=== PATIENT | male | born 1960 | race Two or more races ===

== ENCOUNTER 2018-06-02 18:31 | Inpatient (IN) | payer OTHER ==
[~2018-06-02] VITALS: Ht 162.6 cm; Wt 53.2 kg
[2018-06-02] MEDS ORDERED: Sodium Chloride 500ML 500 ML IV ONE (18:45)
[2018-06-02] MEDS ORDERED: MELATONIN3 MG ORAL (18:49)
[2018-06-02] MEDS ORDERED: LISINOPRIL5 MG ORAL (18:49)
[2018-06-02] MEDS ORDERED: NEXIUM20 MG ORAL (18:49)
[2018-06-02] MEDS ORDERED: ASCORBIC ACID500 MG ORAL (18:49)
[2018-06-02] MEDS ORDERED: ACETAMINOPHEN325 M1 ORAL (18:49)
[2018-06-02] MEDS ORDERED: DULCOLAX10 MG RC (18:49)
[2018-06-02] MEDS ORDERED: COLACE100 MG ORAL (18:49)
[2018-06-02] MEDS ORDERED: ATORVASTATIN CA20 MG ORAL (18:49)
[2018-06-02] MEDS ORDERED: AMLODIPINE BESY10 MG ORAL (18:49)
[2018-06-02] MEDS ORDERED: VITAMIN D400 INTLU ORAL (18:49)
[2018-06-02] MEDS ORDERED: MULTIVITAMINS1 EAC2 ORAL (18:49)
[2018-06-02] MEDS ORDERED: PRO-STAT LIQUID30 ML ORAL (18:49)
[2018-06-02 19:12] LABS: BASOPHILS % (AUTO) 0.4 % (0.0-2.0); HEMATOCRIT 31.1 % (42.0-52.0); HEMOGLOBIN 10.2 G/DL (14.2-18.0); LYMPHOCYTES % (AUTO) 15.1 % (20.0-45.0); MEAN CORPUSCULAR VOLUME 87 FL (80-99); MONOCYTES % (AUTO) 5.5 % (1.0-10.0); PLATELET COUNT 380 K/UL (150-450); RED BLOOD COUNT 3.59 M/UL (4.70-6.10); RED CELL DISTRIBUTION WIDTH 15.3 % (11.6-14.8); WHITE BLOOD COUNT 16.7 K/UL (4.8-10.8)
[2018-06-02 19:19] VITALS: BP 101/64
[2018-06-02 19:20] LABS: ANION GAP 11 mmol/L (5-15); BLOOD UREA NITROGEN 19 mg/dL (7-18); CALCIUM 9.3 MG/DL (8.5-10.1); CARBON DIOXIDE 25 MMOL/L (21-32); CHLORIDE 103 MMOL/L (98-107); CREATININE 0.8 MG/DL (0.55-1.30); POTASSIUM 4.2 MMOL/L (3.5-5.1); SODIUM 139 MMOL/L (136-145)
[2018-06-02 19:33] LABS: ALANINE AMINOTRANSFERASE 27 U/L (12-78); ALBUMIN 3.1 G/DL (3.4-5.0); ALBUMIN/GLOBULIN RATIO 0.6 (1.0-2.7); ALKALINE PHOSPHATASE 105 U/L (46-116); ASPARTATE AMINO TRANSFERASE 16 U/L (15-37); BILIRUBIN,TOTAL 0.3 MG/DL (0.2-1.0); CKMB 1.5 NG/ML (0.0-3.6); CREATINE KINASE 94 U/L (26-308)
--- NOTE | 2018-06-02 19:34 | Emergency Room Report ---
History of Present Illness General Chief Complaint: General Complaint Source: Patient, EMS Present Illness HPI Patient presents for evaluation of feeding tube placement Patient himself reports that he has no pain Denies any vomiting Patient has been having decreased oral intake The notes on the nursing facility indicate transfer to Hospital for feeding tube placement I am attempting to obtain further input regarding the need for feeding tube Patient has a tracheostomy in place with previous respiratory failure It is unclear regarding any esophageal mobility or other obstructive pathology Allergies: Coded Allergies: No Known Allergies (Unverified , 06/02/18) Patient History Past Medical History: see triage record Pertinent Family History: none Reviewed Nursing Documentation: PMH: Agreed; PSxH: Agreed Nursing Documentation-PMH Past Medical History: No History, Except For Hx Hypertension: Yes Hx COPD: Yes Review of Systems All Other Systems: negative except mentioned in HPI Physical Exam Vital Signs Date Time Temp Pulse Resp B/P (MAP) Pulse Ox O2 Delivery O2 Flow Rate FiO2 06/02/18 18:36 98.1 89 19 130/72 99 Mechanical Ventilator 06/02/18 18:43 40 Sp02 EP Interpretation: reviewed, normal General Appearance: well appearing, no apparent distress Head: normocephalic, atraumatic Eyes: bilateral eye PERRL, bilateral eye EOMI ENT: hearing grossly normal, normal pharynx, TMs + canals normal, uvula midline , other - Tracheostomy in place Neck: full range of motion, supple, no meningismus, no bony tend Respiratory: lungs clear, normal breath sounds, no rhonchi, no respiratory distress, no retraction, no accessory muscle use Cardiovascular #1: normal peripheral pulses, regular rate, rhythm, no edema, no gallop, no JVD, no murmur Gastrointestinal: normal bowel sounds, non tender, soft, no mass, no organomegaly, non-distended, no guarding, no hernia, no pulsatile mass, no rebound Genitourinary: no CVA tenderness Musculoskeletal: other - Chronically debilitated, moves both upper extremities equally Neurologic: oriented x3, responsive Psychiatric: mood/affect normal Skin: normal color, no rash, warm/dry, palpation normal Lymphatic: normal inspection, no adenopathy Medical Decision Making Diagnostic Impression: Primary Impression: Leukocytosis Qualified Codes: D72.829 - Elevated white blood cell count, unspecified Additional Impression: Dehydration ER Course Patient is a fairly complex patient with multiple differential to consideration including but not limited to cardiac cardiopulmonary and vascular emergencies Patient's blood work reveals elevated white blood cell count Patient requiring IV hydration No obvious source is seen at this time Patient had blood cultures obtained and antibiotics provided requiring further inpatient care Labs Test 06/02/18 19:00 06/02/18 19:54 06/02/18 22:13 06/03/18 03:10 White Blood Count 16.7 K/UL (4.8-10.8) 12.4 K/UL (4.8-10.8) Red Blood Count 3.59 M/UL (4.70-6.10) 3.15 M/UL (4.70-6.10) Hemoglobin 10.2 G/DL (14.2-18.0) 9.0 G/DL (14.2-18.0) Hematocrit 31.1 % (42.0-52.0) 26.9 % (42.0-52.0) Mean Corpuscular Volume 87 FL (80-99) 85 FL (80-99) Mean Corpuscular Hemoglobin 28.4 PG (27.0-31.0) 28.6 PG (27.0-31.0) Mean Corpuscular Hemoglobin Concent 32.7 G/DL (32.0-36.0) 33.4 G/DL (32.0-36.0) Red Cell Distribution Width 15.3 % (11.6-14.8) 14.9 % (11.6-14.8) Platelet Count 380 K/UL (150-450) 299 K/UL (150-450) Mean Platelet Volume 7.8 FL (6.5-10.1) 8.1 FL (6.5-10.1) Neutrophils (%) (Auto) 78.0 % (45.0-75.0) 72.8 % (45.0-75.0) Lymphocytes (%) (Auto) 15.1 % (20.0-45.0) 18.9 % (20.0-45.0) Monocytes (%) (Auto) 5.5 % (1.0-10.0) 6.5 % (1.0-10.0) Eosinophils (%) (Auto) 1.0 % (0.0-3.0) 1.3 % (0.0-3.0) Basophils (%) (Auto) 0.4 % (0.0-2.0) 0.5 % (0.0-2.0) Prothrombin Time 10.6 SEC (9.30-11.50) Prothromb Time International Ratio 1.0 (0.9-1.1) Activated Partial Thromboplast Time 29 SEC (23-33) Sodium Level 139 MMOL/L (136-145) 137 MMOL/L (136-145) Potassium Level 4.2 MMOL/L (3.5-5.1) 3.5 MMOL/L (3.5-5.1) Chloride Level 103 MMOL/L (98-107) 104 MMOL/L (98-107) Carbon Dioxide Level 25 MMOL/L (21-32) 23 MMOL/L (21-32) Anion Gap 11 mmol/L (5-15) 10 mmol/L (5-15) Blood Urea Nitrogen 19 mg/dL (7-18) 15 mg/dL (7-18) Creatinine 0.8 MG/DL (0.55-1.30) 0.6 MG/DL (0.55-1.30) Estimat Glomerular Filtration Rate > 60 mL/min (>60) > 60 mL/min (>60) Glucose Level 113 MG/DL (74-106) 84 MG/DL (74-106) Calcium Level 9.3 MG/DL (8.5-10.1) 8.8 MG/DL (8.5-10.1) Total Bilirubin 0.3 MG/DL (0.2-1.0) 0.6 MG/DL (0.2-1.0) Aspartate Amino Transf (AST/SGOT) 16 U/L (15-37) 14 U/L (15-37) Alanine Aminotransferase (ALT/SGPT) 27 U/L (12-78) 20 U/L (12-78) Alkaline Phosphatase 105 U/L (46-116) 86 U/L (46-116) Total Creatine Kinase 94 U/L (26-308) Creatine Kinase MB 1.5 NG/ML (0.0-3.6) Creatine Kinase MB Relative Index 1.5 Troponin I 0.000 ng/mL (0.000-0.056) Total Protein 7.9 G/DL (6.4-8.2) 7.3 G/DL (6.4-8.2) Albumin 3.1 G/DL (3.4-5.0) 2.6 G/DL (3.4-5.0) Globulin 4.8 g/dL 4.7 g/dL Albumin/Globulin Ratio 0.6 (1.0-2.7) 0.6 (1.0-2.7) Urine Color Pale yellow Urine Appearance Clear Urine pH 5 (4.5-8.0) Urine Specific [place] 1.020 (1.005-1.035) Urine Protein Negative (NEGATIVE) Urine Glucose (UA) Negative (NEGATIVE) Urine Ketones Negative (NEGATIVE) Urine Blood Negative (NEGATIVE) Urine Nitrite Negative (NEGATIVE) Urine Bilirubin Negative (NEGATIVE) Urine Urobilinogen Normal MG/DL (0.0-1.0) Urine Leukocyte Esterase 1+ (NEGATIVE) Urine RBC 0-2 /HPF (0 - 0) Urine WBC 0-2 /HPF (0 - 0) Urine Squamous Epithelial Cells None /LPF (NONE/OCC) Urine Bacteria Few /HPF (NONE) Arterial Blood pH 7.474 (7.350-7.450) Arterial Blood Partial Pressure CO2 33.3 mmHg (35.0-45.0) Arterial Blood Partial Pressure O2 133.9 mmHg (75.0-100.0) Arterial Blood HCO3 23.9 mmol/L (22.0-26.0) Arterial Blood Oxygen Saturation 98.3 % (95-100) Arterial Blood Base Excess 0.6 (-2-2) Edgar Test Positive EKG Diagnostic Results Rate: normal Rhythm: NSR ST Segments: no acute changes Rhythm Strip Diag. Results EP Interpretation: yes Rate: 80 Rhythm: NSR, no PVC's, no ectopy Chest X-Ray Diagnostic Results Chest X-Ray Diagnostic Results : Chest X-Ray Ordered: Yes # of Views/Limited/Complete: 1 View Indication: Chest Pain EP Interpretation: Yes Interpretation: no consolidation, no pneumothorax, other - Left lower lobe Atelectasis Impression: Other - left lower lobeatelectasis Electronically Signed by: Vinny Olivas DO Last Vital Signs Date Time Temp Pulse Resp B/P (MAP) Pulse Ox O2 Delivery O2 Flow Rate FiO2 06/02/18 19:19 98.1 72 16 101/64 99 Room Air 40 Status: improved Disposition: ADMITTED INPATIENT Condition: Serious Referrals: ROBERTO CARLOS BOATENG (PCP) Vinny Olivas DO Jun 02, 2018 19:34
[2018-06-02 20:04] LABS: APPEARANCE,URINE CLEAR; BILIRUBIN, URINE NEGATIVE (NEGATIVE); COLOR,URINE PALE YELLOW; GLUCOSE, URINE (UA) NEGATIVE (NEGATIVE); KETONES,URINE NEGATIVE (NEGATIVE); LEUKOCYTE ESTERASE ,URINE 1+ (NEGATIVE); NITRITE,URINE NEGATIVE (NEGATIVE); PH,URINE 5 (4.5-8.0); PROTEIN,URINE NEGATIVE (NEGATIVE); UROBILINOGEN,URINE NORMAL MG/DL (0.0-1.0)
[2018-06-02] MEDS ORDERED: HEPARIN SO5000 UNIT2 SUBQ (20:17)
[2018-06-02] MEDS ORDERED: MULTIVITAMINS1 EAC8 ORAL (20:38)
[2018-06-02] MEDS ORDERED: LANSOPRAZOLE30 MG ORAL (20:38)
[2018-06-02] MEDS ORDERED: RILUZOLE50 M1 ORAL (20:38)
[2018-06-02] MEDS ORDERED: CRANBERRY425 MG PO (20:50)
[2018-06-02] MEDS ORDERED: IBUPROFEN600 MG ORAL (20:50)
[2018-06-02] MEDS ORDERED: HIBICLENS118 ML PO (20:50)
[2018-06-02 21:20] VITALS: BP 141/90
[2018-06-02] MEDS: D5NS 1,000 ML IV SCH (22:00)
[2018-06-03] VITALS: BP 110/75
[2018-06-03 05:14] LABS: BASOPHILS % (AUTO) 0.5 % (0.0-2.0); EOSINOPHILS % (AUTO) 1.3 % (0.0-3.0); HEMATOCRIT 26.9 % (42.0-52.0); LYMPHOCYTES % (AUTO) 18.9 % (20.0-45.0); MEAN CORPUSCULAR VOLUME 85 FL (80-99); MONOCYTES % (AUTO) 6.5 % (1.0-10.0); NEUTROPHILS % (AUTO) 72.8 % (45.0-75.0); PLATELET COUNT 299 K/UL (150-450); RED BLOOD COUNT 3.15 M/UL (4.70-6.10); RED CELL DISTRIBUTION WIDTH 14.9 % (11.6-14.8); WHITE BLOOD COUNT 12.4 K/UL (4.8-10.8)
[2018-06-03 05:44] LABS: ALANINE AMINOTRANSFERASE 20 U/L (12-78); ALBUMIN 2.6 G/DL (3.4-5.0); ALBUMIN/GLOBULIN RATIO 0.6 (1.0-2.7); ALKALINE PHOSPHATASE 86 U/L (46-116); ANION GAP 10 mmol/L (5-15); ASPARTATE AMINO TRANSFERASE 14 U/L (15-37); BILIRUBIN,TOTAL 0.6 MG/DL (0.2-1.0); BLOOD UREA NITROGEN 15 mg/dL (7-18); CALCIUM 8.8 MG/DL (8.5-10.1); CARBON DIOXIDE 23 MMOL/L (21-32); CHLORIDE 104 MMOL/L (98-107); CREATININE 0.6 MG/DL (0.55-1.30); POTASSIUM 3.5 MMOL/L (3.5-5.1); SODIUM 137 MMOL/L (136-145)
[2018-06-03 08:00] VITALS: BP 101/68
--- NOTE | 2018-06-03 08:16 | Consultation ---
Consult Note Assessment/Plan DICT # [id number] Parveen Blanco MD Jun 03, 2018 08:16
[2018-06-03] MEDS: Lisinopril 10mg tab ORAL SCH (08:22)
[2018-06-03] MEDS: Multivitamin w/Minerals tab ORAL SCH (08:44)
[2018-06-03] MEDS: D5NS 1,000 ML IV SCH ×2 (08:44→17:20)
[2018-06-03] MEDS: Vitamin D 1000 IU Tab ORAL SCH (08:45)
[2018-06-03] MEDS: Docusate 100mg cap ORAL SCH ×2 (08:46→17:20)
[2018-06-03] MEDS: Heparin 5000 units/ml inj SUBQ SCH ×2 (08:46→20:13)
--- NOTE | 2018-06-03 08:51 | History and Physical ---
History of Present Illness General Date patient seen: Jun 03, 2018 Time patient seen: 08:42 Reason for Hospitalization: weight loss Present Illness HPI 58 yo male with h/o htn and h/o trach s/p resp failure at [facility] presents due to concerns for malnutrition. Patient currently resides at [facility]. I have discussed the case with his son as it was difficult to understand patient as he has trach and attached to vent. Patient currently is being evaluated by neurologist and there is concerned for motor neuron disease such as ALS. Patient was recommended to get PEG placement due to unintentional weight loss and poor PO intake. Patient currently denies any complaints besides weight loss, denies any cp or abd pain/diarrhea/constipation. Unclear regarding any esophageal mobility or other obstructive pathology, CT abd/pelvis pending per pulm, Dr. Blanco planned for PEG GI dr. Lainez consulted ID Dr. De La Cruz consulted Code status: FULL CODE social hx reviewed, past smoker, does not drink alcohol or do drugs past fam hx reviewed, denies knowing of any sig past fam hx Allergies: Coded Allergies: No Known Allergies (Unverified , 06/02/18) Medication History Scheduled Amino Acids/Protein Hydrolys (Pro-Stat Liquid), 30 ML ORAL TWICE A DAY, ( Reported) Amlodipine Besylate* (Amlodipine Besylate*), 10 MG ORAL DAILY, (Reported) Ascorbic Acid* (Ascorbic Acid*), 500 MG ORAL DAILY, (Reported) Atorvastatin Calcium* (Atorvastatin Calcium*), 10 MG ORAL BEDTIME, (Reported) Chlorhexidine Gluconate* (Hibiclens*), 15 ML PO BID, (Reported) Cranberry Extract (Cranberry), 425 MG PO DAILY, (Reported) Docusate Sodium* (Colace*), 100 MG ORAL BID, (Reported) Lansoprazole* (Lansoprazole*), 30 MG ORAL BID, (Reported) Lisinopril (Lisinopril*), 10 MG ORAL DAILY, (Reported) Melatonin (Melatonin), 3 MG ORAL BEDTIME, (Reported) Multivitamin With Minerals (Multivitamins With Minerals*), 1 TAB ORAL DAILY, ( Reported) Riluzole* (Riluzole*), 50 MG ORAL EVERY 12 HOURS, (Reported) Vitamin D (Vitamin D3), 5,000 UNITS ORAL DAILY, (Reported) Scheduled PRN Acetaminophen* (Acetaminophen 325MG Tablet*), 650 MG ORAL Q4H PRN for For Pain, (Reported) Bisacodyl (Dulcolax), 10 MG RC for Constipation, (Reported) Ibuprofen* (Motrin*), 600 MG ORAL Q8H PRN for For Pain, (Reported) Discontinued Medications Esomeprazole Magnesium (Nexium), 20 MG ORAL DAILY, (Reported) Discontinued Reason: Prescription changed Heparin Sod (Porcine) (Heparin Sodium*), 5,000 UNITS SUBQ EVERY 12 HOURS, ( Reported) Discontinued Reason: Pt stopped taking med Multivitamins* (Multivitamins*), 1 TAB ORAL DAILY, (Reported) Discontinued Reason: Prescription changed Patient History History Provided By: Family Member, Medical Record Healthcare decision maker : Randa Robles Resuscitation status Full Code Advanced Directive on File Yes Review of Systems ROS Narrative 14 point ros reviewed and negative except per above HPI Physical Exam General Appearance: WD/WN, no apparent distress, alert Lines, tubes and drains: peripheral HEENT: normocephalic, atraumatic Neck: non-tender, normal alignment, supple, normal inspection, trach Cardiovascular/Chest: normal peripheral pulses, normal rate, regular rhythm Abdomen: normal bowel sounds, non tender, soft, no organomegaly, no mass Extremities: normal range of motion, non-tender, normal inspection, no calf tenderness Skin Exam: normal pigmentation, warm/dry Neurologic: lay brother II-XII grossly normal, alert, oriented x 3, responsive, normal mood/affect Last 24 Hour Vital Signs Date Time Temp Pulse Resp B/P (MAP) Pulse Ox O2 Delivery O2 Flow Rate FiO2 06/03/18 08:22 101/68 06/03/18 08:22 59 101/68 06/03/18 08:00 97.6 59 19 101/68 (79) 100 06/03/18 08:00 40 06/03/18 07:30 58 16 40 06/03/18 04:49 54 16 40 06/03/18 04:00 40 06/03/18 04:00 75 06/03/18 04:00 Mechanical Ventilator 06/03/18 02:51 55 16 40 06/03/18 00:44 100 16 40 06/03/18 00:00 98.8 73 16 110/75 (87) 100 06/03/18 00:00 67 06/03/18 00:00 Mechanical Ventilator 06/03/18 00:00 40 06/02/18 23:06 104 24 40 06/02/18 21:50 Mechanical Ventilator 06/02/18 21:35 98.5 72 17 97/68 100 Room Air 06/02/18 21:31 83 18 40 06/02/18 21:20 40 06/02/18 21:20 98.4 97 22 141/90 (107) 99 06/02/18 21:20 73 06/02/18 19:30 40 06/02/18 19:19 98.1 72 16 101/64 99 Room Air 40 06/02/18 19:19 79 16 Mechanical Ventilator 40 06/02/18 18:47 79 16 Mechanical Ventilator 40 06/02/18 18:43 79 16 40 06/02/18 18:36 98.1 89 19 130/72 99 Mechanical Ventilator Intake and Output 06/02/18 06/03/18 19:00 07:00 Intake Total 0 ml Output Total 500 ml Balance -500 ml Intake Oral 0 ml Output Urine Total 500 ml # Voids 1 Laboratory Tests Test 06/02/18 19:00 06/02/18 19:54 06/02/18 22:13 06/03/18 03:10 White Blood Count 16.7 K/UL (4.8-10.8) H 12.4 K/UL (4.8-10.8) H Red Blood Count 3.59 M/UL (4.70-6.10) L 3.15 M/UL (4.70-6.10) L Hemoglobin 10.2 G/DL (14.2-18.0) L 9.0 G/DL (14.2-18.0) L Hematocrit 31.1 % (42.0-52.0) L 26.9 % (42.0-52.0) L Mean Corpuscular Volume 87 FL (80-99) 85 FL (80-99) Mean Corpuscular Hemoglobin 28.4 PG (27.0-31.0) 28.6 PG (27.0-31.0) Mean Corpuscular Hemoglobin Concent 32.7 G/DL (32.0-36.0) 33.4 G/DL (32.0-36.0) Red Cell Distribution Width 15.3 % (11.6-14.8) H 14.9 % (11.6-14.8) H Platelet Count 380 K/UL (150-450) 299 K/UL (150-450) Mean Platelet Volume 7.8 FL (6.5-10.1) 8.1 FL (6.5-10.1) Neutrophils (%) (Auto) 78.0 % (45.0-75.0) H 72.8 % (45.0-75.0) Lymphocytes (%) (Auto) 15.1 % (20.0-45.0) L 18.9 % (20.0-45.0) L Monocytes (%) (Auto) 5.5 % (1.0-10.0) 6.5 % (1.0-10.0) Eosinophils (%) (Auto) 1.0 % (0.0-3.0) 1.3 % (0.0-3.0) Basophils (%) (Auto) 0.4 % (0.0-2.0) 0.5 % (0.0-2.0) Prothrombin Time 10.6 SEC (9.30-11.50) Prothromb Time International Ratio 1.0 (0.9-1.1) Activated Partial Thromboplast Time 29 SEC (23-33) Sodium Level 139 MMOL/L (136-145) 137 MMOL/L (136-145) Potassium Level 4.2 MMOL/L (3.5-5.1) 3.5 MMOL/L (3.5-5.1) Chloride Level 103 MMOL/L (98-107) 104 MMOL/L (98-107) Carbon Dioxide Level 25 MMOL/L (21-32) 23 MMOL/L (21-32) Anion Gap 11 mmol/L (5-15) 10 mmol/L (5-15) Blood Urea Nitrogen 19 mg/dL (7-18) H 15 mg/dL (7-18) Creatinine 0.8 MG/DL (0.55-1.30) 0.6 MG/DL (0.55-1.30) Estimat Glomerular Filtration Rate > 60 mL/min (>60) > 60 mL/min (>60) Glucose Level 113 MG/DL (74-106) H 84 MG/DL (74-106) Calcium Level 9.3 MG/DL (8.5-10.1) 8.8 MG/DL (8.5-10.1) Total Bilirubin 0.3 MG/DL (0.2-1.0) 0.6 MG/DL (0.2-1.0) Aspartate Amino Transf (AST/SGOT) 16 U/L (15-37) 14 U/L (15-37) L Alanine Aminotransferase (ALT/SGPT) 27 U/L (12-78) 20 U/L (12-78) Alkaline Phosphatase 105 U/L (46-116) 86 U/L (46-116) Total Creatine Kinase 94 U/L (26-308) Creatine Kinase MB 1.5 NG/ML (0.0-3.6) Creatine Kinase MB Relative Index 1.5 Troponin I 0.000 ng/mL (0.000-0.056) Total Protein 7.9 G/DL (6.4-8.2) 7.3 G/DL (6.4-8.2) Albumin 3.1 G/DL (3.4-5.0) L 2.6 G/DL (3.4-5.0) L Globulin 4.8 g/dL 4.7 g/dL Albumin/Globulin Ratio 0.6 (1.0-2.7) L 0.6 (1.0-2.7) L Urine Color Pale yellow Urine Appearance Clear Urine pH 5 (4.5-8.0) Urine Specific [place] 1.020 (1.005-1.035) Urine Protein Negative (NEGATIVE) Urine Glucose (UA) Negative (NEGATIVE) Urine Ketones Negative (NEGATIVE) Urine Blood Negative (NEGATIVE) Urine Nitrite Negative (NEGATIVE) Urine Bilirubin Negative (NEGATIVE) Urine Urobilinogen Normal MG/DL (0.0-1.0) Urine Leukocyte Esterase 1+ (NEGATIVE) H Urine RBC 0-2 /HPF (0 - 0) H Urine WBC 0-2 /HPF (0 - 0) Urine Squamous Epithelial Cells None /LPF (NONE/OCC) Urine Bacteria Few /HPF (NONE) Arterial Blood pH 7.474 (7.350-7.450) Arterial Blood Partial Pressure CO2 33.3 mmHg (35.0-45.0) L Arterial Blood Partial Pressure O2 133.9 mmHg (75.0-100.0) H Arterial Blood HCO3 23.9 mmol/L (22.0-26.0) Arterial Blood Oxygen Saturation 98.3 % (95-100) Arterial Blood Base Excess 0.6 (-2-2) Edgar Test Positive Height (Feet): 5 Height (Inches): 4.00 Weight (Pounds): 112 Medications Current Medications Medications (Trade) Dose Ordered Sig/Irma Route PRN Reason Start Time Stop Time Status Last Admin Dose Admin Acetaminophen (Tylenol) 650 mg Q4H PRN ORAL For Pain 06/02/18 22:00 07/02/18 21:59 Albuterol/ Ipratropium (Albuterol/ Ipratropium) 3 ml Q4H PRN HHN Shortness of Breath 06/03/18 08:15 06/08/18 08:14 Amlodipine Besylate (Norvasc) 10 mg DAILY ORAL 06/03/18 09:00 07/03/18 08:59 Atorvastatin Calcium (Lipitor) 10 mg BEDTIME ORAL 06/02/18 22:30 07/02/18 22:29 06/02/18 22:35 Bisacodyl (Dulcolax) 10 mg DAILYPRN PRN RECTAL Constipation 06/03/18 06:41 07/03/18 06:40 Dextrose/Sodium Chloride 1,000 ml @ 100 mls/hr Q10H IV 06/02/18 22:00 07/02/18 21:59 06/02/18 22:00 Docusate Sodium (Colace) 100 mg BID ORAL 06/03/18 09:00 07/03/18 08:59 Heparin Sodium (Porcine) (Heparin 5000 units/ml) 5,000 units EVERY 12 HOURS SUBQ 06/03/18 09:00 07/03/18 08:59 Lansoprazole (Prevacid) 30 mg BID ORAL 06/03/18 09:00 07/03/18 08:59 Lisinopril (Zestril) 10 mg DAILY ORAL 06/03/18 09:00 07/03/18 08:59 Multivitamins Therapeutic (Therapeutic Multivitamin) 1 ea DAILY ORAL 06/03/18 09:00 07/03/18 08:59 Vitamin D (Vitamin D) 2,000 intlu DAILY ORAL 06/03/18 09:00 07/03/18 08:59 Assessment/Plan Problem List: (1) Protein calorie malnutrition ICD Codes: E46 - Unspecified protein-calorie malnutrition SNOMED: 402376479 (2) Status post tracheostomy ICD Codes: Z93.0 - Tracheostomy status SNOMED: 80176810, 142253207 (3) Motor neuron disease, unspecified ICD Codes: G12.20 - Motor neuron disease, unspecified SNOMED: 92550951 (4) Leukocytosis ICD Codes: D72.829 - Elevated white blood cell count, unspecified SNOMED: 210634291, 450867721 Qualifiers: Qualified Codes: D72.829 - Elevated white blood cell count, unspecified (5) Essential hypertension ICD Codes: I10 - Essential (primary) hypertension SNOMED: 90787826 Status: stable Assessment/Plan WBC 16 on admit, unsure of cause, cxr pending, ct abd pelvis pending, aspiration ? levofloxacin started, ID consulted poor PO intake, Patient has a tracheostomy in place with previous respiratory failure, unclear regarding any esophageal mobility or other obstructive pathology, GI consulted, plan for PEG placement follows with neurology outpatient, complete possible ALS workup outpt patient trached, connected to vent, pulm consulted, appreciate recs pending ct abd/pelv w/wo con [employer] operations specialist consult resume htn meds DVT Prophylaxis: SCD, HSQ Code Status: Full Hospital Classification Declaration: Based on this initial evaluation, and depending on the patient's clinical course, I anticipate that this patient will require hospitalization for [] days for [] and close respiratory/hemodynamic monitoring. Disposition: Once the patient is stable to leave the hospital, I anticipate the patient will likely be discharged to the following environment: home I spent 71 minutes on this patient's case, and 40 minutes were dedicated to counseling and/or care coordination. Discussed with patient/family, nursing staff, SW/CM, and consultants regarding clinical status, treatment course, and disposition planning. Time of note may not reflect time of encounter. ---- Date of Discussion: 06/03/18 A [id number] discussion with the patient's son regarding the patient's advanced care planning took place during this hospitalization on the above date. The discussion included the explanation and discussion of advance directives and associated forms/documents, as well as the patient's current code status. We also discussed at length the patient's medical conditions (both acute and chronic), general prognosis, treatment options, and goals of care. The following summarizes the discussion: Advance Care Planning/Goals of Care: - polst completed - Continue current evaluation and management of any acute and chronic medical issues - Will continue to support the patient/family - Will continue to discuss both short- and long-term goals of care DPOA-HC/Surrogate Decision Maker: Randa yanez Code Status: Full Code AD Forms/Documents Completed: completed A total of 31 minutes was spent on this discussion, including counseling, answering questions, and completing, if any, pertinent advanced care planning forms/documents. Beth Aburto MD Jun 03, 2018 08:51
[2018-06-03] MEDS: Albuterol/Ipratropium 3ml neb HHN PRN ×2 (10:40→18:41)
--- NOTE | 2018-06-03 11:17 | GI Initial Consult Note ---
History of Present Illness General Date patient seen: Jun 03, 2018 Time patient seen: 11:52 Reason for Hospitalization: General Complaint Referring physician: GUS CURRY Reason for Consultation: PEG evaluation Present Illness HPI Patient presents for evaluation of feeding tube placement Patient himself reports that he has no pain Denies any vomiting Patient has been having decreased oral intake The notes on the nursing facility indicate transfer to Hospital for feeding tube placement I am attempting to obtain further input regarding the need for feeding tube Patient has a tracheostomy in place with previous respiratory failure It is unclear regarding any esophageal mobility or other obstructive pathology GI consulted for possible PEG placement. Patient was seen, awake alert and oriented x4 noted with a tracheostomy. No apparent distress. According to report the patient was on a regular diet at the correction. The patient was able to express he has a decrease in appetite. Swallow evaluation is pending at this time. Unknown history of endoscopic or colonoscopy at this time. Labs reviewed; normocytic anemia, normalizing leukocytosis and hypoalbuminemia. Home Meds Reported Medications Ibuprofen* (MOTRIN*) 600 Mg Tablet, 600 MG ORAL Q8H PRN for For Pain, #30 TAB 0 Refills 06/02/18 Cranberry Extract (CRANBERRY) 425 Mg Capsule, 425 MG PO DAILY, CAP 06/02/18 Chlorhexidine Gluconate* (HIBICLENS*) 118 Ml Liquid, 15 ML PO BID, ML 06/02/18 Riluzole* (RILUZOLE*) 50 Mg Tablet, 50 MG ORAL EVERY 12 HOURS, TAB 06/02/18 Lansoprazole* (LANSOPRAZOLE*) 30 Mg Capsule.dr, 30 MG ORAL BID, CAP 06/02/18 Multivitamin With Minerals (MULTIVITAMINS WITH MINERALS*) 1 Each Tablet, 1 TAB ORAL DAILY, TAB 06/02/18 Amino Acids/Protein Hydrolys (PRO-STAT LIQUID) 30 Ml Liquid.pkt, 30 ML ORAL TWICE A DAY, ML 06/02/18 Acetaminophen* (ACETAMINOPHEN 325MG TABLET*) 325 Mg Tablet, 650 MG ORAL Q4H PRN for For Pain, TAB 06/02/18 Vitamin D (Vitamin D3) 400 Unit Tablet, 5000 UNITS ORAL DAILY, TAB 06/02/18 Ascorbic Acid* (ASCORBIC ACID*) 500 Mg Tablet, 500 MG ORAL DAILY, TAB 06/02/18 Melatonin (MELATONIN) 3 Mg Tablet, 3 MG ORAL BEDTIME, TAB 06/02/18 Lisinopril (LISINOPRIL*) 5 Mg Tablet, 10 MG ORAL DAILY, TAB 06/02/18 Bisacodyl (DULCOLAX) 10 Mg Supp.rect, 10 MG RC PRN for Constipation, SUPP 06/02/18 Docusate Sodium* (COLACE*) 100 Mg Capsule, 100 MG ORAL BID, CAP 06/02/18 Atorvastatin Calcium* (ATORVASTATIN CALCIUM*) 20 Mg Tablet, 10 MG ORAL BEDTIME, TAB 06/02/18 Amlodipine Besylate* (AMLODIPINE BESYLATE*) 10 Mg Tablet, 10 MG ORAL DAILY, TAB 06/02/18 Discontinued Reported Medications Heparin Sod (Porcine) (HEPARIN SODIUM*) 5 000/1 Ml Vial, 5000 UNITS SUBQ EVERY 12 HOURS, VIAL 06/02/18 Esomeprazole Magnesium (NEXIUM) 20 Mg Capsule.dr, 20 MG ORAL DAILY, CAP 06/02/18 Multivitamins* (MULTIVITAMINS*) 1 Each Tablet, 1 TAB ORAL DAILY, TAB 0 Refills 06/02/18 Med list reviewed/reconciled: Yes Allergies: Coded Allergies: No Known Allergies (Unverified , 06/02/18) Patient History Limited by: medical condition History Provided By: Patient, Medical Record PMH Narrative Past Medical History: see triage record Pertinent Family History: none Reviewed Nursing Documentation: PMH: Agreed; PSxH: Agreed Nursing Documentation-PMH Past Medical History: No History, Except For Hx Hypertension: Yes Hx COPD: Yes Past Surgical History: other - Tracheostomy Social History: Denies: smoking, alcohol use, drug use, other Review of Systems All Other Systems: negative except mentioned in HPI Physical Exam Vital Signs Date Time Temp Pulse Resp B/P (MAP) Pulse Ox O2 Delivery O2 Flow Rate FiO2 06/02/18 18:36 98.1 89 19 130/72 99 Mechanical Ventilator 06/02/18 18:43 40 06/03/18 10:38 15.0 Sp02 EP Interpretation: reviewed, normal Labs Laboratory Tests Test 06/02/18 19:00 06/02/18 19:54 06/02/18 22:13 06/03/18 03:10 White Blood Count 16.7 K/UL (4.8-10.8) H 12.4 K/UL (4.8-10.8) H Red Blood Count 3.59 M/UL (4.70-6.10) L 3.15 M/UL (4.70-6.10) L Hemoglobin 10.2 G/DL (14.2-18.0) L 9.0 G/DL (14.2-18.0) L Hematocrit 31.1 % (42.0-52.0) L 26.9 % (42.0-52.0) L Mean Corpuscular Volume 87 FL (80-99) 85 FL (80-99) Mean Corpuscular Hemoglobin 28.4 PG (27.0-31.0) 28.6 PG (27.0-31.0) Mean Corpuscular Hemoglobin Concent 32.7 G/DL (32.0-36.0) 33.4 G/DL (32.0-36.0) Red Cell Distribution Width 15.3 % (11.6-14.8) H 14.9 % (11.6-14.8) H Platelet Count 380 K/UL (150-450) 299 K/UL (150-450) Mean Platelet Volume 7.8 FL (6.5-10.1) 8.1 FL (6.5-10.1) Neutrophils (%) (Auto) 78.0 % (45.0-75.0) H 72.8 % (45.0-75.0) Lymphocytes (%) (Auto) 15.1 % (20.0-45.0) L 18.9 % (20.0-45.0) L Monocytes (%) (Auto) 5.5 % (1.0-10.0) 6.5 % (1.0-10.0) Eosinophils (%) (Auto) 1.0 % (0.0-3.0) 1.3 % (0.0-3.0) Basophils (%) (Auto) 0.4 % (0.0-2.0) 0.5 % (0.0-2.0) Prothrombin Time 10.6 SEC (9.30-11.50) Prothromb Time International Ratio 1.0 (0.9-1.1) Activated Partial Thromboplast Time 29 SEC (23-33) Sodium Level 139 MMOL/L (136-145) 137 MMOL/L (136-145) Potassium Level 4.2 MMOL/L (3.5-5.1) 3.5 MMOL/L (3.5-5.1) Chloride Level 103 MMOL/L (98-107) 104 MMOL/L (98-107) Carbon Dioxide Level 25 MMOL/L (21-32) 23 MMOL/L (21-32) Anion Gap 11 mmol/L (5-15) 10 mmol/L (5-15) Blood Urea Nitrogen 19 mg/dL (7-18) H 15 mg/dL (7-18) Creatinine 0.8 MG/DL (0.55-1.30) 0.6 MG/DL (0.55-1.30) Estimat Glomerular Filtration Rate > 60 mL/min (>60) > 60 mL/min (>60) Glucose Level 113 MG/DL (74-106) H 84 MG/DL (74-106) Calcium Level 9.3 MG/DL (8.5-10.1) 8.8 MG/DL (8.5-10.1) Total Bilirubin 0.3 MG/DL (0.2-1.0) 0.6 MG/DL (0.2-1.0) Aspartate Amino Transf (AST/SGOT) 16 U/L (15-37) 14 U/L (15-37) L Alanine Aminotransferase (ALT/SGPT) 27 U/L (12-78) 20 U/L (12-78) Alkaline Phosphatase 105 U/L (46-116) 86 U/L (46-116) Total Creatine Kinase 94 U/L (26-308) Creatine Kinase MB 1.5 NG/ML (0.0-3.6) Creatine Kinase MB Relative Index 1.5 Troponin I 0.000 ng/mL (0.000-0.056) Total Protein 7.9 G/DL (6.4-8.2) 7.3 G/DL (6.4-8.2) Albumin 3.1 G/DL (3.4-5.0) L 2.6 G/DL (3.4-5.0) L Globulin 4.8 g/dL 4.7 g/dL Albumin/Globulin Ratio 0.6 (1.0-2.7) L 0.6 (1.0-2.7) L Urine Color Pale yellow Urine Appearance Clear Urine pH 5 (4.5-8.0) Urine Specific [place] 1.020 (1.005-1.035) Urine Protein Negative (NEGATIVE) Urine Glucose (UA) Negative (NEGATIVE) Urine Ketones Negative (NEGATIVE) Urine Blood Negative (NEGATIVE) Urine Nitrite Negative (NEGATIVE) Urine Bilirubin Negative (NEGATIVE) Urine Urobilinogen Normal MG/DL (0.0-1.0) Urine Leukocyte Esterase 1+ (NEGATIVE) H Urine RBC 0-2 /HPF (0 - 0) H Urine WBC 0-2 /HPF (0 - 0) Urine Squamous Epithelial Cells None /LPF (NONE/OCC) Urine Bacteria Few /HPF (NONE) Arterial Blood pH 7.474 (7.350-7.450) Arterial Blood Partial Pressure CO2 33.3 mmHg (35.0-45.0) L Arterial Blood Partial Pressure O2 133.9 mmHg (75.0-100.0) H Arterial Blood HCO3 23.9 mmol/L (22.0-26.0) Arterial Blood Oxygen Saturation 98.3 % (95-100) Arterial Blood Base Excess 0.6 (-2-2) Edgar Test Positive General Appearance: well appearing, no apparent distress, alert Head: normocephalic EENT: PERRL/EOMI, normal ENT inspection Neck: supple Respiratory: normal breath sounds, no respiratory distress, other - Tracheostomy present Cardiovascular: normal rate Gastrointestinal: normal inspection, non tender, soft, normal bowel sounds, non -distended Rectal: deferred Genitourinary: deferred Musculoskeletal: normal inspection, back normal Neurologic: normal inspection, alert, oriented x3, responsive Psychiatric: normal inspection, judgement/insight normal, memory normal Skin: normal inspection, normal color, no rash, warm/dry, palpation normal, well hydrated Lymphatic: normal inspection, no adenopathy Current Medications Current Medications Medications (Trade) Dose Ordered Sig/Irma Route PRN Reason Start Time Stop Time Status Last Admin Dose Admin Acetaminophen (Tylenol) 650 mg Q4H PRN ORAL For Pain 06/02/18 22:00 07/02/18 21:59 Albuterol/ Ipratropium (Albuterol/ Ipratropium) 3 ml Q4H PRN HHN Shortness of Breath 06/03/18 08:15 06/08/18 08:14 06/03/18 10:40 Amlodipine Besylate (Norvasc) 10 mg DAILY ORAL 06/03/18 09:00 07/03/18 08:59 Atorvastatin Calcium (Lipitor) 10 mg BEDTIME ORAL 06/02/18 22:30 07/02/18 22:29 06/02/18 22:35 Bisacodyl (Dulcolax) 10 mg DAILYPRN PRN RECTAL Constipation 06/03/18 06:41 07/03/18 06:40 Dextrose/Sodium Chloride 1,000 ml @ 100 mls/hr Q10H IV 06/02/18 22:00 07/02/18 21:59 06/03/18 08:44 Docusate Sodium (Colace) 100 mg BID ORAL 06/03/18 09:00 07/03/18 08:59 06/03/18 08:46 Heparin Sodium (Porcine) (Heparin 5000 units/ml) 5,000 units EVERY 12 HOURS SUBQ 06/03/18 09:00 07/03/18 08:59 06/03/18 08:46 Lansoprazole (Prevacid) 30 mg BID ORAL 06/03/18 09:00 07/03/18 08:59 06/03/18 09:39 Levofloxacin 150 ml @ 100 mls/hr Q24H IVPB 06/03/18 21:00 06/10/18 20:59 Lisinopril (Zestril) 10 mg DAILY ORAL 06/03/18 09:00 07/03/18 08:59 Multivitamins Therapeutic (Therapeutic Multivitamin) 1 ea DAILY ORAL 06/03/18 09:00 07/03/18 08:59 06/03/18 08:44 Vitamin D (Vitamin D) 2,000 intlu DAILY ORAL 06/03/18 09:00 07/03/18 08:59 06/03/18 08:45 GI: Plan Problems: (1) Encounter for PEG (percutaneous endoscopic gastrostomy) (2) Anemia (3) Dehydration (4) Protein calorie malnutrition (5) Nutrition impaired due to imbalance of nutrients Plan Normocytic anemia Swallow evaluation pending, possible video swallow study to rule out any esophageal dysmotility Per report the patient has been regular diet in the correction He reports poor appetite Follow-up speech therapist recommendations We will consider PEG basement pending workup Will add Marinol if patient passes swallow evaluation and add calorie count for 48 hours to see if nutritional needs are met anemia work up OB stool r/o GI bleed monitor H&H, prn transfusions bowel regime ppi fu labs Discussed with Dr. Lainez. Thank you for this patient referral, we will follow. The patient was seen and examined at bedside and all new and available data was reviewed in the patients chart. I agree with the above findings, impression and plan. (Patient seen earlier today. Signature stamp does not reflect patient encounter time.). - MD Damaris MijaresTucson Medical CenterKwesi CARPENTER INSPECTOR Jun 03, 2018 11:17
--- NOTE | 2018-06-03 11:32 | Diagnostic Imaging Report ---
Indication: Chest pain Technique: XRAY Chest 1v Comparison: None Findings: Heart size within normal limits. Mediastinal contours are sharp. A tracheostomy tube is noted in place. There is patchy opacity at the left base and a small left pleural effusion. No pneumothorax. No acute osseous abnormality Impression: * Tracheostomy tube in place. * Left basilar opacities and blunting left costophrenic sulcus which may be related to atelectasis and chronic pleural thickening. The possibility of a pneumonia and a small pleural effusion not excludable. Correlate clinically.
[2018-06-03 11:46] VITALS: BP 102/61
--- NOTE | 2018-06-03 15:15 | Consultation ---
DATE OF CONSULTATION: 06/03/2018 PULMONARY CONSULTATION CONSULTING PHYSICIAN: Parveen Blanco M.D. REFERRING PHYSICIAN: Jaja Ariza M.D. REASON FOR CONSULTATION: Tracheostomy-dependent respiratory failure. HISTORY OF PRESENT ILLNESS: The patient is a very unfortunate 58-year-old male with a history of ALS, who is a resident of a subacute facility, transferred to [facility] for G-tube placement. The patient has been diagnosed with motor neuron disease approximately 3 years ago, which has been rather progressive. He has been ventilator dependent. He denies any antecedent significant medical history other than hypertension, remote history of alcohol abuse and smoking in the past. He states that he is ventilator dependent [id number]. He is bedbound, but has been eating until recently and has been having progressive difficulty and dysphagia. He has never been seen by an [facility] specialist. PAST MEDICAL HISTORY: 1. Motor neuron disease, presumably ALS. 2. Hypertension. PAST SURGICAL HISTORY: Tracheostomy. ALLERGIES: No known drug allergies. MEDICATIONS: Prior to admission medications reviewed. Current medications reviewed. SOCIAL HISTORY: He is . No longer working. Now resides at a facility. Former smoker and history of alcohol abuse in the past. He is from [place] originally. FAMILY HISTORY: Noncontributory. REVIEW OF SYSTEMS: Negative other than history of present illness. PHYSICAL EXAMINATION: VITAL SIGNS: Temperature 98.8, pulse 67, blood pressure 110/75, respiratory rate 16, and saturating 100% on 40% FiO2 on the ventilator. GENERAL: He is a well-developed, well-nourished male, in no acute distress. Awake, alert, and oriented x3. HEENT: Normocephalic and atraumatic. Oropharynx is clear with moist mucous membranes. NECK: Supple without lymphadenopathy. Tracheostomy is in place, clean, dry, and intact. CHEST: Clear. HEART: Regular rate and rhythm. ABDOMEN: Soft, nontender, and nontender. EXTREMITIES: No cyanosis, clubbing or edema. ANCILLARY DATA: White count on admission 16.7, now 12.4, hemoglobin 10.2 on admission now 9, platelet count 380 on admission, now 299. ABG 7.47/33/133/23/98. INR 1. Sodium 137, potassium 3.5, chloride 104, bicarbonate 23, BUN 15, creatinine 0.6, and glucose 84. Calcium 8.8. Total bilirubin 0.6, AST 14, ALT 20, alkaline phosphatase 86, CK-MB 1.5. Troponin negative. Total protein 7.3, albumin 2.6, globulin 4.7. Urinalysis, 1+ leukocyte esterase, 0 to 2 red, 0 to 2 white, few bacteria. Chest x-ray not loaded on yet, but per report normal. ASSESSMENT: The patient is a 58-year-old male with a history of upper motor neuron disease, presumably ALS, with progressive respiratory failure, now admitted for elective percutaneous endoscopic gastrostomy tube placement. The patient has leukocytosis, but no other signs of infectious process and his leukocytosis has improved overnight. He is in no apparent distress. PROBLEM LIST: 1. Ventilator-dependent respiratory failure. 2. Tracheostomy status. 3. Motor neuron disease, presumably ALS. 4. Hypertension. 5. Leukocytosis. 6. Anemia. 7. Bedbound. 8. Facility resident. TREATMENT PLAN: 1. Continue ventilatory support, settings reviewed and adjusted. 2. Titrate down FiO2 to keep saturations greater than 90%, continue PEEP of 5. 3. As needed bronchodilators. 4. Monitor volumes and renal function, may continue maintenance IV fluids. 5. Monitor for signs of infectious process, observe off antibiotics. 6. Infectious Diseases evaluation pending. 7. GI evaluation for G-tube placement. 8. DVT prophylaxis, heparin subcutaneous. 9. Neuro evaluation. 10. Consider evaluation at an ALS Center. Dr. Ariza, thank you for allowing me to assist in the care of your patient. If I may be of any assistance in the future, please do not hesitate to ask patient. Parveen Blanco M.D. DR: Efraín JOB#: [id number] CC:
--- NOTE | 2018-06-03 15:19 | Diagnostic Imaging Report ---
Indication: Failure to thrive, possible infection Technique: CT of the chest, abdomen and pelvis utilizing automated exposure control with intravenous contrast. Venous scanning performed. Axial, sagittal and coronal reformats presented. CT dose: Total DLP 1084.73 mGycm; CTDI vol 11.9,9.75 mGy Comparison: None Findings: CT chest: There is complete collapse of the left lower lobe. Some chest/debris is noted within the left lower lobe bronchus. Pneumonia or mass in the atelectatic lung not excludable. There are patchy opacities in the posterior aspect of the left upper lobe and posterior right lower lobe. There is also some tree-in-bud opacities in the periphery of the left upper lobe which are likely infectious or inflammatory in etiology. There is no pleural effusion or pneumothorax. There is mild biapical pleural scarring. Tracheostomy tube is noted. Heart size within normal limits. No pericardial effusion. Some small mediastinal lymph nodes are noted, likely reactive in etiology. Imaged portions of the thyroid unremarkable. Thoracic aorta is normal in caliber. There is conventional branching anatomy of the aortic arch. Imaged portions of the bilateral vertebral, common carotid and subclavian arteries unremarkable. Main pulmonary artery normal in caliber. No saddle pulmonary embolism. Exam not protocoled for evaluation of smaller pulmonary arteries. There are degenerative changes of the thoracic spine without acute osseous abnormality. CT abdomen/pelvis: Liver normal in size. Hepatic contour is smooth. A subcentimeter low-attenuation lesion is noted in the hepatic dome which is too small to fully characterize but may represent a cyst or biliary hamartoma. Portal veins appear patent. There are calcified gallstones layering dependently in the gallbladder. No CT evidence to suggest acute cholecystitis. Spleen, adrenal glands and pancreas are unremarkable. There are simple appearing cysts in the mid and lower pole of the right kidney. Otherwise kidneys enhance symmetrically. No perinephric stranding. No urinary tract stone or hydronephrosis. There is bladder wall thickening. Prostate appears mildly enlarged and heterogeneous. There is no free intraperitoneal air or fluid. There is no evidence of bowel obstruction. There is slight elevation of the left hemidiaphragm. The transverse colon courses anterior to the distal stomach. There is overall moderate colonic stool burden with mild stool and gaseous distention of the rectum. No definite presacral stranding. Appendix not definitively identified however there are no focal inflammatory changes in the right lower quadrant suggest acute appendicitis. No extraluminal extravasation of ingested oral contrast. No appreciable focal bowel wall thickening. Abdominal aorta is normal in caliber with scattered atherosclerotic calcifications. No conglomerate or pathologically enlarged lymphadenopathy identified. There are degenerative changes of the spine. No acute osseous abnormality identified. IMPRESSION: CT CHEST: * Tracheostomy tube in place. * Complete atelectasis of the left lower lobe with some mucous/debris in the left lower lobe bronchus. Consider bronchoscopy as clinically indicated. Mass or pneumonia in the collapsed lung not excludable. * Patchy and somewhat nodular airspace opacities in the posterior left upper lobe and posterior right lower lobe as well as some tree-in-bud opacities in the periphery of the left upper lobe likely infectious or inflammatory in etiology. Follow-up after appropriate treatment recommended to ensure resolution. CT ABDOMEN/PELVIS: * Cholelithiasis. No CT evidence to suggest acute cholecystitis. * Bladder wall thickening. Correlation with urinalysis recommended to exclude cystitis. * Enlarged and heterogeneous prostate. * Moderate colonic stool burden raising question for constipation. Additional findings as above. The CT scanner at [facility] is accredited by the [employer] and the scans are performed using protocols designed to limit radiation exposure to as low as reasonably achievable to attain images of sufficient resolution adequate for diagnostic evaluation.
[2018-06-03 15:44] VITALS: BP 116/62
[2018-06-03] MEDS ORDERED: D5NS 1000ml IV ONE (16:11)
--- NOTE | 2018-06-03 17:12 | Diagnostic Imaging Report ---
APPROVED REPORT CPT Code: 67870 Present Symptoms Shortness of breath BILATERAL: Imaging reveals a patent deep venous system bilaterally. There is no evidence of thrombus within the femoral, popliteal or tibial segments. The greater saphenous veins are also within normal limits. Doppler indicates normal spontaneous flow within these segments.
--- NOTE | 2018-06-03 18:08 | Infectious Diseases Prog Note ---
Assessment/Plan Assessment/Plan Full consult dictated: A) 1) pna, ? aspiration pna/HCAP, possible sepsis, leukocytosis 2) ALS 3) trach and vent 4) pmh noted 5) allergies - nkda P) 1) zosyn and vancomycin, azithromycin 2) check respiratory culture, serology, labs and chest x-ray 3) thank you Subjective Allergies: Coded Allergies: No Known Allergies (Unverified , 06/02/18) Objective Vital Signs Last 24 Hour Vital Signs Date Time Temp Pulse Resp B/P (MAP) Pulse Ox O2 Delivery O2 Flow Rate FiO2 06/03/18 16:30 61 16 40 06/03/18 16:00 55 06/03/18 16:00 Mechanical Ventilator 06/03/18 16:00 40 06/03/18 15:44 98.6 62 16 116/62 (80) 100 06/03/18 14:50 63 16 40 06/03/18 12:30 68 16 40 06/03/18 12:00 40 06/03/18 12:00 72 06/03/18 12:00 Mechanical Ventilator 06/03/18 11:46 98.0 80 16 102/61 (75) 100 06/03/18 10:48 65 16 100 Mechanical Ventilator 15.0 40 06/03/18 10:38 68 16 99 Mechanical Ventilator 15.0 40 06/03/18 10:38 40 06/03/18 10:35 71 16 40 06/03/18 08:30 62 16 40 06/03/18 08:22 101/68 06/03/18 08:22 59 101/68 06/03/18 08:00 97.6 59 19 101/68 (79) 100 06/03/18 08:00 40 06/03/18 08:00 57 06/03/18 08:00 Mechanical Ventilator 06/03/18 07:30 58 16 40 06/03/18 04:49 54 16 40 06/03/18 04:00 40 06/03/18 04:00 75 06/03/18 04:00 Mechanical Ventilator 06/03/18 02:51 55 16 40 06/03/18 00:44 100 16 40 06/03/18 00:00 98.8 73 16 110/75 (87) 100 06/03/18 00:00 67 06/03/18 00:00 Mechanical Ventilator 06/03/18 00:00 40 12/26/18 23:06 104 24 40 06/02/18 21:50 Mechanical Ventilator 06/02/18 21:35 98.5 72 17 97/68 100 Room Air 06/02/18 21:31 83 18 40 06/02/18 21:20 40 06/02/18 21:20 98.4 97 22 141/90 (107) 99 06/02/18 21:20 73 06/02/18 19:30 40 06/02/18 19:19 98.1 72 16 101/64 99 Room Air 40 06/02/18 19:19 79 16 Mechanical Ventilator 40 06/02/18 18:47 79 16 Mechanical Ventilator 40 06/02/18 18:43 79 16 40 06/02/18 18:36 98.1 89 19 130/72 99 Mechanical Ventilator Height (Feet): 5 Height (Inches): 4.00 Weight (Pounds): 112 Laboratory Tests Test 06/02/18 19:00 06/02/18 19:54 06/02/18 22:13 06/03/18 03:10 White Blood Count 16.7 K/UL (4.8-10.8) H 12.4 K/UL (4.8-10.8) H Red Blood Count 3.59 M/UL (4.70-6.10) L 3.15 M/UL (4.70-6.10) L Hemoglobin 10.2 G/DL (14.2-18.0) L 9.0 G/DL (14.2-18.0) L Hematocrit 31.1 % (42.0-52.0) L 26.9 % (42.0-52.0) L Mean Corpuscular Volume 87 FL (80-99) 85 FL (80-99) Mean Corpuscular Hemoglobin 28.4 PG (27.0-31.0) 28.6 PG (27.0-31.0) Mean Corpuscular Hemoglobin Concent 32.7 G/DL (32.0-36.0) 33.4 G/DL (32.0-36.0) Red Cell Distribution Width 15.3 % (11.6-14.8) H 14.9 % (11.6-14.8) H Platelet Count 380 K/UL (150-450) 299 K/UL (150-450) Mean Platelet Volume 7.8 FL (6.5-10.1) 8.1 FL (6.5-10.1) Neutrophils (%) (Auto) 78.0 % (45.0-75.0) H 72.8 % (45.0-75.0) Lymphocytes (%) (Auto) 15.1 % (20.0-45.0) L 18.9 % (20.0-45.0) L Monocytes (%) (Auto) 5.5 % (1.0-10.0) 6.5 % (1.0-10.0) Eosinophils (%) (Auto) 1.0 % (0.0-3.0) 1.3 % (0.0-3.0) Basophils (%) (Auto) 0.4 % (0.0-2.0) 0.5 % (0.0-2.0) Prothrombin Time 10.6 SEC (9.30-11.50) Prothromb Time International Ratio 1.0 (0.9-1.1) Activated Partial Thromboplast Time 29 SEC (23-33) Sodium Level 139 MMOL/L (136-145) 137 MMOL/L (136-145) Potassium Level 4.2 MMOL/L (3.5-5.1) 3.5 MMOL/L (3.5-5.1) Chloride Level 103 MMOL/L (98-107) 104 MMOL/L (98-107) Carbon Dioxide Level 25 MMOL/L (21-32) 23 MMOL/L (21-32) Anion Gap 11 mmol/L (5-15) 10 mmol/L (5-15) Blood Urea Nitrogen 19 mg/dL (7-18) H 15 mg/dL (7-18) Creatinine 0.8 MG/DL (0.55-1.30) 0.6 MG/DL (0.55-1.30) Estimat Glomerular Filtration Rate > 60 mL/min (>60) > 60 mL/min (>60) Glucose Level 113 MG/DL (74-106) H 84 MG/DL (74-106) Calcium Level 9.3 MG/DL (8.5-10.1) 8.8 MG/DL (8.5-10.1) Total Bilirubin 0.3 MG/DL (0.2-1.0) 0.6 MG/DL (0.2-1.0) Aspartate Amino Transf (AST/SGOT) 16 U/L (15-37) 14 U/L (15-37) L Alanine Aminotransferase (ALT/SGPT) 27 U/L (12-78) 20 U/L (12-78) Alkaline Phosphatase 105 U/L (46-116) 86 U/L (46-116) Total Creatine Kinase 94 U/L (26-308) Creatine Kinase MB 1.5 NG/ML (0.0-3.6) Creatine Kinase MB Relative Index 1.5 Troponin I 0.000 ng/mL (0.000-0.056) Total Protein 7.9 G/DL (6.4-8.2) 7.3 G/DL (6.4-8.2) Albumin 3.1 G/DL (3.4-5.0) L 2.6 G/DL (3.4-5.0) L Globulin 4.8 g/dL 4.7 g/dL Albumin/Globulin Ratio 0.6 (1.0-2.7) L 0.6 (1.0-2.7) L Urine Color Pale yellow Urine Appearance Clear Urine pH 5 (4.5-8.0) Urine Specific [place] 1.020 (1.005-1.035) Urine Protein Negative (NEGATIVE) Urine Glucose (UA) Negative (NEGATIVE) Urine Ketones Negative (NEGATIVE) Urine Blood Negative (NEGATIVE) Urine Nitrite Negative (NEGATIVE) Urine Bilirubin Negative (NEGATIVE) Urine Urobilinogen Normal MG/DL (0.0-1.0) Urine Leukocyte Esterase 1+ (NEGATIVE) H Urine RBC 0-2 /HPF (0 - 0) H Urine WBC 0-2 /HPF (0 - 0) Urine Squamous Epithelial Cells None /LPF (NONE/OCC) Urine Bacteria Few /HPF (NONE) Arterial Blood pH 7.474 (7.350-7.450) Arterial Blood Partial Pressure CO2 33.3 mmHg (35.0-45.0) L Arterial Blood Partial Pressure O2 133.9 mmHg (75.0-100.0) H Arterial Blood HCO3 23.9 mmol/L (22.0-26.0) Arterial Blood Oxygen Saturation 98.3 % (95-100) Arterial Blood Base Excess 0.6 (-2-2) Edgar Test Positive Current Medications Medications (Trade) Dose Ordered Sig/Irma Route PRN Reason Start Time Stop Time Status Last Admin Dose Admin Acetaminophen (Tylenol) 650 mg Q4H PRN ORAL For Pain 06/02/18 22:00 07/02/18 21:59 Albuterol/ Ipratropium (Albuterol/ Ipratropium) 3 ml Q4H PRN HHN Shortness of Breath 06/03/18 08:15 06/08/18 08:14 06/03/18 10:40 Amlodipine Besylate (Norvasc) 10 mg DAILY ORAL 06/03/18 09:00 07/03/18 08:59 Atorvastatin Calcium (Lipitor) 10 mg BEDTIME ORAL 06/02/18 22:30 07/02/18 22:29 06/02/18 22:35 Bisacodyl (Dulcolax) 10 mg DAILYPRN PRN RECTAL Constipation 06/03/18 06:41 07/03/18 06:40 Dextrose/Sodium Chloride 1,000 ml @ 100 mls/hr Q10H IV 06/02/18 22:00 07/02/18 21:59 06/03/18 17:20 Docusate Sodium (Colace) 100 mg BID ORAL 06/03/18 09:00 07/03/18 08:59 06/03/18 17:20 Heparin Sodium (Porcine) (Heparin 5000 units/ml) 5,000 units EVERY 12 HOURS SUBQ 06/03/18 09:00 07/03/18 08:59 06/03/18 08:46 Lansoprazole (Prevacid) 30 mg BID ORAL 06/03/18 09:00 07/03/18 08:59 06/03/18 17:20 Levofloxacin 150 ml @ 100 mls/hr Q24H IVPB 06/03/18 21:00 06/10/18 20:59 Lisinopril (Zestril) 10 mg DAILY ORAL 06/03/18 09:00 07/03/18 08:59 Multivitamins Therapeutic (Therapeutic Multivitamin) 1 ea DAILY ORAL 06/03/18 09:00 07/03/18 08:59 06/03/18 08:44 Patient Own Medication (Patient's Own Med) 1 ea Q12HR ORAL 06/03/18 21:00 07/03/18 20:59 Vitamin D (Vitamin D) 2,000 intlu DAILY ORAL 06/03/18 09:00 07/03/18 08:59 06/03/18 08:45 Pratik Bowens MD Jun 03, 2018 18:08
[2018-06-03] MEDS ORDERED: Azithromycin 250mg tab ORAL SCH (18:30)
[2018-06-03] MEDS ORDERED: Morphine Sulfate 4mg/ml Inj (IV/IM USE ONLY) IVP SCH (19:30)
[2018-06-03 20:00] VITALS: BP 100/64
[2018-06-03] MEDS: Vancomycin 750mg/NS 250ml IVPB SCH (20:12)
--- NOTE | 2018-06-03 20:21 | Consultation ---
Consult Note Consult Note NEUROLOGY CONSULTATION: Full note dictated #[id number] 58 y/o, RH, HM who has a PH of HTN. He used to drink in large quantities in the past too. Then ~4 years ago he developed a left foot drop. Over time he has developed weakness in all 4 extremities, left > right and LEs> UEs. Over time he has also had severe wasting of all extremities. He has had muscle twitching in all his extremities - it was much more earlier but has decreased recently. A few months ago he developed respiratory failure and had to have a tracheostomy. Recently he has had problems with getting enough oral nutrition and plans are to place a PEG. He has been evaluated at [facility] with EMGs/NCSs, MRIs and has been told he has ALS. ON EXAM: MS Normal Speech: Can mouth words well. Language: Normal. CN: Tongue fasciculations. Motor: Tone normal except for decreased in L>R ankle. Mass Generalized wasting LE>UE G 5/5 in BUE except for G 4/5 in FEs In LE: Right Left IP 4+/5 4-/5 Quads 5-/5 4+/5 Hams 4+/5 4-/5 Ankle DF 3/5 0/5 Ankle PF 4/5 2/5 TF 4/5 2/5 TE 3/5 0/5 DTRs 2++ except for 0 at ankles. Plantars Right extensor/left mute. IMPRESSION: Progressive degenerative neurological disease characterized by muscle weakness, muscle wasting, muscle fasciculations, and respiratory muscle failure. Hx and exam C/W ALS. REC: As patient wants to maintain his present quality of life as long as he can - agree with PEG and Rilutek. Consider edaravone therapy in near future. Richard Alcantara M.D., M.S.P.H. Richard Alcantara MD Jun 03, 2018 20:21
--- NOTE | 2018-06-03 21:30 | Consultation ---
DATE OF CONSULTATION: 06/03/2018 INFECTIOUS DISEASES CONSULTATION ATTENDING PHYSICIAN: Jaja Ariza M.D. REFERRING PHYSICIAN: Beth Aburto M.D. and Parveen Blanco M.D. REASON FOR CONSULTATION: Leukocytosis, possible pneumonia, and sepsis. CHIEF COMPLAINT: The patient's chief complaint coming to the hospital is dehydration and PEG replacement. HISTORY OF PRESENT ILLNESS: This is a very pleasant 58-year-old male, who has history of I believe ALS, who was in his trach-vent. The patient needed G-tube placement. He was diagnosed with motor neuron disease, I believe, which is ALS that is progressive for three years per the records. Again, he is vent dependent and requires PEG tube. The patient was noted to have dehydration and elevated white count. There was concern that the patient could be septic. He does have SIRS criteria and has had elevated heart rate as high as 104. No fevers. Workup including CT scan imaging showed possible pneumonia, report was noted. Infectious Disease consultation was requested for antibiotic management. The patient is at high risk for aspiration and also healthcare-acquired pneumonia. He is in the subacute. The patient was placed on vancomycin, Zosyn, and also azithromycin to cover the possibility of community-acquired pneumonia, which is less likely. Cultures have been ordered and serology has been ordered. UA was benign. REVIEW OF SYSTEMS: CONSTITUTIONAL: The patient is alert and responsive, but he has weakness. HEAD AND NECK: He has trach and vent GASTROINTESTINAL: No nausea, vomiting, or diarrhea. GENITOURINARY: No Ramon. PULMONARY: On trach and vent. SKIN: No rash or itching. EXTREMITIES: No extremity pain. NEUROLOGIC: No seizures. Denies fatigue or weakness. No fevers. PAST MEDICAL HISTORY: The patient's past medical history include the following. The patient has had trach, vent, dysphagia, in need of G-tube, history of motor neuron disease, presumptive ALS, history of hypertension, history of what looks like underweight possible malnutrition, again hypertension. Possible hyperlipidemia, but I am not sure of this. MEDICATIONS: Upon reviewing the MAR, he was on Levaquin. I am switching azithromycin to vancomycin and Zosyn. He is on Norvasc and amlodipine. He is on Colace, Prevacid, Zestril, multivitamins, vitamin D, heparin, albuterol, bisacodyl, atorvastatin, and acetaminophen. Outside medications noted and reconciliated. ALLERGIES: No known drug allergies. SOCIAL HISTORY: Negative for smoking, alcohol, or drug abuse. FAMILY HISTORY: Noncontributory. PHYSICAL EXAMINATION: VITAL SIGNS: Temperature is 98.6 degrees, pulse rate 55, now it is 61, respiratory rate 16, blood pressure 116/62, FiO2 40%, pulse oximeter 100%, saturation 100%. Pulse rate was as high as 104. GENERAL: Alert and responsive, seems to be oriented. HEAD AND NECK: Trach intact as I mentioned. Normocephalic. HEART: Regular. No gallop or murmur. ABDOMEN: Soft. Positive bowel sounds. Nontender. LUNGS: Bilateral rhonchi and rales. SKIN: No rash. MUSCULOSKELETAL: No effusion. Legs are without cellulitis. PERIPHERAL VASCULAR: No cyanosis or gangrene. GENITOURINARY: No Ramon. LINE SITES: Without phlebitis. NEUROLOGIC: Intact, fairly diffuse weakness, but alert and oriented. LABORATORY AND DIAGNOSTIC DATA: Creatinine 0.6. White count 12.4, hemoglobin 9.0, white count on admission 16.7, now white count is 12.4, hemoglobin 9.0, and creatinine 0.6. LFTs noted. UA had 0 to 2 white blood cells. Blood cultures are pending. I have ordered sputum culture. Chest x-ray showed left basilar opacity, could be atelectasis. Report was noted. CT scan of the chest, abdomen, and pelvis showed the following, which showed complete atelectasis in the left lower lobe with mucus debris in the left lower lobe bronchus. It also showed patchy and somewhat nodular airspace opacities in the left upper lobe and right lower lobe suggestive of infectious or inflammatory etiology. ASSESSMENT AND PLAN: 1. The patient has what looks like possible pneumonia on CT scan. The patient is at high risk for aspiration and healthcare-acquired pneumonia, less likely community-acquired pneumonia, but I believe it is the possibility such as Legionella mycoplasma. However, most likely the pathogen will be gram negatives and possible methicillin-resistant Staphylococcus aureus. CT scan was consistent with infectious and inflammatory changes. Continue vancomycin, Zosyn, and azithromycin. Check sputum culture and Legionella mycoplasma. Check followup labs and chest x-ray. Pulmonary following on the case. The patient also has what looks like atelectasis on chest x-ray and CT. The other possibility is he could be septic with systemic inflammatory response syndrome criteria most likely etiology is pneumonia. Monitor leukocytosis and labs. 2. The patient has trach vent respiratory failure. 3. Dysphagia, possible malnutrition, needed gastrostomy tube. 4. The patient has history of amyotrophic lateral sclerosis. 5. Possible hyperlipidemia. 6. Discussed with Neurology. Neurology will follow. 7. Hypertension. Treatment per primary team. 8. Anemia. 9. Weakness secondary to presumptive amyotrophic lateral sclerosis. 10. No history of diabetes or hypertension. 11. No known allergies. 12. Social history negative. 13. Family history noncontributory. 14. MAR was noted. 15. Case discussed with RN. 16. Continue treatment per primary consultants. 17. Case discussed with the patient and the patient's family. Pratik Bowens M.D. DR: Rossy JOB#: [id number] CC: CORIN
[2018-06-04] VITALS: BP 91/55
--- NOTE | 2018-06-04 00:30 | Consultation ---
DATE OF CONSULTATION: 06/03/2018 NEUROLOGY CONSULTATION CONSULTING PHYSICIAN: Richard Alcantara M.D. REQUESTING PHYSICIANS: Parveen Blanco M.D. and Beth Aburto M.D. HISTORY: Mr. Joseph Robles is a 58-year-old, right-handed, gentleman, who has a prior history of hypertension. He also used to drink large quantities of alcohol in the past, but stopped drinking quite a few years ago. Then approximately four years ago, he developed a left foot drop. Over time, he has developed weakness in all four extremities involving the left side more than the right and the lower extremities more than the upper extremities. Over the years, he has also developed severe wasting of all his muscles. He used to have a lot of muscle twitching in all his extremities in the past, however recently these twitches have decreased. He developed respiratory failure a few months ago and since then, he has been ventilator dependent and has had to have a tracheostomy placed. Recently, he has also had some problems with getting enough oral nutrition and plans are to place a percutaneous gastrostomy. He has been evaluated by the neurologist at [facility] with EMGs, nerve conduction studies, and MRI scans and has been told that he has amyotrophic lateral sclerosis. This consultation was requested to re-evaluate the patient from a neurological point of view. PAST MEDICAL HISTORY: Significant for hypertension and amyotrophic lateral sclerosis that started ~4 years ago. FAMILY HISTORY: There is no family history of neurological illnesses. PERSONAL HISTORY: Home: He used to stay at home with his family, but since he has had his tracheostomy placed, he lives in a custodial. 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 He is now disabled. Habits: He used to smoke in the past, but stopped smoking quite a few years ago. He used to drink alcohol in large quantities in the past, but stopped drinking quite a few years ago. There is no history of any illicit drug use. MEDICATIONS: Present medications include Zithromax, Zosyn, Rilutek, vancomycin, morphine p.r.n., amlodipine, Colace, Prevacid, Zestril, multivitamins, vitamin D, heparin for DVT prophylaxis, DuoNeb inhaler, atorvastatin, and Tylenol. PHYSICAL EXAMINATION: GENERAL: He is a well-developed, but lean and wasting gentleman, lying in bed, in no acute distress, connected to a ventilator through a tracheostomy. VITAL SIGNS: Pulse 68/minute, blood pressure 116/62 mmHg, respirations 16/minute, temperature 98.6 degrees Fahrenheit. HEAD: Normocephalic and atraumatic. NECK: No neck rigidity was observed. He did have a tracheostomy in place. EENT: Benign. NEUROLOGICAL EXAMINATION: MENTAL STATUS EXAMINATION: He was awake and alert. He was oriented to person, place, and time. He was able to recall 3/3 words immediately after 1 minute and after 3 minutes on the second trial. He was able to remember presidents, Trump through Jose senior with hints. His mathematical skills were good. His visuospatial function was preserved. SPEECH: He was able to mouth words well. LANGUAGE: He was able to comprehend, repeat, and express himself well. CRANIAL NERVE EXAMINATION: II: The visual maldonado were intact on confrontation testing. III, IV & : The external ocular movements were full and the pupils 3 mm in diameter, equal, round, regular, and reactive to light. V: He had normal facial sensations and the temporales, masseters, and pterygoids function normally. VII: He had normal facial expressions and no facial asymmetry. VIII: He was able to hear well bilaterally and had no nystagmus. IX: The palate moved symmetrically on phonation. X: His gag reflex was present. XI: The sternocleidomastoids and trapezii functioned normally. XII: The tongue was in the midline without any atrophy, but it did reveal fasciculations. MOTOR SYSTEM: The tone was normal in all four extremities except for decreased tone in the ankles more so on the left than on the right. Examination of muscle mass revealed severe generalized muscle wasting involving the distal muscles more than the proximal muscles and the lower extremities more than the upper extremities. He had G 5/5 power in both upper extremities except for G 4/5 power in the finger extensors. In the lower extremities, he had in the iliopsoas G 4+/5 on the right, G 4-/5 on the left. In the quadriceps, he had G 5-/5 on the right and G 4+/5 on the left. In the hamstrings, he had G 4+/5 on the right and G 4-/5 on the left. In the ankle dorsiflexors and toe extensors, he had G 3/5 on the right and G 0/5 on the left. In the ankle plantar flexors and toe flexors, he had G 4/5 on the right and G 2/5 on the left. SENSORY EXAMINATION: He had intact sensations to pinprick, light touch, and graphesthesia. COORDINATION: He performed well on [id number] testing. He was unable to perform [id number] testing. REFLEXES: 2++ and bilaterally symmetrical at the biceps, triceps, brachioradialis, and knees, 0 at both ankles. The plantar response was extensor on the right and mute on the left. STANCE & GAIT: Could not be tested. DIAGNOSTIC IMPRESSION: 1. Mr. Joseph Robles is a 58-year-old, right-handed, gentleman, who does have a prior history of hypertension and dyslipidemia, who approximately 4 years ago started to have weakness that started in his left foot with a left foot drop. Over the years, he has had increasing weakness in his lower extremities more than the upper extremities and on the left side more than the right associated with muscle wasting, muscle fasciculations, and then respiratory muscle failure as a result of which he has needed a tracheostomy. He has been worked up for the problem in the past and was found to have amyotrophic lateral sclerosis, for which he is on Rilutek. 2. On neurological examination at this time, he does demonstrate tongue fasciculations, decreased tone in the ankles more so on the left than the right, generalized muscle wasting involving the lower extremities more than the upper extremities, a quadriparesis involving the lower extremities more than the upper extremities, and the left side more than the right in the lower extremities, brisk deep tendon reflexes with loss of ankle jerks, an extensor plantar response on the right with a mute plantar response on the left, and frequent fasciculations in all four extremities. 3. The patient's history and neurological examination are in fact consistent with amyotrophic lateral sclerosis. RECOMMENDATIONS: 1. As the patient would like to maintain his present quality of life as long as he can, I do agree that a gastrostomy would be useful in maintaining enough nutrition. 2. Rilutek should be continued. 3. In the near future, edaravone therapy should be considered. 4. The patient's family was told to try and retrieve his nerve conduction study, electromyography, and MRI scan reports so that I can review them. Thank you for entrusting me with the care of Mr. Robles. I shall follow him with you. Richard Alcantara M.D., M.S.P.H. DR: Joshua JOB#: [id number]
[2018-06-04 04:00] VITALS: BP 99/54
[2018-06-04] MEDS: D5NS 1,000 ML IV SCH ×3 (04:00→23:06)
[2018-06-04 05:20] LABS: BASOPHILS % (AUTO) 0.6 % (0.0-2.0); EOSINOPHILS % (AUTO) 2.1 % (0.0-3.0); HEMATOCRIT 24.7 % (42.0-52.0); HEMOGLOBIN 8.1 G/DL (14.2-18.0); LYMPHOCYTES % (AUTO) 27.5 % (20.0-45.0); MEAN CORPUSCULAR VOLUME 86 FL (80-99); NEUTROPHILS % (AUTO) 61.9 % (45.0-75.0); PLATELET COUNT 240 K/UL (150-450); RED BLOOD COUNT 2.87 M/UL (4.70-6.10); RED CELL DISTRIBUTION WIDTH 14.9 % (11.6-14.8); WHITE BLOOD COUNT 8.3 K/UL (4.8-10.8)
[2018-06-04 05:23] LABS: INR 1.1 (0.9-1.1)
[2018-06-04 05:59] LABS: ALANINE AMINOTRANSFERASE 17 U/L (12-78); ALBUMIN 2.5 G/DL (3.4-5.0); ALBUMIN/GLOBULIN RATIO 0.6 (1.0-2.7); ALKALINE PHOSPHATASE 69 U/L (46-116); ANION GAP 10 mmol/L (5-15); ASPARTATE AMINO TRANSFERASE 14 U/L (15-37); BILIRUBIN,TOTAL 0.7 MG/DL (0.2-1.0); BLOOD UREA NITROGEN 7 mg/dL (7-18); CALCIUM 8.9 MG/DL (8.5-10.1); CARBON DIOXIDE 22 MMOL/L (21-32); CHLORIDE 107 MMOL/L (98-107); CREATININE 0.6 MG/DL (0.55-1.30); FERRITIN 232 NG/ML (8-388); POTASSIUM 3.1 MMOL/L (3.5-5.1); SODIUM 139 MMOL/L (136-145)
[2018-06-04 06:05] LABS: % IRON SATURATION 13 % (15-50); IRON 29 ug/dL (50-175); TOTAL IRON BINDING CAPACITY 225 ug/dL (250-450)
[2018-06-04 08:00] VITALS: BP 133/78
[2018-06-04] MEDS: Vancomycin 750mg/NS 250ml IVPB SCH ×2 (08:07→20:27)
--- NOTE | 2018-06-04 08:36 | General Progress Note ---
Assessment/Plan Problem List: (1) Protein calorie malnutrition ICD Codes: E46 - Unspecified protein-calorie malnutrition SNOMED: 924380635 (2) Status post tracheostomy ICD Codes: Z93.0 - Tracheostomy status SNOMED: 30839557, 868380492 (3) Motor neuron disease, unspecified ICD Codes: G12.20 - Motor neuron disease, unspecified SNOMED: 59097409 (4) Leukocytosis ICD Codes: D72.829 - Elevated white blood cell count, unspecified SNOMED: 395389879, 944742391 Qualifiers: Qualified Codes: D72.829 - Elevated white blood cell count, unspecified (5) Essential hypertension ICD Codes: I10 - Essential (primary) hypertension SNOMED: 00295282 (6) HCAP (healthcare-associated pneumonia) ICD Codes: J18.9 - Pneumonia, unspecified organism SNOMED: 116364053 Status: stable Assessment/Plan WBC 16 on admit, on broad spectrum abx, concerns for HCAP, appreciate ID recs poor PO intake, keep NPO per ST eval, Patient has a tracheostomy in place with previous respiratory failure, unclear regarding any esophageal mobility or other obstructive pathology, GI consulted, planned for possible PEG placement follows with neurology outpatient, complete possible ALS workup outpt patient trached, connected to vent, pulm consulted, appreciate recs resume htn meds DVT Prophylaxis: SCD, HSQ Code Status: Full Hospital Classification Declaration: Based on this initial evaluation, and depending on the patient's clinical course, I anticipate that this patient will require hospitalization for 2-3 days for malnutrition, trached/needs peg eval and close respiratory/hemodynamic monitoring. Disposition: Once the patient is stable to leave the hospital, I anticipate the patient will likely be discharged to the following environment: home I spent 71 minutes on this patient's case, and 40 minutes were dedicated to counseling and/or care coordination. Discussed with patient/family, nursing staff, BINTA/MARIANNA, and consultants regarding clinical status, treatment course, and disposition planning. Time of note may not reflect time of encounter. ---- Date of Discussion: 06/03/18 A [id number] discussion with the patient's son regarding the patient's advanced care planning took place during this hospitalization on the above date. The discussion included the explanation and discussion of advance directives and associated forms/documents, as well as the patient's current code status. We also discussed at length the patient's medical conditions (both acute and chronic), general prognosis, treatment options, and goals of care. The following summarizes the discussion: Advance Care Planning/Goals of Care: - polst completed - Continue current evaluation and management of any acute and chronic medical issues - Will continue to support the patient/family - Will continue to discuss both short- and long-term goals of care DPOA-HC/Surrogate Decision Maker: , Randa Robles Code Status: Full Code AD Forms/Documents Completed: completed A total of 31 minutes was spent on this discussion, including counseling, answering questions, and completing, if any, pertinent advanced care planning forms/documents. Subjective Date patient seen: Jun 04, 2018 Time patient seen: 08:31 Allergies: Coded Allergies: No Known Allergies (Unverified , 06/02/18) Subjective f/u malnutrition, Objective Last 24 Hour Vital Signs Date Time Temp Pulse Resp B/P (MAP) Pulse Ox O2 Delivery O2 Flow Rate FiO2 06/04/18 06:48 53 16 40 06/04/18 05:05 58 16 40 06/04/18 04:00 52 06/04/18 04:00 40 06/04/18 04:00 98.9 48 16 99/54 (69) 100 06/04/18 04:00 Mechanical Ventilator 06/04/18 03:15 61 16 40 06/04/18 01:15 59 16 40 06/04/18 01:00 61 06/04/18 00:00 63 06/04/18 00:00 Mechanical Ventilator 06/04/18 00:00 98.4 59 16 91/55 (67) 100 06/04/18 00:00 40 06/03/18 22:54 67 16 40 06/03/18 21:16 61 16 40 06/03/18 20:00 Mechanical Ventilator 06/03/18 20:00 63 06/03/18 20:00 99.0 63 16 100/64 (76) 100 06/03/18 20:00 40 06/03/18 18:51 40 06/03/18 18:51 68 16 100 Mechanical Ventilator 15.0 40 06/03/18 18:41 66 16 100 Mechanical Ventilator 40 06/03/18 18:39 66 16 40 06/03/18 16:30 61 16 40 06/03/18 16:00 55 06/03/18 16:00 Mechanical Ventilator 06/03/18 16:00 40 06/03/18 15:44 98.6 62 16 116/62 (80) 100 06/03/18 14:50 63 16 40 06/03/18 12:30 68 16 40 06/03/18 12:00 40 06/03/18 12:00 72 06/03/18 12:00 Mechanical Ventilator 06/03/18 11:46 98.0 80 16 102/61 (75) 100 06/03/18 10:48 65 16 100 Mechanical Ventilator 15.0 40 06/03/18 10:38 68 16 99 Mechanical Ventilator 15.0 40 06/03/18 10:38 40 06/03/18 10:35 71 16 40 Intake and Output 06/03/18 06/04/18 19:00 07:00 Intake Total 1000 ml 1350 ml Output Total 1010 ml 1200 ml Balance -10 ml 150 ml IV Total 1000 ml 1350 ml Output Urine Total 1010 ml 1200 ml # Voids 3 Laboratory Tests 06/04/18 03:00: White Blood Count 8.3, Red Blood Count 2.87L, Hemoglobin 8.1L, Hematocrit 24.7L , Mean Corpuscular Volume 86, Mean Corpuscular Hemoglobin 28.3, Mean Corpuscular Hemoglobin Concent 32.8, Red Cell Distribution Width 14.9H, Platelet Count 240, Mean Platelet Volume 7.6, Neutrophils (%) (Auto) 61.9, Lymphocytes (%) (Auto) 27.5, Monocytes (%) (Auto) 8.0, Eosinophils (%) (Auto) 2.1, Basophils (%) (Auto) 0.6, Reticulocyte Count [Pending], Prothrombin Time 11.4, Prothromb Time International Ratio 1.1, Activated Partial Thromboplast Time 33, Sodium Level 139, Potassium Level 3.1L, Chloride Level 107, Carbon Dioxide Level 22, Anion Gap 10, Blood Urea Nitrogen 7, Creatinine 0.6, Estimat Glomerular Filtration Rate > 60, Glucose Level 89, Calcium Level 8.9, Magnesium Level 1.6L, Iron Level 29L, Total Iron Binding Capacity 225L, Percent Iron Saturation 13L, Unsaturated Iron Binding 196, Ferritin 232, Total Bilirubin 0.7 , Aspartate Amino Transf (AST/SGOT) 14L, Alanine Aminotransferase (ALT/SGPT) 17 , Alkaline Phosphatase 69, Total Protein 6.5, Albumin 2.5L, Globulin 4.0, Albumin/Globulin Ratio 0.6L, Carcinoembryonic Antigen [Pending], Vitamin B12 Level 962, Folate 25.4, Thyroid Stimulating Hormone (TSH) 3.075, Free Thyroxine 0.95 06/04/18 04:00: Stool Occult Blood [Pending], Urine Legionella Antigen [Pending] Height (Feet): 5 Height (Inches): 4.00 Weight (Pounds): 112 Objective General Appearance: WD/WN, no apparent distress, alert Lines, tubes and drains: peripheral HEENT: normocephalic, atraumatic Neck: non-tender, normal alignment, supple, normal inspection, trach Cardiovascular/Chest: normal peripheral pulses, normal rate, regular rhythm Abdomen: normal bowel sounds, non tender, soft, no organomegaly, no mass Extremities: normal range of motion, non-tender, normal inspection, no calf tenderness Skin Exam: normal pigmentation, warm/dry 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
[2018-06-04] MEDS: Vitamin D 1000 IU Tab ORAL SCH (08:50)
[2018-06-04] MEDS: Azithromycin 250mg tab ORAL SCH (08:50)
[2018-06-04] MEDS: Multivitamin w/Minerals tab ORAL SCH (08:50)
[2018-06-04] MEDS: Docusate 100mg cap ORAL SCH ×2 (08:51→17:31)
[2018-06-04] MEDS: Lisinopril 10mg tab ORAL SCH (08:51)
[2018-06-04] MEDS: Heparin 5000 units/ml inj SUBQ SCH ×2 (08:53→20:34)
--- NOTE | 2018-06-04 09:28 | Pre-Procedure Note/Attestation ---
Pre-Procedure Note/Attestation Complete Prior to Procedure Planned Procedure: not applicable Procedure Narrative: esophagogastroduodenoscopy peg Indications for Procedure Pre-Operative Diagnosis: dysphagia Attestation I attest that I discussed the nature of the procedure; its benefits; risks and complications; and alternatives (and the risks and benefits of such alternatives ), prior to the procedure, with the patient (or the patient's legal sales and merchandising representative). I attest that, if there was a reasonable possibility of needing a blood transfusion, the patient (or the patient's legal sales and merchandising representative) was given the [facility] standardized written summary, pursuant to the Angel Talia Blood Safety Act ([place] Health and Safety Code # 1645, as amended). I attest that I re-evaluated the patient just prior to the surgery and that there has been no change in the patient's H&P, except as documented below: Vaibhav Lainez MD Jun 04, 2018 09:28
[2018-06-04] MEDS ORDERED: Lidocaine 1% MPF 10mg/ml 5ml ONE (10:00)
[2018-06-04] MEDS ORDERED: Propofol 200mg/20ml IV ONE (10:00)
--- NOTE | 2018-06-04 10:17 | Endoscopy Procedure Note ---
Endoscopy Procedure Note General Indication for Procedure: dysphagia Procedures Performed: EGD, PEG Operative Findings/Diagnosis: gastroitis Specimen: none Pt Tolerated Procedure Well: Yes Anesthesia Anesthesiologist: dunia Anesthesia: MAC Inserted Devices Implant(s) used?: No GI Core Measures 50 yrs or older w/o bx or poly: Not Applicable 10yrs. F/U not recommended: Not Applicable Vaibhav Lainez MD Jun 04, 2018 10:17
--- NOTE | 2018-06-04 10:18 | Anethesia Preoperative Eval ---
Anesthesia Pre-op PMH/ROS General Date of Evaluation: Jun 04, 2018 Time of Evaluation: 09:51 Anesthesiologist: dunia ASA Score: ASA 4 Mallampati Score Class I : Soft palate, uvula, fauces, pillars visible Class II: Soft palate, uvula, fauces visible Class III: Soft palate, base of uvula visible Class IV: Only hard plate visible Mallampati Classification: Class II Surgeon: rose Diagnosis: dysphagia Surgical Procedure: egd/peg Anesthesia History: none Social History: smoking - nonsmoker Family History: no anesthesia problems Allergies: Coded Allergies: No Known Allergies (Unverified , 06/02/18) Medications: see eMAR Patient NPO?: Yes Past Medical History Cardiovascular: Reports: HTN, other - cardiomegaly, hypercholesterolemia, Pulmonary: Reports: COPD, other - respiratory failure, tracheostomy, ventilator dependent, pneumonia Gastrointestinal/Genitourinary: Reports: GERD, ESRD - on dialysis Neurologic/Psychiatric: Reports: other - motor neuron disease, dorsalgia, Anesthesia Pre-op Phys. Exam Physician Exam Last Vital Signs Date Time Temp Pulse Resp B/P (MAP) Pulse Ox O2 Delivery O2 Flow Rate FiO2 06/04/18 09:20 100 18 40 06/04/18 08:51 133/78 06/04/18 08:00 98.1 100 06/04/18 04:00 Mechanical Ventilator 06/03/18 18:51 15.0 Constitutional: NAD Neurologic: other - motor neuron disease Cardiovascular: RRR Respiratory: other - tracheostomy, on ventilator Gastrointestinal: S/NT/ND Airway Exam Mallampati Score: Class II MO: limited Neck: tracheostomy TMD: 2fb ROM: limited Anesthesia Pre-op A/P Labs Hematology Test 06/04/18 03:00 White Blood Count 8.3 K/UL (4.8-10.8) Red Blood Count 2.87 M/UL (4.70-6.10) L Hemoglobin 8.1 G/DL (14.2-18.0) L Hematocrit 24.7 % (42.0-52.0) L Mean Corpuscular Volume 86 FL (80-99) Mean Corpuscular Hemoglobin 28.3 PG (27.0-31.0) Mean Corpuscular Hemoglobin Concent 32.8 G/DL (32.0-36.0) Red Cell Distribution Width 14.9 % (11.6-14.8) H Platelet Count 240 K/UL (150-450) Mean Platelet Volume 7.6 FL (6.5-10.1) Neutrophils (%) (Auto) 61.9 % (45.0-75.0) Lymphocytes (%) (Auto) 27.5 % (20.0-45.0) Monocytes (%) (Auto) 8.0 % (1.0-10.0) Eosinophils (%) (Auto) 2.1 % (0.0-3.0) Basophils (%) (Auto) 0.6 % (0.0-2.0) Reticulocyte Count Pending Coagulation Test 06/04/18 03:00 Prothrombin Time 11.4 SEC (9.30-11.50) Prothromb Time International Ratio 1.1 (0.9-1.1) Activated Partial Thromboplast Time 33 SEC (23-33) Chemistry Test 06/04/18 03:00 Sodium Level 139 MMOL/L (136-145) Potassium Level 3.1 MMOL/L (3.5-5.1) L Chloride Level 107 MMOL/L (98-107) Carbon Dioxide Level 22 MMOL/L (21-32) Anion Gap 10 mmol/L (5-15) Blood Urea Nitrogen 7 mg/dL (7-18) Creatinine 0.6 MG/DL (0.55-1.30) Estimat Glomerular Filtration Rate > 60 mL/min (>60) Glucose Level 89 MG/DL (74-106) Calcium Level 8.9 MG/DL (8.5-10.1) Magnesium Level 1.6 MG/DL (1.8-2.4) L Iron Level 29 ug/dL (50-175) L Total Iron Binding Capacity 225 ug/dL (250-450) L Percent Iron Saturation 13 % (15-50) L Unsaturated Iron Binding 196 ug/dL (112-346) Ferritin 232 NG/ML (8-388) Total Bilirubin 0.7 MG/DL (0.2-1.0) Aspartate Amino Transf (AST/SGOT) 14 U/L (15-37) L Alanine Aminotransferase (ALT/SGPT) 17 U/L (12-78) Alkaline Phosphatase 69 U/L (46-116) Total Protein 6.5 G/DL (6.4-8.2) Albumin 2.5 G/DL (3.4-5.0) L Globulin 4.0 g/dL Albumin/Globulin Ratio 0.6 (1.0-2.7) L Carcinoembryonic Antigen Pending Vitamin B12 Level 962 PG/ML (193-986) Folate 25.4 NG/ML (8.6-58.9) Thyroid Stimulating Hormone (TSH) 3.075 uiU/mL (0.358-3.740) Free Thyroxine 0.95 NG/DL (0.76-1.46) Risk Assessment & Plan Assessment: asa4 Plan: mac Status Change Before Surgery: No Pre-Antibiotics Drug: Litzy Agustin MD Jun 04, 2018 10:18
[2018-06-04] MEDS ORDERED: Atropine Inj 1mg/10ml Syr IV PRN (10:30)
[2018-06-04] MEDS ORDERED: fentaNYL 100 mcg/2 mL IV PRN (10:30)
[2018-06-04] MEDS ORDERED: Midazolam 2mg/2ml Inj IVP PRN (10:30)
[2018-06-04] MEDS ORDERED: DiphenhydrAMINE 50mg/ml Inj IVP PRN (10:30)
--- NOTE | 2018-06-04 11:24 | Immediate Post-Op Evaluation ---
Immediate Post-Op Evalulation Immediate Post-Op Evalulation Procedure: egd/peg Date of Evaluation: Jun 04, 2018 Time of Evaluation: 10:34 IV Fluids: 50ml 0.9ns Blood Products: none Estimated Blood Loss: negligible Blood Pressure Systolic: 100 Blood Pressure Diastolic: 68 Pulse Rate: 66 Respiratory Rate: 16 O2 Sat by Pulse Oximetry: 100 Temperature (Fahrenheit): 98.1 Pain Score (1-10): 0 Nausea: No Vomiting: No Complications none Patient Status: awake, reacts, patent, ventilated Hydration Status: adequate Drug: Litzy Agustin MD Jun 04, 2018 11:24
--- NOTE | 2018-06-04 11:26 | 48 Hour Post Anesthesia Eval ---
Post Anesthesia Evaluation Procedure: egd/peg Date of Evaluation: Jun 04, 2018 Time of Evaluation: 10:36 Blood Pressure Systolic: 110 0: 70 Pulse Rate: 67 Respiratory Rate: 18 Temperature (Fahrenheit): 98.1 O2 Sat by Pulse Oximetry: 100 Airway: patent Nausea: No Vomiting: No Hydration Status: adequate Cardiopulmonary Status: stable Mental Status/LOC: patient returned to baseline Post-Anesthesia Complications: none Follow-up care needed: N/A Litzy Mike MD Jun 04, 2018 11:26
[2018-06-04 12:00] VITALS: BP 112/56
[2018-06-04] MEDS: Morphine Sulfate 4mg/ml Inj (IV/IM USE ONLY) IVP PRN ×2 (12:08→17:32)
--- NOTE | 2018-06-04 15:00 | Procedure Note ---
DATE OF PROCEDURE: 06/04/2018 SURGEON: Vaibhav Lainez M.D. PROCEDURE: Upper endoscopy with PEG placement. ANESTHESIA: Per Dr. Taylor. INSTRUMENT: Olympus adult flexible upper endoscope. INDICATION: Dysphagia. REASON FOR PROCEDURE: The procedure, risks, benefits, and possible consequences, including hemorrhage, aspiration, perforation and infection, and alternative treatments, were explained to the patient/legal guardian by Dr. Vaibhav Lainez and the patient/legal guardian understood and accepted these risks. PROCEDURE IN DETAIL: After informed consent was obtained and the patient was adequately sedated, Olympus upper endoscope was advanced from mouth into the second portion of the duodenum and retroflexion was performed in the stomach. The patient had gastritis otherwise normal upper endoscopic examination. Under endoscopic guidance under sterile condition, a 20-Swedish pull type of G-tube was successfully placed in epigastric area. The distance from the tip of the tube to skin was 2.5 cm in size. The patient tolerated the procedure very well without any complication. SUMMARY OF FINDINGS: Status post successful PEG placement. RECOMMENDATIONS: 1. Abdominal binder. 2. Elevate the head of the bed at all times. 3. G-tube flush. 4. G-tube care. 5. Start tube feeding later today. 6. The patient is currently on antibiotics, we will continue. Vaibhav Lainez M.D. DR: DUSTY JOB#: [id number] CC:
--- NOTE | 2018-06-04 15:34 | Neurology Progress Note ---
Interim History Interim History Interim History Mr. Robles feels about the same as yesterday. He had his PEG placed this morning. He is still uncomfortable from it. He denies any new neurologic symptoms. The weakness is about the same. The sensations are still normal. Review of Systems Neuro Review of Systems Benign. Objective Physical Exam Last Vital Signs Date Time Temp Pulse Resp B/P (MAP) Pulse Ox O2 Delivery O2 Flow Rate FiO2 06/04/18 14:50 83 16 40 06/04/18 12:00 Mechanical Ventilator 06/04/18 12:00 98.4 112/56 (74) 97 06/03/18 18:51 15.0 Laboratory Tests Test 06/04/18 03:00 06/04/18 04:00 White Blood Count 8.3 K/UL (4.8-10.8) Red Blood Count 2.87 M/UL (4.70-6.10) L Hemoglobin 8.1 G/DL (14.2-18.0) L Hematocrit 24.7 % (42.0-52.0) L Mean Corpuscular Volume 86 FL (80-99) Mean Corpuscular Hemoglobin 28.3 PG (27.0-31.0) Mean Corpuscular Hemoglobin Concent 32.8 G/DL (32.0-36.0) Red Cell Distribution Width 14.9 % (11.6-14.8) H Platelet Count 240 K/UL (150-450) Mean Platelet Volume 7.6 FL (6.5-10.1) Neutrophils (%) (Auto) 61.9 % (45.0-75.0) Lymphocytes (%) (Auto) 27.5 % (20.0-45.0) Monocytes (%) (Auto) 8.0 % (1.0-10.0) Eosinophils (%) (Auto) 2.1 % (0.0-3.0) Basophils (%) (Auto) 0.6 % (0.0-2.0) Reticulocyte Count 0.3 % (0.0-2.0) Prothrombin Time 11.4 SEC (9.30-11.50) Prothromb Time International Ratio 1.1 (0.9-1.1) Activated Partial Thromboplast Time 33 SEC (23-33) Sodium Level 139 MMOL/L (136-145) Potassium Level 3.1 MMOL/L (3.5-5.1) L Chloride Level 107 MMOL/L (98-107) Carbon Dioxide Level 22 MMOL/L (21-32) Anion Gap 10 mmol/L (5-15) Blood Urea Nitrogen 7 mg/dL (7-18) Creatinine 0.6 MG/DL (0.55-1.30) Estimat Glomerular Filtration Rate > 60 mL/min (>60) Glucose Level 89 MG/DL (74-106) Calcium Level 8.9 MG/DL (8.5-10.1) Magnesium Level 1.6 MG/DL (1.8-2.4) L Iron Level 29 ug/dL (50-175) L Total Iron Binding Capacity 225 ug/dL (250-450) L Percent Iron Saturation 13 % (15-50) L Unsaturated Iron Binding 196 ug/dL (112-346) Ferritin 232 NG/ML (8-388) Total Bilirubin 0.7 MG/DL (0.2-1.0) Aspartate Amino Transf (AST/SGOT) 14 U/L (15-37) L Alanine Aminotransferase (ALT/SGPT) 17 U/L (12-78) Alkaline Phosphatase 69 U/L (46-116) Total Protein 6.5 G/DL (6.4-8.2) Albumin 2.5 G/DL (3.4-5.0) L Globulin 4.0 g/dL Albumin/Globulin Ratio 0.6 (1.0-2.7) L Carcinoembryonic Antigen Pending Vitamin B12 Level 962 PG/ML (193-986) Folate 25.4 NG/ML (8.6-58.9) Thyroid Stimulating Hormone (TSH) 3.075 uiU/mL (0.358-3.740) Free Thyroxine 0.95 NG/DL (0.76-1.46) Stool Occult Blood Pending Urine Legionella Antigen Pending Neurologic Exam Objective PHYSICAL EXAMINATION: GENERAL: He is a well-developed, but lean and wasting gentleman, lying in bed, in no acute distress, connected to a ventilator through a tracheostomy. HEAD: Normocephalic and atraumatic. NECK: No neck rigidity was observed. He did have a tracheostomy in place. EENT: Benign. NEUROLOGICAL EXAMINATION: MENTAL STATUS EXAMINATION: He was awake and alert. He was oriented to person, place, and time. He was able to recall 3/3 words immediately after 1 minute and after 3 minutes on the second trial. He was able to remember presidents, Trump through Jose senior with hints. His mathematical skills were good. His visuospatial function was preserved. SPEECH: He was able to mouth words well. LANGUAGE: He was able to comprehend, repeat, and express himself well. CRANIAL NERVE EXAMINATION: II: The visual maldonado were intact on confrontation testing. III, IV & : The external ocular movements were full and the pupils 3 mm in diameter, equal, round, regular, and reactive to light. V: He had normal facial sensations and the temporales, masseters, and pterygoids function normally. VII: He had normal facial expressions and no facial asymmetry. VIII: He was able to hear well bilaterally and had no nystagmus. IX: The palate moved symmetrically on phonation. X: His gag reflex was present. XI: The sternocleidomastoids and trapezii functioned normally. XII: The tongue was in the midline without any atrophy, but it did reveal fasciculations. MOTOR SYSTEM: The tone was normal in all four extremities except for decreased tone in the ankles more so on the left than on the right. Examination of muscle mass revealed severe generalized muscle wasting involving the distal muscles more than the proximal muscles and the lower extremities more than the upper extremities. He had G 5/5 power in both upper extremities except for G 4/5 power in the finger extensors. In the lower extremities, he had in the iliopsoas G 4+/5 on the right, G 4-/5 on the left. In the quadriceps, he had G 5-/5 on the right and G 4+/5 on the left. In the hamstrings, he had G 4+/5 on the right and G 4-/5 on the left. In the ankle dorsiflexors and toe extensors, he had G 3/5 on the right and G 0/ 5 on the left. In the ankle plantar flexors and toe flexors, he had G 4/5 on the right and G 1/ 5 on the left. SENSORY EXAMINATION: He had intact sensations to pinprick, light touch, and graphesthesia. COORDINATION: He performed well on [id number] testing. He was unable to perform [id number] testing. REFLEXES: 2++ and bilaterally symmetrical at the biceps, triceps, brachioradialis, and knees, 0 at both ankles. The plantar response was extensor on the right and mute on the left. STANCE & GAIT: Could not be tested. Impression/Recommendations Diagnostic Impression 1. Mr. Joseph Robles is a 58-year-old, right-handed, gentleman, who does have a prior history of hypertension and dyslipidemia, who approximately 4 years ago started to have weakness that started in his left foot with a left foot drop. Over the years, he has had increasing weakness in his lower extremities more than the upper extremities and on the left side more than the right associated with muscle wasting, muscle fasciculations, and then respiratory muscle failure as a result of which he has needed a tracheostomy. He has been worked up for the problem in the past and was found to have amyotrophic lateral sclerosis, for which he is on Rilutek. 2. He feels about the same as yesterday. He had his PEG placed this morning. He is still uncomfortable from it. He denies any new neurologic symptoms. The weakness is about the same. The sensations are still normal. 3. On neurological examination at this time, he does demonstrate tongue fasciculations, decreased tone in the ankles more so on the left than the right , generalized muscle wasting involving the lower extremities more than the upper extremities, a quadriparesis involving the lower extremities more than the upper extremities, and the left side more than the right in the lower extremities, brisk deep tendon reflexes with loss of ankle jerks, an extensor plantar response on the right with a mute plantar response on the left, and frequent fasciculations in all four extremities. 4. The patient's history and neurological examination are in fact consistent with amyotrophic lateral sclerosis. 5. He had his gastrostomy placed today. Recommendations 1. Rilutek should be continued. 2. In the near future, edaravone therapy should be considered. 3. The patient's family was told to try and retrieve his nerve conduction study , electromyography, and MRI scan reports so that I can review them. Richard Alcantara M.D., Richard Green MD Jun 04, 2018 15:34
[2018-06-04 16:00] VITALS: BP 103/63
--- NOTE | 2018-06-04 16:16 | Pulmonology Progress Note ---
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, unspecified (13) Encounter for PEG (percutaneous endoscopic gastrostomy) (14) Nutrition impaired due to imbalance of nutrients (15) HCAP (healthcare-associated pneumonia) Assessment/Plan Optimize pulmonary hygiene/mobilize as tolerated Continue ventilatory support/settings reviewed Titrate down FiO2 to keep SaO2 > 90% RTC and PRN HHN's + MUCOMYST HHN TID PRN suctioning Abx (Vanco, Zosyn, Azithro) per ID, F/U Cx's TF's started Monitor volumes F/U neuro recs, continue Rilutek FC, discuss GOC Subjective Allergies: Coded Allergies: No Known Allergies (Unverified , 06/02/18) Subjective S/P PEG, TF's started Awake, comfortable on vent No sig secretions, no F/C CT chest with LLL atx and posterior WALDO and RLL opacities, some T-i-B Objective Last 24 Hour Vital Signs Date Time Temp Pulse Resp B/P (MAP) Pulse Ox O2 Delivery O2 Flow Rate FiO2 06/04/18 14:50 83 16 40 06/04/18 13:05 93 17 40 06/04/18 12:03 66 06/04/18 12:00 Mechanical Ventilator 06/04/18 12:00 40 06/04/18 12:00 98.4 71 16 112/56 (74) 97 06/04/18 11:26 67 18 100 06/04/18 11:24 66 16 100 06/04/18 10:45 67 16 40 06/04/18 09:20 100 18 40 06/04/18 08:51 133/78 06/04/18 08:51 64 133/78 06/04/18 08:00 98.1 64 16 133/78 (96) 100 06/04/18 08:00 63 06/04/18 08:00 40 06/04/18 08:00 Mechanical Ventilator 06/04/18 06:48 53 16 40 06/04/18 05:05 58 16 40 06/04/18 04:00 52 06/04/18 04:00 40 06/04/18 04:00 98.9 48 16 99/54 (69) 100 06/04/18 04:00 Mechanical Ventilator 06/04/18 03:15 61 16 40 06/04/18 01:15 59 16 40 06/04/18 01:00 61 06/04/18 00:00 63 06/04/18 00:00 Mechanical Ventilator 06/04/18 00:00 98.4 59 16 91/55 (67) 100 06/04/18 00:00 40 06/03/18 22:54 67 16 40 06/03/18 21:16 61 16 40 06/03/18 20:00 Mechanical Ventilator 06/03/18 20:00 63 06/03/18 20:00 99.0 63 16 100/64 (76) 100 06/03/18 20:00 40 06/03/18 18:51 40 06/03/18 18:51 68 16 100 Mechanical Ventilator 15.0 40 06/03/18 18:41 66 16 100 Mechanical Ventilator 40 06/03/18 18:39 66 16 40 06/03/18 16:30 61 16 40 Intake and Output 06/03/18 06/04/18 19:00 07:00 Intake Total 1000 ml 1350 ml Output Total 1010 ml 1200 ml Balance -10 ml 150 ml IV Total 1000 ml 1350 ml Output Urine Total 1010 ml 1200 ml # Voids 3 General Appearance: no acute distress HEENT: normocephalic, atraumatic, mucous membranes moist, status post trach Respiratory/Chest: lungs clear, normal breath sounds, no respiratory distress Cardiovascular: normal peripheral pulses, normal rate, regular rhythm Abdomen: normal bowel sounds, soft, non tender, no organomegaly, non distended , no mass, other - GT Extremities: no cyanosis, no clubbing, no edema Microbiology Date/Time Source Procedure Growth Status 06/02/18 21:15 Blood Blood Culture - Preliminary NO GROWTH AFTER 24 HOURS Resulted 06/02/18 21:02 Blood Blood Culture - Preliminary NO GROWTH AFTER 24 HOURS Resulted 06/03/18 18:00 Sputum Gram Stain - Final Resulted 06/03/18 18:00 Sputum Sputum Culture - Preliminary Resulted 12/26/18 21:10 Rectum VRE Culture Pending Resulted 06/02/18 21:10 Rectum - Preliminary Resulted Laboratory Tests 06/04/18 03:00: White Blood Count 8.3, Red Blood Count 2.87L, Hemoglobin 8.1L, Hematocrit 24.7L , Mean Corpuscular Volume 86, Mean Corpuscular Hemoglobin 28.3, Mean Corpuscular Hemoglobin Concent 32.8, Red Cell Distribution Width 14.9H, Platelet Count 240, Mean Platelet Volume 7.6, Neutrophils (%) (Auto) 61.9, Lymphocytes (%) (Auto) 27.5, Monocytes (%) (Auto) 8.0, Eosinophils (%) (Auto) 2.1, Basophils (%) (Auto) 0.6, Reticulocyte Count 0.3, Prothrombin Time 11.4, Prothromb Time International Ratio 1.1, Activated Partial Thromboplast Time 33, Sodium Level 139, Potassium Level 3.1L, Chloride Level 107, Carbon Dioxide Level 22, Anion Gap 10, Blood Urea Nitrogen 7, Creatinine 0.6, Estimat Glomerular Filtration Rate > 60, Glucose Level 89, Calcium Level 8.9, Magnesium Level 1.6L, Iron Level 29L, Total Iron Binding Capacity 225L, Percent Iron Saturation 13L, Unsaturated Iron Binding 196, Ferritin 232, Total Bilirubin 0.7 , Aspartate Amino Transf (AST/SGOT) 14L, Alanine Aminotransferase (ALT/SGPT) 17 , Alkaline Phosphatase 69, Total Protein 6.5, Albumin 2.5L, Globulin 4.0, Albumin/Globulin Ratio 0.6L, Carcinoembryonic Antigen [Pending], Vitamin B12 Level 962, Folate 25.4, Thyroid Stimulating Hormone (TSH) 3.075, Free Thyroxine 0.95 06/04/18 04:00: Stool Occult Blood [Pending], Urine Legionella Antigen [Pending] Current Medications Medications (Trade) Dose Ordered Sig/Irma Route PRN Reason Start Time Stop Time Status Last Admin Dose Admin Acetaminophen (Tylenol) 650 mg Q4H PRN ORAL For Pain 06/02/18 22:00 07/02/18 21:59 06/04/18 11:35 Al Hydroxide/Mg Hydroxide (Mylanta) 15 ml Q1H PRN ORAL gi upset 06/04/18 10:30 06/04/18 19:00 Albuterol/ Ipratropium (Albuterol/ Ipratropium) 3 ml Q4H PRN HHN Shortness of Breath 06/03/18 08:15 06/08/18 08:14 06/03/18 18:41 Amlodipine Besylate (Norvasc) 10 mg DAILY ORAL 06/03/18 09:00 07/03/18 08:59 06/04/18 08:51 Atorvastatin Calcium (Lipitor) 10 mg BEDTIME ORAL 06/02/18 22:30 07/02/18 22:29 06/03/18 20:12 Atropine Sulfate (Atropine) 0.5 mg Q5M PRN IV bpm less than 45 06/04/18 10:30 06/04/18 19:00 Azithromycin (Zithromax) 250 mg DAILY ORAL 06/04/18 09:00 06/11/18 08:59 06/04/18 08:50 Bisacodyl (Dulcolax) 10 mg DAILYPRN PRN RECTAL Constipation 06/03/18 06:41 07/03/18 06:40 Dextrose/Sodium Chloride 1,000 ml @ 100 mls/hr Q10H IV 06/02/18 22:00 07/02/18 21:59 06/04/18 14:29 Diphenhydramine HCl (Benadryl) 25 mg Q15M PRN IVP Itching 06/04/18 10:30 06/04/18 19:00 Docusate Sodium (Colace) 100 mg BID ORAL 06/03/18 09:00 07/03/18 08:59 06/04/18 08:51 Fentanyl Citrate (Sublimaze 100 mcg/2 mL) 25 mcg Q10M PRN IV Moderate Pain (Pain Scale 4-6) 06/04/18 10:30 06/04/18 19:00 Heparin Sodium (Porcine) (Heparin 5000 units/ml) 5,000 units EVERY 12 HOURS SUBQ 06/03/18 09:00 07/03/18 08:59 06/04/18 08:53 Hydralazine HCl (Apresoline) 5 mg Q30M PRN IV SBP>160 OR___/DBP>90 OR___ 06/04/18 10:30 06/04/18 19:00 Lansoprazole (Prevacid) 30 mg BID ORAL 06/03/18 09:00 07/03/18 08:59 06/04/18 08:50 Lisinopril (Zestril) 10 mg DAILY ORAL 06/03/18 09:00 07/03/18 08:59 06/04/18 08:51 Magnesium Sulfate 100 ml @ 100 mls/hr Q1H IVPB 06/04/18 17:00 06/04/18 20:59 Midazolam HCl (Versed 2mg/2ml vial) 1 mg Q15M PRN IVP For Anxiety 06/04/18 10:30 06/04/18 19:00 Morphine Sulfate (Morphine Sulfate) 2 mg Q4H PRN IVP For Pain 06/04/18 12:00 06/11/18 11:59 06/04/18 12:08 Multivitamins Therapeutic (Therapeutic Multivitamin) 1 ea DAILY ORAL 06/03/18 09:00 07/03/18 08:59 06/04/18 08:50 Ondansetron HCl (Zofran) 4 mg Q1H PRN IVP Nausea & Vomiting 06/04/18 10:30 06/04/18 19:00 Patient Own Medication (Patient's Own Med) 1 ea Q12HR ORAL 06/03/18 21:00 07/03/18 20:59 06/04/18 08:52 Piperacillin Sod/ Tazobactam Sod 3.375 gm/Dextrose 100 ml @ 25 mls/hr EVERY 8 HOURS IVPB 06/03/18 22:00 06/08/18 21:59 06/04/18 14:29 Vancomycin HCl (Vanco rx to dose) 1 ea DAILY PRN MISC Per rx protocol 06/03/18 18:00 07/03/18 17:59 Vancomycin/Sodium Chloride 250 ml @ 166.667 mls/hr Q12H IVPB 06/03/18 20:00 06/08/18 19:59 06/04/18 08:07 Vitamin D (Vitamin D) 2,000 intlu DAILY ORAL 06/03/18 09:00 07/03/18 08:59 06/04/18 08:50 Parveen Blanco MD Jun 04, 2018 16:16
[2018-06-04 20:00] VITALS: BP 90/60
[2018-06-04] MEDS: Albuterol/Ipratropium 3ml neb HHN PRN (20:15)
[2018-06-05] VITALS: BP 106/46
[2018-06-05] MEDS: Vancomycin 750mg/NS 250ml IVPB SCH ×3 (03:47→20:14)
[2018-06-05 04:00] VITALS: BP 104/47
[2018-06-05 05:08] LABS: BASOPHILS % (AUTO) 0.2 % (0.0-2.0); EOSINOPHILS % (AUTO) 1.1 % (0.0-3.0); HEMATOCRIT 23.7 % (42.0-52.0); LYMPHOCYTES % (AUTO) 15.9 % (20.0-45.0); MEAN CORPUSCULAR VOLUME 85 FL (80-99); MONOCYTES % (AUTO) 3.3 % (1.0-10.0); NEUTROPHILS % (AUTO) 79.5 % (45.0-75.0); PLATELET COUNT 243 K/UL (150-450); RED BLOOD COUNT 2.79 M/UL (4.70-6.10); RED CELL DISTRIBUTION WIDTH 14.7 % (11.6-14.8); WHITE BLOOD COUNT 12.5 K/UL (4.8-10.8)
[2018-06-05 05:29] LABS: ALANINE AMINOTRANSFERASE 18 U/L (12-78); ALBUMIN 2.3 G/DL (3.4-5.0); ALBUMIN/GLOBULIN RATIO 0.6 (1.0-2.7); ALKALINE PHOSPHATASE 65 U/L (46-116); ANION GAP 7 mmol/L (5-15); ASPARTATE AMINO TRANSFERASE 10 U/L (15-37); BILIRUBIN,TOTAL 0.6 MG/DL (0.2-1.0); BLOOD UREA NITROGEN 8 mg/dL (7-18); CALCIUM 8.2 MG/DL (8.5-10.1); CARBON DIOXIDE 24 MMOL/L (21-32); CHLORIDE 105 MMOL/L (98-107); CREATININE 0.7 MG/DL (0.55-1.30); POTASSIUM 3.6 MMOL/L (3.5-5.1); SODIUM 136 MMOL/L (136-145)
[2018-06-05] MEDS: Albuterol/Ipratropium 3ml neb HHN PRN ×3 (06:49→19:43)
--- NOTE | 2018-06-05 07:07 | Cardiology Report ---
APPROVED REPORT EXAM: Two-dimensional and M-mode echocardiogram with Doppler and color Doppler. INDICATION Congestive Heart Failure M-Mode DIMENSIONS IVSd0.9 (0.7-1.1cm)Left Atrium (MM)2.1 (1.6-4.0cm) LVDd5.9 (3.5-5.6cm)Aortic Root3.5 (2.0-3.7cm) PWd1.1 (0.7-1.1cm)Aortic Cusp Exc.1.6 (1.5-2.0cm) IVSs1.6 cm LVDs3.5 (2.5-4.0cm) PWs1.3 cm Normal left ventricular chamber size, systolic function and wall motion Left ventricular ejection fraction estimated to be 55-60%. Mild left ventricular hypertrophy by 2-D. Anterior Echo-free space, may be due to pericardial fat or effusion. All other cardiac chamber sizes are within normal limits. Mild focal aortic valve sclerosis with adequate cusp excursion. Mildly thickened mitral valve leaflets with normal excursion. Mild mitral annulus and aortic root calcification. Pulmonic valve not well visualized. Normal tricuspid valve structure. IVC at normal size with physiologic collapse. A color flow and spectral Doppler study was performed and revealed: No aortic inssufiency . Trace mitral regurgitation. Normal left ventricular diastolic function . Trace tricuspid regurgitation. Tricuspid systolic velocities suggests peak right ventricular systolic pressure of 23 mmHg.
[2018-06-05 08:00] VITALS: BP 109/70
[2018-06-05] MEDS: Azithromycin 250mg tab ORAL SCH (08:44)
[2018-06-05] MEDS: Docusate 100mg cap ORAL SCH ×2 (08:45→18:06)
[2018-06-05] MEDS: Vitamin D 1000 IU Tab ORAL SCH (08:45)
[2018-06-05] MEDS: Multivitamin w/Minerals tab ORAL SCH (08:46)
[2018-06-05] MEDS: Heparin 5000 units/ml inj SUBQ SCH ×2 (08:48→20:16)
[2018-06-05] MEDS: Lisinopril 10mg tab ORAL SCH (09:00)
--- NOTE | 2018-06-05 09:20 | Diagnostic Imaging Report ---
EXAM: XR Chest, 1 View CLINICAL HISTORY: INFECT TECHNIQUE: Frontal view of the chest. COMPARISON: No relevant prior studies available. FINDINGS: Lungs: Bibasilar infiltrates, left greater than right. Pleural space: Unremarkable. No pneumothorax. Heart: Unremarkable. No cardiomegaly. Mediastinum: Unremarkable. Bones/joints: No acute fracture. Tubes, lines and devices: Tracheostomy. IMPRESSION: Bibasilar infiltrates, left greater than right.
[2018-06-05] MEDS ORDERED: Tubing IV Secondary IV ONE ×2 (10:05→17:33)
[2018-06-05] MEDS ORDERED: NS 275ml ONE ×2 (10:05→17:33)
[2018-06-05] MEDS ORDERED: Sterile Water Irrig 1000ml IRRIG ONE (10:05)
[2018-06-05] MEDS ORDERED: D5NS 1000ml IV ONE ×2 (10:05→17:33)
[2018-06-05] MEDS: D5NS 1,000 ML IV SCH ×2 (10:26→20:20)
[2018-06-05 12:00] VITALS: BP 104/67
--- NOTE | 2018-06-05 13:09 | Neurology Progress Note ---
Interim History Interim History Interim History Mr. Robles feels well. The PEG is comfortable. He denies any new neurologic symptoms. The weakness is about the same. The sensations are still normal. He has not been able to get me any of his records yet. Review of Systems Neuro Review of Systems Benign. Objective Physical Exam Last Vital Signs Date Time Temp Pulse Resp B/P (MAP) Pulse Ox O2 Delivery O2 Flow Rate FiO2 06/05/18 12:00 40 06/05/18 12:00 97.9 65 16 104/67 (79) 100 06/05/18 12:00 Mechanical Ventilator 06/03/18 18:51 15.0 Laboratory Tests Test 06/04/18 19:00 06/05/18 03:45 06/05/18 05:39 06/05/18 09:15 Vancomycin Level Trough 9.6 ug/mL (5.0-12.0) White Blood Count 12.5 K/UL (4.8-10.8) #H Red Blood Count 2.79 M/UL (4.70-6.10) L Hemoglobin 8.0 G/DL (14.2-18.0) L Hematocrit 23.7 % (42.0-52.0) L Mean Corpuscular Volume 85 FL (80-99) Mean Corpuscular Hemoglobin 28.7 PG (27.0-31.0) Mean Corpuscular Hemoglobin Concent 33.8 G/DL (32.0-36.0) Red Cell Distribution Width 14.7 % (11.6-14.8) Platelet Count 243 K/UL (150-450) Mean Platelet Volume 7.9 FL (6.5-10.1) Neutrophils (%) (Auto) 79.5 % (45.0-75.0) H Lymphocytes (%) (Auto) 15.9 % (20.0-45.0) L Monocytes (%) (Auto) 3.3 % (1.0-10.0) Eosinophils (%) (Auto) 1.1 % (0.0-3.0) Basophils (%) (Auto) 0.2 % (0.0-2.0) Sodium Level 136 MMOL/L (136-145) Potassium Level 3.6 MMOL/L (3.5-5.1) Chloride Level 105 MMOL/L (98-107) Carbon Dioxide Level 24 MMOL/L (21-32) Anion Gap 7 mmol/L (5-15) Blood Urea Nitrogen 8 mg/dL (7-18) Creatinine 0.7 MG/DL (0.55-1.30) Estimat Glomerular Filtration Rate > 60 mL/min (>60) Glucose Level 95 MG/DL (74-106) Calcium Level 8.2 MG/DL (8.5-10.1) L Total Bilirubin 0.6 MG/DL (0.2-1.0) Aspartate Amino Transf (AST/SGOT) 10 U/L (15-37) L Alanine Aminotransferase (ALT/SGPT) 18 U/L (12-78) Alkaline Phosphatase 65 U/L (46-116) Total Protein 6.1 G/DL (6.4-8.2) L Albumin 2.3 G/DL (3.4-5.0) L Globulin 3.8 g/dL Albumin/Globulin Ratio 0.6 (1.0-2.7) L Magnesium Level 2.3 MG/DL (1.8-2.4) Stool Occult Blood Negative (NEGATIVE) Neurologic Exam Objective PHYSICAL EXAMINATION: GENERAL: He is a well-developed, but lean and wasting gentleman, lying in bed, in no acute distress, connected to a ventilator through a tracheostomy. HEAD: Normocephalic and atraumatic. NECK: No neck rigidity was observed. He did have a tracheostomy in place. EENT: Benign. NEUROLOGICAL EXAMINATION: MENTAL STATUS EXAMINATION: He was awake and alert. He was oriented to person, place, and time. He was able to recall 3/3 words immediately after 1 minute and after 3 minutes. He was able to remember presidents, Trump through Jose senior with hints. His mathematical skills were good. His visuospatial function was preserved. SPEECH: He was able to mouth words well. LANGUAGE: He was able to comprehend, repeat, and express himself well. CRANIAL NERVE EXAMINATION: II: The visual maldonado were intact on confrontation testing. III, IV & : The external ocular movements were full and the pupils 3 mm in diameter, equal, round, regular, and reactive to light. V: He had normal facial sensations and the temporales, masseters, and pterygoids function normally. VII: He had normal facial expressions and no facial asymmetry. VIII: He was able to hear well bilaterally and had no nystagmus. IX: The palate moved symmetrically on phonation. X: His gag reflex was present. XI: The sternocleidomastoids and trapezii functioned normally. XII: The tongue was in the midline without any atrophy, but it did reveal fasciculations. MOTOR SYSTEM: The tone was normal in all four extremities except for decreased tone in the ankles more so on the left than on the right. Examination of muscle mass revealed severe generalized muscle wasting involving the distal muscles more than the proximal muscles and the lower extremities more than the upper extremities. He had G 5/5 power in both upper extremities except for G 4/5 power in the finger extensors. In the lower extremities, he had in the iliopsoas G 4+/5 on the right, G 4-/5 on the left. In the quadriceps, he had G 5-/5 on the right and G 4+/5 on the left. In the hamstrings, he had G 4+/5 on the right and G 4-/5 on the left. In the ankle dorsiflexors and toe extensors, he had G 3/5 on the right and G 0/ 5 on the left. In the ankle plantar flexors and toe flexors, he had G 4/5 on the right and G 1/ 5 on the left. SENSORY EXAMINATION: He had intact sensations to pinprick, light touch, and graphesthesia. COORDINATION: He performed well on [id number] testing. He was unable to perform [id number] testing. REFLEXES: 2++ and bilaterally symmetrical at the biceps, triceps, brachioradialis, and knees, 0 at both ankles. The plantar response was extensor on the right and mute on the left. STANCE & GAIT: Could not be tested. Impression/Recommendations Diagnostic Impression 1. Mr. Joseph Robles is a 58-year-old, right-handed, gentleman, who does have a prior history of hypertension and dyslipidemia, who approximately 4 years ago started to have weakness that started in his left foot with a left foot drop. Over the years, he has had increasing weakness in his lower extremities more than the upper extremities and on the left side more than the right associated with muscle wasting, muscle fasciculations, and then respiratory muscle failure as a result of which he has needed a tracheostomy. He has been worked up for the problem in the past and was found to have amyotrophic lateral sclerosis, for which he is on Rilutek. 2. He feels well. The PEG is comfortable. He denies any new neurologic symptoms. The weakness is about the same. The sensations are still normal. He has not been able to get me any of his records yet. 3. On neurological examination at this time, he does demonstrate tongue fasciculations, decreased tone in the ankles more so on the left than the right , generalized muscle wasting involving the lower extremities more than the upper extremities, a quadriparesis involving the lower extremities more than the upper extremities, and the left side more than the right in the lower extremities, brisk deep tendon reflexes with loss of ankle jerks, an extensor plantar response on the right with a mute plantar response on the left, and frequent fasciculations in all four extremities. 4. The patient's history and neurological examination are in fact consistent with amyotrophic lateral sclerosis. 5. His gastrostomy is functioning well. Recommendations 1. Rilutek should be continued. 2. In the near future, edaravone therapy should be considered. 3. The patient's family was told to try and retrieve his nerve conduction study , electromyography, and MRI scan reports so that I can review them. Richard Alcantara M.D., M.S.P.H. Richard Alcantara MD Jun 05, 2018 13:09
[2018-06-05 16:00] VITALS: BP 90/55
--- NOTE | 2018-06-05 16:24 | General Progress Note ---
Assessment/Plan Assessment/Plan Assessment - s/p PEG for dysphagia - ALS - Resp failure - Anemia Recommendations - continue TF - GT site care - vent - follow labs Subjective Allergies: Coded Allergies: No Known Allergies (Unverified , 06/02/18) Subjective Above noted d/w RT tolerating TF mild GT site pain Objective Last 24 Hour Vital Signs Date Time Temp Pulse Resp B/P (MAP) Pulse Ox O2 Delivery O2 Flow Rate FiO2 06/05/18 15:14 62 16 40 06/05/18 13:45 61 16 100 Mechanical Ventilator 40 06/05/18 13:40 58 16 100 Mechanical Ventilator 40 06/05/18 13:28 59 16 40 06/05/18 12:00 40 06/05/18 12:00 97.9 65 16 104/67 (79) 100 06/05/18 12:00 Mechanical Ventilator 06/05/18 12:00 60 06/05/18 10:32 64 16 40 06/05/18 09:25 89 16 40 06/05/18 09:00 109/70 06/05/18 09:00 89 109/70 06/05/18 08:00 98.2 84 16 109/70 (83) 100 06/05/18 08:00 40 06/05/18 08:00 Mechanical Ventilator 06/05/18 08:00 77 06/05/18 06:50 68 16 100 Mechanical Ventilator 40 06/05/18 06:46 74 16 40 06/05/18 06:42 66 16 100 Mechanical Ventilator 40 06/05/18 05:10 67 16 40 06/05/18 04:00 40 06/05/18 04:00 68 06/05/18 04:00 98.6 70 16 104/47 (66) 98 06/05/18 04:00 Mechanical Ventilator 06/05/18 02:48 73 16 40 06/05/18 01:31 70 16 40 06/05/18 00:00 40 06/05/18 00:00 Mechanical Ventilator 06/05/18 00:00 98.6 73 16 106/46 (66) 100 06/05/18 00:00 85 06/04/18 23:13 72 16 40 06/04/18 20:40 69 16 40 06/04/18 20:20 76 16 100 Mechanical Ventilator 40 06/04/18 20:09 68 16 99 Mechanical Ventilator 40 06/04/18 20:00 40 06/04/18 20:00 67 06/04/18 20:00 98.1 60 16 90/60 (70) 100 06/04/18 20:00 Mechanical Ventilator 06/04/18 19:30 67 16 40 06/04/18 17:00 85 16 40 Intake and Output 06/04/18 06/05/18 19:00 07:00 Intake Total 1564.570 ml 1787.083 ml Output Total 1650 ml Balance -85.430 ml 1787.083 ml Free Water 200 ml 130 ml IV Total 1164.570 ml 1077.083 ml Tube Feeding 200 ml 580 ml Output Urine Total 1650 ml # Voids 4 Laboratory Tests 06/04/18 19:00: Vancomycin Level Trough 9.6 06/05/18 03:45: White Blood Count 12.5#H, Red Blood Count 2.79L, Hemoglobin 8.0L, Hematocrit 23.7L, Mean Corpuscular Volume 85, Mean Corpuscular Hemoglobin 28.7, Mean Corpuscular Hemoglobin Concent 33.8, Red Cell Distribution Width 14.7, Platelet Count 243, Mean Platelet Volume 7.9, Neutrophils (%) (Auto) 79.5H, Lymphocytes ( %) (Auto) 15.9L, Monocytes (%) (Auto) 3.3, Eosinophils (%) (Auto) 1.1, Basophils (%) (Auto) 0.2, Sodium Level 136, Potassium Level 3.6, Chloride Level 105, Carbon Dioxide Level 24, Anion Gap 7, Blood Urea Nitrogen 8, Creatinine 0.7 , Estimat Glomerular Filtration Rate > 60, Glucose Level 95, Calcium Level 8.2L , Total Bilirubin 0.6, Aspartate Amino Transf (AST/SGOT) 10L, Alanine Aminotransferase (ALT/SGPT) 18, Alkaline Phosphatase 65, Total Protein 6.1L, Albumin 2.3L, Globulin 3.8, Albumin/Globulin Ratio 0.6L 06/05/18 05:39: Magnesium Level 2.3 06/05/18 09:15: Stool Occult Blood Negative Height (Feet): 5 Height (Inches): 4.00 Weight (Pounds): 112 Objective Thin WM NCAT (+) trach Coarse BS RR soft ND (+) GT no edema Corrie Trotter MD Jun 05, 2018 16:24
--- NOTE | 2018-06-05 17:20 | General Progress Note ---
Assessment/Plan Assessment/Plan (1) Protein calorie malnutrition s/p G-tube placement continue tube feeds (2) Status post tracheostomy, chronic respiratory failure continue cent management per Pulmonology continue frequent suctioning (3) Motor neuron disease, ALS Continue supportive care Neurology following (4) Sepsis, suspected aspiration pneumonia versus HCAP continue vancomycin and Zosyn ID following Subjective Date patient seen: Jun 05, 2018 Time patient seen: 17:50 ROS Limited/Unobtainable: Yes Constitutional: Denies: fever HEENT: Denies: eye pain, blurred vision Cardiovascular: Denies: chest pain Respiratory: Reports: cough, shortness of breath Genitourinary: Denies: burning Allergies: Coded Allergies: No Known Allergies (Unverified , 06/02/18) Subjective Medicine followup for severe protein calorie malnutrition, suspected aspiration pneumonia, sepsis. He feels ok today. Still with increased sputum and cough. Objective Last 24 Hour Vital Signs Date Time Temp Pulse Resp B/P (MAP) Pulse Ox O2 Delivery O2 Flow Rate FiO2 06/05/18 16:00 97.9 63 16 90/55 (67) 100 06/05/18 16:00 70 06/05/18 16:00 40 06/05/18 16:00 Mechanical Ventilator 06/05/18 15:14 62 16 40 06/05/18 13:45 61 16 100 Mechanical Ventilator 40 06/05/18 13:40 58 16 100 Mechanical Ventilator 40 06/05/18 13:28 59 16 40 06/05/18 12:00 40 06/05/18 12:00 97.9 65 16 104/67 (79) 100 06/05/18 12:00 Mechanical Ventilator 06/05/18 12:00 60 06/05/18 10:32 64 16 40 06/05/18 09:25 89 16 40 06/05/18 09:00 109/70 06/05/18 09:00 89 109/70 06/05/18 08:00 98.2 84 16 109/70 (83) 100 06/05/18 08:00 40 06/05/18 08:00 Mechanical Ventilator 06/05/18 08:00 77 06/05/18 06:50 68 16 100 Mechanical Ventilator 40 06/05/18 06:46 74 16 40 06/05/18 06:42 66 16 100 Mechanical Ventilator 40 06/05/18 05:10 67 16 40 06/05/18 04:00 40 06/05/18 04:00 68 06/05/18 04:00 98.6 70 16 104/47 (66) 98 06/05/18 04:00 Mechanical Ventilator 06/05/18 02:48 73 16 40 06/05/18 01:31 70 16 40 06/05/18 00:00 40 06/05/18 00:00 Mechanical Ventilator 06/05/18 00:00 98.6 73 16 106/46 (66) 100 06/05/18 00:00 85 06/04/18 23:13 72 16 40 06/04/18 20:40 69 16 40 06/04/18 20:20 76 16 100 Mechanical Ventilator 40 06/04/18 20:09 68 16 99 Mechanical Ventilator 40 06/04/18 20:00 40 06/04/18 20:00 67 06/04/18 20:00 98.1 60 16 90/60 (70) 100 06/04/18 20:00 Mechanical Ventilator 06/04/18 19:30 67 16 40 Intake and Output 06/04/18 06/05/18 19:00 07:00 Intake Total 1564.570 ml 1787.083 ml Output Total 1650 ml Balance -85.430 ml 1787.083 ml Free Water 200 ml 130 ml IV Total 1164.570 ml 1077.083 ml Tube Feeding 200 ml 580 ml Output Urine Total 1650 ml # Voids 4 Laboratory Tests 06/04/18 19:00: Vancomycin Level Trough 9.6 06/05/18 03:45: White Blood Count 12.5#H, Red Blood Count 2.79L, Hemoglobin 8.0L, Hematocrit 23.7L, Mean Corpuscular Volume 85, Mean Corpuscular Hemoglobin 28.7, Mean Corpuscular Hemoglobin Concent 33.8, Red Cell Distribution Width 14.7, Platelet Count 243, Mean Platelet Volume 7.9, Neutrophils (%) (Auto) 79.5H, Lymphocytes ( %) (Auto) 15.9L, Monocytes (%) (Auto) 3.3, Eosinophils (%) (Auto) 1.1, Basophils (%) (Auto) 0.2, Sodium Level 136, Potassium Level 3.6, Chloride Level 105, Carbon Dioxide Level 24, Anion Gap 7, Blood Urea Nitrogen 8, Creatinine 0.7 , Estimat Glomerular Filtration Rate > 60, Glucose Level 95, Calcium Level 8.2L , Total Bilirubin 0.6, Aspartate Amino Transf (AST/SGOT) 10L, Alanine Aminotransferase (ALT/SGPT) 18, Alkaline Phosphatase 65, Total Protein 6.1L, Albumin 2.3L, Globulin 3.8, Albumin/Globulin Ratio 0.6L 06/05/18 05:39: Magnesium Level 2.3 06/05/18 09:15: Stool Occult Blood Negative Height (Feet): 5 Height (Inches): 4.00 Weight (Pounds): 112 General Appearance: no apparent distress, alert Neck: non-tender, normal alignment Cardiovascular: normal peripheral pulses, normal rate, regular rhythm Respiratory/Chest: chest wall non-tender, no respiratory distress, other - Left sided rales Abdomen: non tender, soft Neurologic: alert, oriented x 3 Pedro Bolton MD Jun 05, 2018 17:20
--- NOTE | 2018-06-05 18:26 | Infectious Diseases Prog Note ---
Assessment/Plan Assessment/Plan ASSESSMENT AND PLAN: 1. Gram neg pna, sepsis, leukocytosis, ALS, trach, vent, g-tube - vancomycin, azithromycin, zosyn - f/u on sputum culture, labs, chest x-ray and serology - continue per pulmonary medicine 2. The patient has trach vent respiratory failure. 3. Dysphagia, possible malnutrition, needed gastrostomy tube. 4. The patient has history of amyotrophic lateral sclerosis. 5. Possible hyperlipidemia. 6. Discussed with Neurology. Neurology will follow. 7. Hypertension. Treatment per primary team. 8. Anemia. 9. Weakness secondary to presumptive amyotrophic lateral sclerosis. 10. No history of diabetes or hypertension. 11. No known allergies. 12. Social history negative. 13. Family history noncontributory. 14. MAR was noted. 15. Case discussed with RN. 16. Continue treatment per primary consultants. 17. Case discussed with the patient and the patient's family. 18. vre colonization and isolation Subjective Constitutional: Reports: fatigue, other - trach and vent, nad ; Denies: fever HEENT: Reports: congestion Respiratory: Reports: shortness of breath Cardiovascular: Denies: chest pain Gastrointestinal/Abdominal: Denies: nausea, vomiting, diarrhea Genitourinary: Reports: other - no loera ; Denies: dysuria, hematuria Neurologic: Denies: headache Psychiatric: Denies: depression Skin: Denies: rash Hematologic: Denies: bleeding Musculoskeletal: Denies: pain Allergies: Coded Allergies: No Known Allergies (Unverified , 06/02/18) Objective Vital Signs Last 24 Hour Vital Signs Date Time Temp Pulse Resp B/P (MAP) Pulse Ox O2 Delivery O2 Flow Rate FiO2 06/05/18 17:17 95 21 40 06/05/18 16:00 97.9 63 16 90/55 (67) 100 06/05/18 16:00 70 06/05/18 16:00 40 06/05/18 16:00 Mechanical Ventilator 06/05/18 15:14 62 16 40 06/05/18 13:45 61 16 100 Mechanical Ventilator 40 06/05/18 13:40 58 16 100 Mechanical Ventilator 40 06/05/18 13:28 59 16 40 06/05/18 12:00 40 06/05/18 12:00 97.9 65 16 104/67 (79) 100 06/05/18 12:00 Mechanical Ventilator 06/05/18 12:00 60 06/05/18 10:32 64 16 40 06/05/18 09:25 89 16 40 06/05/18 09:00 109/70 06/05/18 09:00 89 109/70 06/05/18 08:00 98.2 84 16 109/70 (83) 100 06/05/18 08:00 40 06/05/18 08:00 Mechanical Ventilator 06/05/18 08:00 77 06/05/18 06:50 68 16 100 Mechanical Ventilator 40 06/05/18 06:46 74 16 40 06/05/18 06:42 66 16 100 Mechanical Ventilator 40 06/05/18 05:10 67 16 40 06/05/18 04:00 40 06/05/18 04:00 68 06/05/18 04:00 98.6 70 16 104/47 (66) 98 06/05/18 04:00 Mechanical Ventilator 06/05/18 02:48 73 16 40 06/05/18 01:31 70 16 40 06/05/18 00:00 40 06/05/18 00:00 Mechanical Ventilator 06/05/18 00:00 98.6 73 16 106/46 (66) 100 06/05/18 00:00 85 06/04/18 23:13 72 16 40 06/04/18 20:40 69 16 40 06/04/18 20:20 76 16 100 Mechanical Ventilator 40 06/04/18 20:09 68 16 99 Mechanical Ventilator 40 06/04/18 20:00 40 06/04/18 20:00 67 06/04/18 20:00 98.1 60 16 90/60 (70) 100 06/04/18 20:00 Mechanical Ventilator 06/04/18 19:30 67 16 40 Height (Feet): 5 Height (Inches): 4.00 Weight (Pounds): 112 General Appearance: no acute distress, other - nad on trach and vent HEENT: normocephalic, atraumatic, anicteric, mucous membranes moist, EOMI, no JVD, status post trach Respiratory/Chest: crackles/rales, rhonchi - bilaterally Cardiovascular: normal rate, regular rhythm, no gallop/murmur, no JVD Abdomen: normal bowel sounds, soft, non tender, no organomegaly, non distended Genitourinary: other - no loera, no cva pain Extremities: no cyanosis Skin: no rash 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 * Complete atelectasis of the left lower lobe with some mucous/debris in the left lower lobe bronchus. Consider bronchoscopy as clinically indicated. Mass or pneumonia in the collapsed lung not excludable. * Patchy and somewhat nodular airspace opacities in the posterior left upper lobe and posterior right lower lobe as well as some tree-in-bud opacities in the periphery of the left upper lobe likely infectious or inflammatory in etiology. Follow-up after appropriate treatment recommended to ensure resolution. CT ABDOMEN/PELVIS: * Cholelithiasis. No CT evidence to suggest acute cholecystitis. * Bladder wall thickening. Correlation with urinalysis recommended to exclude cystitis. * Enlarged and heterogeneous prostate. * Moderate colonic stool burden raising question for constipation. Chest x-ray - 06/05/18: FINDINGS: Lungs: Bibasilar infiltrates, left greater than right. Pleural space: Unremarkable. No pneumothorax. Heart: Unremarkable. No cardiomegaly. Mediastinum: Unremarkable. Bones/joints: No acute fracture. Tubes, lines and devices: Tracheostomy. IMPRESSION: Bibasilar infiltrates, left greater than right. Microbiology Date/Time Source Procedure Growth Status 06/02/18 21:15 Blood Blood Culture - Preliminary NO GROWTH AFTER 48 HOURS Resulted 06/02/18 21:02 Blood Blood Culture - Preliminary NO GROWTH AFTER 48 HOURS Resulted 06/03/18 18:00 Sputum Gram Stain - Final Resulted 06/03/18 18:00 Sputum Culture - Preliminary Gram Negative Bacillus 1 Usual Respiratory Radha Resulted 06/02/18 21:10 Nasal Nares MRSA Culture - Final NO METHICILLIN RESISTANT STAPH AUREUS... Complete 06/02/18 21:10 Rectum VRE Culture - Final Enterococcus Faecalis - Vre Complete 06/02/18 21:10 Rectum - Final NO CARBAPENEM-RESISTANT ENTEROBACTERI... Complete Laboratory Tests Test 06/04/18 19:00 06/05/18 03:45 06/05/18 05:39 06/05/18 09:15 Vancomycin Level Trough 9.6 ug/mL (5.0-12.0) White Blood Count 12.5 K/UL (4.8-10.8) #H Red Blood Count 2.79 M/UL (4.70-6.10) L Hemoglobin 8.0 G/DL (14.2-18.0) L Hematocrit 23.7 % (42.0-52.0) L Mean Corpuscular Volume 85 FL (80-99) Mean Corpuscular Hemoglobin 28.7 PG (27.0-31.0) Mean Corpuscular Hemoglobin Concent 33.8 G/DL (32.0-36.0) Red Cell Distribution Width 14.7 % (11.6-14.8) Platelet Count 243 K/UL (150-450) Mean Platelet Volume 7.9 FL (6.5-10.1) Neutrophils (%) (Auto) 79.5 % (45.0-75.0) H Lymphocytes (%) (Auto) 15.9 % (20.0-45.0) L Monocytes (%) (Auto) 3.3 % (1.0-10.0) Eosinophils (%) (Auto) 1.1 % (0.0-3.0) Basophils (%) (Auto) 0.2 % (0.0-2.0) Sodium Level 136 MMOL/L (136-145) Potassium Level 3.6 MMOL/L (3.5-5.1) Chloride Level 105 MMOL/L (98-107) Carbon Dioxide Level 24 MMOL/L (21-32) Anion Gap 7 mmol/L (5-15) Blood Urea Nitrogen 8 mg/dL (7-18) Creatinine 0.7 MG/DL (0.55-1.30) Estimat Glomerular Filtration Rate > 60 mL/min (>60) Glucose Level 95 MG/DL (74-106) Calcium Level 8.2 MG/DL (8.5-10.1) L Total Bilirubin 0.6 MG/DL (0.2-1.0) Aspartate Amino Transf (AST/SGOT) 10 U/L (15-37) L Alanine Aminotransferase (ALT/SGPT) 18 U/L (12-78) Alkaline Phosphatase 65 U/L (46-116) Total Protein 6.1 G/DL (6.4-8.2) L Albumin 2.3 G/DL (3.4-5.0) L Globulin 3.8 g/dL Albumin/Globulin Ratio 0.6 (1.0-2.7) L Magnesium Level 2.3 MG/DL (1.8-2.4) Stool Occult Blood Negative (NEGATIVE) Current Medications Medications (Trade) Dose Ordered Sig/Irma Route PRN Reason Start Time Stop Time Status Last Admin Dose Admin Acetaminophen (Tylenol) 650 mg Q4H PRN ORAL For Pain 06/02/18 22:00 07/02/18 21:59 06/05/18 08:45 Acetylcysteine (Mucomyst) 100 mg TIDRT HHN 06/04/18 19:00 07/04/18 18:59 06/05/18 13:45 Albuterol/ Ipratropium (Albuterol/ Ipratropium) 3 ml Q4H PRN HHN Shortness of Breath 06/03/18 08:15 06/08/18 08:14 06/05/18 13:45 Amlodipine Besylate (Norvasc) 10 mg DAILY ORAL 06/03/18 09:00 07/03/18 08:59 06/04/18 08:51 Atorvastatin Calcium (Lipitor) 10 mg BEDTIME ORAL 06/02/18 22:30 07/02/18 22:29 06/04/18 20:27 Azithromycin (Zithromax) 250 mg DAILY ORAL 06/04/18 09:00 06/11/18 08:59 06/05/18 08:44 Bisacodyl (Dulcolax) 10 mg DAILYPRN PRN RECTAL Constipation 06/03/18 06:41 07/03/18 06:40 Dextrose/Sodium Chloride 1,000 ml @ 100 mls/hr Q10H IV 06/02/18 22:00 07/02/18 21:59 06/05/18 10:26 Docusate Sodium (Colace) 100 mg BID ORAL 06/03/18 09:00 07/03/18 08:59 06/05/18 18:06 Heparin Sodium (Porcine) (Heparin 5000 units/ml) 5,000 units EVERY 12 HOURS SUBQ 06/03/18 09:00 07/03/18 08:59 06/05/18 08:48 Lansoprazole (Prevacid) 30 mg BID ORAL 06/03/18 09:00 07/03/18 08:59 06/05/18 18:06 Lisinopril (Zestril) 10 mg DAILY ORAL 06/03/18 09:00 07/03/18 08:59 06/04/18 08:51 Morphine Sulfate (Morphine Sulfate) 2 mg Q4H PRN IVP For Pain 06/04/18 12:00 06/11/18 11:59 06/04/18 17:32 Multivitamins Therapeutic (Therapeutic Multivitamin) 1 ea DAILY ORAL 06/03/18 09:00 07/03/18 08:59 06/05/18 08:46 Patient Own Medication (Patient's Own Med) 1 ea Q12HR ORAL 06/03/18 21:00 07/03/18 20:59 06/05/18 09:28 Piperacillin Sod/ Tazobactam Sod 3.375 gm/Dextrose 100 ml @ 25 mls/hr EVERY 8 HOURS IVPB 06/03/18 22:00 06/08/18 21:59 06/05/18 13:21 Vancomycin HCl (Vanco rx to dose) 1 ea DAILY PRN MISC Per rx protocol 06/03/18 18:00 07/03/18 17:59 Vancomycin/Sodium Chloride 250 ml @ 166.667 mls/hr Q8H IVPB 06/04/18 20:00 06/09/18 19:59 06/05/18 11:35 Vitamin D (Vitamin D) 2,000 intlu DAILY ORAL 06/03/18 09:00 07/03/18 08:59 06/05/18 08:45 Pratik Bowens MD Jun 05, 2018 18:25
[2018-06-05 20:00] VITALS: BP 116/74
--- NOTE | 2018-06-05 20:00 | Pulmonology Progress Note ---
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, unspecified (13) Encounter for PEG (percutaneous endoscopic gastrostomy) (14) Nutrition impaired due to imbalance of nutrients (15) HCAP (healthcare-associated pneumonia) Assessment/Plan Optimize pulmonary hygiene/mobilize as tolerated Continue ventilatory support/settings reviewed Titrate down FiO2 to keep SaO2 > 90% RTC and PRN HHN's + MUCOMYST HHN TID PRN suctioning Abx (Vanco, Zosyn, Azithro) per ID, F/U Cx's TF's Monitor volumes F/U neuro recs, continue [place] FC, discuss GOC trach thursday Subjective ROS Limited/Unobtainable: No Constitutional: Reports: no symptoms HEENT: Repors: no symptoms Respiratory: Reports: sputum Cardiovascular: Reports: no symptoms Gastrointestinal/Abdominal: Reports: no symptoms Allergies: Coded Allergies: No Known Allergies (Unverified , 06/02/18) Subjective no events noted no cp nv or bleeding not getting oob trach .cdi some secretions noted tolerating TF awake and alert weakness of LE noted, functioning UE Objective Last 24 Hour Vital Signs Date Time Temp Pulse Resp B/P (MAP) Pulse Ox O2 Delivery O2 Flow Rate FiO2 06/05/18 19:46 60 16 100 Mechanical Ventilator 40 06/05/18 19:40 62 16 99 Mechanical Ventilator 40 06/05/18 19:30 62 16 40 06/05/18 17:17 95 21 40 06/05/18 16:00 97.9 63 16 90/55 (67) 100 06/05/18 16:00 70 06/05/18 16:00 40 06/05/18 16:00 Mechanical Ventilator 06/05/18 15:14 62 16 40 06/05/18 13:45 61 16 100 Mechanical Ventilator 40 06/05/18 13:40 58 16 100 Mechanical Ventilator 40 06/05/18 13:28 59 16 40 06/05/18 12:00 40 06/05/18 12:00 97.9 65 16 104/67 (79) 100 12/29/18 12:00 Mechanical Ventilator 06/05/18 12:00 60 06/05/18 10:32 64 16 40 06/05/18 09:25 89 16 40 06/05/18 09:00 109/70 06/05/18 09:00 89 109/70 06/05/18 08:00 98.2 84 16 109/70 (83) 100 06/05/18 08:00 40 06/05/18 08:00 Mechanical Ventilator 06/05/18 08:00 77 06/05/18 06:50 68 16 100 Mechanical Ventilator 40 06/05/18 06:46 74 16 40 06/05/18 06:42 66 16 100 Mechanical Ventilator 40 06/05/18 05:10 67 16 40 06/05/18 04:00 40 06/05/18 04:00 68 06/05/18 04:00 98.6 70 16 104/47 (66) 98 06/05/18 04:00 Mechanical Ventilator 06/05/18 02:48 73 16 40 06/05/18 01:31 70 16 40 06/05/18 00:00 40 06/05/18 00:00 Mechanical Ventilator 06/05/18 00:00 98.6 73 16 106/46 (66) 100 06/05/18 00:00 85 06/04/18 23:13 72 16 40 06/04/18 20:40 69 16 40 06/04/18 20:20 76 16 100 Mechanical Ventilator 40 06/04/18 20:09 68 16 99 Mechanical Ventilator 40 Intake and Output 06/04/18 06/05/18 19:00 07:00 Intake Total 1564.570 ml 1787.083 ml Output Total 1650 ml Balance -85.430 ml 1787.083 ml Free Water 200 ml 130 ml IV Total 1164.570 ml 1077.083 ml Tube Feeding 200 ml 580 ml Output Urine Total 1650 ml # Voids 4 General Appearance: cachetic HEENT: atraumatic, anicteric Respiratory/Chest: lungs clear Cardiovascular: normal rate, regular rhythm Abdomen: soft, non tender, non distended 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 Complete 06/02/18 21:10 Rectum VRE Culture - Final Enterococcus Faecalis - Vre Complete 06/02/18 21:10 Rectum - Final NO CARBAPENEM-RESISTANT ENTEROBACTERI... Complete Laboratory Tests 06/05/18 03:45: White Blood Count 12.5#H, Red Blood Count 2.79L, Hemoglobin 8.0L, Hematocrit 23.7L, Mean Corpuscular Volume 85, Mean Corpuscular Hemoglobin 28.7, Mean Corpuscular Hemoglobin Concent 33.8, Red Cell Distribution Width 14.7, Platelet Count 243, Mean Platelet Volume 7.9, Neutrophils (%) (Auto) 79.5H, Lymphocytes ( %) (Auto) 15.9L, Monocytes (%) (Auto) 3.3, Eosinophils (%) (Auto) 1.1, Basophils (%) (Auto) 0.2, Sodium Level 136, Potassium Level 3.6, Chloride Level 105, Carbon Dioxide Level 24, Anion Gap 7, Blood Urea Nitrogen 8, Creatinine 0.7 , Estimat Glomerular Filtration Rate > 60, Glucose Level 95, Calcium Level 8.2L , Total Bilirubin 0.6, Aspartate Amino Transf (AST/SGOT) 10L, Alanine Aminotransferase (ALT/SGPT) 18, Alkaline Phosphatase 65, Total Protein 6.1L, Albumin 2.3L, Globulin 3.8, Albumin/Globulin Ratio 0.6L 06/05/18 05:39: Magnesium Level 2.3 06/05/18 09:15: Stool Occult Blood Negative 06/05/18 18:45: Vancomycin Level Trough 15.5H Current Medications Medications (Trade) Dose Ordered Sig/Irma Route PRN Reason Start Time Stop Time Status Last Admin Dose Admin Acetaminophen (Tylenol) 650 mg Q4H PRN ORAL For Pain 06/02/18 22:00 07/02/18 21:59 06/05/18 08:45 Acetylcysteine (Mucomyst) 100 mg TIDRT HHN 06/04/18 19:00 07/04/18 18:59 06/05/18 19:43 Albuterol/ Ipratropium (Albuterol/ Ipratropium) 3 ml Q4H PRN HHN Shortness of Breath 06/03/18 08:15 06/08/18 08:14 06/05/18 19:43 Amlodipine Besylate (Norvasc) 10 mg DAILY ORAL 06/03/18 09:00 07/03/18 08:59 06/04/18 08:51 Atorvastatin Calcium (Lipitor) 10 mg BEDTIME ORAL 06/02/18 22:30 07/02/18 22:29 06/04/18 20:27 Azithromycin (Zithromax) 250 mg DAILY ORAL 06/04/18 09:00 06/11/18 08:59 06/05/18 08:44 Bisacodyl (Dulcolax) 10 mg DAILYPRN PRN RECTAL Constipation 06/03/18 06:41 07/03/18 06:40 Dextrose/Sodium Chloride 1,000 ml @ 100 mls/hr Q10H IV 06/02/18 22:00 07/02/18 21:59 06/05/18 10:26 Docusate Sodium (Colace) 100 mg BID ORAL 06/03/18 09:00 07/03/18 08:59 06/05/18 18:06 Heparin Sodium (Porcine) (Heparin 5000 units/ml) 5,000 units EVERY 12 HOURS SUBQ 06/03/18 09:00 07/03/18 08:59 06/05/18 08:48 Lansoprazole (Prevacid) 30 mg BID ORAL 06/03/18 09:00 07/03/18 08:59 06/05/18 18:06 Lisinopril (Zestril) 10 mg DAILY ORAL 06/03/18 09:00 07/03/18 08:59 06/04/18 08:51 Morphine Sulfate (Morphine Sulfate) 2 mg Q4H PRN IVP For Pain 06/04/18 12:00 06/11/18 11:59 06/04/18 17:32 Multivitamins Therapeutic (Therapeutic Multivitamin) 1 ea DAILY ORAL 06/03/18 09:00 07/03/18 08:59 06/05/18 08:46 Patient Own Medication (Patient's Own Med) 1 ea Q12HR ORAL 06/03/18 21:00 07/03/18 20:59 06/05/18 09:28 Piperacillin Sod/ Tazobactam Sod 3.375 gm/Dextrose 100 ml @ 25 mls/hr EVERY 8 HOURS IVPB 06/03/18 22:00 06/08/18 21:59 06/05/18 13:21 Vancomycin HCl (Vanco rx to dose) 1 ea DAILY PRN MISC Per rx protocol 06/03/18 18:00 07/03/18 17:59 Vancomycin/Sodium Chloride 250 ml @ 166.667 mls/hr Q8H IVPB 06/04/18 20:00 06/09/18 19:59 06/05/18 11:35 Vitamin D (Vitamin D) 2,000 intlu DAILY ORAL 06/03/18 09:00 07/03/18 08:59 06/05/18 08:45 Deena Oro DO Jun 05, 2018 20:00
[2018-06-06] VITALS: BP 106/70
[2018-06-06] MEDS: Vancomycin 750mg/NS 250ml IVPB SCH ×2 (03:10→13:09)
[2018-06-06 04:00] VITALS: BP 105/65
[2018-06-06] MEDS: D5NS 1,000 ML IV SCH ×2 (05:38→16:10)
[2018-06-06 06:00] LABS: HEMATOCRIT 22.2 % (42.0-52.0); HEMOGLOBIN 7.2 G/DL (14.2-18.0); MEAN CORPUSCULAR VOLUME 86 FL (80-99); PLATELET COUNT 220 K/UL (150-450); RED BLOOD COUNT 2.58 M/UL (4.70-6.10); RED CELL DISTRIBUTION WIDTH 14.7 % (11.6-14.8); WHITE BLOOD COUNT 8.3 K/UL (4.8-10.8)
[2018-06-06] MEDS: Albuterol/Ipratropium 3ml neb HHN PRN ×3 (06:59→18:57)
[2018-06-06 07:04] LABS: ANION GAP 9 mmol/L (5-15); BLOOD UREA NITROGEN 7 mg/dL (7-18); CARBON DIOXIDE 22 MMOL/L (21-32); CHLORIDE 106 MMOL/L (98-107); CREATININE 0.7 MG/DL (0.55-1.30); POTASSIUM 3.1 MMOL/L (3.5-5.1); SODIUM 137 MMOL/L (136-145)
[2018-06-06] MEDS: Lisinopril 10mg tab ORAL SCH (09:00)
[2018-06-06] MEDS: Docusate 100mg cap ORAL SCH ×2 (09:28→17:27)
[2018-06-06] MEDS: Azithromycin 250mg tab ORAL SCH (09:28)
[2018-06-06] MEDS: Vitamin D 1000 IU Tab ORAL SCH (09:28)
[2018-06-06] MEDS: Multivitamin w/Minerals tab ORAL SCH (09:28)
[2018-06-06] MEDS: Heparin 5000 units/ml inj SUBQ SCH ×2 (09:51→20:12)
[2018-06-06 11:29] VITALS: BP 107/65
--- NOTE | 2018-06-06 12:23 | General Progress Note ---
Assessment/Plan Assessment/Plan (1) Protein calorie malnutrition s/p G-tube placement continue tube feeds (2) Status post tracheostomy, chronic respiratory failure continue cent management per Pulmonology continue frequent suctioning (3) Motor neuron disease, ALS Continue supportive care Neurology following (4) Sepsis, suspected aspiration pneumonia versus HCAP continue vancomycin and Zosyn ID following (5)Hypokalemia replace and check BMP in AM (6)Acute on chronic anemia No evidence of bleeding Repeat CBC in AM Transfuse PRBC if Hb < 7 Subjective Date patient seen: Jun 06, 2018 Time patient seen: 09:45 ROS Limited/Unobtainable: No Constitutional: Denies: chills, fever Cardiovascular: Denies: chest pain Respiratory: Reports: cough Gastrointestinal/Abdominal: Denies: abdomen distended, abdominal pain Neurologic/Psychiatric: Denies: anxiety Allergies: Coded Allergies: No Known Allergies (Unverified , 06/02/18) Subjective Medicine followup for severe protein calorie malnutrition, suspected aspiration pneumonia, sepsis. No new complaints. Noted to be more anemic and hypokalemic today. Objective Last 24 Hour Vital Signs Date Time Temp Pulse Resp B/P (MAP) Pulse Ox O2 Delivery O2 Flow Rate FiO2 06/06/18 11:29 98.5 73 16 107/65 (79) 100 06/06/18 09:10 80 16 40 06/06/18 09:00 105/65 06/06/18 09:00 80 105/65 06/06/18 08:00 40 06/06/18 08:00 Mechanical Ventilator 06/06/18 07:10 81 16 100 Mechanical Ventilator 40 06/06/18 07:00 89 16 100 Mechanical Ventilator 40 06/06/18 06:57 88 16 40 06/06/18 04:40 62 16 40 06/06/18 04:00 98.2 65 16 105/65 (78) 100 06/06/18 04:00 Mechanical Ventilator 06/06/18 04:00 40 06/06/18 04:00 62 06/06/18 03:30 68 16 40 06/06/18 01:26 70 16 40 06/06/18 00:00 98.9 73 18 106/70 (82) 99 06/06/18 00:00 40 06/06/18 00:00 Mechanical Ventilator 06/06/18 00:00 68 06/05/18 23:13 71 16 40 06/05/18 21:30 60 16 40 06/05/18 20:00 98.9 70 18 116/74 (88) 100 06/05/18 20:00 60 06/05/18 20:00 Mechanical Ventilator 06/05/18 20:00 40 06/05/18 19:46 60 16 100 Mechanical Ventilator 40 06/05/18 19:40 62 16 99 Mechanical Ventilator 40 06/05/18 19:30 62 16 40 06/05/18 17:17 95 21 40 06/05/18 16:00 97.9 63 16 90/55 (67) 100 06/05/18 16:00 70 06/05/18 16:00 40 06/05/18 16:00 Mechanical Ventilator 06/05/18 15:14 62 16 40 06/05/18 13:45 61 16 100 Mechanical Ventilator 40 06/05/18 13:40 58 16 100 Mechanical Ventilator 40 06/05/18 13:28 59 16 40 Intake and Output 06/05/18 06/06/18 19:00 07:00 Intake Total 1732.910 ml 2106.946 ml Output Total 1000 ml Balance 732.910 ml 2106.946 ml Free Water 130 ml 200 ml IV Total 822.910 ml 1306.946 ml Tube Feeding 720 ml 600 ml Other 60 ml Output Urine Total 1000 ml # Voids 8 # Bowel Movements 5 4 Laboratory Tests 06/05/18 18:45: Vancomycin Level Trough 15.5H 06/06/18 03:05: White Blood Count 8.3, Red Blood Count 2.58L, Hemoglobin 7.2L, Hematocrit 22.2L , Mean Corpuscular Volume 86, Mean Corpuscular Hemoglobin 27.9, Mean Corpuscular Hemoglobin Concent 32.4, Red Cell Distribution Width 14.7, Platelet Count 220, Mean Platelet Volume 8.2, Neutrophils (%) (Auto) , Lymphocytes (%) ( Auto) , Monocytes (%) (Auto) , Eosinophils (%) (Auto) , Basophils (%) (Auto) , Differential Total Cells Counted 100, Neutrophils % (Manual) 78H, Lymphocytes % (Manual) 12L, Monocytes % (Manual) 10, Eosinophils % (Manual) 0, Basophils % ( Manual) 0, Band Neutrophils 0, Platelet Estimate Adequate, Platelet Morphology Normal, Hypochromasia 1+, Anisocytosis 1+, Sodium Level 137, Potassium Level 3.1L, Chloride Level 106, Carbon Dioxide Level 22, Anion Gap 9, Blood Urea Nitrogen 7, Creatinine 0.7, Estimat Glomerular Filtration Rate > 60, Glucose Level 284#H, Calcium Level 8.0L Height (Feet): 5 Height (Inches): 4.00 Weight (Pounds): 112 General Appearance: no apparent distress, alert Neck: normal alignment, supple Cardiovascular: normal peripheral pulses, normal rate Respiratory/Chest: chest wall non-tender, normal breath sounds Abdomen: normal bowel sounds, non tender, soft Neurologic: no motor/sensory deficits, alert Pedro Bolton MD Jun 06, 2018 12:23
--- NOTE | 2018-06-06 13:25 | Neurology Progress Note ---
Interim History Interim History Interim History Mr. Robles feels well. The PEG is comfortable and functioning well. He denies any new neurologic symptoms. The weakness is about the same. The sensations are still normal. He has not been able to get me any of his records yet. Review of Systems Neuro Review of Systems Benign. Objective Physical Exam Last Vital Signs Date Time Temp Pulse Resp B/P (MAP) Pulse Ox O2 Delivery O2 Flow Rate FiO2 06/06/18 13:05 65 16 100 Mechanical Ventilator 40 06/06/18 11:29 98.5 107/65 (79) 06/03/18 18:51 15.0 Laboratory Tests Test 06/05/18 18:45 06/06/18 03:05 Vancomycin Level Trough 15.5 ug/mL (5.0-12.0) H White Blood Count 8.3 K/UL (4.8-10.8) Red Blood Count 2.58 M/UL (4.70-6.10) L Hemoglobin 7.2 G/DL (14.2-18.0) L Hematocrit 22.2 % (42.0-52.0) L Mean Corpuscular Volume 86 FL (80-99) Mean Corpuscular Hemoglobin 27.9 PG (27.0-31.0) Mean Corpuscular Hemoglobin Concent 32.4 G/DL (32.0-36.0) Red Cell Distribution Width 14.7 % (11.6-14.8) Platelet Count 220 K/UL (150-450) Mean Platelet Volume 8.2 FL (6.5-10.1) Neutrophils (%) (Auto) % (45.0-75.0) Lymphocytes (%) (Auto) % (20.0-45.0) Monocytes (%) (Auto) % (1.0-10.0) Eosinophils (%) (Auto) % (0.0-3.0) Basophils (%) (Auto) % (0.0-2.0) Differential Total Cells Counted 100 Neutrophils % (Manual) 78 % (45-75) H Lymphocytes % (Manual) 12 % (20-45) L Monocytes % (Manual) 10 % (1-10) Eosinophils % (Manual) 0 % (0-3) Basophils % (Manual) 0 % (0-2) Band Neutrophils 0 % (0-8) Platelet Estimate Adequate Platelet Morphology Normal Hypochromasia 1+ Anisocytosis 1+ Sodium Level 137 MMOL/L (136-145) Potassium Level 3.1 MMOL/L (3.5-5.1) L Chloride Level 106 MMOL/L (98-107) Carbon Dioxide Level 22 MMOL/L (21-32) Anion Gap 9 mmol/L (5-15) Blood Urea Nitrogen 7 mg/dL (7-18) Creatinine 0.7 MG/DL (0.55-1.30) Estimat Glomerular Filtration Rate > 60 mL/min (>60) Glucose Level 284 MG/DL (74-106) #H Calcium Level 8.0 MG/DL (8.5-10.1) L Neurologic Exam Objective PHYSICAL EXAMINATION: GENERAL: He is a well-developed, but lean and wasting gentleman, lying in bed, in no acute distress, connected to a ventilator through a tracheostomy. HEAD: Normocephalic and atraumatic. NECK: No neck rigidity was observed. He did have a tracheostomy in place. EENT: Benign. NEUROLOGICAL EXAMINATION: MENTAL STATUS EXAMINATION: He was awake and alert. He was oriented to person, place, and time. He was able to recall 3/3 words immediately after 1 minute and after 3 minutes. He was able to remember presidents, Trump through Jose senior with hints. His mathematical skills were good. His visuospatial function was preserved. SPEECH: He was able to mouth words well. LANGUAGE: He was able to comprehend, repeat, and express himself well. CRANIAL NERVE EXAMINATION: II: The visual maldonado were intact on confrontation testing. III, IV & : The external ocular movements were full and the pupils 3 mm in diameter, equal, round, regular, and reactive to light. V: He had normal facial sensations and the temporales, masseters, and pterygoids function normally. VII: He had normal facial expressions and no facial asymmetry. VIII: He was able to hear well bilaterally and had no nystagmus. IX: The palate moved symmetrically on phonation. X: His gag reflex was present. XI: The sternocleidomastoids and trapezii functioned normally. XII: The tongue was in the midline without any atrophy, but it did reveal fasciculations. MOTOR SYSTEM: The tone was normal in all four extremities except for decreased tone in the ankles more so on the left than on the right. Examination of muscle mass revealed severe generalized muscle wasting involving the distal muscles more than the proximal muscles and the lower extremities more than the upper extremities. He had G 5/5 power in both upper extremities except for G 4/5 power in the finger extensors. In the lower extremities, he had in the iliopsoas G 4+/5 on the right, G 4-/5 on the left. In the quadriceps, he had G 5-/5 on the right and G 4+/5 on the left. In the hamstrings, he had G 4+/5 on the right and G 4-/5 on the left. In the ankle dorsiflexors and toe extensors, he had G 3/5 on the right and G 0/ 5 on the left. In the ankle plantar flexors and toe flexors, he had G 4/5 on the right and G 1/ 5 on the left. SENSORY EXAMINATION: He had intact sensations to pinprick, light touch, and graphesthesia. COORDINATION: He performed well on [id number] testing. He was unable to perform [id number] testing. REFLEXES: 2++ and bilaterally symmetrical at the biceps, triceps, brachioradialis, and knees, 0 at both ankles. The plantar response was extensor on the right and mute on the left. STANCE & GAIT: Could not be tested. Impression/Recommendations Diagnostic Impression 1. Mr. Joseph Robles is a 58-year-old, right-handed, gentleman, who does have a prior history of hypertension and dyslipidemia, who approximately 4 years ago started to have weakness that started in his left foot with a left foot drop. Over the years, he has had increasing weakness in his lower extremities more than the upper extremities and on the left side more than the right associated with muscle wasting, muscle fasciculations, and then respiratory muscle failure as a result of which he has needed a tracheostomy. He has been worked up for the problem in the past and was found to have amyotrophic lateral sclerosis, for which he is on Rilutek. 2. He feels well. The PEG is comfortable and functioning well. He denies any new neurologic symptoms. The weakness is about the same. The sensations are still normal. He has not been able to get me any of his records yet. 3. On neurological examination at this time, he does demonstrate tongue fasciculations, decreased tone in the ankles more so on the left than the right , generalized muscle wasting involving the lower extremities more than the upper extremities, a quadriparesis involving the lower extremities more than the upper extremities, and the left side more than the right in the lower extremities, brisk deep tendon reflexes with loss of ankle jerks, an extensor plantar response on the right with a mute plantar response on the left, and frequent fasciculations in all four extremities. 4. The patient's history and neurological examination are in fact consistent with amyotrophic lateral sclerosis. 5. His gastrostomy is functioning well. Recommendations 1. Rilutek should be continued. 2. In the near future, edaravone therapy should be considered. 3. The patient's family was told to try and retrieve his nerve conduction study , electromyography, and MRI scan reports so that I can review them. Richard Alcantara M.D., M.S.P.H. Richard Alcantara MD Jun 06, 2018 13:25
[2018-06-06] MEDS: Meropenem 1gm/NS 110ml IVPB SCH ×4 (14:14→21:51)
[2018-06-06 16:00] VITALS: BP 118/85
[2018-06-06] MEDS ORDERED: D5NS 1000ml IV ONE (16:14)
[2018-06-06] MEDS ORDERED: Tubing IV Secondary IV ONE (16:14)
[2018-06-06] MEDS ORDERED: NS 275ml ONE (16:14)
--- NOTE | 2018-06-06 18:13 | General Progress Note ---
Assessment/Plan Assessment/Plan Assessment - s/p PEG for dysphagia - ALS - Resp failure - Anemia Recommendations - continue TF - GT site care - vent - follow labs - may need RBC transfusion Subjective Allergies: Coded Allergies: No Known Allergies (Unverified , 06/02/18) Subjective Above noted d/w RT tolerating TF Objective Last 24 Hour Vital Signs Date Time Temp Pulse Resp B/P (MAP) Pulse Ox O2 Delivery O2 Flow Rate FiO2 06/06/18 16:43 63 16 40 06/06/18 16:00 99.3 73 22 118/85 (96) 99 06/06/18 16:00 Mechanical Ventilator 06/06/18 16:00 40 06/06/18 15:34 82 06/06/18 14:55 72 16 40 06/06/18 13:15 78 16 100 Mechanical Ventilator 40 06/06/18 13:05 65 16 100 Mechanical Ventilator 40 06/06/18 13:03 63 16 40 06/06/18 12:00 40 06/06/18 12:00 Mechanical Ventilator 06/06/18 11:58 63 06/06/18 11:29 98.5 73 16 107/65 (79) 100 06/06/18 11:20 75 16 40 06/06/18 09:10 80 16 40 06/06/18 09:00 105/65 06/06/18 09:00 80 105/65 06/06/18 08:00 40 06/06/18 08:00 Mechanical Ventilator 06/06/18 07:42 60 06/06/18 07:10 81 16 100 Mechanical Ventilator 40 06/06/18 07:00 89 16 100 Mechanical Ventilator 40 06/06/18 06:57 88 16 40 06/06/18 04:40 62 16 40 06/06/18 04:00 98.2 65 16 105/65 (78) 100 06/06/18 04:00 Mechanical Ventilator 06/06/18 04:00 40 06/06/18 04:00 62 06/06/18 03:30 68 16 40 06/06/18 01:26 70 16 40 06/06/18 00:00 98.9 73 18 106/70 (82) 99 06/06/18 00:00 40 06/06/18 00:00 Mechanical Ventilator 06/06/18 00:00 68 06/05/18 23:13 71 16 40 06/05/18 21:30 60 16 40 06/05/18 20:00 98.9 70 18 116/74 (88) 100 06/05/18 20:00 60 06/05/18 20:00 Mechanical Ventilator 06/05/18 20:00 40 06/05/18 19:46 60 16 100 Mechanical Ventilator 40 06/05/18 19:40 62 16 99 Mechanical Ventilator 40 06/05/18 19:30 62 16 40 Intake and Output 06/05/18 06/06/18 19:00 07:00 Intake Total 1732.910 ml 2166.946 ml Output Total 1000 ml Balance 732.910 ml 2166.946 ml Free Water 130 ml 200 ml IV Total 822.910 ml 1306.946 ml Tube Feeding 720 ml 660 ml Other 60 ml Output Urine Total 1000 ml # Voids 8 # Bowel Movements 5 4 Laboratory Tests 06/05/18 18:45: Vancomycin Level Trough 15.5H 06/06/18 03:05: White Blood Count 8.3, Red Blood Count 2.58L, Hemoglobin 7.2L, Hematocrit 22.2L , Mean Corpuscular Volume 86, Mean Corpuscular Hemoglobin 27.9, Mean Corpuscular Hemoglobin Concent 32.4, Red Cell Distribution Width 14.7, Platelet Count 220, Mean Platelet Volume 8.2, Neutrophils (%) (Auto) , Lymphocytes (%) ( Auto) , Monocytes (%) (Auto) , Eosinophils (%) (Auto) , Basophils (%) (Auto) , Differential Total Cells Counted 100, Neutrophils % (Manual) 78H, Lymphocytes % (Manual) 12L, Monocytes % (Manual) 10, Eosinophils % (Manual) 0, Basophils % ( Manual) 0, Band Neutrophils 0, Platelet Estimate Adequate, Platelet Morphology Normal, Hypochromasia 1+, Anisocytosis 1+, Sodium Level 137, Potassium Level 3.1L, Chloride Level 106, Carbon Dioxide Level 22, Anion Gap 9, Blood Urea Nitrogen 7, Creatinine 0.7, Estimat Glomerular Filtration Rate > 60, Glucose Level 284#H, Calcium Level 8.0L Height (Feet): 5 Height (Inches): 4.00 Weight (Pounds): 112 Objective Thin WM NCAT (+) trach Coarse BS RR soft ND (+) GT no edema Corrie Trotter MD Jun 06, 2018 18:13
[2018-06-06 20:00] VITALS: BP 110/76
--- NOTE | 2018-06-06 20:27 | Pulmonology Progress Note ---
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, unspecified (13) Encounter for PEG (percutaneous endoscopic gastrostomy) (14) Nutrition impaired due to imbalance of nutrients (15) HCAP (healthcare-associated pneumonia) Assessment/Plan Optimize pulmonary hygiene/mobilize as tolerated Continue ventilatory support/settings reviewed Titrate down FiO2 to keep SaO2 > 90% RTC and PRN HHN's + MUCOMYST HHN TID PRN suctioning Abx (Vanco, Zosyn, Azithro) per ID, F/U Cx's TF's Monitor volumes PRBC if less than 7 F/U neuro recs, continue Rilutek FC, discuss GOC Subjective Constitutional: Reports: no symptoms Respiratory: Reports: sputum Cardiovascular: Reports: no symptoms Gastrointestinal/Abdominal: Reports: no symptoms Genitourinary: Reports: no symptoms Neurologic: Reports: no symptoms Allergies: Coded Allergies: No Known Allergies (Unverified , 06/02/18) Subjective no events noted no cp nv or bleeding not getting oob trach .cdi some secretions noted tolerating TF awake and alert weakness of LE noted, functioning UE Objective Last 24 Hour Vital Signs Date Time Temp Pulse Resp B/P (MAP) Pulse Ox O2 Delivery O2 Flow Rate FiO2 06/06/18 19:08 68 16 100 Mechanical Ventilator 40 06/06/18 19:00 Mechanical Ventilator 06/06/18 18:58 63 16 100 Mechanical Ventilator 40 06/06/18 18:55 67 16 40 06/06/18 16:43 63 16 40 06/06/18 16:00 99.3 73 22 118/85 (96) 99 06/06/18 16:00 Mechanical Ventilator 06/06/18 16:00 40 06/06/18 15:34 82 06/06/18 14:55 72 16 40 06/06/18 13:15 78 16 100 Mechanical Ventilator 40 06/06/18 13:05 65 16 100 Mechanical Ventilator 40 06/06/18 13:03 63 16 40 06/06/18 12:00 40 06/06/18 12:00 Mechanical Ventilator 06/06/18 11:58 63 06/06/18 11:29 98.5 73 16 107/65 (79) 100 06/06/18 11:20 75 16 40 06/06/18 09:10 80 16 40 06/06/18 09:00 105/65 06/06/18 09:00 80 105/65 06/06/18 08:00 40 06/06/18 08:00 Mechanical Ventilator 06/06/18 07:42 60 06/06/18 07:10 81 16 100 Mechanical Ventilator 40 06/06/18 07:00 89 16 100 Mechanical Ventilator 40 06/06/18 06:57 88 16 40 06/06/18 04:40 62 16 40 06/06/18 04:00 98.2 65 16 105/65 (78) 100 06/06/18 04:00 Mechanical Ventilator 06/06/18 04:00 40 06/06/18 04:00 62 06/06/18 03:30 68 16 40 06/06/18 01:26 70 16 40 06/06/18 00:00 98.9 73 18 106/70 (82) 99 06/06/18 00:00 40 06/06/18 00:00 Mechanical Ventilator 06/06/18 00:00 68 06/05/18 23:13 71 16 40 06/05/18 21:30 60 16 40 Intake and Output 06/05/18 06/06/18 19:00 07:00 Intake Total 1732.910 ml 2266.946 ml Output Total 1000 ml Balance 732.910 ml 2266.946 ml Free Water 130 ml 200 ml IV Total 822.910 ml 1406.946 ml Tube Feeding 720 ml 660 ml Other 60 ml Output Urine Total 1000 ml # Voids 8 # Bowel Movements 5 4 General Appearance: cachetic HEENT: atraumatic, anicteric, other - trach Respiratory/Chest: rhonchi Cardiovascular: normal rate, regular rhythm Abdomen: soft, non tender, no organomegaly Neurologic/Psychiatric: alert, oriented x 3, responsive Laboratory Tests 06/06/18 03:05: White Blood Count 8.3, Red Blood Count 2.58L, Hemoglobin 7.2L, Hematocrit 22.2L , Mean Corpuscular Volume 86, Mean Corpuscular Hemoglobin 27.9, Mean Corpuscular Hemoglobin Concent 32.4, Red Cell Distribution Width 14.7, Platelet Count 220, Mean Platelet Volume 8.2, Neutrophils (%) (Auto) , Lymphocytes (%) ( Auto) , Monocytes (%) (Auto) , Eosinophils (%) (Auto) , Basophils (%) (Auto) , Differential Total Cells Counted 100, Neutrophils % (Manual) 78H, Lymphocytes % (Manual) 12L, Monocytes % (Manual) 10, Eosinophils % (Manual) 0, Basophils % ( Manual) 0, Band Neutrophils 0, Platelet Estimate Adequate, Platelet Morphology Normal, Hypochromasia 1+, Anisocytosis 1+, Sodium Level 137, Potassium Level 3.1L, Chloride Level 106, Carbon Dioxide Level 22, Anion Gap 9, Blood Urea Nitrogen 7, Creatinine 0.7, Estimat Glomerular Filtration Rate > 60, Glucose Level 284#H, Calcium Level 8.0L Current Medications Medications (Trade) Dose Ordered Sig/Irma Route PRN Reason Start Time Stop Time Status Last Admin Dose Admin Acetaminophen (Tylenol) 650 mg Q4H PRN ORAL For Pain 06/02/18 22:00 07/02/18 21:59 06/05/18 08:45 Acetylcysteine (Mucomyst) 100 mg TIDRT HHN 06/04/18 19:00 07/04/18 18:59 06/06/18 18:58 Albuterol/ Ipratropium (Albuterol/ Ipratropium) 3 ml Q4H PRN HHN Shortness of Breath 06/03/18 08:15 06/08/18 08:14 06/06/18 18:57 Amlodipine Besylate (Norvasc) 10 mg DAILY ORAL 06/03/18 09:00 07/03/18 08:59 06/04/18 08:51 Atorvastatin Calcium (Lipitor) 10 mg BEDTIME ORAL 06/02/18 22:30 07/02/18 22:29 06/06/18 20:11 Bisacodyl (Dulcolax) 10 mg DAILYPRN PRN RECTAL Constipation 06/03/18 06:41 07/03/18 06:40 Dextrose/Sodium Chloride 1,000 ml @ 100 mls/hr Q10H IV 06/02/18 22:00 07/02/18 21:59 06/06/18 16:10 Docusate Sodium (Colace) 100 mg BID ORAL 06/03/18 09:00 07/03/18 08:59 06/06/18 17:27 Heparin Sodium (Porcine) (Heparin 5000 units/ml) 5,000 units EVERY 12 HOURS SUBQ 06/03/18 09:00 07/03/18 08:59 06/06/18 20:12 Lansoprazole (Prevacid) 30 mg BID ORAL 06/03/18 09:00 07/03/18 08:59 06/06/18 17:27 Lisinopril (Zestril) 10 mg DAILY ORAL 06/03/18 09:00 07/03/18 08:59 06/04/18 08:51 Meropenem 1 gm/ Sodium Chloride 110 ml @ 220 mls/hr Q8HR IVPB 06/06/18 14:00 06/11/18 13:59 06/06/18 14:14 Morphine Sulfate (Morphine Sulfate) 2 mg Q4H PRN IVP For Pain 06/04/18 12:00 06/11/18 11:59 06/04/18 17:32 Multivitamins Therapeutic (Therapeutic Multivitamin) 1 ea DAILY ORAL 06/03/18 09:00 07/03/18 08:59 06/06/18 09:28 Patient Own Medication (Patient's Own Med) 1 ea Q12HR ORAL 06/03/18 21:00 07/03/18 20:59 06/06/18 20:10 Vitamin D (Vitamin D) 2,000 intlu DAILY ORAL 06/03/18 09:00 07/03/18 08:59 06/06/18 09:28 Deena Oro DO Jun 06, 2018 20:27
[2018-06-07] VITALS: BP 115/65
[2018-06-07] MEDS: D5NS 1,000 ML IV SCH ×3 (02:14→23:01)
[2018-06-07] MEDS: Albuterol/Ipratropium 3ml neb HHN PRN ×4 (02:53→19:01)
[2018-06-07 04:00] VITALS: BP 112/72
[2018-06-07 04:45] LABS: HEMATOCRIT 23.1 % (42.0-52.0); HEMOGLOBIN 7.7 G/DL (14.2-18.0); MEAN CORPUSCULAR VOLUME 85 FL (80-99); PLATELET COUNT 218 K/UL (150-450); RED BLOOD COUNT 2.72 M/UL (4.70-6.10); RED CELL DISTRIBUTION WIDTH 14.8 % (11.6-14.8); WHITE BLOOD COUNT 8.5 K/UL (4.8-10.8)
[2018-06-07 05:25] LABS: ANION GAP 10 mmol/L (5-15); BLOOD UREA NITROGEN 4 mg/dL (7-18); CALCIUM 8.8 MG/DL (8.5-10.1); CARBON DIOXIDE 23 MMOL/L (21-32); CHLORIDE 107 MMOL/L (98-107); CREATININE 0.5 MG/DL (0.55-1.30); POTASSIUM 3.4 MMOL/L (3.5-5.1); SODIUM 140 MMOL/L (136-145)
[2018-06-07] MEDS: Meropenem 1gm/NS 110ml IVPB SCH ×6 (05:45→21:46)
--- NOTE | 2018-06-07 07:45 | General Progress Note ---
Assessment/Plan Problem List: (1) Protein calorie malnutrition ICD Codes: E46 - Unspecified protein-calorie malnutrition SNOMED: 863493422 (2) Status post tracheostomy ICD Codes: Z93.0 - Tracheostomy status SNOMED: 34282539, 919877786 (3) Motor neuron disease, unspecified ICD Codes: G12.20 - Motor neuron disease, unspecified SNOMED: 16145891 (4) Leukocytosis ICD Codes: D72.829 - Elevated white blood cell count, unspecified SNOMED: 172742130, 581080747 Qualifiers: Qualified Codes: D72.829 - Elevated white blood cell count, unspecified (5) Essential hypertension ICD Codes: I10 - Essential (primary) hypertension SNOMED: 05402719 (6) HCAP (healthcare-associated pneumonia) ICD Codes: J18.9 - Pneumonia, unspecified organism SNOMED: 580167121 Status: stable Assessment/Plan (1) Protein calorie malnutrition s/p G-tube placement continue tube feeds (2) Status post tracheostomy, chronic respiratory failure continue cent management per Pulmonology continue frequent suctioning (3) Motor neuron disease, ALS Continue supportive care Neurology following (4) Sepsis, suspected aspiration pneumonia versus HCAP continue vancomycin and Zosyn ID following (5)Hypokalemia K3.4, mild improvement from yesterday replace K, cont to monitoring closely, mg also low (6)Hypomagnesemia Mg 1.6 replenish now and recheck replace and check BMP in AM (6)Acute on chronic anemia No evidence of bleeding Repeat CBC in AM Transfuse PRBC if Hb < 7 (7)resp failure, acute on chronic vent trached worsened by asp pna appreciate pulm recs DVT Prophylaxis: SCD, HSQ Code Status: Full Hospital Classification Declaration: Based on this initial evaluation, and depending on the patient's clinical course, I anticipate that this patient will require hospitalization for 2-3 days for malnutrition, trached/needs peg eval and close respiratory/hemodynamic monitoring. Disposition: Once the patient is stable to leave the hospital, I anticipate the patient will likely be discharged to the following environment: home I spent 65 minutes on this patient's case, and 40 minutes were dedicated to counseling and/or care coordination. Discussed with patient/family, nursing staff, SW/CM, and consultants regarding clinical status, treatment course, and disposition planning. Time of note may not reflect time of encounter. ---- Date of Discussion: 06/03/18 A [id number]-qozr discussion with the patient's son regarding the patient's advanced care planning took place during this hospitalization on the above date. The discussion included the explanation and discussion of advance directives and associated forms/documents, as well as the patient's current code status. We also discussed at length the patient's medical conditions (both acute and chronic), general prognosis, treatment options, and goals of care. The following summarizes the discussion: Advance Care Planning/Goals of Care: - polst completed - Continue current evaluation and management of any acute and chronic medical issues - Will continue to support the patient/family - Will continue to discuss both short- and long-term goals of care DPOA-HC/Surrogate Decision Maker: , Randa Robles Code Status: Full Code AD Forms/Documents Completed: completed A total of 31 minutes was spent on this discussion, including counseling, answering questions, and completing, if any, pertinent advanced care planning forms/documents. Subjective Date patient seen: Jun 07, 2018 Time patient seen: 07:41 Allergies: Coded Allergies: No Known Allergies (Unverified , 06/02/18) Subjective f/u malnutrition, sepsis, resp failure, trach on vent, peg stable doing well denies any complaints no acute events overnight sepsis seems to be improving planned to discuss with pulm if / when safe to dc ROS: 14 point ROS reviewed and negative except per the above subjective Objective Last 24 Hour Vital Signs Date Time Temp Pulse Resp B/P (MAP) Pulse Ox O2 Delivery O2 Flow Rate FiO2 06/07/18 07:08 62 16 100 Mechanical Ventilator 40 06/07/18 06:53 62 16 40 06/07/18 06:52 62 16 100 Mechanical Ventilator 40 06/07/18 04:37 66 16 40 06/07/18 04:00 97.2 68 16 112/72 (85) 100 06/07/18 04:00 40 06/07/18 04:00 Mechanical Ventilator 06/07/18 04:00 60 06/07/18 03:05 65 16 100 Mechanical Ventilator 15.0 40 06/07/18 02:55 40 06/07/18 02:55 62 17 99 Mechanical Ventilator 40 06/07/18 02:51 66 17 40 06/07/18 00:53 67 16 40 06/07/18 00:00 40 06/07/18 00:00 Mechanical Ventilator 06/07/18 00:00 98.2 75 18 115/65 (82) 100 06/07/18 00:00 63 06/06/18 23:32 70 16 40 06/06/18 21:44 65 16 40 06/06/18 20:00 98.6 75 20 110/76 (87) 99 06/06/18 20:00 62 06/06/18 20:00 40 06/06/18 19:08 68 16 100 Mechanical Ventilator 40 06/06/18 19:00 Mechanical Ventilator 06/06/18 18:58 63 16 100 Mechanical Ventilator 40 06/06/18 18:55 67 16 40 06/06/18 16:43 63 16 40 06/06/18 16:00 99.3 73 22 118/85 (96) 99 06/06/18 16:00 Mechanical Ventilator 06/06/18 16:00 40 06/06/18 15:34 82 06/06/18 14:55 72 16 40 06/06/18 13:15 78 16 100 Mechanical Ventilator 40 06/06/18 13:05 65 16 100 Mechanical Ventilator 40 06/06/18 13:03 63 16 40 06/06/18 12:00 40 06/06/18 12:00 Mechanical Ventilator 06/06/18 11:58 63 06/06/18 11:29 98.5 73 16 107/65 (79) 100 06/06/18 11:20 75 16 40 06/06/18 09:10 80 16 40 06/06/18 09:00 105/65 06/06/18 09:00 80 105/65 06/06/18 08:00 40 06/06/18 08:00 Mechanical Ventilator 06/06/18 07:42 60 Intake and Output 06/06/18 06/07/18 18:59 06:59 Intake Total 2053.33 ml 800 ml Output Total 2800 ml Balance 2053.33 ml -2000 ml Free Water 200 ml 300 ml IV Total 1293.33 ml 100 ml Tube Feeding 560 ml 400 ml Output Urine Total 2800 ml # Voids 8 # Bowel Movements 2 4 Laboratory Tests 06/07/18 03:20: White Blood Count 8.5, Red Blood Count 2.72L, Hemoglobin 7.7L, Hematocrit 23.1L , Mean Corpuscular Volume 85, Mean Corpuscular Hemoglobin 28.2, Mean Corpuscular Hemoglobin Concent 33.2, Red Cell Distribution Width 14.8, Platelet Count 218, Mean Platelet Volume 8.0, Neutrophils (%) (Auto) , Lymphocytes (%) ( Auto) , Monocytes (%) (Auto) , Eosinophils (%) (Auto) , Basophils (%) (Auto) , Sodium Level 140, Potassium Level 3.4L, Chloride Level 107, Carbon Dioxide Level 23, Anion Gap 10, Blood Urea Nitrogen 4L, Creatinine 0.5L, Estimat Glomerular Filtration Rate > 60, Glucose Level 118#H, Calcium Level 8.8, Magnesium Level 1.6L Height (Feet): 5 Height (Inches): 4.00 Weight (Pounds): 112 Objective General Appearance: WD/WN, no apparent distress, alert Lines, tubes and drains: peripheral HEENT: normocephalic, atraumatic Neck: non-tender, normal alignment, supple, normal inspection, trach Cardiovascular/Chest: normal peripheral pulses, normal rate, regular rhythm Abdomen: normal bowel sounds, non tender, soft, no organomegaly, no mass, PEG in place, clean site Extremities: normal range of motion, non-tender, normal inspection, no calf tenderness Skin Exam: normal pigmentation, warm/dry Neurologic: cook candy II-XII grossly normal, alert, oriented x 3, responsive, normal mood/affect Beth Aburto MD Jun 07, 2018 07:45
[2018-06-07 08:00] VITALS: BP 103/55
[2018-06-07] MEDS: Lisinopril 10mg tab ORAL SCH (08:45)
[2018-06-07] MEDS: Multivitamin w/Minerals tab ORAL SCH (08:45)
[2018-06-07] MEDS: Docusate 100mg cap ORAL SCH ×2 (08:45→18:45)
[2018-06-07] MEDS: Vitamin D 1000 IU Tab ORAL SCH (08:45)
[2018-06-07] MEDS: Heparin 5000 units/ml inj SUBQ SCH ×2 (08:47→21:00)
--- NOTE | 2018-06-07 09:15 | Diagnostic Imaging Report ---
Indication: Cough Technique: One view of the chest Comparison: 06/05/2018 Findings: There is a left-sided pleural effusion. There is again demonstrated right perihilar infiltrate. Normal heart size. Findings are unchanged Impression: Unchanged, over one day, findings as above.
--- NOTE | 2018-06-07 11:20 | Pulmonology Progress Note ---
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, unspecified (13) Encounter for PEG (percutaneous endoscopic gastrostomy) (14) Nutrition impaired due to imbalance of nutrients (15) HCAP (healthcare-associated pneumonia) Assessment/Plan Optimize pulmonary hygiene/mobilize as tolerated Continue ventilatory support/settings reviewed Titrate down FiO2 to keep SaO2 > 90% RTC and PRN HHN's + MUCOMYST HHN TID PRN suctioning Abx (Vanco, Zosyn, Azithro) per ID, F/U Cx's TF's Monitor volumes PRBC if less than 7 F/U neuro recs, continue Rilutek FC, discuss GOC Subjective Constitutional: Reports: no symptoms Respiratory: Reports: sputum Cardiovascular: Reports: no symptoms Gastrointestinal/Abdominal: Reports: no symptoms Genitourinary: Reports: no symptoms Neurologic: Reports: no symptoms Allergies: Coded Allergies: No Known Allergies (Unverified , 06/02/18) Subjective no events noted no cp nv or bleeding not getting oob trach .cdi some secretions noted tolerating TF awake and alert weakness of LE noted, functioning UE Objective Vital Signs Noted General Appearance: cachetic HEENT: atraumatic, anicteric, other - trach Respiratory/Chest: rhonchi Cardiovascular: normal rate, regular rhythm Abdomen: soft, non tender, no organomegaly Neurologic/Psychiatric: alert, oriented x 3, responsive Laboratory Tests 06/06/18 03:05: White Blood Count 8.3, Red Blood Count 2.58L, Hemoglobin 7.2L, Hematocrit 22.2L , Mean Corpuscular Volume 86, Mean Corpuscular Hemoglobin 27.9, Mean Corpuscular Hemoglobin Concent 32.4, Red Cell Distribution Width 14.7, Platelet Count 220, Mean Platelet Volume 8.2, Neutrophils (%) (Auto) , Lymphocytes (%) ( Auto) , Monocytes (%) (Auto) , Eosinophils (%) (Auto) , Basophils (%) (Auto) , Differential Total Cells Counted 100, Neutrophils % (Manual) 78H, Lymphocytes % (Manual) 12L, Monocytes % (Manual) 10, Eosinophils % (Manual) 0, Basophils % ( Manual) 0, Band Neutrophils 0, Platelet Estimate Adequate, Platelet Morphology Normal, Hypochromasia 1+, Anisocytosis 1+, Sodium Level 137, Potassium Level 3.1L, Chloride Level 106, Carbon Dioxide Level 22, Anion Gap 9, Blood Urea Nitrogen 7, Creatinine 0.7, Estimat Glomerular Filtration Rate > 60, Glucose Level 284#H, Calcium Level 8.0L Current Medications Medications (Trade) Dose Ordered Sig/Irma Route PRN Reason Start Time Stop Time Status Last Admin Dose Admin Acetaminophen (Tylenol) 650 mg Q4H PRN ORAL For Pain 06/02/18 22:00 07/02/18 21:59 06/05/18 08:45 Acetylcysteine (Mucomyst) 100 mg TIDRT HHN 06/04/18 19:00 07/04/18 18:59 06/06/18 18:58 Albuterol/ Ipratropium (Albuterol/ Ipratropium) 3 ml Q4H PRN HHN Shortness of Breath 06/03/18 08:15 06/08/18 08:14 06/06/18 18:57 Amlodipine Besylate (Norvasc) 10 mg DAILY ORAL 06/03/18 09:00 07/03/18 08:59 06/04/18 08:51 Atorvastatin Calcium (Lipitor) 10 mg BEDTIME ORAL 06/02/18 22:30 07/02/18 22:29 06/06/18 20:11 Bisacodyl (Dulcolax) 10 mg DAILYPRN PRN RECTAL Constipation 06/03/18 06:41 07/03/18 06:40 Dextrose/Sodium Chloride 1,000 ml @ 100 mls/hr Q10H IV 06/02/18 22:00 07/02/18 21:59 06/06/18 16:10 Docusate Sodium (Colace) 100 mg BID ORAL 06/03/18 09:00 07/03/18 08:59 06/06/18 17:27 Heparin Sodium (Porcine) (Heparin 5000 units/ml) 5,000 units EVERY 12 HOURS SUBQ 06/03/18 09:00 07/03/18 08:59 06/06/18 20:12 Lansoprazole (Prevacid) 30 mg BID ORAL 06/03/18 09:00 07/03/18 08:59 06/06/18 17:27 Lisinopril (Zestril) 10 mg DAILY ORAL 06/03/18 09:00 07/03/18 08:59 06/04/18 08:51 Meropenem 1 gm/ Sodium Chloride 110 ml @ 220 mls/hr Q8HR IVPB 06/06/18 14:00 06/11/18 13:59 06/06/18 14:14 Morphine Sulfate (Morphine Sulfate) 2 mg Q4H PRN IVP For Pain 06/04/18 12:00 06/11/18 11:59 06/04/18 17:32 Multivitamins Therapeutic (Therapeutic Multivitamin) 1 ea DAILY ORAL 06/03/18 09:00 07/03/18 08:59 06/06/18 09:28 Patient Own Medication (Patient's Own Med) 1 ea Q12HR ORAL 06/03/18 21:00 07/03/18 20:59 06/06/18 20:10 Vitamin D (Vitamin D) 2,000 intlu DAILY ORAL 06/03/18 09:00 07/03/18 08:59 06/06/18 09:28 Subjective ROS Limited/Unobtainable: No Allergies: Coded Allergies: No Known Allergies (Unverified , 06/02/18) Objective Last 24 Hour Vital Signs Date Time Temp Pulse Resp B/P (MAP) Pulse Ox O2 Delivery O2 Flow Rate FiO2 06/07/18 10:50 78 16 40 06/07/18 09:15 72 16 40 06/07/18 08:47 78 103/55 06/07/18 08:45 103/55 06/07/18 08:00 98.4 78 20 103/55 (71) 99 06/07/18 07:08 62 16 100 Mechanical Ventilator 40 06/07/18 06:53 62 16 40 06/07/18 06:52 62 16 100 Mechanical Ventilator 40 06/07/18 04:37 66 16 40 06/07/18 04:00 97.2 68 16 112/72 (85) 100 06/07/18 04:00 40 06/07/18 04:00 Mechanical Ventilator 06/07/18 04:00 60 06/07/18 03:05 65 16 100 Mechanical Ventilator 15.0 40 06/07/18 02:55 40 06/07/18 02:55 62 17 99 Mechanical Ventilator 40 06/07/18 02:51 66 17 40 06/07/18 00:53 67 16 40 06/07/18 00:00 40 06/07/18 00:00 Mechanical Ventilator 06/07/18 00:00 98.2 75 18 115/65 (82) 100 06/07/18 00:00 63 06/06/18 23:32 70 16 40 06/06/18 21:44 65 16 40 06/06/18 20:00 98.6 75 20 110/76 (87) 99 06/06/18 20:00 62 06/06/18 20:00 40 06/06/18 19:08 68 16 100 Mechanical Ventilator 40 06/06/18 19:00 Mechanical Ventilator 06/06/18 18:58 63 16 100 Mechanical Ventilator 40 06/06/18 18:55 67 16 40 06/06/18 16:43 63 16 40 06/06/18 16:00 99.3 73 22 118/85 (96) 99 06/06/18 16:00 Mechanical Ventilator 06/06/18 16:00 40 06/06/18 15:34 82 06/06/18 14:55 72 16 40 06/06/18 13:15 78 16 100 Mechanical Ventilator 40 06/06/18 13:05 65 16 100 Mechanical Ventilator 40 06/06/18 13:03 63 16 40 06/06/18 12:00 40 06/06/18 12:00 Mechanical Ventilator 06/06/18 11:58 63 06/06/18 11:29 98.5 73 16 107/65 (79) 100 06/06/18 11:20 75 16 40 Intake and Output 06/06/18 06/07/18 18:59 06:59 Intake Total 2053.33 ml 800 ml Output Total 2800 ml Balance 2053.33 ml -2000 ml Free Water 200 ml 300 ml IV Total 1293.33 ml 100 ml Tube Feeding 560 ml 400 ml Output Urine Total 2800 ml # Voids 8 # Bowel Movements 2 4 Laboratory Tests 06/07/18 03:20: White Blood Count 8.5, Red Blood Count 2.72L, Hemoglobin 7.7L, Hematocrit 23.1L , Mean Corpuscular Volume 85, Mean Corpuscular Hemoglobin 28.2, Mean Corpuscular Hemoglobin Concent 33.2, Red Cell Distribution Width 14.8, Platelet Count 218, Mean Platelet Volume 8.0, Neutrophils (%) (Auto) , Lymphocytes (%) ( Auto) , Monocytes (%) (Auto) , Eosinophils (%) (Auto) , Basophils (%) (Auto) , Sodium Level 140, Potassium Level 3.4L, Chloride Level 107, Carbon Dioxide Level 23, Anion Gap 10, Blood Urea Nitrogen 4L, Creatinine 0.5L, Estimat Glomerular Filtration Rate > 60, Glucose Level 118#H, Calcium Level 8.8, Magnesium Level 1.6L Current Medications Medications (Trade) Dose Ordered Sig/Irma Route PRN Reason Start Time Stop Time Status Last Admin Dose Admin Acetaminophen (Tylenol) 650 mg Q4H PRN ORAL For Pain 06/02/18 22:00 07/02/18 21:59 06/05/18 08:45 Acetylcysteine (Mucomyst) 100 mg TIDRT HHN 06/04/18 19:00 07/04/18 18:59 06/07/18 06:51 Albuterol/ Ipratropium (Albuterol/ Ipratropium) 3 ml Q4H PRN HHN Shortness of Breath 06/03/18 08:15 06/08/18 08:14 06/07/18 06:52 Amlodipine Besylate (Norvasc) 10 mg DAILY ORAL 06/03/18 09:00 07/03/18 08:59 06/04/18 08:51 Atorvastatin Calcium (Lipitor) 10 mg BEDTIME ORAL 06/02/18 22:30 07/02/18 22:29 06/06/18 20:11 Bisacodyl (Dulcolax) 10 mg DAILYPRN PRN RECTAL Constipation 06/03/18 06:41 07/03/18 06:40 Dextrose/Sodium Chloride 1,000 ml @ 100 mls/hr Q10H IV 06/02/18 22:00 07/02/18 21:59 06/07/18 02:14 Docusate Sodium (Colace) 100 mg BID ORAL 06/03/18 09:00 07/03/18 08:59 06/07/18 08:45 Heparin Sodium (Porcine) (Heparin 5000 units/ml) 5,000 units EVERY 12 HOURS SUBQ 06/03/18 09:00 07/03/18 08:59 06/07/18 08:47 Lansoprazole (Prevacid) 30 mg BID ORAL 06/03/18 09:00 07/03/18 08:59 06/07/18 08:45 Lisinopril (Zestril) 10 mg DAILY ORAL 06/03/18 09:00 07/03/18 08:59 06/04/18 08:51 Magnesium Sulfate 100 ml @ 100 mls/hr Q1H IVPB 06/07/18 08:00 06/07/18 11:59 06/07/18 11:04 Meropenem 1 gm/ Sodium Chloride 110 ml @ 220 mls/hr Q8HR IVPB 06/06/18 14:00 06/11/18 13:59 06/07/18 05:45 Morphine Sulfate (Morphine Sulfate) 2 mg Q4H PRN IVP For Pain 06/04/18 12:00 06/11/18 11:59 06/04/18 17:32 Multivitamins Therapeutic (Therapeutic Multivitamin) 1 ea DAILY ORAL 06/03/18 09:00 07/03/18 08:59 06/07/18 08:45 Patient Own Medication (Patient's Own Med) 1 ea Q12HR ORAL 06/03/18 21:00 07/03/18 20:59 06/07/18 09:03 Vitamin D (Vitamin D) 2,000 intlu DAILY ORAL 06/03/18 09:00 07/03/18 08:59 06/07/18 08:45 Chaim Das MD Jun 07, 2018 11:20
[2018-06-07 12:00] VITALS: BP 112/67
[2018-06-07 16:00] VITALS: BP 118/78
[2018-06-07] MEDS: Morphine Sulfate 4mg/ml Inj (IV/IM USE ONLY) IVP PRN (16:33)
--- NOTE | 2018-06-07 16:41 | Neurology Progress Note ---
Interim History Interim History Interim History Mr. Robles feels well. He has mild pain at the PEG site today. The PEG is functioning well. He denies any new neurologic symptoms. The weakness is about the same. The sensations are still normal. He has not been able to get me any of his records yet. Review of Systems Neuro Review of Systems Benign. Objective Physical Exam Last Vital Signs Date Time Temp Pulse Resp B/P (MAP) Pulse Ox O2 Delivery O2 Flow Rate FiO2 06/07/18 14:57 69 16 40 06/07/18 13:00 100 Mechanical Ventilator 06/07/18 12:00 98.7 112/67 (82) 06/07/18 03:05 15.0 Laboratory Tests Test 06/07/18 03:20 White Blood Count 8.5 K/UL (4.8-10.8) Red Blood Count 2.72 M/UL (4.70-6.10) L Hemoglobin 7.7 G/DL (14.2-18.0) L Hematocrit 23.1 % (42.0-52.0) L Mean Corpuscular Volume 85 FL (80-99) Mean Corpuscular Hemoglobin 28.2 PG (27.0-31.0) Mean Corpuscular Hemoglobin Concent 33.2 G/DL (32.0-36.0) Red Cell Distribution Width 14.8 % (11.6-14.8) Platelet Count 218 K/UL (150-450) Mean Platelet Volume 8.0 FL (6.5-10.1) Neutrophils (%) (Auto) % (45.0-75.0) Lymphocytes (%) (Auto) % (20.0-45.0) Monocytes (%) (Auto) % (1.0-10.0) Eosinophils (%) (Auto) % (0.0-3.0) Basophils (%) (Auto) % (0.0-2.0) Sodium Level 140 MMOL/L (136-145) Potassium Level 3.4 MMOL/L (3.5-5.1) L Chloride Level 107 MMOL/L (98-107) Carbon Dioxide Level 23 MMOL/L (21-32) Anion Gap 10 mmol/L (5-15) Blood Urea Nitrogen 4 mg/dL (7-18) L Creatinine 0.5 MG/DL (0.55-1.30) L Estimat Glomerular Filtration Rate > 60 mL/min (>60) Glucose Level 118 MG/DL (74-106) #H Calcium Level 8.8 MG/DL (8.5-10.1) Magnesium Level 1.6 MG/DL (1.8-2.4) L Neurologic Exam Objective PHYSICAL EXAMINATION: GENERAL: He is a well-developed, but lean and wasting gentleman, lying in bed, in no acute distress, connected to a ventilator through a tracheostomy. HEAD: Normocephalic and atraumatic. NECK: No neck rigidity was observed. He did have a tracheostomy in place. EENT: Benign. NEUROLOGICAL EXAMINATION: MENTAL STATUS EXAMINATION: He was awake and alert. He was oriented to person, place, and time. He was able to recall 3/3 words immediately after 1 minute and after 3 minutes. He was able to remember presidents, Trump through Jose senior with hints. His mathematical skills were good. His visuospatial function was preserved. SPEECH: He was able to mouth words well. LANGUAGE: He was able to comprehend, repeat, and express himself well. CRANIAL NERVE EXAMINATION: II: The visual maldonaod were intact on confrontation testing. III, IV & : The external ocular movements were full and the pupils 3 mm in diameter, equal, round, regular, and reactive to light. V: He had normal facial sensations and the temporales, masseters, and pterygoids function normally. VII: He had normal facial expressions and no facial asymmetry. VIII: He was able to hear well bilaterally and had no nystagmus. IX: The palate moved symmetrically on phonation. X: His gag reflex was present. XI: The sternocleidomastoids and trapezii functioned normally. XII: The tongue was in the midline without any atrophy, but it did reveal fasciculations. MOTOR SYSTEM: The tone was normal in all four extremities except for decreased tone in the ankles more so on the left than on the right. Examination of muscle mass revealed severe generalized muscle wasting involving the distal muscles more than the proximal muscles and the lower extremities more than the upper extremities. He had G 5/5 power in both upper extremities except for G 4/5 power in the finger extensors. In the lower extremities, he had in the iliopsoas G 4+/5 on the right, G 4-/5 on the left. In the quadriceps, he had G 5-/5 on the right and G 4+/5 on the left. In the hamstrings, he had G 4+/5 on the right and G 4-/5 on the left. In the ankle dorsiflexors and toe extensors, he had G 3/5 on the right and G 0/ 5 on the left. In the ankle plantar flexors and toe flexors, he had G 4/5 on the right and G 1/ 5 on the left. SENSORY EXAMINATION: He had intact sensations to pinprick, light touch, and graphesthesia. COORDINATION: He performed well on [id number] testing. He was unable to perform [id number] testing. REFLEXES: 2++ and bilaterally symmetrical at the biceps, triceps, brachioradialis, and knees, 0 at both ankles. The plantar response was extensor on the right and mute on the left. STANCE & GAIT: Could not be tested. Impression/Recommendations Diagnostic Impression 1. Mr. Joseph Robles is a 58-year-old, right-handed, gentleman, who does have a prior history of hypertension and dyslipidemia, who approximately 4 years ago started to have weakness that started in his left foot with a left foot drop. Over the years, he has had increasing weakness in his lower extremities more than the upper extremities and on the left side more than the right associated with muscle wasting, muscle fasciculations, and then respiratory muscle failure as a result of which he has needed a tracheostomy. He has been worked up for the problem in the past and was found to have amyotrophic lateral sclerosis, for which he is on Rilutek. 2. He feels well. He has mild pain at the PEG site today. The PEG is functioning well. He denies any new neurologic symptoms. The weakness is about the same. The sensations are still normal. He has not been able to get me any of his records yet. 3. On neurological examination at this time, he does demonstrate tongue fasciculations, decreased tone in the ankles more so on the left than the right , generalized muscle wasting involving the lower extremities more than the upper extremities, a quadriparesis involving the lower extremities more than the upper extremities, and the left side more than the right in the lower extremities, brisk deep tendon reflexes with loss of ankle jerks, an extensor plantar response on the right with a mute plantar response on the left, and frequent fasciculations in all four extremities. 4. The patient's history and neurological examination are in fact consistent with amyotrophic lateral sclerosis. 5. His gastrostomy is functioning well. Recommendations 1. Rilutek should be continued. 2. In the near future, edaravone therapy should be considered. 3. The patient's family was told to try and retrieve his nerve conduction study , electromyography, and MRI scan reports so that I can review them. Richard Alcantara M.D., M.S.P.H. Richard Alcantara MD Jun 07, 2018 16:41
--- NOTE | 2018-06-07 18:14 | Infectious Diseases Prog Note ---
Assessment/Plan Assessment/Plan ASSESSMENT AND PLAN: 1. acinetobacter pna, sepsis, leukocytosis, ALS, trach, vent, g-tube - antibiotics changed to meropenem - day # 2/10 - monitor labs and chest x-ray - continue per pulmonary medicine - sepsis and leukocytosis better 2. The patient has trach/vent and respiratory failure. 3. Dysphagia, possible malnutrition, needed gastrostomy tube. 4. The patient has history of amyotrophic lateral sclerosis. 5. Possible hyperlipidemia. 6. Discussed with Neurology. Neurology will follow. 7. Hypertension. Treatment per primary team. 8. Anemia. 9. Weakness secondary to presumptive amyotrophic lateral sclerosis. 10. No history of diabetes or hypertension. 11. No known allergies. 12. Social history negative. 13. Family history noncontributory. 14. MAR was noted. 15. Case discussed with RN. 16. Continue treatment per primary consultants. 17. Case discussed with the patient and the patient's family. 18. vre colonization and isolation Subjective Constitutional: Reports: fatigue, other - trach and vent, alert, nad on vent ; Denies: fever HEENT: Reports: congestion Respiratory: Reports: shortness of breath Cardiovascular: Denies: chest pain Gastrointestinal/Abdominal: Denies: nausea, vomiting, diarrhea Genitourinary: Reports: other - no loera, no cva pain Neurologic: Reports: weakness, other - alert, o x 3 Psychiatric: Denies: depression Skin: Denies: rash Hematologic: Denies: bleeding Musculoskeletal: Denies: pain Allergies: Coded Allergies: No Known Allergies (Unverified , 06/02/18) Objective Vital Signs Last 24 Hour Vital Signs Date Time Temp Pulse Resp B/P (MAP) Pulse Ox O2 Delivery O2 Flow Rate FiO2 06/07/18 17:20 76 16 40 06/07/18 16:00 40 06/07/18 16:00 Mechanical Ventilator 06/07/18 16:00 71 06/07/18 16:00 97.5 82 21 118/78 (91) 99 06/07/18 14:57 69 16 40 06/07/18 13:00 64 16 100 Mechanical Ventilator 40 06/07/18 12:47 67 16 100 Mechanical Ventilator 40 06/07/18 12:45 63 16 40 06/07/18 12:00 98.7 65 20 112/67 (82) 99 12/31/18 12:00 40 06/07/18 12:00 71 06/07/18 12:00 Mechanical Ventilator 06/07/18 10:50 78 16 40 06/07/18 09:15 72 16 40 06/07/18 08:47 78 103/55 06/07/18 08:45 103/55 06/07/18 08:00 Mechanical Ventilator 06/07/18 08:00 63 06/07/18 08:00 98.4 78 20 103/55 (71) 99 06/07/18 08:00 40 06/07/18 07:08 62 16 100 Mechanical Ventilator 40 06/07/18 06:53 62 16 40 06/07/18 06:52 62 16 100 Mechanical Ventilator 40 06/07/18 04:37 66 16 40 06/07/18 04:00 97.2 68 16 112/72 (85) 100 06/07/18 04:00 40 06/07/18 04:00 Mechanical Ventilator 06/07/18 04:00 60 06/07/18 03:05 65 16 100 Mechanical Ventilator 15.0 40 06/07/18 02:55 40 06/07/18 02:55 62 17 99 Mechanical Ventilator 40 06/07/18 02:51 66 17 40 06/07/18 00:53 67 16 40 06/07/18 00:00 40 06/07/18 00:00 Mechanical Ventilator 06/07/18 00:00 98.2 75 18 115/65 (82) 100 06/07/18 00:00 63 06/06/18 23:32 70 16 40 06/06/18 21:44 65 16 40 06/06/18 20:00 98.6 75 20 110/76 (87) 99 06/06/18 20:00 62 06/06/18 20:00 40 06/06/18 19:08 68 16 100 Mechanical Ventilator 40 06/06/18 19:00 Mechanical Ventilator 06/06/18 18:58 63 16 100 Mechanical Ventilator 40 06/06/18 18:55 67 16 40 Height (Feet): 5 Height (Inches): 4.00 Weight (Pounds): 112 General Appearance: no acute distress HEENT: normocephalic, atraumatic, anicteric, mucous membranes moist, EOMI, no JVD, status post trach Respiratory/Chest: crackles/rales, rhonchi - bilaterally Cardiovascular: normal rate, regular rhythm, no gallop/murmur, no JVD Abdomen: normal bowel sounds, soft, non tender, no organomegaly, non distended Genitourinary: other - no loera Extremities: no cyanosis Skin: no rash 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 * Complete atelectasis of the left lower lobe with some mucous/debris in the left lower lobe bronchus. Consider bronchoscopy as clinically indicated. Mass or pneumonia in the collapsed lung not excludable. * Patchy and somewhat nodular airspace opacities in the posterior left upper lobe and posterior right lower lobe as well as some tree-in-bud opacities in the periphery of the left upper lobe likely infectious or inflammatory in etiology. Follow-up after appropriate treatment recommended to ensure resolution. CT ABDOMEN/PELVIS: * Cholelithiasis. No CT evidence to suggest acute cholecystitis. * Bladder wall thickening. Correlation with urinalysis recommended to exclude cystitis. * Enlarged and heterogeneous prostate. * Moderate colonic stool burden raising question for constipation. Chest x-ray - 06/05/18: FINDINGS: Lungs: Bibasilar infiltrates, left greater than right. Pleural space: Unremarkable. No pneumothorax. Heart: Unremarkable. No cardiomegaly. Mediastinum: Unremarkable. Bones/joints: No acute fracture. Tubes, lines and devices: Tracheostomy. IMPRESSION: Bibasilar infiltrates, left greater than right. Microbiology Date/Time Source Procedure Growth Status 06/02/18 21:15 Blood Blood Culture - Preliminary NO GROWTH AFTER 4 DAYS Resulted 06/03/18 18:00 Sputum Gram Stain - Final Complete 06/03/18 18:00 Sputum Culture - Final Acinetobacter Baumannii Complx Usual Respiratory Radha Complete 06/02/18 21:10 Rectum VRE Culture - Final Enterococcus Faecalis - Vre Complete 06/02/18 21:10 Rectum - Final NO CARBAPENEM-RESISTANT ENTEROBACTERI... Complete Laboratory Tests Test 06/07/18 03:20 White Blood Count 8.5 K/UL (4.8-10.8) Red Blood Count 2.72 M/UL (4.70-6.10) L Hemoglobin 7.7 G/DL (14.2-18.0) L Hematocrit 23.1 % (42.0-52.0) L Mean Corpuscular Volume 85 FL (80-99) Mean Corpuscular Hemoglobin 28.2 PG (27.0-31.0) Mean Corpuscular Hemoglobin Concent 33.2 G/DL (32.0-36.0) Red Cell Distribution Width 14.8 % (11.6-14.8) Platelet Count 218 K/UL (150-450) Mean Platelet Volume 8.0 FL (6.5-10.1) Neutrophils (%) (Auto) % (45.0-75.0) Lymphocytes (%) (Auto) % (20.0-45.0) Monocytes (%) (Auto) % (1.0-10.0) Eosinophils (%) (Auto) % (0.0-3.0) Basophils (%) (Auto) % (0.0-2.0) Sodium Level 140 MMOL/L (136-145) Potassium Level 3.4 MMOL/L (3.5-5.1) L Chloride Level 107 MMOL/L (98-107) Carbon Dioxide Level 23 MMOL/L (21-32) Anion Gap 10 mmol/L (5-15) Blood Urea Nitrogen 4 mg/dL (7-18) L Creatinine 0.5 MG/DL (0.55-1.30) L Estimat Glomerular Filtration Rate > 60 mL/min (>60) Glucose Level 118 MG/DL (74-106) #H Calcium Level 8.8 MG/DL (8.5-10.1) Magnesium Level 1.6 MG/DL (1.8-2.4) L Current Medications Medications (Trade) Dose Ordered Sig/Irma Route PRN Reason Start Time Stop Time Status Last Admin Dose Admin Acetaminophen (Tylenol) 650 mg Q4H PRN ORAL For Pain 06/02/18 22:00 07/02/18 21:59 06/05/18 08:45 Acetylcysteine (Mucomyst) 100 mg TIDRT HHN 06/04/18 19:00 07/04/18 18:59 06/07/18 12:47 Albuterol/ Ipratropium (Albuterol/ Ipratropium) 3 ml Q4H PRN HHN Shortness of Breath 06/03/18 08:15 06/08/18 08:14 06/07/18 12:46 Amlodipine Besylate (Norvasc) 10 mg DAILY ORAL 06/03/18 09:00 07/03/18 08:59 06/04/18 08:51 Atorvastatin Calcium (Lipitor) 10 mg BEDTIME ORAL 06/02/18 22:30 07/02/18 22:29 06/06/18 20:11 Bisacodyl (Dulcolax) 10 mg DAILYPRN PRN RECTAL Constipation 06/03/18 06:41 07/03/18 06:40 Dextrose/Sodium Chloride 1,000 ml @ 100 mls/hr Q10H IV 06/02/18 22:00 07/02/18 21:59 06/07/18 13:08 Docusate Sodium (Colace) 100 mg BID ORAL 06/03/18 09:00 07/03/18 08:59 06/07/18 08:45 Heparin Sodium (Porcine) (Heparin 5000 units/ml) 5,000 units EVERY 12 HOURS SUBQ 06/03/18 09:00 07/03/18 08:59 06/07/18 08:47 Lansoprazole (Prevacid) 30 mg BID ORAL 06/03/18 09:00 07/03/18 08:59 06/07/18 08:45 Lisinopril (Zestril) 10 mg DAILY ORAL 06/03/18 09:00 07/03/18 08:59 06/04/18 08:51 Meropenem 1 gm/ Sodium Chloride 110 ml @ 220 mls/hr Q8HR IVPB 06/06/18 14:00 06/11/18 13:59 06/07/18 14:51 Morphine Sulfate (Morphine Sulfate) 2 mg Q4H PRN IVP For Pain 06/04/18 12:00 06/11/18 11:59 06/07/18 16:33 Multivitamins Therapeutic (Therapeutic Multivitamin) 1 ea DAILY ORAL 06/03/18 09:00 07/03/18 08:59 06/07/18 08:45 Patient Own Medication (Patient's Own Med) 1 ea Q12HR ORAL 06/03/18 21:00 07/03/18 20:59 06/07/18 09:03 Vitamin D (Vitamin D) 2,000 intlu DAILY ORAL 06/03/18 09:00 07/03/18 08:59 06/07/18 08:45 Pratik Bowens MD Jun 07, 2018 18:14
--- NOTE | 2018-06-07 19:03 | General Progress Note ---
Assessment/Plan Assessment/Plan Assessment - s/p PEG for dysphagia - ALS - Resp failure - Anemia Recommendations - continue TF - GT site care - vent - follow labs - may need RBC transfusion Subjective Allergies: Coded Allergies: No Known Allergies (Unverified , 06/02/18) Subjective Above noted d/w RT tolerating TF Objective Last 24 Hour Vital Signs Date Time Temp Pulse Resp B/P (MAP) Pulse Ox O2 Delivery O2 Flow Rate FiO2 06/07/18 19:02 77 16 40 06/07/18 19:02 74 16 99 Mechanical Ventilator 40 06/07/18 17:20 76 16 40 06/07/18 16:00 40 06/07/18 16:00 Mechanical Ventilator 06/07/18 16:00 71 06/07/18 16:00 97.5 82 21 118/78 (91) 99 06/07/18 14:57 69 16 40 06/07/18 13:00 64 16 100 Mechanical Ventilator 40 06/07/18 12:47 67 16 100 Mechanical Ventilator 40 06/07/18 12:45 63 16 40 06/07/18 12:00 98.7 65 20 112/67 (82) 99 06/07/18 12:00 40 06/07/18 12:00 71 06/07/18 12:00 Mechanical Ventilator 06/07/18 10:50 78 16 40 06/07/18 09:15 72 16 40 06/07/18 08:47 78 103/55 06/07/18 08:45 103/55 06/07/18 08:00 Mechanical Ventilator 06/07/18 08:00 63 06/07/18 08:00 98.4 78 20 103/55 (71) 99 06/07/18 08:00 40 06/07/18 07:08 62 16 100 Mechanical Ventilator 40 06/07/18 06:53 62 16 40 06/07/18 06:52 62 16 100 Mechanical Ventilator 40 06/07/18 04:37 66 16 40 06/07/18 04:00 97.2 68 16 112/72 (85) 100 06/07/18 04:00 40 06/07/18 04:00 Mechanical Ventilator 06/07/18 04:00 60 06/07/18 03:05 65 16 100 Mechanical Ventilator 15.0 40 06/07/18 02:55 40 06/07/18 02:55 62 17 99 Mechanical Ventilator 40 06/07/18 02:51 66 17 40 06/07/18 00:53 67 16 40 06/07/18 00:00 40 06/07/18 00:00 Mechanical Ventilator 06/07/18 00:00 98.2 75 18 115/65 (82) 100 06/07/18 00:00 63 06/06/18 23:32 70 16 40 06/06/18 21:44 65 16 40 06/06/18 20:00 98.6 75 20 110/76 (87) 99 06/06/18 20:00 62 06/06/18 20:00 40 06/06/18 19:08 68 16 100 Mechanical Ventilator 40 Intake and Output 06/06/18 06/07/18 19:00 07:00 Intake Total 2013.33 ml 680 ml Output Total 1400 ml 1400 ml Balance 613.33 ml -720 ml Free Water 200 ml 300 ml IV Total 1293.33 ml Tube Feeding 520 ml 380 ml Output Urine Total 1400 ml 1400 ml # Voids 8 # Bowel Movements 6 Laboratory Tests 06/07/18 03:20: White Blood Count 8.5, Red Blood Count 2.72L, Hemoglobin 7.7L, Hematocrit 23.1L , Mean Corpuscular Volume 85, Mean Corpuscular Hemoglobin 28.2, Mean Corpuscular Hemoglobin Concent 33.2, Red Cell Distribution Width 14.8, Platelet Count 218, Mean Platelet Volume 8.0, Neutrophils (%) (Auto) , Lymphocytes (%) ( Auto) , Monocytes (%) (Auto) , Eosinophils (%) (Auto) , Basophils (%) (Auto) , Sodium Level 140, Potassium Level 3.4L, Chloride Level 107, Carbon Dioxide Level 23, Anion Gap 10, Blood Urea Nitrogen 4L, Creatinine 0.5L, Estimat Glomerular Filtration Rate > 60, Glucose Level 118#H, Calcium Level 8.8, Magnesium Level 1.6L Height (Feet): 5 Height (Inches): 4.00 Weight (Pounds): 112 Objective Thin WM NCAT (+) trach Coarse BS RR soft ND (+) GT no edema Corrie Trotter MD Jun 07, 2018 19:03
[2018-06-07 20:00] VITALS: BP 114/63
[2018-06-07] MEDS: Acetaminophen 650mg/20.3ml GT PRN (21:20)
[2018-06-07 22:34] LABS: APPEARANCE,URINE CLEAR; BILIRUBIN, URINE NEGATIVE (NEGATIVE); COLOR,URINE PALE YELLOW; GLUCOSE, URINE (UA) NEGATIVE (NEGATIVE); KETONES,URINE NEGATIVE (NEGATIVE); LEUKOCYTE ESTERASE ,URINE NEGATIVE (NEGATIVE); NITRITE,URINE NEGATIVE (NEGATIVE); PH,URINE 7 (4.5-8.0); PROTEIN,URINE NEGATIVE (NEGATIVE); UROBILINOGEN,URINE NORMAL MG/DL (0.0-1.0)
[2018-06-07] MEDS: Vancomycin 750mg/NS 250ml IVPB SCH (22:49)
[2018-06-08] VITALS: BP 100/55
[2018-06-08 04:00] VITALS: BP 124/82
[2018-06-08 05:46] LABS: BASOPHILS % (AUTO) 0.9 % (0.0-2.0); EOSINOPHILS % (AUTO) 1.6 % (0.0-3.0); HEMATOCRIT 27.2 % (42.0-52.0); HEMOGLOBIN 8.9 G/DL (14.2-18.0); LYMPHOCYTES % (AUTO) 16.4 % (20.0-45.0); MEAN CORPUSCULAR VOLUME 87 FL (80-99); MONOCYTES % (AUTO) 4.7 % (1.0-10.0); NEUTROPHILS % (AUTO) 76.5 % (45.0-75.0); PLATELET COUNT 257 K/UL (150-450); RED BLOOD COUNT 3.13 M/UL (4.70-6.10); WHITE BLOOD COUNT 6.1 K/UL (4.8-10.8)
[2018-06-08 05:56] LABS: ANION GAP 11 mmol/L (5-15); BLOOD UREA NITROGEN 7 mg/dL (7-18); CALCIUM 8.7 MG/DL (8.5-10.1); CARBON DIOXIDE 23 MMOL/L (21-32); CHLORIDE 104 MMOL/L (98-107); CREATININE 0.6 MG/DL (0.55-1.30); POTASSIUM 4.7 MMOL/L (3.5-5.1); SODIUM 138 MMOL/L (136-145)
[2018-06-08] MEDS: Meropenem 1gm/NS 110ml IVPB SCH ×6 (05:56→21:30)
[2018-06-08] MEDS: Vancomycin 750mg/NS 250ml IVPB SCH ×2 (06:29→14:36)
--- NOTE | 2018-06-08 06:58 | General Progress Note ---
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.20 - Motor neuron disease, unspecified SNOMED: 18855101 (4) Leukocytosis ICD Codes: D72.829 - Elevated white blood cell count, unspecified SNOMED: 224094451, 581856878 Qualifiers: Qualified Codes: D72.829 - Elevated white blood cell count, unspecified (5) Essential hypertension ICD Codes: I10 - Essential (primary) hypertension SNOMED: 97776723 (6) HCAP (healthcare-associated pneumonia) ICD Codes: J18.9 - Pneumonia, unspecified organism SNOMED: 146841193 Status: stable Assessment/Plan (1) Protein calorie malnutrition s/p G-tube placement continue tube feeds (2) Status post tracheostomy, chronic respiratory failure continue vent management per Pulmonology, wean vent as tolerated and plan transfer to snf continue frequent suctioning (3) Motor neuron disease, ALS Continue supportive care Neurology following (4) Sepsis, suspected aspiration pneumonia versus HCAP improving cont wean vent as tolerated per pulm continue vancomycin and Zosyn ID following (5)Hypokalemia improved replace K, cont to monitoring closely, mg also low (6)Hypomagnesemia improved replenish now and recheck replace and check BMP in AM (6)Acute on chronic anemia No evidence of bleeding Repeat CBC in AM Transfuse PRBC if Hb < 7 (7)resp failure, acute on chronic vent trached worsened by asp pna appreciate pulm recs DVT Prophylaxis: SCD, HSQ Code Status: Full Hospital Classification Declaration: Based on this initial evaluation, and depending on the patient's clinical course, I anticipate that this patient will require hospitalization for 2-3 days for malnutrition, trached/needs peg eval and close respiratory/hemodynamic monitoring. Disposition: Once the patient is stable to leave the hospital, I anticipate the patient will likely be discharged to the following environment: home I spent 60 minutes on this patient's case, and 40 minutes were dedicated to counseling and/or care coordination. Discussed with patient/family, nursing staff, BINTA/MARIANNA, and consultants regarding clinical status, treatment course, and disposition planning. Time of note may not reflect time of encounter. ---- Date of Discussion: 06/03/18 A [id number] discussion with the patient's son regarding the patient's advanced care planning took place during this hospitalization on the above date. The discussion included the explanation and discussion of advance directives and associated forms/documents, as well as the patient's current code status. We also discussed at length the patient's medical conditions (both acute and chronic), general prognosis, treatment options, and goals of care. The following summarizes the discussion: Advance Care Planning/Goals of Care: - polst completed - Continue current evaluation and management of any acute and chronic medical issues - Will continue to support the patient/family - Will continue to discuss both short- and long-term goals of care DPOA-HC/Surrogate Decision Maker: , Randa Robles Code Status: Full Code AD Forms/Documents Completed: completed A total of 31 minutes was spent on this discussion, including counseling, answering questions, and completing, if any, pertinent advanced care planning forms/documents. Subjective Date patient seen: Jun 08, 2018 Time patient seen: 06:56 Allergies: Coded Allergies: No Known Allergies (Unverified , 06/02/18) Subjective f/u malnutrition, sepsis, resp failure, trach on vent, peg stable doing well denies any complaints no acute events overnight sepsis seems to be improving planned to discuss with pulm if / when safe to dc cont wean vent per pulm for transfer back to snf ROS: 14 point ROS reviewed and negative except per the above subjective Objective Last 24 Hour Vital Signs Date Time Temp Pulse Resp B/P (MAP) Pulse Ox O2 Delivery O2 Flow Rate FiO2 06/08/18 05:16 75 16 40 06/08/18 04:00 98.9 80 21 124/82 (96) 100 06/08/18 04:00 78 06/08/18 04:00 40 06/08/18 04:00 Mechanical Ventilator 06/08/18 03:23 71 16 40 06/08/18 01:00 74 17 40 06/08/18 00:00 40 06/08/18 00:00 98.2 74 21 100/55 (70) 100 06/08/18 00:00 70 06/08/18 00:00 Mechanical Ventilator 06/07/18 23:14 75 16 40 06/07/18 21:50 98.9 06/07/18 21:30 76 16 40 06/07/18 20:00 Mechanical Ventilator 06/07/18 20:00 40 06/07/18 20:00 81 06/07/18 20:00 101.4 91 21 114/63 (80) 100 06/07/18 19:25 79 16 100 Mechanical Ventilator 40 06/07/18 19:25 79 16 Mechanical Ventilator 40 06/07/18 19:02 77 16 40 06/07/18 19:02 74 16 99 Mechanical Ventilator 40 06/07/18 17:20 76 16 40 06/07/18 16:00 40 06/07/18 16:00 Mechanical Ventilator 06/07/18 16:00 71 06/07/18 16:00 97.5 82 21 118/78 (91) 99 06/07/18 14:57 69 16 40 06/07/18 13:00 64 16 100 Mechanical Ventilator 40 06/07/18 12:47 67 16 100 Mechanical Ventilator 40 06/07/18 12:45 63 16 40 06/07/18 12:00 98.7 65 20 112/67 (82) 99 06/07/18 12:00 40 06/07/18 12:00 71 06/07/18 12:00 Mechanical Ventilator 06/07/18 10:50 78 16 40 06/07/18 09:15 72 16 40 06/07/18 08:47 78 103/55 06/07/18 08:45 103/55 06/07/18 08:00 Mechanical Ventilator 06/07/18 08:00 63 06/07/18 08:00 98.4 78 20 103/55 (71) 99 06/07/18 08:00 40 06/07/18 07:08 62 16 100 Mechanical Ventilator 40 Intake and Output 06/07/18 06/08/18 19:00 07:00 Intake Total 960 ml 2290.000 ml Output Total 2900 ml 1450 ml Balance -1940 ml 840.000 ml Free Water 200 ml IV Total 100 ml 1570.000 ml Tube Feeding 660 ml 720 ml Output Urine Total 2900 ml 1450 ml Laboratory Tests 06/07/18 22:18: Urine Color Pale yellow, Urine Appearance Clear, Urine pH 7, Urine Specific [place] 1.010, Urine Protein Negative, Urine Glucose (UA) Negative, Urine Ketones Negative, Urine Blood Negative, Urine Nitrite Negative, Urine Bilirubin Negative, Urine Urobilinogen Normal, Urine Leukocyte Esterase Negative, Urine RBC 0, Urine WBC 0, Urine Squamous Epithelial Cells None, Urine Bacteria Few 06/08/18 03:16: White Blood Count 6.1, Red Blood Count 3.13L, Hemoglobin 8.9L, Hematocrit 27.2L , Mean Corpuscular Volume 87, Mean Corpuscular Hemoglobin 28.3, Mean Corpuscular Hemoglobin Concent 32.7, Red Cell Distribution Width 15.0H, Platelet Count 257, Mean Platelet Volume 7.6, Neutrophils (%) (Auto) 76.5H, Lymphocytes (%) (Auto) 16.4L, Monocytes (%) (Auto) 4.7, Eosinophils (%) (Auto) 1.6, Basophils (%) (Auto) 0.9, Sodium Level 138, Potassium Level 4.7, Chloride Level 104, Carbon Dioxide Level 23, Anion Gap 11, Blood Urea Nitrogen 7, Creatinine 0.6, Estimat Glomerular Filtration Rate > 60, Glucose Level 97, Calcium Level 8.7, Magnesium Level 2.4 Height (Feet): 5 Height (Inches): 4.00 Weight (Pounds): 112 Objective General Appearance: WD/WN, no apparent distress, alert Lines, tubes and drains: peripheral HEENT: normocephalic, atraumatic Neck: non-tender, normal alignment, supple, normal inspection, trach Cardiovascular/Chest: normal peripheral pulses, normal rate, regular rhythm Abdomen: normal bowel sounds, non tender, soft, no organomegaly, no mass, PEG in place, clean site Extremities: normal range of motion, non-tender, normal inspection, no calf tenderness Skin Exam: normal pigmentation, warm/dry 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
[2018-06-08] MEDS: Albuterol/Ipratropium 3ml neb HHN PRN ×3 (07:18→20:33)
[2018-06-08 08:00] VITALS: BP 114/71
[2018-06-08] MEDS: D5NS 1,000 ML IV SCH ×2 (08:31→17:25)
[2018-06-08] MEDS: Lisinopril 10mg tab ORAL SCH (09:00)
[2018-06-08] MEDS: Multivitamin w/Minerals tab ORAL SCH (09:02)
[2018-06-08] MEDS: Docusate 100mg cap ORAL SCH ×2 (09:02→17:25)
[2018-06-08] MEDS: Vitamin D 1000 IU Tab ORAL SCH (09:02)
[2018-06-08] MEDS: Heparin 5000 units/ml inj SUBQ SCH ×2 (09:03→21:10)
[2018-06-08] MEDS: Acetaminophen 650mg/20.3ml GT PRN ×2 (10:03→17:26)
[2018-06-08] MEDS ORDERED: D5NS 1000ml IV ONE (10:04)
[2018-06-08] MEDS ORDERED: NS 275ml ONE (10:04)
[2018-06-08 12:00] VITALS: BP 95/50
--- NOTE | 2018-06-08 13:23 | Neurology Progress Note ---
Interim History Interim History Interim History Mr. Robles feels well. He feels a little stronger generally. He has no pain at the PEG site. The PEG is functioning well. He denies any new neurologic symptoms. The weakness is about the same. The sensations are still normal. He has not been able to get me any of his records yet. Review of Systems Neuro Review of Systems Benign. Objective Physical Exam Last Vital Signs Date Time Temp Pulse Resp B/P (MAP) Pulse Ox O2 Delivery O2 Flow Rate FiO2 06/08/18 12:00 Mechanical Ventilator 06/08/18 12:00 40 06/08/18 12:00 98.1 64 16 95/50 (65) 99 06/07/18 03:05 15.0 Laboratory Tests Test 06/07/18 22:18 06/08/18 03:16 Urine Color Pale yellow Urine Appearance Clear Urine pH 7 (4.5-8.0) Urine Specific [place] 1.010 (1.005-1.035) Urine Protein Negative (NEGATIVE) Urine Glucose (UA) Negative (NEGATIVE) Urine Ketones Negative (NEGATIVE) Urine Blood Negative (NEGATIVE) Urine Nitrite Negative (NEGATIVE) Urine Bilirubin Negative (NEGATIVE) Urine Urobilinogen Normal MG/DL (0.0-1.0) Urine Leukocyte Esterase Negative (NEGATIVE) Urine RBC 0 /HPF (0 - 0) Urine WBC 0 /HPF (0 - 0) Urine Squamous Epithelial Cells None /LPF (NONE/OCC) Urine Bacteria Few /HPF (NONE) White Blood Count 6.1 K/UL (4.8-10.8) Red Blood Count 3.13 M/UL (4.70-6.10) L Hemoglobin 8.9 G/DL (14.2-18.0) L Hematocrit 27.2 % (42.0-52.0) L Mean Corpuscular Volume 87 FL (80-99) Mean Corpuscular Hemoglobin 28.3 PG (27.0-31.0) Mean Corpuscular Hemoglobin Concent 32.7 G/DL (32.0-36.0) Red Cell Distribution Width 15.0 % (11.6-14.8) H Platelet Count 257 K/UL (150-450) Mean Platelet Volume 7.6 FL (6.5-10.1) Neutrophils (%) (Auto) 76.5 % (45.0-75.0) H Lymphocytes (%) (Auto) 16.4 % (20.0-45.0) L Monocytes (%) (Auto) 4.7 % (1.0-10.0) Eosinophils (%) (Auto) 1.6 % (0.0-3.0) Basophils (%) (Auto) 0.9 % (0.0-2.0) Sodium Level 138 MMOL/L (136-145) Potassium Level 4.7 MMOL/L (3.5-5.1) Chloride Level 104 MMOL/L (98-107) Carbon Dioxide Level 23 MMOL/L (21-32) Anion Gap 11 mmol/L (5-15) Blood Urea Nitrogen 7 mg/dL (7-18) Creatinine 0.6 MG/DL (0.55-1.30) Estimat Glomerular Filtration Rate > 60 mL/min (>60) Glucose Level 97 MG/DL (74-106) Calcium Level 8.7 MG/DL (8.5-10.1) Magnesium Level 2.4 MG/DL (1.8-2.4) Neurologic Exam Objective PHYSICAL EXAMINATION: GENERAL: He is a well-developed, but lean and wasting gentleman, lying in bed, in no acute distress, connected to a ventilator through a tracheostomy. HEAD: Normocephalic and atraumatic. NECK: No neck rigidity was observed. He did have a tracheostomy in place. EENT: Benign. NEUROLOGICAL EXAMINATION: MENTAL STATUS EXAMINATION: He was awake and alert. He was oriented to person, place, and time. He was able to recall 3/3 words immediately after 1 minute and after 3 minutes. He was able to remember presidents, Trump through Jose senior with hints. His mathematical skills were good. His visuospatial function was preserved. SPEECH: He was able to mouth words well. LANGUAGE: He was able to comprehend, repeat, and express himself well. CRANIAL NERVE EXAMINATION: II: The visual maldonado were intact on confrontation testing. III, IV & : The external ocular movements were full and the pupils 3 mm in diameter, equal, round, regular, and reactive to light. V: He had normal facial sensations and the temporales, masseters, and pterygoids function normally. VII: He had normal facial expressions and no facial asymmetry. VIII: He was able to hear well bilaterally and had no nystagmus. IX: The palate moved symmetrically on phonation. X: His gag reflex was present. XI: The sternocleidomastoids and trapezii functioned normally. XII: The tongue was in the midline without any atrophy, but it did reveal fasciculations. MOTOR SYSTEM: The tone was normal in all four extremities except for decreased tone in the ankles more so on the left than on the right. Examination of muscle mass revealed severe generalized muscle wasting involving the distal muscles more than the proximal muscles and the lower extremities more than the upper extremities. He had G 5/5 power in both upper extremities except for G 5-/5 power in the finger extensors. In the lower extremities, he had in the iliopsoas G 4+/5 on the right, G 4-/5 on the left. In the quadriceps, he had G 5-/5 on the right and G 4+/5 on the left. In the hamstrings, he had G 4+/5 on the right and G 4-/5 on the left. In the ankle dorsiflexors and toe extensors, he had G 3/5 on the right and G 0/ 5 on the left. In the ankle plantar flexors and toe flexors, he had G 4/5 on the right and G 1/ 5 on the left. SENSORY EXAMINATION: He had intact sensations to pinprick, light touch, and graphesthesia. COORDINATION: He performed well on [id number] testing. He was unable to perform [id number] testing. REFLEXES: 2++ and bilaterally symmetrical at the biceps, triceps, brachioradialis, and knees, 0 at both ankles. The plantar response was extensor on the right and mute on the left. STANCE & GAIT: Could not be tested. Impression/Recommendations Diagnostic Impression 1. Mr. Joesph Robles is a 58-year-old, right-handed, gentleman, who does have a prior history of hypertension and dyslipidemia, who approximately 4 years ago started to have weakness that started in his left foot with a left foot drop. Over the years, he has had increasing weakness in his lower extremities more than the upper extremities and on the left side more than the right associated with muscle wasting, muscle fasciculations, and then respiratory muscle failure as a result of which he has needed a tracheostomy. He has been worked up for the problem in the past and was found to have amyotrophic lateral sclerosis, for which he is on Rilutek. 2. He feels well. He feels a little stronger generally. He has no pain at the PEG site. The PEG is functioning well. He denies any new neurologic symptoms. The weakness is about the same. The sensations are still normal. He has not been able to get me any of his records yet. 3. On neurological examination at this time, he does demonstrate tongue fasciculations, decreased tone in the ankles more so on the left than the right , generalized muscle wasting involving the lower extremities more than the upper extremities, a quadriparesis involving the lower extremities more than the upper extremities, and the left side more than the right in the lower extremities, brisk deep tendon reflexes with loss of ankle jerks, an extensor plantar response on the right with a mute plantar response on the left, and frequent fasciculations in all four extremities. He however demonstrated increased upper extremity power. 4. The patient's history and neurological examination are in fact consistent with amyotrophic lateral sclerosis. 5. His gastrostomy is functioning well. Recommendations 1. Rilutek should be continued. 2. In the near future, edaravone therapy should be considered. 3. The patient's family was told to try and retrieve his nerve conduction study , electromyography, and MRI scan reports so that I can review them. Richard Alcantara M.D., M.S.P.H. Richard Alcantara MD Jun 08, 2018 13:23
[2018-06-08 16:00] VITALS: BP 127/82
--- NOTE | 2018-06-08 17:17 | Pulmonology Progress Note ---
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, unspecified (13) Encounter for PEG (percutaneous endoscopic gastrostomy) (14) Nutrition impaired due to imbalance of nutrients (15) HCAP (healthcare-associated pneumonia) (16) L pleural effusion Assessment/Plan Optimize pulmonary hygiene/mobilize as tolerated Continue ventilatory support/settings reviewed Titrate down FiO2 to keep SaO2 > 90% RTC and PRN HHN's + MUCOMYST HHN TID PRN suctioning Abx (Vanco, Zosyn, Azithro) per ID, F/U Cx's TF's Monitor volumes PRBC if less than 7 F/U neuro recs, continue [place] FC, discuss GOC Subjective Constitutional: Reports: no symptoms Respiratory: Reports: sputum Cardiovascular: Reports: no symptoms Gastrointestinal/Abdominal: Reports: no symptoms Genitourinary: Reports: no symptoms Neurologic: Reports: no symptoms Allergies: Coded Allergies: No Known Allergies (Unverified , 06/02/18) Subjective no events noted no cp nv or bleeding not getting oob trach .cdi some secretions noted tolerating TF awake and alert weakness of LE noted, functioning UE Objective Vital Signs Noted General Appearance: cachetic HEENT: atraumatic, anicteric, other - trach Respiratory/Chest: rhonchi Cardiovascular: normal rate, regular rhythm Abdomen: soft, non tender, no organomegaly Neurologic/Psychiatric: alert, oriented x 3, responsive Laboratory Tests 06/06/18 03:05: White Blood Count 8.3, Red Blood Count 2.58L, Hemoglobin 7.2L, Hematocrit 22.2L , Mean Corpuscular Volume 86, Mean Corpuscular Hemoglobin 27.9, Mean Corpuscular Hemoglobin Concent 32.4, Red Cell Distribution Width 14.7, Platelet Count 220, Mean Platelet Volume 8.2, Neutrophils (%) (Auto) , Lymphocytes (%) ( Auto) , Monocytes (%) (Auto) , Eosinophils (%) (Auto) , Basophils (%) (Auto) , Differential Total Cells Counted 100, Neutrophils % (Manual) 78H, Lymphocytes % (Manual) 12L, Monocytes % (Manual) 10, Eosinophils % (Manual) 0, Basophils % ( Manual) 0, Band Neutrophils 0, Platelet Estimate Adequate, Platelet Morphology Normal, Hypochromasia 1+, Anisocytosis 1+, Sodium Level 137, Potassium Level 3.1L, Chloride Level 106, Carbon Dioxide Level 22, Anion Gap 9, Blood Urea Nitrogen 7, Creatinine 0.7, Estimat Glomerular Filtration Rate > 60, Glucose Level 284#H, Calcium Level 8.0L Current Medications Medications (Trade) Dose Ordered Sig/Irma Route PRN Reason Start Time Stop Time Status Last Admin Dose Admin Acetaminophen (Tylenol) 650 mg Q4H PRN ORAL For Pain 06/02/18 22:00 07/02/18 21:59 06/05/18 08:45 Acetylcysteine (Mucomyst) 100 mg TIDRT HHN 06/04/18 19:00 07/04/18 18:59 06/06/18 18:58 Albuterol/ Ipratropium (Albuterol/ Ipratropium) 3 ml Q4H PRN HHN Shortness of Breath 06/03/18 08:15 06/08/18 08:14 06/06/18 18:57 Amlodipine Besylate (Norvasc) 10 mg DAILY ORAL 06/03/18 09:00 07/03/18 08:59 06/04/18 08:51 Atorvastatin Calcium (Lipitor) 10 mg BEDTIME ORAL 06/02/18 22:30 07/02/18 22:29 06/06/18 20:11 Bisacodyl (Dulcolax) 10 mg DAILYPRN PRN RECTAL Constipation 06/03/18 06:41 07/03/18 06:40 Dextrose/Sodium Chloride 1,000 ml @ 100 mls/hr Q10H IV 06/02/18 22:00 07/02/18 21:59 06/06/18 16:10 Docusate Sodium (Colace) 100 mg BID ORAL 06/03/18 09:00 07/03/18 08:59 06/06/18 17:27 Heparin Sodium (Porcine) (Heparin 5000 units/ml) 5,000 units EVERY 12 HOURS SUBQ 06/03/18 09:00 1/26/19 08:59 06/06/18 20:12 Lansoprazole (Prevacid) 30 mg BID ORAL 06/03/18 09:00 07/03/18 08:59 06/06/18 17:27 Lisinopril (Zestril) 10 mg DAILY ORAL 06/03/18 09:00 07/03/18 08:59 06/04/18 08:51 Meropenem 1 gm/ Sodium Chloride 110 ml @ 220 mls/hr Q8HR IVPB 06/06/18 14:00 06/11/18 13:59 06/06/18 14:14 Morphine Sulfate (Morphine Sulfate) 2 mg Q4H PRN IVP For Pain 06/04/18 12:00 06/11/18 11:59 06/04/18 17:32 Multivitamins Therapeutic (Therapeutic Multivitamin) 1 ea DAILY ORAL 06/03/18 09:00 07/03/18 08:59 06/06/18 09:28 Patient Own Medication (Patient's Own Med) 1 ea Q12HR ORAL 06/03/18 21:00 07/03/18 20:59 06/06/18 20:10 Vitamin D (Vitamin D) 2,000 intlu DAILY ORAL 06/03/18 09:00 07/03/18 08:59 06/06/18 09:28 Subjective ROS Limited/Unobtainable: No Allergies: Coded Allergies: No Known Allergies (Unverified , 06/02/18) Objective Last 24 Hour Vital Signs Date Time Temp Pulse Resp B/P (MAP) Pulse Ox O2 Delivery O2 Flow Rate FiO2 06/08/18 16:30 82 16 40 06/08/18 16:29 83 16 100 Mechanical Ventilator 15.0 40 06/08/18 16:16 40 06/08/18 16:16 83 16 8 Mechanical Ventilator 40 06/08/18 16:00 40 06/08/18 16:00 98.2 69 16 127/82 (97) 96 06/08/18 16:00 Mechanical Ventilator 06/08/18 15:33 58 06/08/18 15:04 68 16 40 06/08/18 13:00 Mechanical Ventilator 06/08/18 13:00 75 16 40 06/08/18 13:00 Mechanical Ventilator 06/08/18 12:00 Mechanical Ventilator 06/08/18 12:00 40 06/08/18 12:00 98.1 64 16 95/50 (65) 99 06/08/18 11:33 68 06/08/18 11:00 79 16 40 06/08/18 10:33 98.1 06/08/18 09:00 114/71 06/08/18 09:00 74 114/71 06/08/18 08:46 74 16 40 06/08/18 08:07 81 06/08/18 08:00 Mechanical Ventilator 06/08/18 08:00 40 06/08/18 08:00 100.8 84 16 114/71 (85) 97 06/08/18 07:26 75 16 100 Mechanical Ventilator 40 06/08/18 07:19 81 16 100 Mechanical Ventilator 40 06/08/18 07:18 83 16 40 06/08/18 05:16 75 16 40 06/08/18 04:00 98.9 80 21 124/82 (96) 100 06/08/18 04:00 78 06/08/18 04:00 40 06/08/18 04:00 Mechanical Ventilator 06/08/18 03:23 71 16 40 06/08/18 01:00 74 17 40 06/08/18 00:00 40 06/08/18 00:00 98.2 74 21 100/55 (70) 100 06/08/18 00:00 70 06/08/18 00:00 Mechanical Ventilator 06/07/18 23:14 75 16 40 06/07/18 21:30 76 16 40 06/07/18 20:00 Mechanical Ventilator 06/07/18 20:00 40 06/07/18 20:00 81 06/07/18 20:00 101.4 91 21 114/63 (80) 100 06/07/18 19:25 79 16 100 Mechanical Ventilator 40 06/07/18 19:25 79 16 Mechanical Ventilator 40 06/07/18 19:02 77 16 40 06/07/18 19:02 74 16 99 Mechanical Ventilator 40 06/07/18 17:20 76 16 40 Intake and Output 06/07/18 06/08/18 19:00 07:00 Intake Total 960 ml 2450.000 ml Output Total 2900 ml 1450 ml Balance -1940 ml 1000.000 ml Free Water 200 ml IV Total 100 ml 1670.000 ml Tube Feeding 660 ml 780 ml Output Urine Total 2900 ml 1450 ml Microbiology Date/Time Source Procedure Growth Status 06/07/18 21:00 Sputum Induced Gram Stain - Final Resulted 06/07/18 21:00 Sputum Induced Sputum Culture Pending Resulted Laboratory Tests 06/07/18 22:18: Urine Color Pale yellow, Urine Appearance Clear, Urine pH 7, Urine Specific [place] 1.010, Urine Protein Negative, Urine Glucose (UA) Negative, Urine Ketones Negative, Urine Blood Negative, Urine Nitrite Negative, Urine Bilirubin Negative, Urine Urobilinogen Normal, Urine Leukocyte Esterase Negative, Urine RBC 0, Urine WBC 0, Urine Squamous Epithelial Cells None, Urine Bacteria Few 06/08/18 03:16: White Blood Count 6.1, Red Blood Count 3.13L, Hemoglobin 8.9L, Hematocrit 27.2L , Mean Corpuscular Volume 87, Mean Corpuscular Hemoglobin 28.3, Mean Corpuscular Hemoglobin Concent 32.7, Red Cell Distribution Width 15.0H, Platelet Count 257, Mean Platelet Volume 7.6, Neutrophils (%) (Auto) 76.5H, Lymphocytes (%) (Auto) 16.4L, Monocytes (%) (Auto) 4.7, Eosinophils (%) (Auto) 1.6, Basophils (%) (Auto) 0.9, Sodium Level 138, Potassium Level 4.7, Chloride Level 104, Carbon Dioxide Level 23, Anion Gap 11, Blood Urea Nitrogen 7, Creatinine 0.6, Estimat Glomerular Filtration Rate > 60, Glucose Level 97, Calcium Level 8.7, Magnesium Level 2.4 Current Medications Medications (Trade) Dose Ordered Sig/Irma Route PRN Reason Start Time Stop Time Status Last Admin Dose Admin Acetaminophen (Tylenol) 650 mg Q4H PRN GT Mild Pain/Temp > 100.5 06/07/18 21:00 07/07/18 20:59 06/08/18 10:03 Acetylcysteine (Mucomyst) 100 mg TIDRT HHN 06/04/18 19:00 07/04/18 18:59 06/08/18 07:18 Albuterol/ Ipratropium (Albuterol/ Ipratropium) 3 ml Q4H PRN HHN Shortness of Breath 06/08/18 15:06 06/13/18 15:05 06/08/18 16:19 Amlodipine Besylate (Norvasc) 10 mg DAILY ORAL 06/03/18 09:00 07/03/18 08:59 06/04/18 08:51 Atorvastatin Calcium (Lipitor) 10 mg BEDTIME ORAL 06/02/18 22:30 07/02/18 22:29 06/07/18 21:21 Bisacodyl (Dulcolax) 10 mg DAILYPRN PRN RECTAL Constipation 06/03/18 06:41 07/03/18 06:40 Dextrose/Sodium Chloride 1,000 ml @ 100 mls/hr Q10H IV 06/02/18 22:00 07/02/18 21:59 06/08/18 08:31 Docusate Sodium (Colace) 100 mg BID ORAL 06/03/18 09:00 07/03/18 08:59 06/08/18 09:02 Heparin Sodium (Porcine) (Heparin 5000 units/ml) 5,000 units EVERY 12 HOURS SUBQ 06/03/18 09:00 07/03/18 08:59 06/08/18 09:03 Lansoprazole (Prevacid) 30 mg BID ORAL 06/03/18 09:00 07/03/18 08:59 06/08/18 09:02 Lisinopril (Zestril) 10 mg DAILY ORAL 06/03/18 09:00 07/03/18 08:59 06/04/18 08:51 Meropenem 1 gm/ Sodium Chloride 110 ml @ 220 mls/hr Q8HR IVPB 06/06/18 14:00 06/11/18 13:59 06/08/18 13:10 Morphine Sulfate (Morphine Sulfate) 2 mg Q4H PRN IVP For Pain 06/04/18 12:00 06/11/18 11:59 06/07/18 16:33 Multivitamins Therapeutic (Therapeutic Multivitamin) 1 ea DAILY ORAL 06/03/18 09:00 07/03/18 08:59 06/08/18 09:02 Patient Own Medication (Patient's Own Med) 1 ea Q12HR ORAL 06/03/18 21:00 07/03/18 20:59 06/08/18 09:02 Vancomycin HCl (Vanco rx to dose) 1 ea DAILY PRN MISC Per rx protocol 06/07/18 20:45 07/07/18 20:44 Vancomycin/Sodium Chloride 250 ml @ 166.667 mls/hr Q8H IVPB 06/07/18 22:00 06/12/18 21:59 06/08/18 14:36 Vitamin D (Vitamin D) 2,000 intlu DAILY ORAL 06/03/18 09:00 07/03/18 08:59 06/08/18 09:02 Chaim Das MD Jun 08, 2018 17:17
--- NOTE | 2018-06-08 18:49 | General Progress Note ---
Assessment/Plan Assessment/Plan Assessment - s/p PEG for dysphagia - ALS - Resp failure - Anemia Recommendations - continue TF - GT site care - vent - follow labs - PRN RBC transfusion Subjective Allergies: Coded Allergies: No Known Allergies (Unverified , 06/02/18) Subjective Above noted d/w RT tolerating TF Objective Last 24 Hour Vital Signs Date Time Temp Pulse Resp B/P (MAP) Pulse Ox O2 Delivery O2 Flow Rate FiO2 06/08/18 17:56 100.2 06/08/18 16:30 82 16 40 06/08/18 16:29 83 16 100 Mechanical Ventilator 15.0 40 06/08/18 16:16 40 06/08/18 16:16 83 16 8 Mechanical Ventilator 40 06/08/18 16:00 40 06/08/18 16:00 98.2 69 16 127/82 (97) 96 06/08/18 16:00 Mechanical Ventilator 06/08/18 15:33 58 06/08/18 15:04 68 16 40 06/08/18 13:00 Mechanical Ventilator 06/08/18 13:00 75 16 40 06/08/18 13:00 Mechanical Ventilator 06/08/18 12:00 Mechanical Ventilator 06/08/18 12:00 40 06/08/18 12:00 98.1 64 16 95/50 (65) 99 06/08/18 11:33 68 06/08/18 11:00 79 16 40 06/08/18 09:00 114/71 06/08/18 09:00 74 114/71 06/08/18 08:46 74 16 40 06/08/18 08:07 81 06/08/18 08:00 Mechanical Ventilator 06/08/18 08:00 40 06/08/18 08:00 100.8 84 16 114/71 (85) 97 06/08/18 07:26 75 16 100 Mechanical Ventilator 40 06/08/18 07:19 81 16 100 Mechanical Ventilator 40 06/08/18 07:18 83 16 40 06/08/18 05:16 75 16 40 06/08/18 04:00 98.9 80 21 124/82 (96) 100 06/08/18 04:00 78 06/08/18 04:00 40 06/08/18 04:00 Mechanical Ventilator 06/08/18 03:23 71 16 40 06/08/18 01:00 74 17 40 06/08/18 00:00 40 06/08/18 00:00 98.2 74 21 100/55 (70) 100 06/08/18 00:00 70 06/08/18 00:00 Mechanical Ventilator 06/07/18 23:14 75 16 40 06/07/18 21:30 76 16 40 06/07/18 20:00 Mechanical Ventilator 06/07/18 20:00 40 06/07/18 20:00 81 06/07/18 20:00 101.4 91 21 114/63 (80) 100 06/07/18 19:25 79 16 100 Mechanical Ventilator 40 06/07/18 19:25 79 16 Mechanical Ventilator 40 06/07/18 19:02 77 16 40 06/07/18 19:02 74 16 99 Mechanical Ventilator 40 Intake and Output 06/07/18 06/08/18 19:00 07:00 Intake Total 960 ml 2450.000 ml Output Total 2900 ml 1450 ml Balance -1940 ml 1000.000 ml Free Water 200 ml IV Total 100 ml 1670.000 ml Tube Feeding 660 ml 780 ml Output Urine Total 2900 ml 1450 ml Laboratory Tests 06/07/18 22:18: Urine Color Pale yellow, Urine Appearance Clear, Urine pH 7, Urine Specific [place] 1.010, Urine Protein Negative, Urine Glucose (UA) Negative, Urine Ketones Negative, Urine Blood Negative, Urine Nitrite Negative, Urine Bilirubin Negative, Urine Urobilinogen Normal, Urine Leukocyte Esterase Negative, Urine RBC 0, Urine WBC 0, Urine Squamous Epithelial Cells None, Urine Bacteria Few 06/08/18 03:16: White Blood Count 6.1, Red Blood Count 3.13L, Hemoglobin 8.9L, Hematocrit 27.2L , Mean Corpuscular Volume 87, Mean Corpuscular Hemoglobin 28.3, Mean Corpuscular Hemoglobin Concent 32.7, Red Cell Distribution Width 15.0H, Platelet Count 257, Mean Platelet Volume 7.6, Neutrophils (%) (Auto) 76.5H, Lymphocytes (%) (Auto) 16.4L, Monocytes (%) (Auto) 4.7, Eosinophils (%) (Auto) 1.6, Basophils (%) (Auto) 0.9, Sodium Level 138, Potassium Level 4.7, Chloride Level 104, Carbon Dioxide Level 23, Anion Gap 11, Blood Urea Nitrogen 7, Creatinine 0.6, Estimat Glomerular Filtration Rate > 60, Glucose Level 97, Calcium Level 8.7, Magnesium Level 2.4 Height (Feet): 5 Height (Inches): 4.00 Weight (Pounds): 112 Objective Thin WM NCAT (+) trach Coarse BS RR soft ND (+) GT no edema Corrie Trotter MD Jun 08, 2018 18:49
[2018-06-08 20:00] VITALS: BP 105/68
--- NOTE | 2018-06-08 21:26 | Consultation ---
History of Present Illness General Date patient seen: Jun 08, 2018 Chief Complaint: General Complaint Referring physician: GUS CURRY Reason for Consultation: PEG evaluation Present Illness Allergies: Coded Allergies: No Known Allergies (Unverified , 06/02/18) Medication History Scheduled Amino Acids/Protein Hydrolys (Pro-Stat Liquid), 30 ML ORAL TWICE A DAY, ( Reported) Amlodipine Besylate* (Amlodipine Besylate*), 10 MG ORAL DAILY, (Reported) Ascorbic Acid* (Ascorbic Acid*), 500 MG ORAL DAILY, (Reported) Atorvastatin Calcium* (Atorvastatin Calcium*), 10 MG ORAL BEDTIME, (Reported) Chlorhexidine Gluconate* (Hibiclens*), 15 ML PO BID, (Reported) Cranberry Extract (Cranberry), 425 MG PO DAILY, (Reported) Docusate Sodium* (Colace*), 100 MG ORAL BID, (Reported) Lansoprazole* (Lansoprazole*), 30 MG ORAL BID, (Reported) Lisinopril (Lisinopril*), 10 MG ORAL DAILY, (Reported) Melatonin (Melatonin), 3 MG ORAL BEDTIME, (Reported) Multivitamin With Minerals (Multivitamins With Minerals*), 1 TAB ORAL DAILY, ( Reported) Riluzole* (Riluzole*), 50 MG ORAL EVERY 12 HOURS, (Reported) Vitamin D (Vitamin D3), 5,000 UNITS ORAL DAILY, (Reported) Scheduled PRN Acetaminophen* (Acetaminophen 325MG Tablet*), 650 MG ORAL Q4H PRN for For Pain, (Reported) Bisacodyl (Dulcolax), 10 MG RC for Constipation, (Reported) Ibuprofen* (Motrin*), 600 MG ORAL Q8H PRN for For Pain, (Reported) Discontinued Medications Esomeprazole Magnesium (Nexium), 20 MG ORAL DAILY, (Reported) Discontinued Reason: Prescription changed Heparin Sod (Porcine) (Heparin Sodium*), 5,000 UNITS SUBQ EVERY 12 HOURS, ( Reported) Discontinued Reason: Pt stopped taking med Multivitamins* (Multivitamins*), 1 TAB ORAL DAILY, (Reported) Discontinued Reason: Prescription changed Patient History Healthcare decision maker : Randa Robles Resuscitation status Full Code Advanced Directive on File Yes Physical Exam Last 24 Hour Vital Signs Date Time Temp Pulse Resp B/P (MAP) Pulse Ox O2 Delivery O2 Flow Rate FiO2 06/08/18 20:00 74 16 100 Mechanical Ventilator 40 06/08/18 19:50 70 15 100 Mechanical Ventilator 40 06/08/18 19:30 70 15 40 06/08/18 17:56 100.2 06/08/18 16:30 82 16 40 06/08/18 16:29 83 16 100 Mechanical Ventilator 15.0 40 06/08/18 16:16 40 06/08/18 16:16 83 16 8 Mechanical Ventilator 40 06/08/18 16:00 40 06/08/18 16:00 98.2 69 16 127/82 (97) 96 06/08/18 16:00 Mechanical Ventilator 06/08/18 15:33 58 06/08/18 15:04 68 16 40 06/08/18 13:00 Mechanical Ventilator 06/08/18 13:00 75 16 40 06/08/18 13:00 Mechanical Ventilator 06/08/18 12:00 Mechanical Ventilator 06/08/18 12:00 40 06/08/18 12:00 98.1 64 16 95/50 (65) 99 06/08/18 11:33 68 06/08/18 11:00 79 16 40 06/08/18 09:00 114/71 06/08/18 09:00 74 114/71 06/08/18 08:46 74 16 40 06/08/18 08:07 81 06/08/18 08:00 Mechanical Ventilator 06/08/18 08:00 40 06/08/18 08:00 100.8 84 16 114/71 (85) 97 06/08/18 07:26 75 16 100 Mechanical Ventilator 40 06/08/18 07:19 81 16 100 Mechanical Ventilator 40 06/08/18 07:18 83 16 40 06/08/18 05:16 75 16 40 06/08/18 04:00 98.9 80 21 124/82 (96) 100 06/08/18 04:00 78 06/08/18 04:00 40 06/08/18 04:00 Mechanical Ventilator 06/08/18 03:23 71 16 40 06/08/18 01:00 74 17 40 06/08/18 00:00 40 06/08/18 00:00 98.2 74 21 100/55 (70) 100 06/08/18 00:00 70 06/08/18 00:00 Mechanical Ventilator 06/07/18 23:14 75 16 40 06/07/18 21:30 76 16 40 Intake and Output 06/07/18 06/08/18 19:00 07:00 Intake Total 960 ml 2450.000 ml Output Total 2900 ml 1450 ml Balance -1940 ml 1000.000 ml Free Water 200 ml IV Total 100 ml 1670.000 ml Tube Feeding 660 ml 780 ml Output Urine Total 2900 ml 1450 ml Laboratory Tests Test 06/07/18 22:18 06/08/18 03:16 06/08/18 20:40 Urine Color Pale yellow Urine Appearance Clear Urine pH 7 (4.5-8.0) Urine Specific [place] 1.010 (1.005-1.035) Urine Protein Negative (NEGATIVE) Urine Glucose (UA) Negative (NEGATIVE) Urine Ketones Negative (NEGATIVE) Urine Blood Negative (NEGATIVE) Urine Nitrite Negative (NEGATIVE) Urine Bilirubin Negative (NEGATIVE) Urine Urobilinogen Normal MG/DL (0.0-1.0) Urine Leukocyte Esterase Negative (NEGATIVE) Urine RBC 0 /HPF (0 - 0) Urine WBC 0 /HPF (0 - 0) Urine Squamous Epithelial Cells None /LPF (NONE/OCC) Urine Bacteria Few /HPF (NONE) White Blood Count 6.1 K/UL (4.8-10.8) Red Blood Count 3.13 M/UL (4.70-6.10) L Hemoglobin 8.9 G/DL (14.2-18.0) L Hematocrit 27.2 % (42.0-52.0) L Mean Corpuscular Volume 87 FL (80-99) Mean Corpuscular Hemoglobin 28.3 PG (27.0-31.0) Mean Corpuscular Hemoglobin Concent 32.7 G/DL (32.0-36.0) Red Cell Distribution Width 15.0 % (11.6-14.8) H Platelet Count 257 K/UL (150-450) Mean Platelet Volume 7.6 FL (6.5-10.1) Neutrophils (%) (Auto) 76.5 % (45.0-75.0) H Lymphocytes (%) (Auto) 16.4 % (20.0-45.0) L Monocytes (%) (Auto) 4.7 % (1.0-10.0) Eosinophils (%) (Auto) 1.6 % (0.0-3.0) Basophils (%) (Auto) 0.9 % (0.0-2.0) Sodium Level 138 MMOL/L (136-145) Potassium Level 4.7 MMOL/L (3.5-5.1) Chloride Level 104 MMOL/L (98-107) Carbon Dioxide Level 23 MMOL/L (21-32) Anion Gap 11 mmol/L (5-15) Blood Urea Nitrogen 7 mg/dL (7-18) Creatinine 0.6 MG/DL (0.55-1.30) Estimat Glomerular Filtration Rate > 60 mL/min (>60) Glucose Level 97 MG/DL (74-106) Calcium Level 8.7 MG/DL (8.5-10.1) Magnesium Level 2.4 MG/DL (1.8-2.4) Vancomycin Level Trough 13.4 ug/mL (5.0-12.0) H Height (Feet): 5 Height (Inches): 4.00 Weight (Pounds): 112 Medications Current Medications Medications (Trade) Dose Ordered Sig/Irma Route PRN Reason Start Time Stop Time Status Last Admin Dose Admin Acetaminophen (Tylenol) 650 mg Q4H PRN GT Mild Pain/Temp > 100.5 06/07/18 21:00 07/07/18 20:59 06/08/18 17:26 Acetylcysteine (Mucomyst) 100 mg TIDRT HHN 06/04/18 19:00 07/04/18 18:59 06/08/18 20:33 Albuterol/ Ipratropium (Albuterol/ Ipratropium) 3 ml Q4H PRN HHN Shortness of Breath 06/08/18 15:06 06/13/18 15:05 06/08/18 20:33 Amlodipine Besylate (Norvasc) 10 mg DAILY ORAL 06/03/18 09:00 07/03/18 08:59 06/04/18 08:51 Atorvastatin Calcium (Lipitor) 10 mg BEDTIME ORAL 06/02/18 22:30 07/02/18 22:29 06/08/18 21:07 Bisacodyl (Dulcolax) 10 mg DAILYPRN PRN RECTAL Constipation 06/03/18 06:41 07/03/18 06:40 Dextrose/Sodium Chloride 1,000 ml @ 100 mls/hr Q10H IV 06/02/18 22:00 07/02/18 21:59 06/08/18 17:25 Docusate Sodium (Colace) 100 mg BID ORAL 06/03/18 09:00 07/03/18 08:59 06/08/18 17:25 Heparin Sodium (Porcine) (Heparin 5000 units/ml) 5,000 units EVERY 12 HOURS SUBQ 06/03/18 09:00 07/03/18 08:59 06/08/18 21:10 Lansoprazole (Prevacid) 30 mg BID ORAL 06/03/18 09:00 07/03/18 08:59 06/08/18 17:26 Lisinopril (Zestril) 10 mg DAILY ORAL 06/03/18 09:00 07/03/18 08:59 06/04/18 08:51 Meropenem 1 gm/ Sodium Chloride 110 ml @ 220 mls/hr Q8HR IVPB 06/06/18 14:00 06/11/18 13:59 06/08/18 13:10 Morphine Sulfate (Morphine Sulfate) 2 mg Q4H PRN IVP For Pain 06/04/18 12:00 06/11/18 11:59 06/07/18 16:33 Multivitamins Therapeutic (Therapeutic Multivitamin) 1 ea DAILY ORAL 06/03/18 09:00 07/03/18 08:59 06/08/18 09:02 Patient Own Medication (Patient's Own Med) 1 ea Q12HR ORAL 06/03/18 21:00 07/03/18 20:59 06/08/18 21:07 Vancomycin HCl (Vanco rx to dose) 1 ea DAILY PRN MISC Per rx protocol 06/07/18 20:45 07/07/18 20:44 Vancomycin/Sodium Chloride 250 ml @ 166.667 mls/hr Q8H IVPB 06/07/18 22:00 06/12/18 21:59 06/08/18 14:36 Vitamin D (Vitamin D) 2,000 intlu DAILY ORAL 06/03/18 09:00 07/03/18 08:59 06/08/18 09:02 Assessment/Plan Assessment/Plan Hematotology Consultation REQ : Annita DOS: 06/08/18 RFC: Anemia ID [id number] old male present for evaluation of feeding tube placement Has been placed on admission Anemia panel ordered Patient himself reports that he has no pain Denies any vomiting Patient has been having decreased oral intake The notes on the nursing facility indicate transfer to Hospital for feeding tube placement I am attempting to obtain further input regarding the need for feeding tube Patient has a tracheostomy in place with previous respiratory failure It is unclear regarding any esophageal mobility or other obstructive pathology Allergies: No Known Allergies (Unverified , 06/02/18) Past Medical History: see triage record Pertinent Family History: none Reviewed Nursing Documentation: PMH: Agreed; PSxH: Agreed Past Medical History: No History, Except For Hx Hypertension: Yes Hx COPD: Yes ER ROS - General All Other Systems: negative except mentioned in HPI Vital Signs Last 24 Hour Vital Signs Date Time Temp Pulse Resp B/P (MAP) Pulse Ox O2 Delivery O2 Flow Rate FiO2 06/08/18 20:00 74 16 100 Mechanical Ventilator 40 06/08/18 19:50 70 15 100 Mechanical Ventilator 40 06/08/18 19:30 70 15 40 06/08/18 17:56 100.2 06/08/18 16:30 82 16 40 06/08/18 16:29 83 16 100 Mechanical Ventilator 15.0 40 06/08/18 16:16 40 06/08/18 16:16 83 16 8 Mechanical Ventilator 40 06/08/18 16:00 40 06/08/18 16:00 98.2 69 16 127/82 (97) 96 06/08/18 16:00 Mechanical Ventilator 06/08/18 15:33 58 06/08/18 15:04 68 16 40 06/08/18 13:00 Mechanical Ventilator 06/08/18 13:00 75 16 40 06/08/18 13:00 Mechanical Ventilator 06/08/18 12:00 Mechanical Ventilator 06/08/18 12:00 40 06/08/18 12:00 98.1 64 16 95/50 (65) 99 06/08/18 11:33 68 06/08/18 11:00 79 16 40 06/08/18 09:00 114/71 06/08/18 09:00 74 114/71 06/08/18 08:46 74 16 40 06/08/18 08:07 81 06/08/18 08:00 Mechanical Ventilator 06/08/18 08:00 40 06/08/18 08:00 100.8 84 16 114/71 (85) 97 06/08/18 07:26 75 16 100 Mechanical Ventilator 40 06/08/18 07:19 81 16 100 Mechanical Ventilator 40 06/08/18 07:18 83 16 40 06/08/18 05:16 75 16 40 06/08/18 04:00 98.9 80 21 124/82 (96) 100 06/08/18 04:00 78 06/08/18 04:00 40 06/08/18 04:00 Mechanical Ventilator 06/08/18 03:23 71 16 40 06/08/18 01:00 74 17 40 06/08/18 00:00 40 06/08/18 00:00 98.2 74 21 100/55 (70) 100 06/08/18 00:00 70 06/08/18 00:00 Mechanical Ventilator 06/07/18 23:14 75 16 40 06/07/18 21:30 76 16 40 Sp02 EP Interpretation: reviewed, normal General Appearance: well appearing, no apparent distress Head: normocephalic, atraumatic Eyes: bilateral eye PERRL, bilateral eye EOMI ENT: hearing grossly normal, normal pharynx- Tracheostomy in place Neck: full range of motion, supple, no meningismus, no bony tend Respiratory: lungs clear, normal breath sounds Cardiovascular #1: normal peripheral pulses Gastrointestinal: normal bowel sounds Genitourinary: no CVA tenderness Musculoskeletal: other - Chronically debilitated Neurologic: oriented x3, responsive Psychiatric: mood/affect normal Skin: normal color, no rash, warm/dry Lymphatic: normal inspection, no adenopathy Labs Test 06/02/18 19:00 06/02/18 19:54 06/02/18 22:13 06/03/18 03:10 White Blood Count 16.7 K/UL (4.8-10.8) 12.4 K/UL (4.8-10.8) Red Blood Count 3.59 M/UL (4.70-6.10) 3.15 M/UL (4.70-6.10) Hemoglobin 10.2 G/DL (14.2-18.0) 9.0 G/DL (14.2-18.0) Hematocrit 31.1 % (42.0-52.0) 26.9 % (42.0-52.0) Mean Corpuscular Volume 87 FL (80-99) 85 FL (80-99) Mean Corpuscular Hemoglobin 28.4 PG (27.0-31.0) 28.6 PG (27.0-31.0) Mean Corpuscular Hemoglobin Concent 32.7 G/DL (32.0-36.0) 33.4 G/DL (32.0-36.0) Red Cell Distribution Width 15.3 % (11.6-14.8) 14.9 % (11.6-14.8) Platelet Count 380 K/UL (150-450) 299 K/UL (150-450) Mean Platelet Volume 7.8 FL (6.5-10.1) 8.1 FL (6.5-10.1) Neutrophils (%) (Auto) 78.0 % (45.0-75.0) 72.8 % (45.0-75.0) Lymphocytes (%) (Auto) 15.1 % (20.0-45.0) 18.9 % (20.0-45.0) Monocytes (%) (Auto) 5.5 % (1.0-10.0) 6.5 % (1.0-10.0) Eosinophils (%) (Auto) 1.0 % (0.0-3.0) 1.3 % (0.0-3.0) Basophils (%) (Auto) 0.4 % (0.0-2.0) 0.5 % (0.0-2.0) Prothrombin Time 10.6 SEC (9.30-11.50) Prothromb Time International Ratio 1.0 (0.9-1.1) Activated Partial Thromboplast Time 29 SEC (23-33) Sodium Level 139 MMOL/L (136-145) 137 MMOL/L (136-145) Potassium Level 4.2 MMOL/L (3.5-5.1) 3.5 MMOL/L (3.5-5.1) Chloride Level 103 MMOL/L (98-107) 104 MMOL/L (98-107) Carbon Dioxide Level 25 MMOL/L (21-32) 23 MMOL/L (21-32) Anion Gap 11 mmol/L (5-15) 10 mmol/L (5-15) Blood Urea Nitrogen 19 mg/dL (7-18) 15 mg/dL (7-18) Creatinine 0.8 MG/DL (0.55-1.30) 0.6 MG/DL (0.55-1.30) Estimat Glomerular Filtration Rate > 60 mL/min (>60) > 60 mL/min (>60) Glucose Level 113 MG/DL (74-106) 84 MG/DL (74-106) Calcium Level 9.3 MG/DL (8.5-10.1) 8.8 MG/DL (8.5-10.1) Total Bilirubin 0.3 MG/DL (0.2-1.0) 0.6 MG/DL (0.2-1.0) Aspartate Amino Transf (AST/SGOT) 16 U/L (15-37) 14 U/L (15-37) Alanine Aminotransferase (ALT/SGPT) 27 U/L (12-78) 20 U/L (12-78) Alkaline Phosphatase 105 U/L (46-116) 86 U/L (46-116) Total Creatine Kinase 94 U/L (26-308) Creatine Kinase MB 1.5 NG/ML (0.0-3.6) Creatine Kinase MB Relative Index 1.5 Troponin I 0.000 ng/mL (0.000-0.056) Total Protein 7.9 G/DL (6.4-8.2) 7.3 G/DL (6.4-8.2) Albumin 3.1 G/DL (3.4-5.0) 2.6 G/DL (3.4-5.0) Globulin 4.8 g/dL 4.7 g/dL Albumin/Globulin Ratio 0.6 (1.0-2.7) 0.6 (1.0-2.7) Urine Color Pale yellow Urine Appearance Clear Urine pH 5 (4.5-8.0) Urine Specific [place] 1.020 (1.005-1.035) Urine Protein Negative (NEGATIVE) Urine Glucose (UA) Negative (NEGATIVE) Urine Ketones Negative (NEGATIVE) Urine Blood Negative (NEGATIVE) Urine Nitrite Negative (NEGATIVE) Urine Bilirubin Negative (NEGATIVE) Urine Urobilinogen Normal MG/DL (0.0-1.0) Urine Leukocyte Esterase 1+ (NEGATIVE) Urine RBC 0-2 /HPF (0 - 0) Urine WBC 0-2 /HPF (0 - 0) Urine Squamous Epithelial Cells None /LPF (NONE/OCC) Urine Bacteria Few /HPF (NONE) Arterial Blood pH 7.474 (7.350-7.450) Arterial Blood Partial Pressure CO2 33.3 mmHg (35.0-45.0) Arterial Blood Partial Pressure O2 133.9 mmHg (75.0-100.0) Arterial Blood HCO3 23.9 mmol/L (22.0-26.0) Arterial Blood Oxygen Saturation 98.3 % (95-100) Arterial Blood Base Excess 0.6 (-2-2) Edgar Test Positive # Acute on chronic anemia, anemia panel has been reviewed --> No evidence of bleeding --> Repeat CBC in AM --> Transfuse PRBC if Hb < 7 # Protein calorie malnutrition --> s/p G-tube placement --> continue tube feeds # Status post tracheostomy, chronic respiratory failure --> continue vent management per Pulmonology, wean vent as tolerated and plan transfer to snf --> continue frequent suctioning # Motor neuron disease, ALS --> Continue supportive care --> Neurology following # Sepsis, suspected aspiration pneumonia versus HCAP --> improving --> cont wean vent as tolerated per pulm --> continue vancomycin and Zosyn --> ID following # Hypokalemia --> improved # Resp failure, acute on chronic --> vent --> trached Mike Piper MD Jun 08, 2018 21:26
[2018-06-08] MEDS: Vancomycin 1gm/D5W 275ml IVPB SCH ×2 (22:22)
[2018-06-09] VITALS: BP 110/68
[2018-06-09] MEDS: D5NS 1,000 ML IV SCH ×3 (03:53→23:49)
[2018-06-09 04:00] VITALS: BP 103/64
[2018-06-09 04:59] LABS: HEMATOCRIT 23.9 % (42.0-52.0); HEMOGLOBIN 7.9 G/DL (14.2-18.0); MEAN CORPUSCULAR VOLUME 86 FL (80-99); PLATELET COUNT 234 K/UL (150-450); RED BLOOD COUNT 2.79 M/UL (4.70-6.10); RED CELL DISTRIBUTION WIDTH 15.2 % (11.6-14.8); WHITE BLOOD COUNT 3.6 K/UL (4.8-10.8)
[2018-06-09 05:22] LABS: ALANINE AMINOTRANSFERASE 42 U/L (12-78); ALBUMIN 2.2 G/DL (3.4-5.0); ALBUMIN/GLOBULIN RATIO 0.6 (1.0-2.7); ALKALINE PHOSPHATASE 81 U/L (46-116); ANION GAP 8 mmol/L (5-15); ASPARTATE AMINO TRANSFERASE 31 U/L (15-37); BILIRUBIN,TOTAL 0.3 MG/DL (0.2-1.0); BLOOD UREA NITROGEN 5 mg/dL (7-18); CALCIUM 8.4 MG/DL (8.5-10.1); CARBON DIOXIDE 25 MMOL/L (21-32); CHLORIDE 106 MMOL/L (98-107); CREATININE 0.6 MG/DL (0.55-1.30); POTASSIUM 3.9 MMOL/L (3.5-5.1); SODIUM 139 MMOL/L (136-145)
[2018-06-09] MEDS: Meropenem 1gm/NS 110ml IVPB SCH ×4 (05:27→13:20)
[2018-06-09] MEDS: Vancomycin 1gm/D5W 275ml IVPB SCH ×6 (06:14→21:21)
[2018-06-09] MEDS: Albuterol/Ipratropium 3ml neb HHN PRN (07:02)
--- NOTE | 2018-06-09 07:38 | General Progress Note ---
Assessment/Plan Problem List: (1) Protein calorie malnutrition ICD Codes: E46 - Unspecified protein-calorie malnutrition SNOMED: 080653245 (2) Status post tracheostomy ICD Codes: Z93.0 - Tracheostomy status SNOMED: 51778180, 081607106 (3) Motor neuron disease, unspecified ICD Codes: G12.20 - Motor neuron disease, unspecified SNOMED: 70480174 (4) Leukocytosis ICD Codes: D72.829 - Elevated white blood cell count, unspecified SNOMED: 885291315, 952453145 Qualifiers: Qualified Codes: D72.829 - Elevated white blood cell count, unspecified (5) Essential hypertension ICD Codes: I10 - Essential (primary) hypertension SNOMED: 71638491 (6) HCAP (healthcare-associated pneumonia) ICD Codes: J18.9 - Pneumonia, unspecified organism SNOMED: 166203317 Status: stable Assessment/Plan (1) Protein calorie malnutrition s/p G-tube placement continue tube feeds (2) Status post tracheostomy, chronic respiratory failure continue vent management per Pulmonology, wean vent as tolerated and plan transfer to snf continue frequent suctioning (3) Motor neuron disease, ALS Continue supportive care Neurology following (4) Sepsis, suspected aspiration pneumonia versus HCAP improving, fever yesterday, cultures sent per ID recs yesterday cont wean vent as tolerated per pulm continue vancomycin and Zosyn ID following (5)Hypokalemia resolved (6)Hypomagnesemia resolved (6)Acute on chronic anemia No evidence of bleeding Repeat CBC in AM Transfuse PRBC if Hb < 7 (7)resp failure, acute on chronic vent trached worsened by asp pna appreciate pulm recs DVT Prophylaxis: SCD, HSQ Code Status: Full Hospital Classification Declaration: Based on this initial evaluation, and depending on the patient's clinical course, I anticipate that this patient will require hospitalization for 2-3 days for malnutrition, trached/needs peg eval and close respiratory/hemodynamic monitoring. Disposition: Once the patient is stable to leave the hospital, I anticipate the patient will likely be discharged to the following environment: home I spent 55 minutes on this patient's case, and 37 minutes were dedicated to counseling and/or care coordination. Discussed with patient/family, nursing staff, SW/CM, and consultants regarding clinical status, treatment course, and disposition planning. Time of note may not reflect time of encounter. ---- Date of Discussion: 06/03/18 A [id number] discussion with the patient's son regarding the patient's advanced care planning took place during this hospitalization on the above date. The discussion included the explanation and discussion of advance directives and associated forms/documents, as well as the patient's current code status. We also discussed at length the patient's medical conditions (both acute and chronic), general prognosis, treatment options, and goals of care. The following summarizes the discussion: Advance Care Planning/Goals of Care: - polst completed - Continue current evaluation and management of any acute and chronic medical issues - Will continue to support the patient/family - Will continue to discuss both short- and long-term goals of care DPOA-HC/Surrogate Decision Maker: , Randa Robles Code Status: Full Code AD Forms/Documents Completed: completed A total of 31 minutes was spent on this discussion, including counseling, answering questions, and completing, if any, pertinent advanced care planning forms/documents. Subjective Date patient seen: Jun 09, 2018 Time patient seen: 07:35 Allergies: Coded Allergies: No Known Allergies (Unverified , 06/02/18) Subjective f/u malnutrition, sepsis, resp failure, trach on vent, peg stable had fever yesterday, ID aware, cultures sent cont abx pulm attempting to wean vent. concerns for asp pna ROS: 14 point ROS reviewed and negative except per the above subjective Objective Last 24 Hour Vital Signs Date Time Temp Pulse Resp B/P (MAP) Pulse Ox O2 Delivery O2 Flow Rate FiO2 06/09/18 07:02 64 16 100 Mechanical Ventilator 40 06/09/18 06:40 64 16 40 06/09/18 05:26 67 16 40 06/09/18 04:00 Mechanical Ventilator 06/09/18 04:00 40 06/09/18 04:00 63 06/09/18 04:00 98.8 65 16 103/64 (77) 100 06/09/18 03:29 63 15 40 06/09/18 01:05 63 16 40 06/09/18 00:00 Mechanical Ventilator 06/09/18 00:00 98.2 65 16 110/68 (82) 100 06/09/18 00:00 67 06/08/18 23:30 71 16 40 06/08/18 21:30 76 16 40 06/08/18 20:00 68 06/08/18 20:00 Mechanical Ventilator 06/08/18 20:00 40 06/08/18 20:00 98.5 68 16 105/68 (80) 100 06/08/18 20:00 74 16 100 Mechanical Ventilator 40 06/08/18 19:50 70 15 100 Mechanical Ventilator 40 06/08/18 19:30 70 15 40 06/08/18 17:56 100.2 06/08/18 16:30 82 16 40 06/08/18 16:29 83 16 100 Mechanical Ventilator 15.0 40 06/08/18 16:16 40 06/08/18 16:16 83 16 8 Mechanical Ventilator 40 06/08/18 16:00 40 06/08/18 16:00 98.2 69 16 127/82 (97) 96 06/08/18 16:00 Mechanical Ventilator 06/08/18 15:33 58 06/08/18 15:04 68 16 40 06/08/18 13:00 Mechanical Ventilator 06/08/18 13:00 75 16 40 06/08/18 13:00 Mechanical Ventilator 06/08/18 12:00 Mechanical Ventilator 06/08/18 12:00 40 06/08/18 12:00 98.1 64 16 95/50 (65) 99 06/08/18 11:33 68 06/08/18 11:00 79 16 40 06/08/18 09:00 114/71 06/08/18 09:00 74 114/71 06/08/18 08:46 74 16 40 06/08/18 08:07 81 06/08/18 08:00 Mechanical Ventilator 06/08/18 08:00 40 06/08/18 08:00 100.8 84 16 114/71 (85) 97 Intake and Output 06/08/18 06/09/18 19:00 07:00 Intake Total 2753.3268 ml 1965.416 ml Output Total 1200 ml Balance 1553.3268 ml 1965.416 ml Free Water 200 ml 200 ml IV Total 1833.3268 ml 1285.416 ml Tube Feeding 720 ml 480 ml Output Urine Total 1200 ml # Bowel Movements 2 Laboratory Tests 06/08/18 20:40: Vancomycin Level Trough 13.4H 06/09/18 02:45: White Blood Count 3.6L, Red Blood Count 2.79L, Hemoglobin 7.9L, Hematocrit 23.9L , Mean Corpuscular Volume 86, Mean Corpuscular Hemoglobin 28.5, Mean Corpuscular Hemoglobin Concent 33.2, Red Cell Distribution Width 15.2H, Platelet Count 234, Mean Platelet Volume 7.3, Neutrophils (%) (Auto) , Lymphocytes (%) (Auto) , Monocytes (%) (Auto) , Eosinophils (%) (Auto) , Basophils (%) (Auto) , Sodium Level 139, Potassium Level 3.9, Chloride Level 106 , Carbon Dioxide Level 25, Anion Gap 8, Blood Urea Nitrogen 5L, Creatinine 0.6, Estimat Glomerular Filtration Rate > 60, Glucose Level 128H, Calcium Level 8.4L , Total Bilirubin 0.3, Aspartate Amino Transf (AST/SGOT) 31, Alanine Aminotransferase (ALT/SGPT) 42, Alkaline Phosphatase 81, Total Protein 6.2L, Albumin 2.2L, Globulin 4.0, Albumin/Globulin Ratio 0.6L Height (Feet): 5 Height (Inches): 4.00 Weight (Pounds): 114 Objective General Appearance: WD/WN, no apparent distress, alert Lines, tubes and drains: peripheral HEENT: normocephalic, atraumatic Neck: non-tender, normal alignment, supple, normal inspection, trach Cardiovascular/Chest: normal peripheral pulses, normal rate, regular rhythm Abdomen: normal bowel sounds, non tender, soft, no organomegaly, no mass, PEG in place, clean site Extremities: normal range of motion, non-tender, normal inspection, no calf tenderness Skin Exam: normal pigmentation, warm/dry 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
[2018-06-09 08:00] VITALS: BP 93/67
[2018-06-09] MEDS: Multivitamin w/Minerals tab ORAL SCH (08:59)
[2018-06-09] MEDS: Vitamin D 1000 IU Tab ORAL SCH (08:59)
[2018-06-09] MEDS: Docusate 100mg cap ORAL SCH ×2 (08:59→18:16)
[2018-06-09] MEDS: Lisinopril 10mg tab ORAL SCH (09:00)
[2018-06-09] MEDS: Heparin 5000 units/ml inj SUBQ SCH ×2 (09:02→21:24)
--- NOTE | 2018-06-09 09:22 | Diagnostic Imaging Report ---
Indication: Dyspnea Comparison: 06/06/2018 A single view chest radiograph was obtained. Findings: Basilar infiltrates again demonstrated. Heart size is stable. Tracheostomy noted. IMPRESSION: No change
--- NOTE | 2018-06-09 11:18 | Pulmonology Progress Note ---
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, unspecified (13) Encounter for PEG (percutaneous endoscopic gastrostomy) (14) Nutrition impaired due to imbalance of nutrients (15) HCAP (healthcare-associated pneumonia) Assessment/Plan Optimize pulmonary hygiene/mobilize as tolerated Continue ventilatory support/settings reviewed Titrate down FiO2 to keep SaO2 > 90% RTC and PRN HHN's + MUCOMYST HHN TID PRN suctioning Abx per ID, F/U Cx's GTF's Monitor volumes F/U neuro recs, 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, PMV trials FC, discuss GOC D/W RN and METAL ENGINEERING PROCESS WORKER Subjective Allergies: Coded Allergies: No Known Allergies (Unverified , 06/02/18) Subjective Events reviewed Awake, comfortable on vent No sig secretions, no F/C Joseph TF Objective Last 24 Hour Vital Signs Date Time Temp Pulse Resp B/P (MAP) Pulse Ox O2 Delivery O2 Flow Rate FiO2 06/09/18 10:52 68 16 40 06/09/18 09:00 93/67 06/09/18 09:00 73 93/67 06/09/18 08:48 67 16 40 06/09/18 08:00 Mechanical Ventilator 06/09/18 08:00 98.1 73 16 93/67 (76) 100 06/09/18 08:00 40 06/09/18 07:12 61 16 99 Mechanical Ventilator 40 06/09/18 07:02 64 16 100 Mechanical Ventilator 40 06/09/18 06:40 64 16 40 06/09/18 05:26 67 16 40 06/09/18 04:00 Mechanical Ventilator 06/09/18 04:00 40 06/09/18 04:00 63 06/09/18 04:00 98.8 65 16 103/64 (77) 100 06/09/18 03:29 63 15 40 06/09/18 01:05 63 16 40 06/09/18 00:00 Mechanical Ventilator 06/09/18 00:00 98.2 65 16 110/68 (82) 100 06/09/18 00:00 67 06/08/18 23:30 71 16 40 06/08/18 21:30 76 16 40 06/08/18 20:00 68 06/08/18 20:00 Mechanical Ventilator 06/08/18 20:00 40 06/08/18 20:00 98.5 68 16 105/68 (80) 100 06/08/18 20:00 74 16 100 Mechanical Ventilator 40 06/08/18 19:50 70 15 100 Mechanical Ventilator 40 06/08/18 19:30 70 15 40 06/08/18 17:56 100.2 06/08/18 16:30 82 16 40 06/08/18 16:29 83 16 100 Mechanical Ventilator 15.0 40 06/08/18 16:16 40 06/08/18 16:16 83 16 8 Mechanical Ventilator 40 06/08/18 16:00 40 06/08/18 16:00 98.2 69 16 127/82 (97) 96 06/08/18 16:00 Mechanical Ventilator 06/08/18 15:33 58 06/08/18 15:04 68 16 40 06/08/18 13:00 Mechanical Ventilator 06/08/18 13:00 75 16 40 06/08/18 13:00 Mechanical Ventilator 06/08/18 12:00 Mechanical Ventilator 06/08/18 12:00 40 06/08/18 12:00 98.1 64 16 95/50 (65) 99 06/08/18 11:33 68 Intake and Output 06/08/18 06/09/18 18:59 06:59 Intake Total 2753.3268 ml 2515.416 ml Output Total 1200 ml 1800 ml Balance 1553.3268 ml 715.416 ml Free Water 200 ml 200 ml IV Total 1833.3268 ml 1595.416 ml Tube Feeding 720 ml 720 ml Output Urine Total 1200 ml 1800 ml # Bowel Movements 2 General Appearance: no acute distress HEENT: status post trach Respiratory/Chest: chest wall non-tender, lungs clear, normal breath sounds, no respiratory distress, no accessory muscle use Cardiovascular: normal peripheral pulses, normal rate, regular rhythm Abdomen: normal bowel sounds, soft, non tender, no organomegaly, non distended , no mass, other - GT Extremities: no cyanosis, no clubbing, no edema Microbiology Date/Time Source Procedure Growth Status 06/07/18 21:10 Blood Blood Culture - Preliminary NO GROWTH AFTER 24 HOURS Resulted 06/07/18 21:00 Blood Blood Culture - Preliminary NO GROWTH AFTER 24 HOURS Resulted 06/07/18 21:00 Sputum Induced Gram Stain - Final Resulted 06/07/18 21:00 Sputum Culture - Preliminary Gram Negative Bacillus 1 Usual Respiratory Radha Resulted 06/07/18 22:18 Urine,Clean Catch Urine Culture - Preliminary NO GROWTH Resulted Laboratory Tests 06/08/18 20:40: Vancomycin Level Trough 13.4H 06/09/18 02:45: White Blood Count 3.6L, Red Blood Count 2.79L, Hemoglobin 7.9L, Hematocrit 23.9L , Mean Corpuscular Volume 86, Mean Corpuscular Hemoglobin 28.5, Mean Corpuscular Hemoglobin Concent 33.2, Red Cell Distribution Width 15.2H, Platelet Count 234, Mean Platelet Volume 7.3, Neutrophils (%) (Auto) , Lymphocytes (%) (Auto) , Monocytes (%) (Auto) , Eosinophils (%) (Auto) , Basophils (%) (Auto) , Sodium Level 139, Potassium Level 3.9, Chloride Level 106 , Carbon Dioxide Level 25, Anion Gap 8, Blood Urea Nitrogen 5L, Creatinine 0.6, Estimat Glomerular Filtration Rate > 60, Glucose Level 128H, Calcium Level 8.4L , Total Bilirubin 0.3, Aspartate Amino Transf (AST/SGOT) 31, Alanine Aminotransferase (ALT/SGPT) 42, Alkaline Phosphatase 81, Total Protein 6.2L, Albumin 2.2L, Globulin 4.0, Albumin/Globulin Ratio 0.6L Current Medications Medications (Trade) Dose Ordered Sig/Irma Route PRN Reason Start Time Stop Time Status Last Admin Dose Admin Acetaminophen (Tylenol) 650 mg Q4H PRN GT Mild Pain/Temp > 100.5 06/07/18 21:00 07/07/18 20:59 06/08/18 17:26 Acetylcysteine (Mucomyst) 100 mg TIDRT HHN 06/04/18 19:00 07/04/18 18:59 06/09/18 07:01 Albuterol/ Ipratropium (Albuterol/ Ipratropium) 3 ml Q4H PRN HHN Shortness of Breath 06/08/18 15:06 06/13/18 15:05 06/09/18 07:02 Amlodipine Besylate (Norvasc) 10 mg DAILY ORAL 06/03/18 09:00 07/03/18 08:59 06/04/18 08:51 Atorvastatin Calcium (Lipitor) 10 mg BEDTIME ORAL 06/02/18 22:30 07/02/18 22:29 06/08/18 21:07 Bisacodyl (Dulcolax) 10 mg DAILYPRN PRN RECTAL Constipation 06/03/18 06:41 07/03/18 06:40 Dextrose/Sodium Chloride 1,000 ml @ 100 mls/hr Q10H IV 06/02/18 22:00 07/02/18 21:59 06/09/18 03:53 Docusate Sodium (Colace) 100 mg BID ORAL 06/03/18 09:00 07/03/18 08:59 06/09/18 08:59 Heparin Sodium (Porcine) (Heparin 5000 units/ml) 5,000 units EVERY 12 HOURS SUBQ 06/03/18 09:00 07/03/18 08:59 06/09/18 09:02 Lansoprazole (Prevacid) 30 mg BID ORAL 06/03/18 09:00 07/03/18 08:59 06/09/18 09:00 Lisinopril (Zestril) 10 mg DAILY ORAL 06/03/18 09:00 07/03/18 08:59 06/04/18 08:51 Meropenem 1 gm/ Sodium Chloride 110 ml @ 220 mls/hr Q8HR IVPB 06/06/18 14:00 06/11/18 13:59 06/09/18 05:27 Morphine Sulfate (Morphine Sulfate) 2 mg Q4H PRN IVP For Pain 06/04/18 12:00 06/11/18 11:59 06/07/18 16:33 Multivitamins Therapeutic (Therapeutic Multivitamin) 1 ea DAILY ORAL 06/03/18 09:00 07/03/18 08:59 06/09/18 08:59 Patient Own Medication (Patient's Own Med) 1 ea Q12HR ORAL 06/03/18 21:00 07/03/18 20:59 06/09/18 08:58 Vancomycin HCl (Vanco rx to dose) 1 ea DAILY PRN MISC Per rx protocol 06/07/18 20:45 07/07/18 20:44 Vancomycin HCl 1 gm/Dextrose 275 ml @ 183.708 mls/hr Q8HR IVPB 06/08/18 22:00 06/13/18 21:59 06/09/18 06:14 Vitamin D (Vitamin D) 2,000 intlu DAILY ORAL 06/03/18 09:00 07/03/18 08:59 06/09/18 08:59 Parveen Blanco MD Jun 09, 2018 11:18
[2018-06-09 12:00] VITALS: BP 105/66
[2018-06-09] MEDS: Albuterol/Ipratropium 3ml neb HHN SCH ×2 (12:54→20:32)
[2018-06-09 16:00] VITALS: BP 103/61
[2018-06-09] MEDS ORDERED: NS 275ml ONE (16:22)
[2018-06-09] MEDS ORDERED: D5NS 1000ml IV ONE (16:22)
[2018-06-09] MEDS ORDERED: Tubing IV Secondary IV ONE (16:22)
--- NOTE | 2018-06-09 16:32 | Neurology Progress Note ---
Interim History Interim History Interim History Mr. Robles feels very well. He feels stronger generally. He has no pain at the PEG site. The PEG is functioning well. He denies any new neurologic symptoms. The generalized weakness persists. The sensations are still normal. He has not been able to get me any of his records yet. He is still on IV antibiotics. Review of Systems Neuro Review of Systems Benign. Objective Physical Exam Last Vital Signs Date Time Temp Pulse Resp B/P (MAP) Pulse Ox O2 Delivery O2 Flow Rate FiO2 06/09/18 14:42 73 17 40 06/09/18 13:04 100 Mechanical Ventilator 06/09/18 12:00 98.1 105/66 (79) 06/08/18 16:29 15.0 Laboratory Tests Test 06/08/18 20:40 06/09/18 02:45 Vancomycin Level Trough 13.4 ug/mL (5.0-12.0) H White Blood Count 3.6 K/UL (4.8-10.8) L Red Blood Count 2.79 M/UL (4.70-6.10) L Hemoglobin 7.9 G/DL (14.2-18.0) L Hematocrit 23.9 % (42.0-52.0) L Mean Corpuscular Volume 86 FL (80-99) Mean Corpuscular Hemoglobin 28.5 PG (27.0-31.0) Mean Corpuscular Hemoglobin Concent 33.2 G/DL (32.0-36.0) Red Cell Distribution Width 15.2 % (11.6-14.8) H Platelet Count 234 K/UL (150-450) Mean Platelet Volume 7.3 FL (6.5-10.1) Neutrophils (%) (Auto) % (45.0-75.0) Lymphocytes (%) (Auto) % (20.0-45.0) Monocytes (%) (Auto) % (1.0-10.0) Eosinophils (%) (Auto) % (0.0-3.0) Basophils (%) (Auto) % (0.0-2.0) Sodium Level 139 MMOL/L (136-145) Potassium Level 3.9 MMOL/L (3.5-5.1) Chloride Level 106 MMOL/L (98-107) Carbon Dioxide Level 25 MMOL/L (21-32) Anion Gap 8 mmol/L (5-15) Blood Urea Nitrogen 5 mg/dL (7-18) L Creatinine 0.6 MG/DL (0.55-1.30) Estimat Glomerular Filtration Rate > 60 mL/min (>60) Glucose Level 128 MG/DL (74-106) H Calcium Level 8.4 MG/DL (8.5-10.1) L Total Bilirubin 0.3 MG/DL (0.2-1.0) Aspartate Amino Transf (AST/SGOT) 31 U/L (15-37) Alanine Aminotransferase (ALT/SGPT) 42 U/L (12-78) Alkaline Phosphatase 81 U/L (46-116) Total Protein 6.2 G/DL (6.4-8.2) L Albumin 2.2 G/DL (3.4-5.0) L Globulin 4.0 g/dL Albumin/Globulin Ratio 0.6 (1.0-2.7) L Neurologic Exam Objective PHYSICAL EXAMINATION: GENERAL: He is a well-developed, but lean and wasting gentleman, lying in bed, in no acute distress, connected to a ventilator through a tracheostomy. HEAD: Normocephalic and atraumatic. NECK: No neck rigidity was observed. He did have a tracheostomy in place. EENT: Benign. NEUROLOGICAL EXAMINATION: MENTAL STATUS EXAMINATION: He was awake and alert. He was oriented to person, place, and time. He was able to recall 3/3 words immediately after 1 minute and after 3 minutes. He was able to remember presidents, Trump through Jose senior with hints. His mathematical skills were good. His visuospatial function was preserved. SPEECH: He was able to mouth words well. LANGUAGE: He was able to comprehend, repeat, and express himself well. CRANIAL NERVE EXAMINATION: II: The visual maldonado were intact on confrontation testing. III, IV & : The external ocular movements were full and the pupils 3 mm in diameter, equal, round, regular, and reactive to light. V: He had normal facial sensations and the temporales, masseters, and pterygoids function normally. VII: He had normal facial expressions and no facial asymmetry. VIII: He was able to hear well bilaterally and had no nystagmus. IX: The palate moved symmetrically on phonation. X: His gag reflex was present. XI: The sternocleidomastoids and trapezii functioned normally. XII: The tongue was in the midline without any atrophy, but it did reveal fasciculations. MOTOR SYSTEM: The tone was normal in all four extremities except for decreased tone in the ankles more so on the left than on the right. Examination of muscle mass revealed severe generalized muscle wasting involving the distal muscles more than the proximal muscles and the lower extremities more than the upper extremities. He had G 5/5 power in both upper extremities except for G 5-/5 power in the finger extensors. In the lower extremities, he had in the iliopsoas G 4+/5 on the right, G 4-/5 on the left. In the quadriceps, he had G 5-/5 on the right and G 4+/5 on the left. In the hamstrings, he had G 4+/5 on the right and G 4-/5 on the left. In the ankle dorsiflexors and toe extensors, he had G 3/5 on the right and G 0/ 5 on the left. In the ankle plantar flexors and toe flexors, he had G 4/5 on the right and G 1/ 5 on the left. SENSORY EXAMINATION: He had intact sensations to pinprick, light touch, and graphesthesia. COORDINATION: He performed well on [id number] testing. He was unable to perform [id number] testing. REFLEXES: 2++ and bilaterally symmetrical at the biceps, triceps, brachioradialis, and knees, 0 at both ankles. The plantar response was extensor on the right and mute on the left. STANCE & GAIT: Could not be tested. Impression/Recommendations Diagnostic Impression 1. Mr. Joseph Robles is a 58-year-old, right-handed, gentleman, who does have a prior history of hypertension and dyslipidemia, who approximately 4 years ago started to have weakness that started in his left foot with a left foot drop. Over the years, he has had increasing weakness in his lower extremities more than the upper extremities and on the left side more than the right associated with muscle wasting, muscle fasciculations, and then respiratory muscle failure as a result of which he has needed a tracheostomy. He has been worked up for the problem in the past and was found to have amyotrophic lateral sclerosis, for which he is on Rilutek. 2. He feels very well. He feels stronger generally. He has no pain at the PEG site. The PEG is functioning well. He denies any new neurologic symptoms. The generalized weakness persists. The sensations are still normal. He has not been able to get me any of his records yet. He is still on IV antibiotics. 3. On neurological examination at this time, he does demonstrate tongue fasciculations, decreased tone in the ankles more so on the left than the right , generalized muscle wasting involving the lower extremities more than the upper extremities, a quadriparesis involving the lower extremities more than the upper extremities, and the left side more than the right in the lower extremities, brisk deep tendon reflexes with loss of ankle jerks, an extensor plantar response on the right with a mute plantar response on the left, and frequent fasciculations in all four extremities. He however is stronger, especially in the upper extremities, since he was hospitalized. 4. The patient's history and neurological examination are in fact consistent with amyotrophic lateral sclerosis. 5. His gastrostomy is functioning well. Recommendations 1. Rilutek should be continued. 2. In the near future, edaravone therapy should be considered. 3. The patient's family was told to try and retrieve his nerve conduction study , electromyography, and MRI scan reports so that I can review them. 4. Frequent ROM exercises. 5. PT/OT to mobilize. Richard Alcantara M.D., M.S.P.H. Richard Alcantara MD Jun 09, 2018 16:32
--- NOTE | 2018-06-09 19:45 | Infectious Diseases Prog Note ---
Assessment/Plan Assessment/Plan ASSESSMENT AND PLAN: 1. acinetobacter pna, sepsis, leukocytosis, ALS, trach, vent, g-tube, fevers yesterday - meropenem - day # 09/15 - vancomycin started for fevers - check surveillance cultures - monitor labs and chest x-ray - continue per pulmonary medicine 2. The patient has trach/vent and respiratory failure. 3. Dysphagia, possible malnutrition, needed gastrostomy tube. 4. The patient has history of amyotrophic lateral sclerosis. 5. Possible hyperlipidemia. 6. Discussed with Neurology. Neurology will follow. 7. Hypertension. Treatment per primary team. 8. Anemia. 9. Weakness secondary to presumptive amyotrophic lateral sclerosis. 10. No history of diabetes or hypertension. 11. No known allergies. 12. Social history negative. 13. Family history noncontributory. 14. MAR was noted. 15. Case discussed with RN. 16. Continue treatment per primary consultants. 17. Case discussed with the patient and the patient's family. 18. vre colonization and isolation Subjective Constitutional: Reports: fever - fever yesterday , fatigue, other - alert, on vent HEENT: Reports: congestion Respiratory: Reports: shortness of breath Cardiovascular: Denies: chest pain Gastrointestinal/Abdominal: Denies: nausea, vomiting, diarrhea Genitourinary: Reports: other - no loera Neurologic: Denies: headache Psychiatric: Denies: depression Skin: Denies: rash Hematologic: Denies: bleeding Musculoskeletal: Denies: pain Allergies: Coded Allergies: No Known Allergies (Unverified , 06/02/18) Objective Vital Signs Last 24 Hour Vital Signs Date Time Temp Pulse Resp B/P (MAP) Pulse Ox O2 Delivery O2 Flow Rate FiO2 06/09/18 16:50 71 16 40 06/09/18 16:00 Mechanical Ventilator 06/09/18 16:00 98.1 70 16 103/61 (75) 100 06/09/18 16:00 67 06/09/18 16:00 40 06/09/18 14:42 73 17 40 06/09/18 13:04 62 16 100 Mechanical Ventilator 40 06/09/18 12:54 59 16 100 Mechanical Ventilator 40 06/09/18 12:42 59 16 40 06/09/18 12:00 40 06/09/18 12:00 Mechanical Ventilator 06/09/18 12:00 98.1 60 16 105/66 (79) 96 06/09/18 12:00 56 06/09/18 10:52 68 16 40 06/09/18 09:00 93/67 06/09/18 09:00 73 93/67 06/09/18 08:48 67 16 40 06/09/18 08:00 Mechanical Ventilator 06/09/18 08:00 98.1 73 16 93/67 (76) 100 06/09/18 08:00 40 06/09/18 08:00 77 06/09/18 07:12 61 16 99 Mechanical Ventilator 40 06/09/18 07:02 64 16 100 Mechanical Ventilator 40 06/09/18 06:40 64 16 40 06/09/18 05:26 67 16 40 06/09/18 04:00 Mechanical Ventilator 06/09/18 04:00 40 06/09/18 04:00 63 06/09/18 04:00 98.8 65 16 103/64 (77) 100 06/09/18 03:29 63 15 40 06/09/18 01:05 63 16 40 06/09/18 00:00 Mechanical Ventilator 06/09/18 00:00 98.2 65 16 110/68 (82) 100 06/09/18 00:00 67 06/08/18 23:30 71 16 40 06/08/18 21:30 76 16 40 06/08/18 20:00 68 06/08/18 20:00 Mechanical Ventilator 06/08/18 20:00 40 06/08/18 20:00 98.5 68 16 105/68 (80) 100 06/08/18 20:00 74 16 100 Mechanical Ventilator 40 06/08/18 19:50 70 15 100 Mechanical Ventilator 40 Height (Feet): 5 Height (Inches): 4.00 Weight (Pounds): 114 General Appearance: no acute distress HEENT: normocephalic, atraumatic, anicteric, EOMI, no JVD, status post trach Respiratory/Chest: crackles/rales, rhonchi - bilaterally Cardiovascular: normal rate, regular rhythm, no gallop/murmur, no JVD Abdomen: normal bowel sounds, soft, non tender, no organomegaly, non distended Genitourinary: other - no loera Extremities: no cyanosis Skin: no rash Neurologic/Psychiatric: credit adjuster II-XII grossly normal, alert, responsive, motor weakness Lymphatic: no neck adenopathy Musculoskeletal: no effusion Objective CT abdomen/pelvis/chest: IMPRESSION: CT CHEST: * Tracheostomy tube in place. * Complete atelectasis of the left lower lobe with some mucous/debris in the left lower lobe bronchus. Consider bronchoscopy as clinically indicated. Mass or pneumonia in the collapsed lung not excludable. * Patchy and somewhat nodular airspace opacities in the posterior left upper lobe and posterior right lower lobe as well as some tree-in-bud opacities in the periphery of the left upper lobe likely infectious or inflammatory in etiology. Follow-up after appropriate treatment recommended to ensure resolution. CT ABDOMEN/PELVIS: * Cholelithiasis. No CT evidence to suggest acute cholecystitis. * Bladder wall thickening. Correlation with urinalysis recommended to exclude cystitis. * Enlarged and heterogeneous prostate. * Moderate colonic stool burden raising question for constipation. Chest x-ray - 06/05/18: FINDINGS: Lungs: Bibasilar infiltrates, left greater than right. Pleural space: Unremarkable. No pneumothorax. Heart: Unremarkable. No cardiomegaly. Mediastinum: Unremarkable. Bones/joints: No acute fracture. Tubes, lines and devices: Tracheostomy. IMPRESSION: Bibasilar infiltrates, left greater than right. 06/09/18 - chest x-ray - Comparison: 06/06/2018 A single view chest radiograph was obtained. Findings: Basilar infiltrates again demonstrated. Heart size is stable. Tracheostomy noted. IMPRESSION: No change Microbiology Date/Time Source Procedure Growth Status 06/07/18 21:10 Blood Blood Culture - Preliminary NO GROWTH AFTER 24 HOURS Resulted 06/07/18 21:00 Blood Blood Culture - Preliminary NO GROWTH AFTER 24 HOURS Resulted 06/07/18 21:00 Sputum Induced Gram Stain - Final Resulted 06/07/18 21:00 Sputum Culture - Preliminary Gram Negative Bacillus 1 Usual Respiratory Radha Resulted 06/07/18 22:18 Urine,Clean Catch Urine Culture - Preliminary NO GROWTH Resulted Laboratory Tests Test 06/08/18 20:40 06/09/18 02:45 Vancomycin Level Trough 13.4 ug/mL (5.0-12.0) H White Blood Count 3.6 K/UL (4.8-10.8) L Red Blood Count 2.79 M/UL (4.70-6.10) L Hemoglobin 7.9 G/DL (14.2-18.0) L Hematocrit 23.9 % (42.0-52.0) L Mean Corpuscular Volume 86 FL (80-99) Mean Corpuscular Hemoglobin 28.5 PG (27.0-31.0) Mean Corpuscular Hemoglobin Concent 33.2 G/DL (32.0-36.0) Red Cell Distribution Width 15.2 % (11.6-14.8) H Platelet Count 234 K/UL (150-450) Mean Platelet Volume 7.3 FL (6.5-10.1) Neutrophils (%) (Auto) % (45.0-75.0) Lymphocytes (%) (Auto) % (20.0-45.0) Monocytes (%) (Auto) % (1.0-10.0) Eosinophils (%) (Auto) % (0.0-3.0) Basophils (%) (Auto) % (0.0-2.0) Sodium Level 139 MMOL/L (136-145) Potassium Level 3.9 MMOL/L (3.5-5.1) Chloride Level 106 MMOL/L (98-107) Carbon Dioxide Level 25 MMOL/L (21-32) Anion Gap 8 mmol/L (5-15) Blood Urea Nitrogen 5 mg/dL (7-18) L Creatinine 0.6 MG/DL (0.55-1.30) Estimat Glomerular Filtration Rate > 60 mL/min (>60) Glucose Level 128 MG/DL (74-106) H Calcium Level 8.4 MG/DL (8.5-10.1) L Total Bilirubin 0.3 MG/DL (0.2-1.0) Aspartate Amino Transf (AST/SGOT) 31 U/L (15-37) Alanine Aminotransferase (ALT/SGPT) 42 U/L (12-78) Alkaline Phosphatase 81 U/L (46-116) Total Protein 6.2 G/DL (6.4-8.2) L Albumin 2.2 G/DL (3.4-5.0) L Globulin 4.0 g/dL Albumin/Globulin Ratio 0.6 (1.0-2.7) L Current Medications Medications (Trade) Dose Ordered Sig/Irma Route PRN Reason Start Time Stop Time Status Last Admin Dose Admin Acetaminophen (Tylenol) 650 mg Q4H PRN GT Mild Pain/Temp > 100.5 06/07/18 21:00 07/07/18 20:59 06/08/18 17:26 Acetylcysteine (Mucomyst) 100 mg TIDRT HHN 06/04/18 19:00 07/04/18 18:59 06/09/18 12:54 Albuterol/ Ipratropium (Albuterol/ Ipratropium) 3 ml Q4H PRN HHN Shortness of Breath 06/08/18 15:06 06/13/18 15:05 06/09/18 07:02 Albuterol/ Ipratropium (Albuterol/ Ipratropium) 3 ml Q6HRT HHN 06/09/18 13:00 06/14/18 12:59 06/09/18 12:54 Amlodipine Besylate (Norvasc) 10 mg DAILY ORAL 06/03/18 09:00 07/03/18 08:59 06/04/18 08:51 Atorvastatin Calcium (Lipitor) 10 mg BEDTIME ORAL 06/02/18 22:30 07/02/18 22:29 06/08/18 21:07 Bisacodyl (Dulcolax) 10 mg DAILYPRN PRN RECTAL Constipation 06/03/18 06:41 07/03/18 06:40 Dextrose/Sodium Chloride 1,000 ml @ 100 mls/hr Q10H IV 06/02/18 22:00 07/02/18 21:59 06/09/18 13:20 Docusate Sodium (Colace) 100 mg BID ORAL 06/03/18 09:00 07/03/18 08:59 06/09/18 18:16 Heparin Sodium (Porcine) (Heparin 5000 units/ml) 5,000 units EVERY 12 HOURS SUBQ 06/03/18 09:00 07/03/18 08:59 06/09/18 09:02 Lansoprazole (Prevacid) 30 mg BID ORAL 06/03/18 09:00 07/03/18 08:59 06/09/18 18:16 Lisinopril (Zestril) 10 mg DAILY ORAL 06/03/18 09:00 07/03/18 08:59 06/04/18 08:51 Meropenem 1 gm/ Sodium Chloride 110 ml @ 220 mls/hr Q8HR IVPB 06/06/18 14:00 06/11/18 13:59 06/09/18 13:20 Morphine Sulfate (Morphine Sulfate) 2 mg Q4H PRN IVP For Pain 06/04/18 12:00 06/11/18 11:59 06/07/18 16:33 Multivitamins Therapeutic (Therapeutic Multivitamin) 1 ea DAILY ORAL 06/03/18 09:00 07/03/18 08:59 06/09/18 08:59 Patient Own Medication (Patient's Own Med) 1 ea Q12HR ORAL 06/03/18 21:00 07/03/18 20:59 06/09/18 08:58 Vancomycin HCl (Vanco rx to dose) 1 ea DAILY PRN MISC Per rx protocol 06/07/18 20:45 07/07/18 20:44 Vancomycin HCl 1 gm/Dextrose 275 ml @ 183.708 mls/hr Q8HR IVPB 06/08/18 22:00 06/13/18 21:59 06/09/18 14:18 Vitamin D (Vitamin D) 2,000 intlu DAILY ORAL 06/03/18 09:00 07/03/18 08:59 06/09/18 08:59 Pratik Bowens MD Jun 09, 2018 19:45
[2018-06-09 20:00] VITALS: BP 103/55
[2018-06-09] MEDS: Meropenem 1 GM in NS 110 ML IVPB SCH (21:22)
--- NOTE | 2018-06-09 21:35 | General Progress Note ---
Assessment/Plan Assessment/Plan Assessment - s/p PEG for dysphagia - ALS - Resp failure - Anemia Recommendations - continue TF - GT site care - vent - follow labs - PRN RBC transfusion Subjective Allergies: Coded Allergies: No Known Allergies (Unverified , 06/02/18) Subjective Above noted d/w RT tolerating TF Objective Last 24 Hour Vital Signs Date Time Temp Pulse Resp B/P (MAP) Pulse Ox O2 Delivery O2 Flow Rate FiO2 06/09/18 21:07 93 18 40 06/09/18 21:04 66 16 100 Mechanical Ventilator 40 06/09/18 20:31 64 16 100 Mechanical Ventilator 40 06/09/18 20:28 64 16 40 06/09/18 16:50 71 16 40 06/09/18 16:00 Mechanical Ventilator 06/09/18 16:00 98.1 70 16 103/61 (75) 100 06/09/18 16:00 67 06/09/18 16:00 40 06/09/18 14:42 73 17 40 06/09/18 13:04 62 16 100 Mechanical Ventilator 40 06/09/18 12:54 59 16 100 Mechanical Ventilator 40 06/09/18 12:42 59 16 40 06/09/18 12:00 40 06/09/18 12:00 Mechanical Ventilator 06/09/18 12:00 98.1 60 16 105/66 (79) 96 06/09/18 12:00 56 06/09/18 10:52 68 16 40 06/09/18 09:00 93/67 06/09/18 09:00 73 93/67 06/09/18 08:48 67 16 40 06/09/18 08:00 Mechanical Ventilator 06/09/18 08:00 98.1 73 16 93/67 (76) 100 06/09/18 08:00 40 06/09/18 08:00 77 06/09/18 07:12 61 16 99 Mechanical Ventilator 40 06/09/18 07:02 64 16 100 Mechanical Ventilator 40 06/09/18 06:40 64 16 40 06/09/18 05:26 67 16 40 06/09/18 04:00 Mechanical Ventilator 06/09/18 04:00 40 06/09/18 04:00 63 06/09/18 04:00 98.8 65 16 103/64 (77) 100 06/09/18 03:29 63 15 40 06/09/18 01:05 63 16 40 06/09/18 00:00 Mechanical Ventilator 06/09/18 00:00 98.2 65 16 110/68 (82) 100 06/09/18 00:00 67 06/08/18 23:30 71 16 40 Intake and Output 06/08/18 06/09/18 19:00 07:00 Intake Total 2753.3268 ml 2515.416 ml Output Total 1200 ml 1800 ml Balance 1553.3268 ml 715.416 ml Free Water 200 ml 200 ml IV Total 1833.3268 ml 1595.416 ml Tube Feeding 720 ml 720 ml Output Urine Total 1200 ml 1800 ml # Bowel Movements 2 Laboratory Tests 06/09/18 02:45: White Blood Count 3.6L, Red Blood Count 2.79L, Hemoglobin 7.9L, Hematocrit 23.9L , Mean Corpuscular Volume 86, Mean Corpuscular Hemoglobin 28.5, Mean Corpuscular Hemoglobin Concent 33.2, Red Cell Distribution Width 15.2H, Platelet Count 234, Mean Platelet Volume 7.3, Neutrophils (%) (Auto) , Lymphocytes (%) (Auto) , Monocytes (%) (Auto) , Eosinophils (%) (Auto) , Basophils (%) (Auto) , Sodium Level 139, Potassium Level 3.9, Chloride Level 106 , Carbon Dioxide Level 25, Anion Gap 8, Blood Urea Nitrogen 5L, Creatinine 0.6, Estimat Glomerular Filtration Rate > 60, Glucose Level 128H, Calcium Level 8.4L , Total Bilirubin 0.3, Aspartate Amino Transf (AST/SGOT) 31, Alanine Aminotransferase (ALT/SGPT) 42, Alkaline Phosphatase 81, Total Protein 6.2L, Albumin 2.2L, Globulin 4.0, Albumin/Globulin Ratio 0.6L Height (Feet): 5 Height (Inches): 4.00 Weight (Pounds): 114 Objective Thin WM NCAT (+) trach Coarse BS RR soft ND (+) GT no edema Corrie Trotter MD Jun 09, 2018 21:35
--- NOTE | 2018-06-09 21:56 | General Progress Note ---
Assessment/Plan Assessment/Plan Hematotology Consultation OZ MICHEL: Annita DOS: 06/08/18 RFC: Anemia ID [id number] old male present for evaluation of feeding tube placement Has been placed on admission Anemia panel ordered Patient himself reports that he has no pain Denies any vomiting Patient has been having decreased oral intake The notes on the nursing facility indicate transfer to Hospital for feeding tube placement I am attempting to obtain further input regarding the need for feeding tube Patient has a tracheostomy in place with previous respiratory failure It is unclear regarding any esophageal mobility or other obstructive pathology Allergies: No Known Allergies (Unverified , 06/02/18) Past Medical History: see triage record Pertinent Family History: none Reviewed Nursing Documentation: PMH: Agreed; PSxH: Agreed Past Medical History: No History, Except For Hx Hypertension: Yes Hx COPD: Yes ER ROS - General All Other Systems: negative except mentioned in HPI Vital Signs Last 24 Hour Vital Signs Date Time Temp Pulse Resp B/P (MAP) Pulse Ox O2 Delivery O2 Flow Rate FiO2 06/08/18 20:00 74 16 100 Mechanical Ventilator 40 06/08/18 19:50 70 15 100 Mechanical Ventilator 40 06/08/18 19:30 70 15 40 06/08/18 17:56 100.2 06/08/18 16:30 82 16 40 06/08/18 16:29 83 16 100 Mechanical Ventilator 15.0 40 06/08/18 16:16 40 06/08/18 16:16 83 16 8 Mechanical Ventilator 40 06/08/18 16:00 40 06/08/18 16:00 98.2 69 16 127/82 (97) 96 06/08/18 16:00 Mechanical Ventilator 06/08/18 15:33 58 06/08/18 15:04 68 16 40 06/08/18 13:00 Mechanical Ventilator 06/08/18 13:00 75 16 40 06/08/18 13:00 Mechanical Ventilator 06/08/18 12:00 Mechanical Ventilator 06/08/18 12:00 40 06/08/18 12:00 98.1 64 16 95/50 (65) 99 06/08/18 11:33 68 06/08/18 11:00 79 16 40 06/08/18 09:00 114/71 06/08/18 09:00 74 114/71 06/08/18 08:46 74 16 40 06/08/18 08:07 81 06/08/18 08:00 Mechanical Ventilator 06/08/18 08:00 40 06/08/18 08:00 100.8 84 16 114/71 (85) 97 06/08/18 07:26 75 16 100 Mechanical Ventilator 40 06/08/18 07:19 81 16 100 Mechanical Ventilator 40 06/08/18 07:18 83 16 40 06/08/18 05:16 75 16 40 06/08/18 04:00 98.9 80 21 124/82 (96) 100 06/08/18 04:00 78 06/08/18 04:00 40 06/08/18 04:00 Mechanical Ventilator 06/08/18 03:23 71 16 40 06/08/18 01:00 74 17 40 06/08/18 00:00 40 06/08/18 00:00 98.2 74 21 100/55 (70) 100 06/08/18 00:00 70 06/08/18 00:00 Mechanical Ventilator 06/07/18 23:14 75 16 40 06/07/18 21:30 76 16 40 Sp02 EP Interpretation: reviewed, normal General Appearance: well appearing, no apparent distress Head: normocephalic, atraumatic Eyes: bilateral eye PERRL, bilateral eye EOMI ENT: hearing grossly normal, normal pharynx- Tracheostomy in place Neck: full range of motion, supple, no meningismus, no bony tend Respiratory: lungs clear, normal breath sounds Cardiovascular #1: normal peripheral pulses Gastrointestinal: normal bowel sounds Genitourinary: no CVA tenderness Musculoskeletal: other - Chronically debilitated Neurologic: oriented x3, responsive Psychiatric: mood/affect normal Skin: normal color, no rash, warm/dry Lymphatic: normal inspection, no adenopathy Labs Test 06/02/18 19:00 06/02/18 19:54 06/02/18 22:13 06/03/18 03:10 White Blood Count 16.7 K/UL (4.8-10.8) 12.4 K/UL (4.8-10.8) Red Blood Count 3.59 M/UL (4.70-6.10) 3.15 M/UL (4.70-6.10) Hemoglobin 10.2 G/DL (14.2-18.0) 9.0 G/DL (14.2-18.0) Hematocrit 31.1 % (42.0-52.0) 26.9 % (42.0-52.0) Mean Corpuscular Volume 87 FL (80-99) 85 FL (80-99) Mean Corpuscular Hemoglobin 28.4 PG (27.0-31.0) 28.6 PG (27.0-31.0) Mean Corpuscular Hemoglobin Concent 32.7 G/DL (32.0-36.0) 33.4 G/DL (32.0-36.0) Red Cell Distribution Width 15.3 % (11.6-14.8) 14.9 % (11.6-14.8) Platelet Count 380 K/UL (150-450) 299 K/UL (150-450) Mean Platelet Volume 7.8 FL (6.5-10.1) 8.1 FL (6.5-10.1) Neutrophils (%) (Auto) 78.0 % (45.0-75.0) 72.8 % (45.0-75.0) Lymphocytes (%) (Auto) 15.1 % (20.0-45.0) 18.9 % (20.0-45.0) Monocytes (%) (Auto) 5.5 % (1.0-10.0) 6.5 % (1.0-10.0) Eosinophils (%) (Auto) 1.0 % (0.0-3.0) 1.3 % (0.0-3.0) Basophils (%) (Auto) 0.4 % (0.0-2.0) 0.5 % (0.0-2.0) Prothrombin Time 10.6 SEC (9.30-11.50) Prothromb Time International Ratio 1.0 (0.9-1.1) Activated Partial Thromboplast Time 29 SEC (23-33) Sodium Level 139 MMOL/L (136-145) 137 MMOL/L (136-145) Potassium Level 4.2 MMOL/L (3.5-5.1) 3.5 MMOL/L (3.5-5.1) Chloride Level 103 MMOL/L (98-107) 104 MMOL/L (98-107) Carbon Dioxide Level 25 MMOL/L (21-32) 23 MMOL/L (21-32) Anion Gap 11 mmol/L (5-15) 10 mmol/L (5-15) Blood Urea Nitrogen 19 mg/dL (7-18) 15 mg/dL (7-18) Creatinine 0.8 MG/DL (0.55-1.30) 0.6 MG/DL (0.55-1.30) Estimat Glomerular Filtration Rate > 60 mL/min (>60) > 60 mL/min (>60) Glucose Level 113 MG/DL (74-106) 84 MG/DL (74-106) Calcium Level 9.3 MG/DL (8.5-10.1) 8.8 MG/DL (8.5-10.1) Total Bilirubin 0.3 MG/DL (0.2-1.0) 0.6 MG/DL (0.2-1.0) Aspartate Amino Transf (AST/SGOT) 16 U/L (15-37) 14 U/L (15-37) Alanine Aminotransferase (ALT/SGPT) 27 U/L (12-78) 20 U/L (12-78) Alkaline Phosphatase 105 U/L (46-116) 86 U/L (46-116) Total Creatine Kinase 94 U/L (26-308) Creatine Kinase MB 1.5 NG/ML (0.0-3.6) Creatine Kinase MB Relative Index 1.5 Troponin I 0.000 ng/mL (0.000-0.056) Total Protein 7.9 G/DL (6.4-8.2) 7.3 G/DL (6.4-8.2) Albumin 3.1 G/DL (3.4-5.0) 2.6 G/DL (3.4-5.0) Globulin 4.8 g/dL 4.7 g/dL Albumin/Globulin Ratio 0.6 (1.0-2.7) 0.6 (1.0-2.7) Urine Color Pale yellow Urine Appearance Clear Urine pH 5 (4.5-8.0) Urine Specific Zanoni 1.020 (1.005-1.035) Urine Protein Negative (NEGATIVE) Urine Glucose (UA) Negative (NEGATIVE) Urine Ketones Negative (NEGATIVE) Urine Blood Negative (NEGATIVE) Urine Nitrite Negative (NEGATIVE) Urine Bilirubin Negative (NEGATIVE) Urine Urobilinogen Normal MG/DL (0.0-1.0) Urine Leukocyte Esterase 1+ (NEGATIVE) Urine RBC 0-2 /HPF (0 - 0) Urine WBC 0-2 /HPF (0 - 0) Urine Squamous Epithelial Cells None /LPF (NONE/OCC) Urine Bacteria Few /HPF (NONE) Arterial Blood pH 7.474 (7.350-7.450) Arterial Blood Partial Pressure CO2 33.3 mmHg (35.0-45.0) Arterial Blood Partial Pressure O2 133.9 mmHg (75.0-100.0) Arterial Blood HCO3 23.9 mmol/L (22.0-26.0) Arterial Blood Oxygen Saturation 98.3 % (95-100) Arterial Blood Base Excess 0.6 (-2-2) Edgar Test Positive # Acute on chronic anemia, anemia panel has been reviewed --> No evidence of bleeding --> Repeat CBC in AM --> Transfuse PRBC if Hb < 7 # Protein calorie malnutrition --> s/p G-tube placement --> continue tube feeds # Status post tracheostomy, chronic respiratory failure --> continue vent management per Pulmonology, wean vent as tolerated and plan transfer to snf --> continue frequent suctioning # Motor neuron disease, ALS --> Continue supportive care --> Neurology following # Sepsis, suspected aspiration pneumonia versus HCAP --> improving --> cont wean vent as tolerated per pulm --> continue vancomycin and Zosyn --> ID following # Hypokalemia --> improved # Resp failure, acute on chronic --> vent --> trached Subjective Constitutional: Denies: no symptoms, chills, diaphoresis, fever, malaise, weakness, other HEENT: Denies: no symptoms, eye pain, blurred vision, tearing, double vision, ear pain, ear discharge, nose pain, nose congestion, throat pain, throat swelling, mouth pain, mouth swelling, other Cardiovascular: Denies: no symptoms, chest pain, edema, irregular heart rate, lightheadedness, palpitations, syncope, other Respiratory: Denies: no symptoms, cough, orthopnea, shortness of breath, SOB with excertion, SOB at rest, sputum, stridor, wheezing, other Gastrointestinal/Abdominal: Denies: no symptoms, abdomen distended, abdominal pain, black stools, tarry stools, blood in stool, constipated, diarrhea, difficulty swallowing, nausea, poor appetite, poor fluid intake, rectal bleeding , vomiting, other Genitourinary: Denies: no symptoms, burning, discharge, frequency, flank pain, hematuria, incontinence, pain, urgency, other Neurologic/Psychiatric: Denies: no symptoms, anxiety, depressed, emotional problems, headache, numbness, paresthesia, pre-existing deficit, seizure, tingling, tremors, weakness, other Endocrine: Denies: no symptoms, excessive sweating, flushing, intolerance to cold, intolerance to heat, increased hunger, increased thirst, increased urine, unexplained weight gain, unexplained weight loss, other Hematologic/Lymphatic: Denies: no symptoms, anemia, easy bleeding, easy bruising, other Allergies: Coded Allergies: No Known Allergies (Unverified , 06/02/18) Subjective 1/2 Pt is seen in the room, resting in bed. /trach/vent/ g tube and respiratory failure.cbc reviewed. no events Objective Last 24 Hour Vital Signs Date Time Temp Pulse Resp B/P (MAP) Pulse Ox O2 Delivery O2 Flow Rate FiO2 06/09/18 21:07 93 18 40 06/09/18 21:04 66 16 100 Mechanical Ventilator 40 06/09/18 20:31 64 16 100 Mechanical Ventilator 40 06/09/18 20:28 64 16 40 06/09/18 16:50 71 16 40 06/09/18 16:00 Mechanical Ventilator 06/09/18 16:00 98.1 70 16 103/61 (75) 100 06/09/18 16:00 67 06/09/18 16:00 40 06/09/18 14:42 73 17 40 06/09/18 13:04 62 16 100 Mechanical Ventilator 40 06/09/18 12:54 59 16 100 Mechanical Ventilator 40 06/09/18 12:42 59 16 40 06/09/18 12:00 40 06/09/18 12:00 Mechanical Ventilator 06/09/18 12:00 98.1 60 16 105/66 (79) 96 06/09/18 12:00 56 06/09/18 10:52 68 16 40 06/09/18 09:00 06/09/18 09:00 73 93/06/09/18 08:48 67 16 40 06/09/18 08:00 Mechanical Ventilator 06/09/18 08:00 98.1 73 16 93/67 (76) 100 06/09/18 08:00 40 06/09/18 08:00 77 06/09/18 07:12 61 16 99 Mechanical Ventilator 40 06/09/18 07:02 64 16 100 Mechanical Ventilator 40 06/09/18 06:40 64 16 40 06/09/18 05:26 67 16 40 06/09/18 04:00 Mechanical Ventilator 06/09/18 04:00 40 06/09/18 04:00 63 06/09/18 04:00 98.8 65 16 103/64 (77) 100 06/09/18 03:29 63 15 40 06/09/18 01:05 63 16 40 06/09/18 00:00 Mechanical Ventilator 06/09/18 00:00 98.2 65 16 110/68 (82) 100 06/09/18 00:00 67 06/08/18 23:30 71 16 40 Intake and Output 06/08/18 06/09/18 19:00 07:00 Intake Total 2753.3268 ml 2515.416 ml Output Total 1200 ml 1800 ml Balance 1553.3268 ml 715.416 ml Free Water 200 ml 200 ml IV Total 1833.3268 ml 1595.416 ml Tube Feeding 720 ml 720 ml Output Urine Total 1200 ml 1800 ml # Bowel Movements 2 Laboratory Tests 06/09/18 02:45: White Blood Count 3.6L, Red Blood Count 2.79L, Hemoglobin 7.9L, Hematocrit 23.9L , Mean Corpuscular Volume 86, Mean Corpuscular Hemoglobin 28.5, Mean Corpuscular Hemoglobin Concent 33.2, Red Cell Distribution Width 15.2H, Platelet Count 234, Mean Platelet Volume 7.3, Neutrophils (%) (Auto) , Lymphocytes (%) (Auto) , Monocytes (%) (Auto) , Eosinophils (%) (Auto) , Basophils (%) (Auto) , Sodium Level 139, Potassium Level 3.9, Chloride Level 106 , Carbon Dioxide Level 25, Anion Gap 8, Blood Urea Nitrogen 5L, Creatinine 0.6, Estimat Glomerular Filtration Rate > 60, Glucose Level 128H, Calcium Level 8.4L , Total Bilirubin 0.3, Aspartate Amino Transf (AST/SGOT) 31, Alanine Aminotransferase (ALT/SGPT) 42, Alkaline Phosphatase 81, Total Protein 6.2L, Albumin 2.2L, Globulin 4.0, Albumin/Globulin Ratio 0.6L 06/09/18 21:10: Vancomycin Level Trough [Pending] Height (Feet): 5 Height (Inches): 4.00 Weight (Pounds): 114 Objective PE: Sp02 EP Interpretation: reviewed, normal General Appearance: well appearing, no apparent distress Head: normocephalic, atraumatic Eyes: bilateral eye PERRL, bilateral eye EOMI ENT: hearing grossly normal, normal pharynx- Tracheostomy in place Neck: full range of motion, supple, no meningismus, no bony tend Respiratory: lungs clear, normal breath sounds Cardiovascular #1: normal peripheral pulses Gastrointestinal: normal bowel sounds Genitourinary: no CVA tenderness Musculoskeletal: other - Chronically debilitated Neurologic: oriented x3, responsive Psychiatric: mood/affect normal Skin: normal color, no rash, warm/dry Lymphatic: normal inspection, no adenopathy Mike Piper MD Jun 09, 2018 21:56
[2018-06-09] MEDS: Morphine Sulfate 4mg/ml Inj (IV/IM USE ONLY) IVP PRN (23:49)
[2018-06-10] VITALS: BP 108/67
[2018-06-10] MEDS: Albuterol/Ipratropium 3ml neb HHN SCH ×4 (01:28→19:55)
[2018-06-10 04:00] VITALS: BP 101/60
[2018-06-10] MEDS: Meropenem 1 GM in NS 110 ML IVPB SCH ×3 (05:08→22:56)
[2018-06-10] MEDS: Vancomycin 1gm/D5W 275ml IVPB SCH ×6 (05:09→22:56)
[2018-06-10 06:14] LABS: HEMATOCRIT 23.6 % (42.0-52.0); HEMOGLOBIN 7.8 G/DL (14.2-18.0); MEAN CORPUSCULAR VOLUME 85 FL (80-99); PLATELET COUNT 245 K/UL (150-450); RED BLOOD COUNT 2.77 M/UL (4.70-6.10); RED CELL DISTRIBUTION WIDTH 14.9 % (11.6-14.8); WHITE BLOOD COUNT 6.7 K/UL (4.8-10.8)
[2018-06-10 06:21] LABS: ANION GAP 7 mmol/L (5-15); BLOOD UREA NITROGEN 7 mg/dL (7-18); CALCIUM 8.6 MG/DL (8.5-10.1); CARBON DIOXIDE 24 MMOL/L (21-32); CHLORIDE 107 MMOL/L (98-107); CREATININE 0.6 MG/DL (0.55-1.30); POTASSIUM 3.8 MMOL/L (3.5-5.1); SODIUM 138 MMOL/L (136-145)
--- NOTE | 2018-06-10 07:06 | General Progress Note ---
Assessment/Plan Problem List: (1) Protein calorie malnutrition ICD Codes: E46 - Unspecified protein-calorie malnutrition SNOMED: 516693368 (2) Status post tracheostomy ICD Codes: Z93.0 - Tracheostomy status SNOMED: 55701159, 515033544 (3) Motor neuron disease, unspecified ICD Codes: G12.20 - Motor neuron disease, unspecified SNOMED: 37690101 (4) Leukocytosis ICD Codes: D72.829 - Elevated white blood cell count, unspecified SNOMED: 835151310, 039388088 Qualifiers: Qualified Codes: D72.829 - Elevated white blood cell count, unspecified (5) Essential hypertension ICD Codes: I10 - Essential (primary) hypertension SNOMED: 62042571 (6) HCAP (healthcare-associated pneumonia) ICD Codes: J18.9 - Pneumonia, unspecified organism SNOMED: 664330959 Status: stable Assessment/Plan (1) Protein calorie malnutrition s/p G-tube placement continue tube feeds (2) Status post tracheostomy, chronic respiratory failure continue vent management per Pulmonology, wean vent as tolerated and plan transfer to snf continue frequent suctioning (3) Motor neuron disease, ALS Continue supportive care Neurology following (4) Sepsis, suspected aspiration pneumonia versus HCAP improving, repeat bcx sent bc of fever cont wean vent as tolerated per pulm continue vancomycin and Zosyn ID following (5)Hypokalemia resolved (6)Hypomagnesemia resolved (6)Acute on chronic anemia No evidence of bleeding Repeat CBC in AM Transfuse PRBC if Hb < 7 (7)resp failure, acute on chronic vent trached worsened by asp pna appreciate pulm recs DVT Prophylaxis: SCD, HSQ Code Status: Full Hospital Classification Declaration: Based on this initial evaluation, and depending on the patient's clinical course, I anticipate that this patient will require hospitalization for 2-3 days for malnutrition, trached/needs peg eval and close respiratory/hemodynamic monitoring. Disposition: Once the patient is stable to leave the hospital, I anticipate the patient will likely be discharged to the following environment: home I spent 50 minutes on this patient's case, and 35 minutes were dedicated to counseling and/or care coordination. Discussed with patient/family, nursing staff, SW/CM, and consultants regarding clinical status, treatment course, and disposition planning. Time of note may not reflect time of encounter. ---- Date of Discussion: 06/03/18 A [id number]-[id number] discussion with the patient's son regarding the patient's advanced care planning took place during this hospitalization on the above date. The discussion included the explanation and discussion of advance directives and associated forms/documents, as well as the patient's current code status. We also discussed at length the patient's medical conditions (both acute and chronic), general prognosis, treatment options, and goals of care. The following summarizes the discussion: Advance Care Planning/Goals of Care: - polst completed - Continue current evaluation and management of any acute and chronic medical issues - Will continue to support the patient/family - Will continue to discuss both short- and long-term goals of care DPOA-HC/Surrogate Decision Maker: , Randa Robles Code Status: Full Code AD Forms/Documents Completed: completed A total of 31 minutes was spent on this discussion, including counseling, answering questions, and completing, if any, pertinent advanced care planning forms/documents. Subjective Date patient seen: Jun 10, 2018 Time patient seen: 07:04 Allergies: Coded Allergies: No Known Allergies (Unverified , 06/02/18) Subjective f/u malnutrition, sepsis, resp failure, trach on vent, peg stable had fever and ID aware, cultures sent and pending cont abx pulm attempting to wean vent... still on vent concerns for asp pna denies any complaints ROS: 14 point ROS reviewed and negative except per the above subjective Objective Last 24 Hour Vital Signs Date Time Temp Pulse Resp B/P (MAP) Pulse Ox O2 Delivery O2 Flow Rate FiO2 06/10/18 06:55 69 16 100 Mechanical Ventilator 40 06/10/18 06:54 57 16 40 06/10/18 05:28 67 16 40 06/10/18 04:00 65 06/10/18 04:00 Mechanical Ventilator 06/10/18 04:00 40 06/10/18 04:00 97.7 69 16 101/60 (74) 100 06/10/18 03:00 61 16 40 06/10/18 02:04 70 16 100 Mechanical Ventilator 40 06/10/18 01:26 63 16 100 Mechanical Ventilator 40 06/10/18 01:24 63 16 40 06/10/18 00:00 Mechanical Ventilator 06/10/18 00:00 98.3 67 17 108/67 (81) 100 06/10/18 00:00 40 06/10/18 00:00 70 06/09/18 23:31 93 17 40 06/09/18 21:07 93 18 40 06/09/18 21:04 66 16 100 Mechanical Ventilator 40 06/09/18 20:31 64 16 100 Mechanical Ventilator 40 06/09/18 20:28 64 16 40 06/09/18 20:00 Mechanical Ventilator 06/09/18 20:00 97.9 64 16 103/55 (71) 100 06/09/18 16:50 71 16 40 06/09/18 16:00 Mechanical Ventilator 06/09/18 16:00 98.1 70 16 103/61 (75) 100 06/09/18 16:00 67 06/09/18 16:00 40 06/09/18 14:42 73 17 40 06/09/18 13:04 62 16 100 Mechanical Ventilator 40 06/09/18 12:54 59 16 100 Mechanical Ventilator 40 06/09/18 12:42 59 16 40 06/09/18 12:00 40 06/09/18 12:00 Mechanical Ventilator 06/09/18 12:00 98.1 60 16 105/66 (79) 96 06/09/18 12:00 56 06/09/18 10:52 68 16 40 06/09/18 09:00 93/67 06/09/18 09:00 73 93/67 06/09/18 08:48 67 16 40 06/09/18 08:00 Mechanical Ventilator 06/09/18 08:00 98.1 73 16 93/67 (76) 100 06/09/18 08:00 40 06/09/18 08:00 77 06/09/18 07:12 61 16 99 Mechanical Ventilator 40 Intake and Output 06/09/18 06/10/18 19:00 07:00 Intake Total 2781.124 ml 1663.333 ml Output Total 1901 ml 2000 ml Balance 880.124 ml -336.667 ml Free Water 300 ml 200 ml IV Total 1761.124 ml 803.333 ml Tube Feeding 720 ml 660 ml Output Urine Total 1900 ml 2000 ml Stool Total 1 ml # Voids 3 # Bowel Movements 1 Laboratory Tests 06/09/18 21:10: Vancomycin Level Trough 20.0H 06/10/18 05:03: White Blood Count 6.7#, Red Blood Count 2.77L, Hemoglobin 7.8L, Hematocrit 23.6L , Mean Corpuscular Volume 85, Mean Corpuscular Hemoglobin 28.3, Mean Corpuscular Hemoglobin Concent 33.1, Red Cell Distribution Width 14.9H, Platelet Count 245, Mean Platelet Volume 7.2, Neutrophils (%) (Auto) , Lymphocytes (%) (Auto) , Monocytes (%) (Auto) , Eosinophils (%) (Auto) , Basophils (%) (Auto) , Sodium Level 138, Potassium Level 3.8, Chloride Level 107 , Carbon Dioxide Level 24, Anion Gap 7, Blood Urea Nitrogen 7, Creatinine 0.6, Estimat Glomerular Filtration Rate > 60, Glucose Level 134H, Calcium Level 8.6 Height (Feet): 5 Height (Inches): 4.00 Weight (Pounds): 114 Objective General Appearance: WD/WN, no apparent distress, alert Lines, tubes and drains: peripheral HEENT: normocephalic, atraumatic Neck: non-tender, normal alignment, supple, normal inspection, trach Cardiovascular/Chest: normal peripheral pulses, normal rate, regular rhythm Abdomen: normal bowel sounds, non tender, soft, no organomegaly, no mass, PEG in place, clean site Extremities: normal range of motion, non-tender, normal inspection, no calf tenderness Skin Exam: normal pigmentation, warm/dry 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
[2018-06-10 08:00] VITALS: BP 102/62
[2018-06-10] MEDS: Lisinopril 10mg tab ORAL SCH (09:00)
[2018-06-10] MEDS: Multivitamin w/Minerals tab ORAL SCH (09:09)
[2018-06-10] MEDS: Vitamin D 1000 IU Tab ORAL SCH (09:10)
[2018-06-10] MEDS: Docusate 100mg cap ORAL SCH ×2 (09:10→17:12)
[2018-06-10] MEDS: Heparin 5000 units/ml inj SUBQ SCH ×2 (09:14→20:17)
[2018-06-10] MEDS: D5NS 1,000 ML IV SCH ×2 (10:05→20:16)
--- NOTE | 2018-06-10 10:38 | GI Progress Note ---
Assessment/Plan Problems: (1) Protein calorie malnutrition ICD Codes: E46 - Unspecified protein-calorie malnutrition SNOMED: 964080534 (2) Dehydration ICD Codes: E86.0 - Dehydration SNOMED: 80926525 (3) Encounter for PEG (percutaneous endoscopic gastrostomy) ICD Codes: Z43.1 - Encounter for attention to gastrostomy SNOMED: 623600195, 884917925 (4) S/P percutaneous endoscopic gastrostomy (PEG) tube placement ICD Codes: Z93.1 - Gastrostomy status SNOMED: 033849871 (5) Status post tracheostomy ICD Codes: Z93.0 - Tracheostomy status SNOMED: 52151743, 187411256 Status: unchanged Status Narrative Discussed with Dr. Lainez Assessment/Plan Assessment - s/p PEG for dysphagia - ALS - Resp failure - Anemia Recommendations - continue TF - site care - vent - follow labs - PRN RBC transfusion Subjective Subjective Limited Objective Last 24 Hour Vital Signs Date Time Temp Pulse Resp B/P (MAP) Pulse Ox O2 Delivery O2 Flow Rate FiO2 06/10/18 09:25 61 16 40 06/10/18 09:00 102/62 06/10/18 09:00 77 102/62 06/10/18 08:00 40 06/10/18 08:00 Mechanical Ventilator 06/10/18 08:00 97.9 77 16 102/62 (75) 100 06/10/18 07:48 61 06/10/18 07:15 57 16 100 Mechanical Ventilator 40 06/10/18 07:15 57 16 100 Mechanical Ventilator 40 06/10/18 06:55 69 16 100 Mechanical Ventilator 40 06/10/18 06:55 69 16 100 Mechanical Ventilator 40 06/10/18 06:54 57 16 40 06/10/18 05:28 67 16 40 06/10/18 04:00 65 06/10/18 04:00 Mechanical Ventilator 06/10/18 04:00 40 06/10/18 04:00 97.7 69 16 101/60 (74) 100 06/10/18 03:00 61 16 40 06/10/18 02:04 70 16 100 Mechanical Ventilator 40 06/10/18 01:26 63 16 100 Mechanical Ventilator 40 06/10/18 01:24 63 16 40 06/10/18 00:00 Mechanical Ventilator 06/10/18 00:00 98.3 67 17 108/67 (81) 100 06/10/18 00:00 40 06/10/18 00:00 70 06/09/18 23:31 93 17 40 06/09/18 21:07 93 18 40 06/09/18 21:04 66 16 100 Mechanical Ventilator 40 06/09/18 20:31 64 16 100 Mechanical Ventilator 40 06/09/18 20:28 64 16 40 06/09/18 20:00 Mechanical Ventilator 06/09/18 20:00 97.9 64 16 103/55 (71) 100 06/09/18 16:50 71 16 40 06/09/18 16:00 Mechanical Ventilator 06/09/18 16:00 98.1 70 16 103/61 (75) 100 06/09/18 16:00 67 06/09/18 16:00 40 06/09/18 14:42 73 17 40 06/09/18 13:04 62 16 100 Mechanical Ventilator 40 06/09/18 12:54 59 16 100 Mechanical Ventilator 40 06/09/18 12:42 59 16 40 06/09/18 12:00 40 06/09/18 12:00 Mechanical Ventilator 06/09/18 12:00 98.1 60 16 105/66 (79) 96 06/09/18 12:00 56 06/09/18 10:52 68 16 40 Intake and Output 06/09/18 06/10/18 19:00 07:00 Intake Total 2781.124 ml 1663.333 ml Output Total 1901 ml 2000 ml Balance 880.124 ml -336.667 ml Free Water 300 ml 200 ml IV Total 1761.124 ml 803.333 ml Tube Feeding 720 ml 660 ml Output Urine Total 1900 ml 2000 ml Stool Total 1 ml # Voids 3 # Bowel Movements 1 Laboratory Tests Test 06/09/18 21:10 06/10/18 05:03 Vancomycin Level Trough 20.0 ug/mL (5.0-12.0) H White Blood Count 6.7 K/UL (4.8-10.8) # Red Blood Count 2.77 M/UL (4.70-6.10) L Hemoglobin 7.8 G/DL (14.2-18.0) L Hematocrit 23.6 % (42.0-52.0) L Mean Corpuscular Volume 85 FL (80-99) Mean Corpuscular Hemoglobin 28.3 PG (27.0-31.0) Mean Corpuscular Hemoglobin Concent 33.1 G/DL (32.0-36.0) Red Cell Distribution Width 14.9 % (11.6-14.8) H Platelet Count 245 K/UL (150-450) Mean Platelet Volume 7.2 FL (6.5-10.1) Neutrophils (%) (Auto) % (45.0-75.0) Lymphocytes (%) (Auto) % (20.0-45.0) Monocytes (%) (Auto) % (1.0-10.0) Eosinophils (%) (Auto) % (0.0-3.0) Basophils (%) (Auto) % (0.0-2.0) Sodium Level 138 MMOL/L (136-145) Potassium Level 3.8 MMOL/L (3.5-5.1) Chloride Level 107 MMOL/L (98-107) Carbon Dioxide Level 24 MMOL/L (21-32) Anion Gap 7 mmol/L (5-15) Blood Urea Nitrogen 7 mg/dL (7-18) Creatinine 0.6 MG/DL (0.55-1.30) Estimat Glomerular Filtration Rate > 60 mL/min (>60) Glucose Level 134 MG/DL (74-106) H Calcium Level 8.6 MG/DL (8.5-10.1) Height (Feet): 5 Height (Inches): 4.00 Weight (Pounds): 114 General Appearance: no apparent distress Cardiovascular: normal rate Respiratory/Chest: normal breath sounds, no respiratory distress Abdominal Exam: normal bowel sounds, non tender, soft, GT site - Clean dry and intact Extremities: non-tender Yajaira Ocampo NP Jun 10, 2018 10:38
[2018-06-10 12:00] VITALS: BP 107/66
--- NOTE | 2018-06-10 13:55 | Pulmonology Progress Note ---
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, unspecified (13) Encounter for PEG (percutaneous endoscopic gastrostomy) (14) Nutrition impaired due to imbalance of nutrients (15) HCAP (healthcare-associated pneumonia) Assessment/Plan Optimize pulmonary hygiene/mobilize as tolerated Continue ventilatory support/settings reviewed Titrate down FiO2 to keep SaO2 > 90% RTC and PRN HHN's + MUCOMYST HHN TID PRN suctioning Abx per ID, F/U Cx's GTF's Monitor volumes F/U neuro recs, continue Rilutek [employer] therapy, PMV trials FC, discuss GOC D/W RN and [employer] Subjective Allergies: Coded Allergies: No Known Allergies (Unverified , 06/02/18) Subjective Worked with [employer], joseph PMV briefly Awake, comfortable on vent No sig secretions, no F/C Joseph TF Objective Last 24 Hour Vital Signs Date Time Temp Pulse Resp B/P (MAP) Pulse Ox O2 Delivery O2 Flow Rate FiO2 06/10/18 12:56 71 16 100 Mechanical Ventilator 40 06/10/18 12:54 71 16 40 06/10/18 12:00 97.9 84 18 107/66 (80) 98 06/10/18 12:00 40 06/10/18 12:00 Mechanical Ventilator 06/10/18 11:53 72 16 40 06/10/18 11:52 76 06/10/18 10:15 78 22 06/10/18 09:25 61 16 40 06/10/18 09:00 102/62 06/10/18 09:00 77 102/62 06/10/18 08:00 40 06/10/18 08:00 Mechanical Ventilator 06/10/18 08:00 97.9 77 16 102/62 (75) 100 06/10/18 07:48 61 06/10/18 07:15 57 16 100 Mechanical Ventilator 40 06/10/18 07:15 57 16 100 Mechanical Ventilator 40 06/10/18 06:55 69 16 100 Mechanical Ventilator 40 06/10/18 06:55 69 16 100 Mechanical Ventilator 40 06/10/18 06:54 57 16 40 06/10/18 05:28 67 16 40 06/10/18 04:00 65 06/10/18 04:00 Mechanical Ventilator 06/10/18 04:00 40 06/10/18 04:00 97.7 69 16 101/60 (74) 100 06/10/18 03:00 61 16 40 06/10/18 02:04 70 16 100 Mechanical Ventilator 40 06/10/18 01:26 63 16 100 Mechanical Ventilator 40 06/10/18 01:24 63 16 40 06/10/18 00:00 Mechanical Ventilator 06/10/18 00:00 98.3 67 17 108/67 (81) 100 06/10/18 00:00 40 06/10/18 00:00 70 06/09/18 23:31 93 17 40 06/09/18 21:07 93 18 40 06/09/18 21:04 66 16 100 Mechanical Ventilator 40 06/09/18 20:31 64 16 100 Mechanical Ventilator 40 06/09/18 20:28 64 16 40 06/09/18 20:00 Mechanical Ventilator 06/09/18 20:00 97.9 64 16 103/55 (71) 100 06/09/18 16:50 71 16 40 06/09/18 16:00 Mechanical Ventilator 06/09/18 16:00 98.1 70 16 103/61 (75) 100 06/09/18 16:00 67 06/09/18 16:00 40 06/09/18 14:42 73 17 40 Intake and Output 06/09/18 06/10/18 18:59 06:59 Intake Total 2881.124 ml 1723.333 ml Output Total 1901 ml 2000 ml Balance 980.124 ml -276.667 ml Free Water 300 ml 200 ml IV Total 1861.124 ml 803.333 ml Tube Feeding 720 ml 720 ml Output Urine Total 1900 ml 2000 ml Stool Total 1 ml # Voids 3 # Bowel Movements 1 General Appearance: WD/WN, no acute distress HEENT: normocephalic, atraumatic, mucous membranes moist, status post trach Respiratory/Chest: chest wall non-tender, lungs clear, normal breath sounds, no respiratory distress, no accessory muscle use Cardiovascular: normal peripheral pulses, normal rate, regular rhythm Abdomen: normal bowel sounds, soft, non tender, no organomegaly, non distended , no mass, other - GT Extremities: no cyanosis, no clubbing, no edema Microbiology Date/Time Source Procedure Growth Status 06/07/18 21:10 Blood Blood Culture - Preliminary NO GROWTH AFTER 48 HOURS Resulted 06/07/18 21:00 Blood Blood Culture - Preliminary NO GROWTH AFTER 48 HOURS Resulted 06/07/18 21:00 Sputum Induced Gram Stain - Final Resulted 06/07/18 21:00 Sputum Culture - Preliminary Serratia Marcescens Usual Respiratory Radha Gram Negative Bacillus 2 Resulted 06/07/18 22:18 Urine,Clean Catch Urine Culture - Preliminary NO GROWTH Resulted Laboratory Tests 06/09/18 21:10: Vancomycin Level Trough 20.0H 06/10/18 05:03: White Blood Count 6.7#, Red Blood Count 2.77L, Hemoglobin 7.8L, Hematocrit 23.6L , Mean Corpuscular Volume 85, Mean Corpuscular Hemoglobin 28.3, Mean Corpuscular Hemoglobin Concent 33.1, Red Cell Distribution Width 14.9H, Platelet Count 245, Mean Platelet Volume 7.2, Neutrophils (%) (Auto) , Lymphocytes (%) (Auto) , Monocytes (%) (Auto) , Eosinophils (%) (Auto) , Basophils (%) (Auto) , Sodium Level 138, Potassium Level 3.8, Chloride Level 107 , Carbon Dioxide Level 24, Anion Gap 7, Blood Urea Nitrogen 7, Creatinine 0.6, Estimat Glomerular Filtration Rate > 60, Glucose Level 134H, Calcium Level 8.6 Current Medications Medications (Trade) Dose Ordered Sig/Irma Route PRN Reason Start Time Stop Time Status Last Admin Dose Admin Acetaminophen (Tylenol) 650 mg Q4H PRN GT Mild Pain/Temp > 100.5 06/07/18 21:00 07/07/18 20:59 06/08/18 17:26 Acetylcysteine (Mucomyst) 100 mg TIDRT HHN 06/04/18 19:00 07/04/18 18:59 06/10/18 12:56 Albuterol/ Ipratropium (Albuterol/ Ipratropium) 3 ml Q4H PRN HHN Shortness of Breath 06/08/18 15:06 06/13/18 15:05 06/09/18 07:02 Albuterol/ Ipratropium (Albuterol/ Ipratropium) 3 ml Q6HRT HHN 06/09/18 13:00 06/14/18 12:59 06/10/18 12:55 Amlodipine Besylate (Norvasc) 10 mg DAILY ORAL 06/03/18 09:00 07/03/18 08:59 06/04/18 08:51 Atorvastatin Calcium (Lipitor) 10 mg BEDTIME ORAL 06/02/18 22:30 07/02/18 22:29 06/09/18 21:21 Bisacodyl (Dulcolax) 10 mg DAILYPRN PRN RECTAL Constipation 06/03/18 06:41 07/03/18 06:40 Dextrose/Sodium Chloride 1,000 ml @ 100 mls/hr Q10H IV 06/02/18 22:00 07/02/18 21:59 06/10/18 10:05 Docusate Sodium (Colace) 100 mg BID ORAL 06/03/18 09:00 07/03/18 08:59 06/10/18 09:10 Heparin Sodium (Porcine) (Heparin 5000 units/ml) 5,000 units EVERY 12 HOURS SUBQ 06/03/18 09:00 07/03/18 08:59 06/10/18 09:14 Lansoprazole (Prevacid) 30 mg BID ORAL 06/03/18 09:00 07/03/18 08:59 06/10/18 09:10 Lisinopril (Zestril) 10 mg DAILY ORAL 06/03/18 09:00 07/03/18 08:59 06/04/18 08:51 Meropenem 1 gm/ Sodium Chloride 110 ml @ 220 mls/hr Q8HR IVPB 06/09/18 22:00 06/14/18 21:59 06/10/18 13:26 Morphine Sulfate (Morphine Sulfate) 2 mg Q4H PRN IVP For Pain 06/04/18 12:00 06/11/18 11:59 06/09/18 23:49 Multivitamins Therapeutic (Therapeutic Multivitamin) 1 ea DAILY ORAL 06/03/18 09:00 07/03/18 08:59 06/10/18 09:09 Patient Own Medication (Patient's Own Med) 1 ea Q12HR ORAL 06/03/18 21:00 07/03/18 20:59 06/10/18 09:11 Vancomycin HCl (Vanco rx to dose) 1 ea DAILY PRN MISC Per rx protocol 06/07/18 20:45 07/07/18 20:44 Vancomycin HCl 1 gm/Dextrose 275 ml @ 183.708 mls/hr Q8HR IVPB 06/08/18 22:00 06/13/18 21:59 06/10/18 13:25 Vitamin D (Vitamin D) 2,000 intlu DAILY ORAL 06/03/18 09:00 07/03/18 08:59 06/10/18 09:10 Parveen Blanco MD Jun 10, 2018 13:55
[2018-06-10 16:00] VITALS: BP 95/62
[2018-06-10 20:00] VITALS: BP 147/63
--- NOTE | 2018-06-10 20:47 | Neurology Progress Note ---
Interim History Interim History Interim History Mr. Roblse feels well. He feels stronger generally. He has no pain at the PEG site. The PEG is functioning well. He denies any new neurologic symptoms. The generalized weakness persists. The sensations are still normal. He is still on IV antibiotics. Review of Systems Neuro Review of Systems Benign. Objective Physical Exam Last Vital Signs Date Time Temp Pulse Resp B/P (MAP) Pulse Ox O2 Delivery O2 Flow Rate FiO2 06/10/18 20:12 76 16 100 Mechanical Ventilator 40 06/10/18 16:00 97.7 95/62 (73) 06/08/18 16:29 15.0 Laboratory Tests Test 06/09/18 21:10 06/10/18 05:03 Vancomycin Level Trough 20.0 ug/mL (5.0-12.0) H White Blood Count 6.7 K/UL (4.8-10.8) # Red Blood Count 2.77 M/UL (4.70-6.10) L Hemoglobin 7.8 G/DL (14.2-18.0) L Hematocrit 23.6 % (42.0-52.0) L Mean Corpuscular Volume 85 FL (80-99) Mean Corpuscular Hemoglobin 28.3 PG (27.0-31.0) Mean Corpuscular Hemoglobin Concent 33.1 G/DL (32.0-36.0) Red Cell Distribution Width 14.9 % (11.6-14.8) H Platelet Count 245 K/UL (150-450) Mean Platelet Volume 7.2 FL (6.5-10.1) Neutrophils (%) (Auto) % (45.0-75.0) Lymphocytes (%) (Auto) % (20.0-45.0) Monocytes (%) (Auto) % (1.0-10.0) Eosinophils (%) (Auto) % (0.0-3.0) Basophils (%) (Auto) % (0.0-2.0) Sodium Level 138 MMOL/L (136-145) Potassium Level 3.8 MMOL/L (3.5-5.1) Chloride Level 107 MMOL/L (98-107) Carbon Dioxide Level 24 MMOL/L (21-32) Anion Gap 7 mmol/L (5-15) Blood Urea Nitrogen 7 mg/dL (7-18) Creatinine 0.6 MG/DL (0.55-1.30) Estimat Glomerular Filtration Rate > 60 mL/min (>60) Glucose Level 134 MG/DL (74-106) H Calcium Level 8.6 MG/DL (8.5-10.1) Neurologic Exam Objective PHYSICAL EXAMINATION: GENERAL: He is a well-developed, but lean and wasting gentleman, lying in bed, in no acute distress, connected to a ventilator through a tracheostomy. HEAD: Normocephalic and atraumatic. NECK: No neck rigidity was observed. He did have a tracheostomy in place. EENT: Benign. NEUROLOGICAL EXAMINATION: MENTAL STATUS EXAMINATION: He was awake and alert. He was oriented to person, place, and time. He was able to recall 3/3 words immediately after 1 minute and after 3 minutes. He was able to remember presidents, Trump through Jose senior with hints. His mathematical skills were good. His visuospatial function was preserved. SPEECH: He was able to mouth words well. LANGUAGE: He was able to comprehend, repeat, and express himself well. CRANIAL NERVE EXAMINATION: II: The visual maldonado were intact on confrontation testing. III, IV & : The external ocular movements were full and the pupils 3 mm in diameter, equal, round, regular, and reactive to light. V: He had normal facial sensations and the temporales, masseters, and pterygoids function normally. VII: He had normal facial expressions and no facial asymmetry. VIII: He was able to hear well bilaterally and had no nystagmus. IX: The palate moved symmetrically on phonation. X: His gag reflex was present. XI: The sternocleidomastoids and trapezii functioned normally. XII: The tongue was in the midline without any atrophy, but it did reveal fasciculations. MOTOR SYSTEM: The tone was normal in all four extremities except for decreased tone in the ankles more so on the left than on the right. Examination of muscle mass revealed severe generalized muscle wasting involving the distal muscles more than the proximal muscles and the lower extremities more than the upper extremities. He had G 5/5 power in both upper extremities except for G 5-/5 power in the finger extensors. In the lower extremities, he had in the iliopsoas G 4+/5 on the right, G 4-/5 on the left. In the quadriceps, he had G 5-/5 on the right and G 4+/5 on the left. In the hamstrings, he had G 4+/5 on the right and G 4-/5 on the left. In the ankle dorsiflexors and toe extensors, he had G 3/5 on the right and G 0/ 5 on the left. In the ankle plantar flexors and toe flexors, he had G 4/5 on the right and G 1/ 5 on the left. SENSORY EXAMINATION: He had intact sensations to pinprick, light touch, and graphesthesia. COORDINATION: He performed well on [id number] testing. He was unable to perform [id number] testing. REFLEXES: 2++ and bilaterally symmetrical at the biceps, triceps, brachioradialis, and knees, 0 at both ankles. The plantar response was extensor on the right and mute on the left. STANCE & GAIT: Could not be tested. Impression/Recommendations Diagnostic Impression 1. Mr. Joseph Robles is a 58-year-old, right-handed, gentleman, who does have a prior history of hypertension and dyslipidemia, who approximately 4 years ago started to have weakness that started in his left foot with a left foot drop. Over the years, he has had increasing weakness in his lower extremities more than the upper extremities and on the left side more than the right associated with muscle wasting, muscle fasciculations, and then respiratory muscle failure as a result of which he has needed a tracheostomy. He has been worked up for the problem in the past and was found to have amyotrophic lateral sclerosis, for which he is on Rilutek. 2. He feels well. He feels stronger generally. He has no pain at the PEG site. The PEG is functioning well. He denies any new neurologic symptoms. The generalized weakness persists. The sensations are still normal. He is still on IV antibiotics. 3. His family was able to get me an evaluation performed by Dr. Vincenzo Santos at [facility] and in his opinion the patient had clinical criteria for ALS in July 2017. 4. On neurological examination at this time, he does demonstrate tongue fasciculations, decreased tone in the ankles more so on the left than the right , generalized muscle wasting involving the lower extremities more than the upper extremities, a quadriparesis involving the lower extremities more than the upper extremities, and the left side more than the right in the lower extremities, brisk deep tendon reflexes with loss of ankle jerks, an extensor plantar response on the right with a mute plantar response on the left, and frequent fasciculations in all four extremities. He however is stronger, especially in the upper extremities, since he was hospitalized. 5. The patient's history and neurological examination are in fact consistent with amyotrophic lateral sclerosis. 6. His gastrostomy is functioning well. Recommendations 1. Rilutek should be continued. 2. In the near future, edaravone therapy should be considered. 3. The patient's family was told to try and retrieve his nerve conduction study , electromyography, and MRI scan reports so that I can review them. 4. Frequent ROM exercises. 5. PT/OT to mobilize. Richard Alcantara M.D., M.S.P.H. Richard Alcantara MD Jun 10, 2018 20:47
--- NOTE | 2018-06-10 23:16 | General Progress Note ---
Assessment/Plan Assessment/Plan # Acute on chronic anemia, anemia panel has been reviewed --> No evidence of bleeding --> cbc reviewed --> Transfuse PRBC if Hb < 7 # Protein calorie malnutrition --> s/p G-tube placement --> continue tube feeds # Status post tracheostomy, chronic respiratory failure --> continue vent management per Pulmonology, wean vent as tolerated and plan transfer to snf --> continue frequent suctioning # Motor neuron disease, ALS --> Continue supportive care --> Neurology following # Sepsis, suspected aspiration pneumonia versus HCAP --> improving --> cont wean vent as tolerated per pulm --> continue vancomycin and Zosyn --> ID following # Hypokalemia --> improved # Resp failure, acute on chronic --> vent --> trached Subjective ROS Limited/Unobtainable: Yes Allergies: Coded Allergies: No Known Allergies (Unverified , 06/02/18) Subjective 1/2 Pt is seen in the room, resting in bed. /trach/vent/ g tube and respiratory failure.cbc reviewed. no events /3: Pt is resting in bed, remains on vent , cbc reviewed, no events reported. Objective Last 24 Hour Vital Signs Date Time Temp Pulse Resp B/P (MAP) Pulse Ox O2 Delivery O2 Flow Rate FiO2 06/10/18 20:57 75 16 40 06/10/18 20:12 76 16 100 Mechanical Ventilator 40 06/10/18 20:00 Mechanical Ventilator 06/10/18 20:00 70 06/10/18 20:00 98.8 74 16 147/63 (91) 100 06/10/18 20:00 40 06/10/18 19:55 69 16 100 Mechanical Ventilator 40 06/10/18 19:55 69 16 40 06/10/18 17:37 78 16 40 06/10/18 16:00 40 06/10/18 16:00 97.7 74 16 95/62 (73) 100 06/10/18 16:00 Mechanical Ventilator 06/10/18 15:24 68 06/10/18 15:21 75 16 40 06/10/18 13:12 69 16 100 Mechanical Ventilator 40 06/10/18 13:12 69 16 100 Mechanical Ventilator 40 06/10/18 12:56 71 16 100 Mechanical Ventilator 40 06/10/18 12:56 71 16 100 Mechanical Ventilator 40 06/10/18 12:54 71 16 40 06/10/18 12:00 97.9 84 18 107/66 (80) 98 06/10/18 12:00 40 06/10/18 12:00 Mechanical Ventilator 06/10/18 11:53 72 16 40 06/10/18 11:52 76 06/10/18 10:15 78 22 06/10/18 09:25 61 16 40 06/10/18 09:00 102/62 06/10/18 09:00 77 102/62 06/10/18 08:00 40 06/10/18 08:00 Mechanical Ventilator 06/10/18 08:00 97.9 77 16 102/62 (75) 100 06/10/18 07:48 61 06/10/18 07:15 57 16 100 Mechanical Ventilator 40 06/10/18 07:15 57 16 100 Mechanical Ventilator 40 06/10/18 06:55 69 16 100 Mechanical Ventilator 40 06/10/18 06:55 69 16 100 Mechanical Ventilator 40 06/10/18 06:54 57 16 40 06/10/18 05:28 67 16 40 06/10/18 04:00 65 06/10/18 04:00 Mechanical Ventilator 06/10/18 04:00 40 06/10/18 04:00 97.7 69 16 101/60 (74) 100 06/10/18 03:00 61 16 40 06/10/18 02:04 70 16 100 Mechanical Ventilator 40 06/10/18 01:26 63 16 100 Mechanical Ventilator 40 06/10/18 01:24 63 16 40 06/10/18 00:00 Mechanical Ventilator 06/10/18 00:00 98.3 67 17 108/67 (81) 100 06/10/18 00:00 40 06/10/18 00:00 70 06/09/18 23:31 93 17 40 Intake and Output 06/09/18 06/10/18 19:00 07:00 Intake Total 2781.124 ml 1723.333 ml Output Total 1901 ml 2150 ml Balance 880.124 ml -426.667 ml Free Water 300 ml 200 ml IV Total 1761.124 ml 803.333 ml Tube Feeding 720 ml 720 ml Output Urine Total 1900 ml 2150 ml Stool Total 1 ml # Voids 3 # Bowel Movements 1 Laboratory Tests 06/10/18 05:03: White Blood Count 6.7#, Red Blood Count 2.77L, Hemoglobin 7.8L, Hematocrit 23.6L , Mean Corpuscular Volume 85, Mean Corpuscular Hemoglobin 28.3, Mean Corpuscular Hemoglobin Concent 33.1, Red Cell Distribution Width 14.9H, Platelet Count 245, Mean Platelet Volume 7.2, Neutrophils (%) (Auto) , Lymphocytes (%) (Auto) , Monocytes (%) (Auto) , Eosinophils (%) (Auto) , Basophils (%) (Auto) , Sodium Level 138, Potassium Level 3.8, Chloride Level 107 , Carbon Dioxide Level 24, Anion Gap 7, Blood Urea Nitrogen 7, Creatinine 0.6, Estimat Glomerular Filtration Rate > 60, Glucose Level 134H, Calcium Level 8.6 Height (Feet): 5 Height (Inches): 4.00 Weight (Pounds): 114 Objective PE: Sp02 EP Interpretation: reviewed, normal General Appearance: well appearing, no apparent distress Head: normocephalic, atraumatic Eyes: bilateral eye PERRL, bilateral eye EOMI ENT: hearing grossly normal, normal pharynx- Tracheostomy in place Neck: full range of motion, supple, no meningismus, no bony tend Respiratory: lungs clear, normal breath sounds Cardiovascular #1: normal peripheral pulses Gastrointestinal: normal bowel sounds Genitourinary: no CVA tenderness Musculoskeletal: other - Chronically debilitated Neurologic: oriented x3, responsive Psychiatric: mood/affect normal Skin: normal color, no rash, warm/dry Lymphatic: normal inspection, no adenopathy Mike Piper MD Jun 10, 2018 23:16
[2018-06-11] VITALS: BP 101/65
[2018-06-11] MEDS: Albuterol/Ipratropium 3ml neb HHN SCH ×4 (01:07→19:24)
[2018-06-11] MEDS: Morphine Sulfate 4mg/ml Inj (IV/IM USE ONLY) IVP PRN (01:36)
[2018-06-11 04:00] VITALS: BP 108/70
[2018-06-11] MEDS: Vancomycin 1gm/D5W 275ml IVPB SCH ×4 (04:49→14:03)
[2018-06-11] MEDS: Meropenem 1 GM in NS 110 ML IVPB SCH ×3 (04:50→22:09)
[2018-06-11] MEDS: D5NS 1,000 ML IV SCH ×2 (04:51→16:10)
[2018-06-11 06:40] LABS: HEMATOCRIT 23.3 % (42.0-52.0); HEMOGLOBIN 7.8 G/DL (14.2-18.0); MEAN CORPUSCULAR VOLUME 85 FL (80-99); PLATELET COUNT 301 K/UL (150-450); RED BLOOD COUNT 2.75 M/UL (4.70-6.10); RED CELL DISTRIBUTION WIDTH 14.7 % (11.6-14.8); WHITE BLOOD COUNT 7.8 K/UL (4.8-10.8)
[2018-06-11 07:33] LABS: ANION GAP 8 mmol/L (5-15); BLOOD UREA NITROGEN 7 mg/dL (7-18); CALCIUM 8.9 MG/DL (8.5-10.1); CARBON DIOXIDE 26 MMOL/L (21-32); CHLORIDE 106 MMOL/L (98-107); CREATININE 0.6 MG/DL (0.55-1.30); POTASSIUM 3.4 MMOL/L (3.5-5.1); SODIUM 140 MMOL/L (136-145)
[2018-06-11 08:00] VITALS: BP 93/57
--- NOTE | 2018-06-11 08:10 | General Progress Note ---
Assessment/Plan Problem List: (1) Protein calorie malnutrition ICD Codes: E46 - Unspecified protein-calorie malnutrition SNOMED: 048781773 (2) Status post tracheostomy ICD Codes: Z93.0 - Tracheostomy status SNOMED: 87983870, 863828263 (3) Motor neuron disease, unspecified ICD Codes: G12.20 - Motor neuron disease, unspecified SNOMED: 57021187 (4) Leukocytosis ICD Codes: D72.829 - Elevated white blood cell count, unspecified SNOMED: 189148698, 291625883 Qualifiers: Qualified Codes: D72.829 - Elevated white blood cell count, unspecified (5) Essential hypertension ICD Codes: I10 - Essential (primary) hypertension SNOMED: 25961310 (6) HCAP (healthcare-associated pneumonia) ICD Codes: J18.9 - Pneumonia, unspecified organism SNOMED: 089787375 Status: stable Assessment/Plan (1) Protein calorie malnutrition s/p G-tube placement continue tube feeds (2) Status post tracheostomy, chronic respiratory failure continue vent management per Pulmonology, wean vent as tolerated and plan transfer to snf continue frequent suctioning (3) Motor neuron disease, ALS Continue supportive care Neurology following (4) Sepsis, suspected aspiration pneumonia versus HCAP improving, repeat bcx sent bc of fever cont wean vent as tolerated per pulm continue abd per ID , vanco/андрей ID following (5)Hypokalemia K 3.4 today, replenish today (6)Hypomagnesemia resolved (6)Acute on chronic anemia No evidence of bleeding Repeat CBC in AM Transfuse PRBC if Hb < 7 (7)acute on chronic hypoxic respiratory failure vent Optimize pulmonary hygiene/mobilize as tolerated Continue ventilatory support/settings reviewed Titrate down FiO2 to keep SaO2 > 90% RTC and PRN HHN's + MUCOMYST HHN TID PRN suctioning appreciate pulm recs Abx per ID, F/U Cx's trached worsened by asp pna DVT Prophylaxis: SCD, HSQ Code Status: Full Hospital Classification Declaration: Based on this initial evaluation, and depending on the patient's clinical course, I anticipate that this patient will require hospitalization for 2-3 days for malnutrition, trached/needs peg eval and close respiratory/hemodynamic monitoring. Disposition: Once the patient is stable to leave the hospital, I anticipate the patient will likely be discharged to the following environment: home I spent over 45 minutes on this patient's case, and 35 minutes were dedicated to counseling and/or care coordination. Discussed with patient/family, nursing staff, IBNTA/MARIANNA, and consultants regarding clinical status, treatment course, and disposition planning. Time of note may not reflect time of encounter. ---- Date of Discussion: 06/03/18 A [id number] discussion with the patient's son regarding the patient's advanced care planning took place during this hospitalization on the above date. The discussion included the explanation and discussion of advance directives and associated forms/documents, as well as the patient's current code status. We also discussed at length the patient's medical conditions (both acute and chronic), general prognosis, treatment options, and goals of care. The following summarizes the discussion: Advance Care Planning/Goals of Care: - polst completed - Continue current evaluation and management of any acute and chronic medical issues - Will continue to support the patient/family - Will continue to discuss both short- and long-term goals of care DPOA-HC/Surrogate Decision Maker: , Randa Robles Code Status: Full Code AD Forms/Documents Completed: completed A total of 31 minutes was spent on this discussion, including counseling, answering questions, and completing, if any, pertinent advanced care planning forms/documents. Subjective Date patient seen: Jun 11, 2018 Time patient seen: 08:06 Allergies: Coded Allergies: No Known Allergies (Unverified , 06/02/18) Subjective f/u malnutrition, sepsis, resp failure, trach on vent, peg stable cont abx pulm attempting to wean vent... still on vent concerns for asp pna denies any complaints abx per id patient responsive, denies any complaints ROS: 14 point ROS reviewed and negative except per the above subjective Objective Last 24 Hour Vital Signs Date Time Temp Pulse Resp B/P (MAP) Pulse Ox O2 Delivery O2 Flow Rate FiO2 06/11/18 07:54 67 16 100 Mechanical Ventilator 35 06/11/18 07:45 61 16 100 Mechanical Ventilator 35 06/11/18 07:25 61 16 40 06/11/18 05:18 65 16 40 06/11/18 04:00 40 06/11/18 04:00 98.6 65 16 108/70 (83) 100 06/11/18 04:00 60 06/11/18 04:00 Mechanical Ventilator 06/11/18 02:53 65 16 40 06/11/18 01:16 68 16 100 Mechanical Ventilator 40 06/11/18 01:09 71 16 100 Mechanical Ventilator 40 06/11/18 01:07 71 16 40 06/11/18 00:00 98.7 74 16 101/65 (77) 100 06/11/18 00:00 Mechanical Ventilator 06/10/18 23:11 68 16 40 06/10/18 20:57 75 16 40 06/10/18 20:12 76 16 100 Mechanical Ventilator 40 06/10/18 20:00 Mechanical Ventilator 06/10/18 20:00 70 06/10/18 20:00 98.8 74 16 147/63 (91) 100 06/10/18 20:00 40 06/10/18 19:55 69 16 100 Mechanical Ventilator 40 06/10/18 19:55 69 16 40 06/10/18 17:37 78 16 40 06/10/18 16:00 40 06/10/18 16:00 97.7 74 16 95/62 (73) 100 06/10/18 16:00 Mechanical Ventilator 06/10/18 15:24 68 06/10/18 15:21 75 16 40 06/10/18 13:12 69 16 100 Mechanical Ventilator 40 06/10/18 13:12 69 16 100 Mechanical Ventilator 40 06/10/18 12:56 71 16 100 Mechanical Ventilator 40 06/10/18 12:56 71 16 100 Mechanical Ventilator 40 06/10/18 12:54 71 16 40 06/10/18 12:00 97.9 84 18 107/66 (80) 98 06/10/18 12:00 40 06/10/18 12:00 Mechanical Ventilator 06/10/18 11:53 72 16 40 06/10/18 11:52 76 06/10/18 10:15 78 22 06/10/18 09:25 61 16 40 06/10/18 09:00 102/62 06/10/18 09:00 77 102/62 Intake and Output 06/10/18 06/11/18 19:00 07:00 Intake Total 1920 ml 2158.333 ml Output Total 2560 ml Balance -640 ml 2158.333 ml Free Water 100 ml 100 ml IV Total 1100 ml 1358.333 ml Tube Feeding 720 ml 660 ml Other 40 ml Output Urine Total 2560 ml # Bowel Movements 1 Laboratory Tests 06/11/18 04:58: White Blood Count 7.8, Red Blood Count 2.75L, Hemoglobin 7.8L, Hematocrit 23.3L , Mean Corpuscular Volume 85, Mean Corpuscular Hemoglobin 28.2, Mean Corpuscular Hemoglobin Concent 33.3, Red Cell Distribution Width 14.7, Platelet Count 301, Mean Platelet Volume 6.9, Neutrophils (%) (Auto) , Lymphocytes (%) ( Auto) , Monocytes (%) (Auto) , Eosinophils (%) (Auto) , Basophils (%) (Auto) , Neutrophils % (Manual) [Pending], Lymphocytes % (Manual) [Pending], Platelet Estimate [Pending], Platelet Morphology [Pending], Sodium Level 140, Potassium Level 3.4L, Chloride Level 106, Carbon Dioxide Level 26, Anion Gap 8, Blood Urea Nitrogen 7, Creatinine 0.6, Estimat Glomerular Filtration Rate > 60, Glucose Level 116H, Calcium Level 8.9 Height (Feet): 5 Height (Inches): 4.00 Weight (Pounds): 114 Objective General Appearance: WD/WN, no apparent distress, alert Lines, tubes and drains: peripheral HEENT: normocephalic, atraumatic Neck: non-tender, normal alignment, supple, normal inspection, trach Cardiovascular/Chest: normal peripheral pulses, normal rate, regular rhythm Abdomen: normal bowel sounds, non tender, soft, no organomegaly, no mass, PEG in place, clean site Extremities: normal range of motion, non-tender, normal inspection, no calf tenderness Skin Exam: normal pigmentation, warm/dry Neurologic: high pressure operator II-XII grossly normal, alert, oriented x 3, responsive, normal mood/affect Beth Aburto MD Jun 11, 2018 08:09
[2018-06-11] MEDS: Lisinopril 10mg tab ORAL SCH (09:00)
[2018-06-11] MEDS: Multivitamin w/Minerals tab ORAL SCH (09:23)
[2018-06-11] MEDS: Docusate 100mg cap ORAL SCH ×2 (09:23→17:30)
[2018-06-11] MEDS: Vitamin D 1000 IU Tab ORAL SCH (09:23)
[2018-06-11] MEDS: Heparin 5000 units/ml inj SUBQ SCH ×2 (10:46→21:06)
[2018-06-11 12:00] VITALS: BP 124/65
--- NOTE | 2018-06-11 12:21 | GI Progress Note ---
Assessment/Plan Problems: (1) Protein calorie malnutrition ICD Codes: E46 - Unspecified protein-calorie malnutrition SNOMED: 910751496 (2) Dehydration ICD Codes: E86.0 - Dehydration SNOMED: 91399969 (3) Encounter for PEG (percutaneous endoscopic gastrostomy) ICD Codes: Z43.1 - Encounter for attention to gastrostomy SNOMED: 233429252, 531702799 (4) S/P percutaneous endoscopic gastrostomy (PEG) tube placement ICD Codes: Z93.1 - Gastrostomy status SNOMED: 651302684 (5) Status post tracheostomy ICD Codes: Z93.0 - Tracheostomy status SNOMED: 14574274, 281393973 Status: stable Status Narrative Discussed with Dr. Lainez Assessment/Plan Assessment - s/p PEG for dysphagia - ALS - Resp failure - Anemia Recommendations - continue TF - site care - vent - follow labs - PRN RBC transfusion Subjective Subjective Limited Objective Last 24 Hour Vital Signs Date Time Temp Pulse Resp B/P (MAP) Pulse Ox O2 Delivery O2 Flow Rate FiO2 06/11/18 11:05 70 16 35 06/11/18 09:00 93/57 06/11/18 09:00 79 93/57 06/11/18 08:51 79 16 40 06/11/18 08:00 98.5 82 16 93/57 (69) 100 06/11/18 07:54 67 16 100 Mechanical Ventilator 35 06/11/18 07:45 61 16 100 Mechanical Ventilator 35 06/11/18 07:25 61 16 40 06/11/18 05:18 65 16 40 06/11/18 04:00 40 06/11/18 04:00 98.6 65 16 108/70 (83) 100 06/11/18 04:00 60 06/11/18 04:00 Mechanical Ventilator 06/11/18 02:53 65 16 40 06/11/18 01:16 68 16 100 Mechanical Ventilator 40 06/11/18 01:09 71 16 100 Mechanical Ventilator 40 06/11/18 01:07 71 16 40 06/11/18 00:00 98.7 74 16 101/65 (77) 100 06/11/18 00:00 Mechanical Ventilator 06/10/18 23:11 68 16 40 06/10/18 20:57 75 16 40 06/10/18 20:12 76 16 100 Mechanical Ventilator 40 06/10/18 20:00 Mechanical Ventilator 06/10/18 20:00 70 06/10/18 20:00 98.8 74 16 147/63 (91) 100 06/10/18 20:00 40 06/10/18 19:55 69 16 100 Mechanical Ventilator 40 06/10/18 19:55 69 16 40 06/10/18 17:37 78 16 40 06/10/18 16:00 40 06/10/18 16:00 97.7 74 16 95/62 (73) 100 06/10/18 16:00 Mechanical Ventilator 06/10/18 15:24 68 06/10/18 15:21 75 16 40 06/10/18 13:12 69 16 100 Mechanical Ventilator 40 06/10/18 13:12 69 16 100 Mechanical Ventilator 40 06/10/18 12:56 71 16 100 Mechanical Ventilator 40 06/10/18 12:56 71 16 100 Mechanical Ventilator 40 06/10/18 12:54 71 16 40 Intake and Output 06/10/18 06/11/18 19:00 07:00 Intake Total 1920 ml 2218.333 ml Output Total 2560 ml 300 ml Balance -640 ml 1918.333 ml Free Water 100 ml 100 ml IV Total 1100 ml 1358.333 ml Tube Feeding 720 ml 720 ml Other 40 ml Output Urine Total 2560 ml 300 ml # Bowel Movements 1 Laboratory Tests Test 06/11/18 04:58 White Blood Count 7.8 K/UL (4.8-10.8) Red Blood Count 2.75 M/UL (4.70-6.10) L Hemoglobin 7.8 G/DL (14.2-18.0) L Hematocrit 23.3 % (42.0-52.0) L Mean Corpuscular Volume 85 FL (80-99) Mean Corpuscular Hemoglobin 28.2 PG (27.0-31.0) Mean Corpuscular Hemoglobin Concent 33.3 G/DL (32.0-36.0) Red Cell Distribution Width 14.7 % (11.6-14.8) Platelet Count 301 K/UL (150-450) Mean Platelet Volume 6.9 FL (6.5-10.1) Neutrophils (%) (Auto) % (45.0-75.0) Lymphocytes (%) (Auto) % (20.0-45.0) Monocytes (%) (Auto) % (1.0-10.0) Eosinophils (%) (Auto) % (0.0-3.0) Basophils (%) (Auto) % (0.0-2.0) Differential Total Cells Counted 100 Neutrophils % (Manual) 49 % (45-75) Lymphocytes % (Manual) 26 % (20-45) Monocytes % (Manual) 11 % (1-10) H Eosinophils % (Manual) 10 % (0-3) H Basophils % (Manual) 0 % (0-2) Myelocytes % 1 % (0-0) H Band Neutrophils 3 % (0-8) Platelet Estimate Adequate Platelet Morphology Normal Anisocytosis 1+ Sodium Level 140 MMOL/L (136-145) Potassium Level 3.4 MMOL/L (3.5-5.1) L Chloride Level 106 MMOL/L (98-107) Carbon Dioxide Level 26 MMOL/L (21-32) Anion Gap 8 mmol/L (5-15) Blood Urea Nitrogen 7 mg/dL (7-18) Creatinine 0.6 MG/DL (0.55-1.30) Estimat Glomerular Filtration Rate > 60 mL/min (>60) Glucose Level 116 MG/DL (74-106) H Calcium Level 8.9 MG/DL (8.5-10.1) Height (Feet): 5 Height (Inches): 4.00 Weight (Pounds): 114 General Appearance: no apparent distress Cardiovascular: normal rate Respiratory/Chest: normal breath sounds, no respiratory distress Abdominal Exam: normal bowel sounds, non tender, soft, GT site - Clean dry and intact Extremities: non-tender Yajaira Ocampo NP Jun 11, 2018 12:21
[2018-06-11] MEDS ORDERED: NS 275ml ONE (14:57)
[2018-06-11] MEDS ORDERED: D5NS 1000ml IV ONE ×2 (14:57→20:17)
[2018-06-11] MEDS ORDERED: Tubing IV Secondary IV ONE (14:57)
[2018-06-11] MEDS ORDERED: Sterile Water Irrig 1000ml IRRIG ONE (14:57)
--- NOTE | 2018-06-11 15:44 | Neurology Progress Note ---
Interim History Interim History Interim History Mr. Robles feels well. He feels stronger generally. He has no pain at the PEG site. The PEG is functioning well. He denies any new neurologic symptoms. The generalized weakness persists. The sensations are still normal. He is still on IV antibiotics. Review of Systems Neuro Review of Systems Benign. Objective Physical Exam Last Vital Signs Date Time Temp Pulse Resp B/P (MAP) Pulse Ox O2 Delivery O2 Flow Rate FiO2 06/11/18 13:29 Mechanical Ventilator 35 06/11/18 13:29 74 16 06/11/18 12:00 97.9 124/65 (84) 100 06/08/18 16:29 15.0 Laboratory Tests Test 06/11/18 04:58 White Blood Count 7.8 K/UL (4.8-10.8) Red Blood Count 2.75 M/UL (4.70-6.10) L Hemoglobin 7.8 G/DL (14.2-18.0) L Hematocrit 23.3 % (42.0-52.0) L Mean Corpuscular Volume 85 FL (80-99) Mean Corpuscular Hemoglobin 28.2 PG (27.0-31.0) Mean Corpuscular Hemoglobin Concent 33.3 G/DL (32.0-36.0) Red Cell Distribution Width 14.7 % (11.6-14.8) Platelet Count 301 K/UL (150-450) Mean Platelet Volume 6.9 FL (6.5-10.1) Neutrophils (%) (Auto) % (45.0-75.0) Lymphocytes (%) (Auto) % (20.0-45.0) Monocytes (%) (Auto) % (1.0-10.0) Eosinophils (%) (Auto) % (0.0-3.0) Basophils (%) (Auto) % (0.0-2.0) Differential Total Cells Counted 100 Neutrophils % (Manual) 49 % (45-75) Lymphocytes % (Manual) 26 % (20-45) Monocytes % (Manual) 11 % (1-10) H Eosinophils % (Manual) 10 % (0-3) H Basophils % (Manual) 0 % (0-2) Myelocytes % 1 % (0-0) H Band Neutrophils 3 % (0-8) Platelet Estimate Adequate Platelet Morphology Normal Anisocytosis 1+ Sodium Level 140 MMOL/L (136-145) Potassium Level 3.4 MMOL/L (3.5-5.1) L Chloride Level 106 MMOL/L (98-107) Carbon Dioxide Level 26 MMOL/L (21-32) Anion Gap 8 mmol/L (5-15) Blood Urea Nitrogen 7 mg/dL (7-18) Creatinine 0.6 MG/DL (0.55-1.30) Estimat Glomerular Filtration Rate > 60 mL/min (>60) Glucose Level 116 MG/DL (74-106) H Calcium Level 8.9 MG/DL (8.5-10.1) Neurologic Exam Objective PHYSICAL EXAMINATION: GENERAL: He is a well-developed, but lean and wasting gentleman, lying in bed, in no acute distress, connected to a ventilator through a tracheostomy. HEAD: Normocephalic and atraumatic. NECK: No neck rigidity was observed. He did have a tracheostomy in place. EENT: Benign. NEUROLOGICAL EXAMINATION: MENTAL STATUS EXAMINATION: He was awake and alert. He was oriented to person, place, and time. He was able to recall 3/3 words immediately after 1 minute and after 3 minutes. He was able to remember presidents, Trump through Jose senior with hints. His mathematical skills were good. His visuospatial function was preserved. SPEECH: He was able to mouth words well. LANGUAGE: He was able to comprehend, repeat, and express himself well. CRANIAL NERVE EXAMINATION: II: The visual maldonado were intact on confrontation testing. III, IV & : The external ocular movements were full and the pupils 3 mm in diameter, equal, round, regular, and reactive to light. V: He had normal facial sensations and the temporales, masseters, and pterygoids function normally. VII: He had normal facial expressions and no facial asymmetry. VIII: He was able to hear well bilaterally and had no nystagmus. IX: The palate moved symmetrically on phonation. X: His gag reflex was present. XI: The sternocleidomastoids and trapezii functioned normally. XII: The tongue was in the midline without any atrophy, but it did reveal fasciculations. MOTOR SYSTEM: The tone was normal in all four extremities except for decreased tone in the ankles more so on the left than on the right. Examination of muscle mass revealed severe generalized muscle wasting involving the distal muscles more than the proximal muscles and the lower extremities more than the upper extremities. He had G 5/5 power in both upper extremities except for G 5-/5 power in the finger extensors. In the lower extremities, he had in the iliopsoas G 4++/5 on the right, G 4/5 on the left. In the quadriceps, he had G 5-/5 on the right and G 4+/5 on the left. In the hamstrings, he had G 4+/5 on the right and G 4-/5 on the left. In the ankle dorsiflexors and toe extensors, he had G 3/5 on the right and G 0/ 5 on the left. In the ankle plantar flexors and toe flexors, he had G 4/5 on the right and G 1/ 5 on the left. SENSORY EXAMINATION: He had intact sensations to pinprick, light touch, and graphesthesia. COORDINATION: He performed well on [id number] testing. He was unable to perform [id number] testing. REFLEXES: 2++ and bilaterally symmetrical at the biceps, triceps, brachioradialis, and knees, 0 at both ankles. The plantar response was extensor on the right and mute on the left. STANCE & GAIT: Could not be tested. Impression/Recommendations Diagnostic Impression 1. Mr. Joseph Robles is a 58-year-old, right-handed, gentleman, who does have a prior history of hypertension and dyslipidemia, who approximately 4 years ago started to have weakness that started in his left foot with a left foot drop. Over the years, he has had increasing weakness in his lower extremities more than the upper extremities and on the left side more than the right associated with muscle wasting, muscle fasciculations, and then respiratory muscle failure as a result of which he has needed a tracheostomy. He has been worked up for the problem in the past and was found to have amyotrophic lateral sclerosis, for which he is on Rilutek. 2. He feels well. He feels stronger generally. He has no pain at the PEG site. The PEG is functioning well. He denies any new neurologic symptoms. The generalized weakness persists. The sensations are still normal. He is still on IV antibiotics. 3. His family was able to get me an evaluation performed by Dr. Vincenzo Santos at [facility] and in his opinion the patient had clinical criteria for ALS in July 2017. 4. On neurological examination at this time, he does demonstrate tongue fasciculations, decreased tone in the ankles more so on the left than the right , generalized muscle wasting involving the lower extremities more than the upper extremities, a quadriparesis involving the lower extremities more than the upper extremities, and the left side more than the right in the lower extremities, brisk deep tendon reflexes with loss of ankle jerks, an extensor plantar response on the right with a mute plantar response on the left, and frequent fasciculations in all four extremities. He however is stronger, especially in the upper extremities, since he was hospitalized. 5. The patient's history and neurological examination are in fact consistent with amyotrophic lateral sclerosis. 6. His gastrostomy is functioning well. Recommendations 1. Rilutek should be continued. 2. In the near future, edaravone therapy should be considered. 3. The patient's family was told to try and retrieve his nerve conduction study , electromyography, and MRI scan reports so that I can review them. 4. Frequent ROM exercises. 5. PT/OT to mobilize. 6. Consider small amounts of oral feeding for oral gratification if safe from pulmonary point of view. Richard Alcantara M.D., M.S.P.H. Richard Alcantara MD Jun 11, 2018 15:43
[2018-06-11 16:00] VITALS: BP 92/43
--- NOTE | 2018-06-11 16:32 | Infectious Diseases Prog Note ---
Assessment/Plan Assessment/Plan ASSESSMENT AND PLAN: 1. serratia pna, acinetobacter pna, sepsis, leukocytosis, ALS, trach, vent, g- tube, fevers yesterday - meropenem x 5 days - bactrim down g-tube x 7 days - urine culture with yeast is likely colonizer - blood cultures - negative - monitor labs and chest x-ray - stable from ID standpoint - d/w pharmacy 2. The patient has trach/vent and respiratory failure. 3. Dysphagia, possible malnutrition, needed gastrostomy tube. 4. The patient has history of amyotrophic lateral sclerosis. 5. Possible hyperlipidemia. 6. Discussed with Neurology. Neurology will follow. 7. Hypertension. Treatment per primary team. 8. Anemia. 9. Weakness secondary to presumptive amyotrophic lateral sclerosis. 10. No history of diabetes or hypertension. 11. No known allergies. 12. Social history negative. 13. Family history noncontributory. 14. MAR was noted. 15. Case discussed with RN. 16. Continue treatment per primary consultants. 17. Case discussed with the patient and the patient's family. 18. vre colonization and isolation Subjective Constitutional: Reports: other - trach and vent ; Denies: fever HEENT: Reports: congestion Respiratory: Reports: shortness of breath Cardiovascular: Denies: chest pain Gastrointestinal/Abdominal: Denies: nausea, vomiting, diarrhea Genitourinary: Reports: other - no loera Psychiatric: Denies: depression Skin: Denies: rash Hematologic: Denies: bleeding Musculoskeletal: Denies: pain Allergies: Coded Allergies: No Known Allergies (Unverified , 06/02/18) Objective Vital Signs Last 24 Hour Vital Signs Date Time Temp Pulse Resp B/P (MAP) Pulse Ox O2 Delivery O2 Flow Rate FiO2 06/11/18 15:30 73 16 35 06/11/18 13:29 Mechanical Ventilator 35 06/11/18 13:29 74 16 35 06/11/18 13:29 Mechanical Ventilator 35 06/11/18 12:00 97.9 70 16 124/65 (84) 100 06/11/18 12:00 74 06/11/18 11:05 70 16 35 06/11/18 09:00 93/57 06/11/18 09:00 79 93/57 06/11/18 08:51 79 16 40 06/11/18 08:00 98.5 82 16 93/57 (69) 100 06/11/18 07:54 67 16 100 Mechanical Ventilator 35 06/11/18 07:45 61 16 100 Mechanical Ventilator 35 06/11/18 07:39 64 06/11/18 07:25 61 16 40 06/11/18 05:18 65 16 40 06/11/18 04:00 40 06/11/18 04:00 98.6 65 16 108/70 (83) 100 06/11/18 04:00 60 06/11/18 04:00 Mechanical Ventilator 06/11/18 02:53 65 16 40 06/11/18 01:16 68 16 100 Mechanical Ventilator 40 06/11/18 01:09 71 16 100 Mechanical Ventilator 40 06/11/18 01:07 71 16 40 06/11/18 00:00 98.7 74 16 101/65 (77) 100 06/11/18 00:00 Mechanical Ventilator 06/10/18 23:11 68 16 40 06/10/18 20:57 75 16 40 06/10/18 20:12 76 16 100 Mechanical Ventilator 40 06/10/18 20:00 Mechanical Ventilator 06/10/18 20:00 70 06/10/18 20:00 98.8 74 16 147/63 (91) 100 06/10/18 20:00 40 06/10/18 19:55 69 16 100 Mechanical Ventilator 40 06/10/18 19:55 69 16 40 06/10/18 17:37 78 16 40 Height (Feet): 5 Height (Inches): 4.00 Weight (Pounds): 114 General Appearance: no acute distress, other - nad on vent HEENT: normocephalic, atraumatic, anicteric, mucous membranes moist Respiratory/Chest: crackles/rales, rhonchi - bilaterally Cardiovascular: normal rate, regular rhythm, no gallop/murmur, no JVD Abdomen: normal bowel sounds, soft, non tender, no organomegaly, non distended Genitourinary: other - no loera Extremities: no cyanosis Skin: no rash Neurologic/Psychiatric: thread separator II-XII grossly normal, alert, oriented x 3, motor weakness Lymphatic: no neck adenopathy Musculoskeletal: no effusion Objective CT abdomen/pelvis/chest: IMPRESSION: CT CHEST: * Tracheostomy tube in place. * Complete atelectasis of the left lower lobe with some mucous/debris in the left lower lobe bronchus. Consider bronchoscopy as clinically indicated. Mass or pneumonia in the collapsed lung not excludable. * Patchy and somewhat nodular airspace opacities in the posterior left upper lobe and posterior right lower lobe as well as some tree-in-bud opacities in the periphery of the left upper lobe likely infectious or inflammatory in etiology. Follow-up after appropriate treatment recommended to ensure resolution. CT ABDOMEN/PELVIS: * Cholelithiasis. No CT evidence to suggest acute cholecystitis. * Bladder wall thickening. Correlation with urinalysis recommended to exclude cystitis. * Enlarged and heterogeneous prostate. * Moderate colonic stool burden raising question for constipation. Chest x-ray - 06/05/18: FINDINGS: Lungs: Bibasilar infiltrates, left greater than right. Pleural space: Unremarkable. No pneumothorax. Heart: Unremarkable. No cardiomegaly. Mediastinum: Unremarkable. Bones/joints: No acute fracture. Tubes, lines and devices: Tracheostomy. IMPRESSION: Bibasilar infiltrates, left greater than right. 06/09/18 - chest x-ray - Comparison: 06/06/2018 A single view chest radiograph was obtained. Findings: Basilar infiltrates again demonstrated. Heart size is stable. Tracheostomy noted. IMPRESSION: No change Microbiology Date/Time Source Procedure Growth Status 06/07/18 21:10 Blood Blood Culture - Preliminary NO GROWTH AFTER 72 HOURS Resulted 06/07/18 21:00 Sputum Induced Gram Stain - Final Complete 06/07/18 21:00 Sputum Culture - Final Serratia Marcescens Usual Respiratory Radha Complete 06/07/18 22:18 Urine,Clean Catch Urine Culture - Final YEAST Complete 06/02/18 21:10 Rectum VRE Culture - Final Enterococcus Faecalis - Vre Complete 06/02/18 21:10 Rectum - Final NO CARBAPENEM-RESISTANT ENTEROBACTERI... Complete Laboratory Tests Test 06/11/18 04:58 White Blood Count 7.8 K/UL (4.8-10.8) Red Blood Count 2.75 M/UL (4.70-6.10) L Hemoglobin 7.8 G/DL (14.2-18.0) L Hematocrit 23.3 % (42.0-52.0) L Mean Corpuscular Volume 85 FL (80-99) Mean Corpuscular Hemoglobin 28.2 PG (27.0-31.0) Mean Corpuscular Hemoglobin Concent 33.3 G/DL (32.0-36.0) Red Cell Distribution Width 14.7 % (11.6-14.8) Platelet Count 301 K/UL (150-450) Mean Platelet Volume 6.9 FL (6.5-10.1) Neutrophils (%) (Auto) % (45.0-75.0) Lymphocytes (%) (Auto) % (20.0-45.0) Monocytes (%) (Auto) % (1.0-10.0) Eosinophils (%) (Auto) % (0.0-3.0) Basophils (%) (Auto) % (0.0-2.0) Differential Total Cells Counted 100 Neutrophils % (Manual) 49 % (45-75) Lymphocytes % (Manual) 26 % (20-45) Monocytes % (Manual) 11 % (1-10) H Eosinophils % (Manual) 10 % (0-3) H Basophils % (Manual) 0 % (0-2) Myelocytes % 1 % (0-0) H Band Neutrophils 3 % (0-8) Platelet Estimate Adequate Platelet Morphology Normal Anisocytosis 1+ Sodium Level 140 MMOL/L (136-145) Potassium Level 3.4 MMOL/L (3.5-5.1) L Chloride Level 106 MMOL/L (98-107) Carbon Dioxide Level 26 MMOL/L (21-32) Anion Gap 8 mmol/L (5-15) Blood Urea Nitrogen 7 mg/dL (7-18) Creatinine 0.6 MG/DL (0.55-1.30) Estimat Glomerular Filtration Rate > 60 mL/min (>60) Glucose Level 116 MG/DL (74-106) H Calcium Level 8.9 MG/DL (8.5-10.1) Current Medications Medications (Trade) Dose Ordered Sig/Irma Route PRN Reason Start Time Stop Time Status Last Admin Dose Admin Acetaminophen (Tylenol) 650 mg Q4H PRN GT Mild Pain/Temp > 100.5 06/07/18 21:00 07/07/18 20:59 06/08/18 17:26 Acetylcysteine (Mucomyst) 100 mg TIDRT HHN 06/04/18 19:00 07/04/18 18:59 06/11/18 07:46 Albuterol/ Ipratropium (Albuterol/ Ipratropium) 3 ml Q4H PRN HHN Shortness of Breath 06/08/18 15:06 06/13/18 15:05 06/09/18 07:02 Albuterol/ Ipratropium (Albuterol/ Ipratropium) 3 ml Q6HRT HHN 06/09/18 13:00 06/14/18 12:59 06/11/18 07:46 Amlodipine Besylate (Norvasc) 10 mg DAILY ORAL 06/03/18 09:00 07/03/18 08:59 06/04/18 08:51 Atorvastatin Calcium (Lipitor) 10 mg BEDTIME ORAL 06/02/18 22:30 07/02/18 22:29 06/10/18 20:16 Bisacodyl (Dulcolax) 10 mg DAILYPRN PRN RECTAL Constipation 06/03/18 06:41 07/03/18 06:40 Dextrose/Sodium Chloride 1,000 ml @ 100 mls/hr Q10H IV 06/02/18 22:00 07/02/18 21:59 06/11/18 16:10 Docusate Sodium (Colace) 100 mg BID ORAL 06/03/18 09:00 07/03/18 08:59 06/11/18 09:23 Heparin Sodium (Porcine) (Heparin 5000 units/ml) 5,000 units EVERY 12 HOURS SUBQ 06/03/18 09:00 07/03/18 08:59 06/11/18 10:46 Lansoprazole (Prevacid) 30 mg BID ORAL 06/03/18 09:00 07/03/18 08:59 06/11/18 10:46 Lisinopril (Zestril) 10 mg DAILY ORAL 06/03/18 09:00 07/03/18 08:59 06/04/18 08:51 Meropenem 1 gm/ Sodium Chloride 110 ml @ 220 mls/hr Q8HR IVPB 06/09/18 22:00 06/14/18 21:59 06/11/18 14:03 Multivitamins Therapeutic (Therapeutic Multivitamin) 1 ea DAILY ORAL 06/03/18 09:00 07/03/18 08:59 06/11/18 09:23 Patient Own Medication (Patient's Own Med) 1 ea Q12HR ORAL 06/03/18 21:00 07/03/18 20:59 06/11/18 09:30 Trimethoprim/ Sulfamethoxazole (Bactrim-DS) 2 tab TWICE A DAY ORAL 06/11/18 18:00 06/18/18 17:59 Vitamin D (Vitamin D) 2,000 intlu DAILY ORAL 06/03/18 09:00 07/03/18 08:59 06/11/18 09:23 Pratik Bowens MD Jun 11, 2018 16:32
[2018-06-11] MEDS: Bactrim-DS 1 tab ORAL SCH (17:30)
--- NOTE | 2018-06-11 17:31 | Pulmonology Progress Note ---
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, unspecified (13) Encounter for PEG (percutaneous endoscopic gastrostomy) (14) Nutrition impaired due to imbalance of nutrients (15) HCAP (healthcare-associated pneumonia) Assessment/Plan Optimize pulmonary hygiene/mobilize as tolerated Continue ventilatory support/settings reviewed Titrate down FiO2 to keep SaO2 > 90% RTC and PRN HHN's + MUCOMYST HHN TID PRN suctioning Abx per ID, F/U Cx's GTF's Monitor volumes F/U neuro recs, continue [employer] therapy, PMV trials FC, discuss GOC D/W RN and [employer] Subjective Allergies: Coded Allergies: No Known Allergies (Unverified , 06/02/18) Subjective Awake, comfortable on vent No sig secretions, no F/C Joseph TF Objective Last 24 Hour Vital Signs Date Time Temp Pulse Resp B/P (MAP) Pulse Ox O2 Delivery O2 Flow Rate FiO2 06/11/18 16:31 75 16 35 06/11/18 15:30 73 16 35 06/11/18 13:29 Mechanical Ventilator 35 06/11/18 13:29 74 16 35 06/11/18 13:29 Mechanical Ventilator 35 06/11/18 12:00 97.9 70 16 124/65 (84) 100 06/11/18 12:00 74 06/11/18 11:05 70 16 35 06/11/18 09:00 93/57 06/11/18 09:00 79 93/57 06/11/18 08:51 79 16 40 06/11/18 08:00 98.5 82 16 93/57 (69) 100 06/11/18 07:54 67 16 100 Mechanical Ventilator 35 06/11/18 07:45 61 16 100 Mechanical Ventilator 35 06/11/18 07:39 64 06/11/18 07:25 61 16 40 06/11/18 05:18 65 16 40 06/11/18 04:00 40 06/11/18 04:00 98.6 65 16 108/70 (83) 100 06/11/18 04:00 60 06/11/18 04:00 Mechanical Ventilator 06/11/18 02:53 65 16 40 06/11/18 01:16 68 16 100 Mechanical Ventilator 40 06/11/18 01:09 71 16 100 Mechanical Ventilator 40 06/11/18 01:07 71 16 40 06/11/18 00:00 98.7 74 16 101/65 (77) 100 06/11/18 00:00 Mechanical Ventilator 06/10/18 23:11 68 16 40 06/10/18 20:57 75 16 40 06/10/18 20:12 76 16 100 Mechanical Ventilator 40 06/10/18 20:00 Mechanical Ventilator 06/10/18 20:00 70 06/10/18 20:00 98.8 74 16 147/63 (91) 100 06/10/18 20:00 40 06/10/18 19:55 69 16 100 Mechanical Ventilator 40 06/10/18 19:55 69 16 40 06/10/18 17:37 78 16 40 Intake and Output 06/10/18 06/11/18 19:00 07:00 Intake Total 1920 ml 2218.333 ml Output Total 2560 ml 300 ml Balance -640 ml 1918.333 ml Free Water 100 ml 100 ml IV Total 1100 ml 1358.333 ml Tube Feeding 720 ml 720 ml Other 40 ml Output Urine Total 2560 ml 300 ml # Bowel Movements 1 General Appearance: WD/WN, no acute distress HEENT: normocephalic, atraumatic, anicteric, mucous membranes moist, status post trach Respiratory/Chest: chest wall non-tender, lungs clear, normal breath sounds, no respiratory distress, no accessory muscle use Cardiovascular: normal peripheral pulses, normal rate, regular rhythm, other Abdomen: normal bowel sounds, soft, non tender, no organomegaly, non distended , other - GT Extremities: no cyanosis, no clubbing, no edema Laboratory Tests 06/11/18 04:58: White Blood Count 7.8, Red Blood Count 2.75L, Hemoglobin 7.8L, Hematocrit 23.3L , Mean Corpuscular Volume 85, Mean Corpuscular Hemoglobin 28.2, Mean Corpuscular Hemoglobin Concent 33.3, Red Cell Distribution Width 14.7, Platelet Count 301, Mean Platelet Volume 6.9, Neutrophils (%) (Auto) , Lymphocytes (%) ( Auto) , Monocytes (%) (Auto) , Eosinophils (%) (Auto) , Basophils (%) (Auto) , Differential Total Cells Counted 100, Neutrophils % (Manual) 49, Lymphocytes % ( Manual) 26, Monocytes % (Manual) 11H, Eosinophils % (Manual) 10H, Basophils % ( Manual) 0, Myelocytes % 1H, Band Neutrophils 3, Platelet Estimate Adequate, Platelet Morphology Normal, Anisocytosis 1+, Sodium Level 140, Potassium Level 3.4L, Chloride Level 106, Carbon Dioxide Level 26, Anion Gap 8, Blood Urea Nitrogen 7, Creatinine 0.6, Estimat Glomerular Filtration Rate > 60, Glucose Level 116H, Calcium Level 8.9 Current Medications Medications (Trade) Dose Ordered Sig/Irma Route PRN Reason Start Time Stop Time Status Last Admin Dose Admin Acetaminophen (Tylenol) 650 mg Q4H PRN GT Mild Pain/Temp > 100.5 06/07/18 21:00 07/07/18 20:59 06/08/18 17:26 Acetylcysteine (Mucomyst) 100 mg TIDRT N 06/04/18 19:00 07/04/18 18:59 06/11/18 07:46 Albuterol/ Ipratropium (Albuterol/ Ipratropium) 3 ml Q4H PRN HHN Shortness of Breath 06/08/18 15:06 06/13/18 15:05 06/09/18 07:02 Albuterol/ Ipratropium (Albuterol/ Ipratropium) 3 ml Q6HRT N 06/09/18 13:00 06/14/18 12:59 06/11/18 07:46 Amlodipine Besylate (Norvasc) 10 mg DAILY ORAL 06/03/18 09:00 07/03/18 08:59 06/04/18 08:51 Atorvastatin Calcium (Lipitor) 10 mg BEDTIME ORAL 06/02/18 22:30 07/02/18 22:29 06/10/18 20:16 Bisacodyl (Dulcolax) 10 mg DAILYPRN PRN RECTAL Constipation 06/03/18 06:41 07/03/18 06:40 Dextrose/Sodium Chloride 1,000 ml @ 100 mls/hr Q10H IV 06/02/18 22:00 07/02/18 21:59 06/11/18 16:10 Docusate Sodium (Colace) 100 mg BID ORAL 06/03/18 09:00 07/03/18 08:59 06/11/18 09:23 Heparin Sodium (Porcine) (Heparin 5000 units/ml) 5,000 units EVERY 12 HOURS SUBQ 06/03/18 09:00 07/03/18 08:59 06/11/18 10:46 Lansoprazole (Prevacid) 30 mg BID ORAL 06/03/18 09:00 07/03/18 08:59 06/11/18 10:46 Lisinopril (Zestril) 10 mg DAILY ORAL 06/03/18 09:00 07/03/18 08:59 06/04/18 08:51 Meropenem 1 gm/ Sodium Chloride 110 ml @ 220 mls/hr Q8HR IVPB 06/09/18 22:00 06/14/18 21:59 06/11/18 14:03 Multivitamins Therapeutic (Therapeutic Multivitamin) 1 ea DAILY ORAL 06/03/18 09:00 07/03/18 08:59 06/11/18 09:23 Patient Own Medication (Patient's Own Med) 1 ea Q12HR ORAL 06/03/18 21:00 07/03/18 20:59 06/11/18 09:30 Trimethoprim/ Sulfamethoxazole (Bactrim-DS) 2 tab TWICE A DAY ORAL 06/11/18 18:00 06/18/18 17:59 Vitamin D (Vitamin D) 2,000 intlu DAILY ORAL 06/03/18 09:00 07/03/18 08:59 06/11/18 09:23 Parveen Blanco MD Jun 11, 2018 17:31
[2018-06-11 20:00] VITALS: BP 95/58
[2018-06-12] VITALS: BP 95/62
--- NOTE | 2018-06-12 00:51 | General Progress Note ---
Assessment/Plan Assessment/Plan # Acute on chronic anemia, anemia panel has been reviewed --> No evidence of bleeding --> cbc reviewed --> Transfuse PRBC if Hb < 7 # Protein calorie malnutrition --> s/p G-tube placement --> continue tube feeds # Status post tracheostomy, chronic respiratory failure --> continue vent management per Pulmonology -->wean vent as tolerated and plan transfer to snf --> continue frequent suctioning # Motor neuron disease, ALS --> Continue supportive care --> Neurology following # Sepsis, suspected aspiration pneumonia versus HCAP --> improving --> cont wean vent as tolerated per pulm --> continue vancomycin and Zosyn --> ID following # Hypokalemia --> improved # Resp failure, acute on chronic --> vent --> trached Subjective Constitutional: Denies: no symptoms, chills, diaphoresis, fever, malaise, weakness, other HEENT: Denies: no symptoms, eye pain, blurred vision, tearing, double vision, ear pain, ear discharge, nose pain, nose congestion, throat pain, throat swelling, mouth pain, mouth swelling, other Cardiovascular: Denies: no symptoms, chest pain, edema, irregular heart rate, lightheadedness, palpitations, syncope, other Respiratory: Denies: no symptoms, cough, orthopnea, shortness of breath, SOB with excertion, SOB at rest, sputum, stridor, wheezing, other Gastrointestinal/Abdominal: Denies: no symptoms, abdomen distended, abdominal pain, black stools, tarry stools, blood in stool, constipated, diarrhea, difficulty swallowing, nausea, poor appetite, poor fluid intake, rectal bleeding , vomiting, other Genitourinary: Denies: no symptoms, burning, discharge, frequency, flank pain, hematuria, incontinence, pain, urgency, other Allergies: Coded Allergies: No Known Allergies (Unverified , 06/02/18) Subjective 1/2 Pt is seen in the room, resting in bed. /trach/vent/ g tube and respiratory failure.cbc reviewed. no events 1/3: Pt is resting in bed, remains on vent , cbc reviewed, no events reported. 14: Pt is awake and resting in bed. Pt is on mechanical vent, in no acute distress. Family is at bedside Objective Last 24 Hour Vital Signs Date Time Temp Pulse Resp B/P (MAP) Pulse Ox O2 Delivery O2 Flow Rate FiO2 06/12/18 00:00 Mechanical Ventilator 06/12/18 00:00 97.4 82 16 95/62 (73) 95 06/12/18 00:00 68 06/12/18 00:00 40 06/11/18 23:05 72 16 35 06/11/18 20:48 76 16 35 06/11/18 20:00 98.4 67 16 95/58 (70) 100 06/11/18 20:00 Mechanical Ventilator 06/11/18 20:00 40 06/11/18 20:00 89 06/11/18 19:39 74 16 100 Mechanical Ventilator 35 06/11/18 19:24 67 16 100 Mechanical Ventilator 35 06/11/18 19:23 64 16 35 06/11/18 16:31 75 16 35 06/11/18 16:00 Mechanical Ventilator 06/11/18 16:00 40 06/11/18 16:00 71 06/11/18 16:00 98.1 70 16 92/43 (59) 100 06/11/18 15:30 73 16 35 06/11/18 13:29 Mechanical Ventilator 35 06/11/18 13:29 74 16 35 06/11/18 13:29 Mechanical Ventilator 35 06/11/18 12:00 Mechanical Ventilator 06/11/18 12:00 40 06/11/18 12:00 97.9 70 16 124/65 (84) 100 06/11/18 12:00 74 06/11/18 11:05 70 16 35 06/11/18 09:00 93/57 06/11/18 09:00 79 93/57 06/11/18 08:51 79 16 40 06/11/18 08:00 40 06/11/18 08:00 Mechanical Ventilator 06/11/18 08:00 98.5 82 16 93/57 (69) 100 06/11/18 07:54 67 16 100 Mechanical Ventilator 35 06/11/18 07:45 61 16 100 Mechanical Ventilator 35 06/11/18 07:39 64 06/11/18 07:25 61 16 40 06/11/18 05:18 65 16 40 06/11/18 04:00 40 06/11/18 04:00 98.6 65 16 108/70 (83) 100 06/11/18 04:00 60 06/11/18 04:00 Mechanical Ventilator 06/11/18 02:53 65 16 40 06/11/18 01:16 68 16 100 Mechanical Ventilator 40 06/11/18 01:09 71 16 100 Mechanical Ventilator 40 06/11/18 01:07 71 16 40 Intake and Output 06/11/18 06/12/18 18:59 06:59 Intake Total 2480 ml 1020 ml Output Total 2125 ml Balance 355 ml 1020 ml IV Total 1820 ml 660 ml Tube Feeding 660 ml 360 ml Output Urine Total 2125 ml Laboratory Tests 06/11/18 04:58: White Blood Count 7.8, Red Blood Count 2.75L, Hemoglobin 7.8L, Hematocrit 23.3L , Mean Corpuscular Volume 85, Mean Corpuscular Hemoglobin 28.2, Mean Corpuscular Hemoglobin Concent 33.3, Red Cell Distribution Width 14.7, Platelet Count 301, Mean Platelet Volume 6.9, Neutrophils (%) (Auto) , Lymphocytes (%) ( Auto) , Monocytes (%) (Auto) , Eosinophils (%) (Auto) , Basophils (%) (Auto) , Differential Total Cells Counted 100, Neutrophils % (Manual) 49, Lymphocytes % ( Manual) 26, Monocytes % (Manual) 11H, Eosinophils % (Manual) 10H, Basophils % ( Manual) 0, Myelocytes % 1H, Band Neutrophils 3, Platelet Estimate Adequate, Platelet Morphology Normal, Anisocytosis 1+, Sodium Level 140, Potassium Level 3.4L, Chloride Level 106, Carbon Dioxide Level 26, Anion Gap 8, Blood Urea Nitrogen 7, Creatinine 0.6, Estimat Glomerular Filtration Rate > 60, Glucose Level 116H, Calcium Level 8.9 Height (Feet): 5 Height (Inches): 4.00 Weight (Pounds): 114 Objective PE: [id number] EP Interpretation: reviewed, normal General Appearance: well appearing, no apparent distress Head: normocephalic, atraumatic Eyes: bilateral eye PERRL, bilateral eye EOMI ENT: hearing grossly normal, normal pharynx- Tracheostomy in place Neck: full range of motion, supple, no meningismus, no bony tend Respiratory: lungs clear, normal breath sounds Cardiovascular #1: normal peripheral pulses Gastrointestinal: normal bowel sounds Genitourinary: no CVA tenderness Musculoskeletal: other - Chronically debilitated Neurologic: oriented x3, responsive Psychiatric: mood/affect normal Skin: normal color, no rash, warm/dry Lymphatic: normal inspection, no adenopathy Mike Piper MD Jun 12, 2018 00:51
[2018-06-12] MEDS: Albuterol/Ipratropium 3ml neb HHN SCH ×4 (01:01→21:14)
[2018-06-12] MEDS: D5NS 1,000 ML IV SCH ×4 (01:29→23:50)
[2018-06-12 04:00] VITALS: BP 96/65
[2018-06-12] MEDS: Meropenem 1 GM in NS 110 ML IVPB SCH ×3 (05:21→21:03)
[2018-06-12 05:58] LABS: BASOPHILS % (AUTO) 0.8 % (0.0-2.0); EOSINOPHILS % (AUTO) 11.3 % (0.0-3.0); HEMATOCRIT 24.6 % (42.0-52.0); LYMPHOCYTES % (AUTO) 30.2 % (20.0-45.0); MEAN CORPUSCULAR VOLUME 86 FL (80-99); NEUTROPHILS % (AUTO) 51.6 % (45.0-75.0); PLATELET COUNT 317 K/UL (150-450); RED BLOOD COUNT 2.87 M/UL (4.70-6.10); WHITE BLOOD COUNT 8.3 K/UL (4.8-10.8)
[2018-06-12 06:09] LABS: ANION GAP 7 mmol/L (5-15); BLOOD UREA NITROGEN 8 mg/dL (7-18); CALCIUM 9.2 MG/DL (8.5-10.1); CARBON DIOXIDE 27 MMOL/L (21-32); CHLORIDE 106 MMOL/L (98-107); CREATININE 0.7 MG/DL (0.55-1.30); POTASSIUM 3.8 MMOL/L (3.5-5.1); SODIUM 140 MMOL/L (136-145)
[2018-06-12 08:00] VITALS: BP 104/62
[2018-06-12] MEDS: Docusate 100mg/10ml Liq NG SCH ×2 (08:53→18:00)
[2018-06-12] MEDS: Vitamin D 1000 IU Tab ORAL SCH (08:54)
[2018-06-12] MEDS: Bactrim-DS 1 tab ORAL SCH ×2 (08:54→17:54)
[2018-06-12] MEDS: Multivitamin w/Minerals tab ORAL SCH (08:54)
[2018-06-12] MEDS: Heparin 5000 units/ml inj SUBQ SCH ×2 (08:55→20:19)
[2018-06-12] MEDS: Lisinopril 10mg tab ORAL SCH (08:56)
--- NOTE | 2018-06-12 10:00 | General Progress Note ---
Assessment/Plan Problem List: (1) Protein calorie malnutrition ICD Codes: E46 - Unspecified protein-calorie malnutrition SNOMED: 664861450 (2) Status post tracheostomy ICD Codes: Z93.0 - Tracheostomy status SNOMED: 83060577, 631680066 (3) Motor neuron disease, unspecified ICD Codes: G12.20 - Motor neuron disease, unspecified SNOMED: 98821312 (4) Leukocytosis ICD Codes: D72.829 - Elevated white blood cell count, unspecified SNOMED: 942077778, 381103890 Qualifiers: Qualified Codes: D72.829 - Elevated white blood cell count, unspecified (5) Essential hypertension ICD Codes: I10 - Essential (primary) hypertension SNOMED: 44258363 (6) HCAP (healthcare-associated pneumonia) ICD Codes: J18.9 - Pneumonia, unspecified organism SNOMED: 806655082 Status: stable, progressing Assessment/Plan (1) Protein calorie malnutrition s/p G-tube placement continue tube feeds (2) Status post tracheostomy, chronic respiratory failure continue vent management per Pulmonology, wean vent as tolerated and plan transfer to snf continue frequent suctioning (3) Motor neuron disease, ALS Continue supportive care Neurology following (4) Sepsis, suspected aspiration pneumonia versus HCAP improving, repeat bcx sent bc of fever cont wean vent as tolerated per pulm continue abd per ID , vanco/андрей ID following (5)Hypokalemia K 3.4 today, replenish today (6)Hypomagnesemia resolved (6)Acute on chronic anemia No evidence of bleeding Repeat CBC in AM Transfuse PRBC if Hb < 7 (7)acute on chronic hypoxic respiratory failure vent Optimize pulmonary hygiene/mobilize as tolerated Continue ventilatory support/settings reviewed Titrate down FiO2 to keep SaO2 > 90% RTC and PRN HHN's + MUCOMYST HHN TID wean vent as tolerated and plan transfer to snf continue frequent suctioning appreciate pulm recs Abx per ID, F/U Cx's trached worsened by asp pna DVT Prophylaxis: SCD, HSQ Code Status: Full Hospital Classification Declaration: Based on this initial evaluation, and depending on the patient's clinical course, I anticipate that this patient will require hospitalization for 2-3 days for malnutrition, trached/needs peg eval and close respiratory/hemodynamic monitoring. Disposition: Once the patient is stable to leave the hospital, I anticipate the patient will likely be discharged to the following environment: home I spent over 45 minutes on this patient's case, and 35 minutes were dedicated to counseling and/or care coordination. Discussed with patient/family, nursing staff, SW/CM, and consultants regarding clinical status, treatment course, and disposition planning. Time of note may not reflect time of encounter. ---- Date of Discussion: 06/03/18 A oxck-je-tuyt discussion with the patient's son regarding the patient's advanced care planning took place during this hospitalization on the above date. The discussion included the explanation and discussion of advance directives and associated forms/documents, as well as the patient's current code status. We also discussed at length the patient's medical conditions (both acute and chronic), general prognosis, treatment options, and goals of care. The following summarizes the discussion: Advance Care Planning/Goals of Care: - polst completed - Continue current evaluation and management of any acute and chronic medical issues - Will continue to support the patient/family - Will continue to discuss both short- and long-term goals of care DPOA-HC/Surrogate Decision Maker: , Randa Robles Code Status: Full Code AD Forms/Documents Completed: completed A total of 31 minutes was spent on this discussion, including counseling, answering questions, and completing, if any, pertinent advanced care planning forms/documents. Subjective Date patient seen: Jun 12, 2018 Time patient seen: 09:58 Allergies: Coded Allergies: No Known Allergies (Unverified , 06/02/18) Subjective f/u malnutrition, sepsis, resp failure, trach on vent, peg stable cont abx pulm attempting to wean vent... still on vent concerns for asp pna denies any complaints, no fevers/chills/n/v/pain no acute events overnight abx per id patient responsive, denies any complaints ROS: 14 point ROS reviewed and negative except per the above subjective Objective Last 24 Hour Vital Signs Date Time Temp Pulse Resp B/P (MAP) Pulse Ox O2 Delivery O2 Flow Rate FiO2 06/12/18 08:56 104/62 06/12/18 08:56 69 104/62 06/12/18 08:54 69 06/12/18 08:00 Mechanical Ventilator 06/12/18 08:00 98.5 86 18 104/62 (76) 98 06/12/18 08:00 40 06/12/18 07:12 60 16 100 Mechanical Ventilator 35 06/12/18 07:01 58 17 35 06/12/18 06:59 63 17 99 Mechanical Ventilator 35 06/12/18 05:09 63 16 35 06/12/18 04:00 97.8 71 16 96/65 (75) 99 06/12/18 04:00 40 06/12/18 04:00 Mechanical Ventilator 06/12/18 04:00 65 06/12/18 02:42 76 16 35 06/12/18 01:12 81 17 100 Mechanical Ventilator 35 06/12/18 01:01 68 16 100 Mechanical Ventilator 35 06/12/18 01:00 68 16 35 06/12/18 00:00 Mechanical Ventilator 06/12/18 00:00 97.4 82 16 95/62 (73) 95 06/12/18 00:00 68 06/12/18 00:00 40 06/11/18 23:05 72 16 35 06/11/18 20:48 76 16 35 06/11/18 20:00 98.4 67 16 95/58 (70) 100 06/11/18 20:00 Mechanical Ventilator 06/11/18 20:00 40 06/11/18 20:00 89 06/11/18 19:39 74 16 100 Mechanical Ventilator 35 06/11/18 19:24 67 16 100 Mechanical Ventilator 35 06/11/18 19:23 64 16 35 06/11/18 16:31 75 16 35 06/11/18 16:00 Mechanical Ventilator 06/11/18 16:00 40 06/11/18 16:00 71 06/11/18 16:00 98.1 70 16 92/43 (59) 100 06/11/18 15:30 73 16 35 06/11/18 13:29 Mechanical Ventilator 35 06/11/18 13:29 74 16 35 06/11/18 13:29 Mechanical Ventilator 35 06/11/18 12:00 Mechanical Ventilator 06/11/18 12:00 40 06/11/18 12:00 97.9 70 16 124/65 (84) 100 06/11/18 12:00 74 06/11/18 11:05 70 16 35 Intake and Output 06/11/18 06/12/18 19:00 07:00 Intake Total 2480 ml 2040 ml Output Total 1825 ml Balance 655 ml 2040 ml IV Total 1820 ml 1320 ml Tube Feeding 660 ml 720 ml Output Urine Total 1825 ml # Voids 4 Laboratory Tests 06/12/18 05:05: White Blood Count 8.3, Red Blood Count 2.87L, Hemoglobin 8.0L, Hematocrit 24.6L , Mean Corpuscular Volume 86, Mean Corpuscular Hemoglobin 27.9, Mean Corpuscular Hemoglobin Concent 32.6, Red Cell Distribution Width 15.0H, Platelet Count 317, Mean Platelet Volume 7.0, Neutrophils (%) (Auto) 51.6, Lymphocytes (%) (Auto) 30.2, Monocytes (%) (Auto) 6.0, Eosinophils (%) (Auto) 11.3H, Basophils (%) (Auto) 0.8, Sodium Level 140, Potassium Level 3.8, Chloride Level 106, Carbon Dioxide Level 27, Anion Gap 7, Blood Urea Nitrogen 8 , Creatinine 0.7, Estimat Glomerular Filtration Rate > 60, Glucose Level 103, Calcium Level 9.2, Vancomycin Level Trough 21.1H Height (Feet): 5 Height (Inches): 4.00 Weight (Pounds): 114 Objective General Appearance: WD/WN, no apparent distress, alert Lines, tubes and drains: peripheral HEENT: normocephalic, atraumatic Neck: non-tender, normal alignment, supple, normal inspection, trach Cardiovascular/Chest: normal peripheral pulses, normal rate, regular rhythm Abdomen: normal bowel sounds, non tender, soft, no organomegaly, no mass, PEG in place, clean site Extremities: normal range of motion, non-tender, normal inspection, no calf tenderness Skin Exam: normal pigmentation, warm/dry 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
--- NOTE | 2018-06-12 10:31 | Pulmonology Progress Note ---
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, unspecified (13) Encounter for PEG (percutaneous endoscopic gastrostomy) (14) Nutrition impaired due to imbalance of nutrients (15) HCAP (healthcare-associated pneumonia) Assessment/Plan Optimize pulmonary hygiene/mobilize as tolerated Continue ventilatory support/settings reviewed Titrate down FiO2 to keep SaO2 > 90% RTC and PRN HHN's + MUCOMYST HHN TID PRN suctioning Abx per ID, F/U Cx's GTF's Monitor volumes F/U neuro recs, continue Rilutek [employer] therapy, PMV trials FC, discuss GOC D/W RN and [employer] Subjective Allergies: Coded Allergies: No Known Allergies (Unverified , 06/02/18) Subjective Awake, comfortable on vent No sig secretions, no F/C Joseph TF Objective Last 24 Hour Vital Signs Date Time Temp Pulse Resp B/P (MAP) Pulse Ox O2 Delivery O2 Flow Rate FiO2 06/12/18 08:56 104/62 06/12/18 08:56 69 104/62 06/12/18 08:54 69 06/12/18 08:00 Mechanical Ventilator 06/12/18 08:00 98.5 86 18 104/62 (76) 98 06/12/18 08:00 40 06/12/18 07:12 60 16 100 Mechanical Ventilator 35 06/12/18 07:01 58 17 35 06/12/18 06:59 63 17 99 Mechanical Ventilator 35 06/12/18 05:09 63 16 35 06/12/18 04:00 97.8 71 16 96/65 (75) 99 06/12/18 04:00 40 06/12/18 04:00 Mechanical Ventilator 06/12/18 04:00 65 06/12/18 02:42 76 16 35 06/12/18 01:12 81 17 100 Mechanical Ventilator 35 06/12/18 01:01 68 16 100 Mechanical Ventilator 35 06/12/18 01:00 68 16 35 06/12/18 00:00 Mechanical Ventilator 06/12/18 00:00 97.4 82 16 95/62 (73) 95 06/12/18 00:00 68 06/12/18 00:00 40 06/11/18 23:05 72 16 35 06/11/18 20:48 76 16 35 06/11/18 20:00 98.4 67 16 95/58 (70) 100 06/11/18 20:00 Mechanical Ventilator 06/11/18 20:00 40 06/11/18 20:00 89 06/11/18 19:39 74 16 100 Mechanical Ventilator 35 06/11/18 19:24 67 16 100 Mechanical Ventilator 35 06/11/18 19:23 64 16 35 06/11/18 16:31 75 16 35 06/11/18 16:00 Mechanical Ventilator 06/11/18 16:00 40 06/11/18 16:00 71 06/11/18 16:00 98.1 70 16 92/43 (59) 100 06/11/18 15:30 73 16 35 06/11/18 13:29 Mechanical Ventilator 35 06/11/18 13:29 74 16 35 06/11/18 13:29 Mechanical Ventilator 35 06/11/18 12:00 Mechanical Ventilator 06/11/18 12:00 40 06/11/18 12:00 97.9 70 16 124/65 (84) 100 06/11/18 12:00 74 06/11/18 11:05 70 16 35 Intake and Output 06/11/18 06/12/18 19:00 07:00 Intake Total 2480 ml 2040 ml Output Total 1825 ml Balance 655 ml 2040 ml IV Total 1820 ml 1320 ml Tube Feeding 660 ml 720 ml Output Urine Total 1825 ml # Voids 4 General Appearance: no acute distress HEENT: normocephalic, atraumatic, status post trach Respiratory/Chest: chest wall non-tender, lungs clear, normal breath sounds, no respiratory distress, no accessory muscle use Cardiovascular: normal peripheral pulses, normal rate, regular rhythm Abdomen: normal bowel sounds, soft, non tender, no organomegaly, non distended , no mass, other - GT Extremities: no cyanosis, no clubbing, no edema Laboratory Tests 06/12/18 05:05: White Blood Count 8.3, Red Blood Count 2.87L, Hemoglobin 8.0L, Hematocrit 24.6L , Mean Corpuscular Volume 86, Mean Corpuscular Hemoglobin 27.9, Mean Corpuscular Hemoglobin Concent 32.6, Red Cell Distribution Width 15.0H, Platelet Count 317, Mean Platelet Volume 7.0, Neutrophils (%) (Auto) 51.6, Lymphocytes (%) (Auto) 30.2, Monocytes (%) (Auto) 6.0, Eosinophils (%) (Auto) 11.3H, Basophils (%) (Auto) 0.8, Sodium Level 140, Potassium Level 3.8, Chloride Level 106, Carbon Dioxide Level 27, Anion Gap 7, Blood Urea Nitrogen 8 , Creatinine 0.7, Estimat Glomerular Filtration Rate > 60, Glucose Level 103, Calcium Level 9.2, Vancomycin Level Trough 21.1H Current Medications Medications (Trade) Dose Ordered Sig/Irma Route PRN Reason Start Time Stop Time Status Last Admin Dose Admin Acetaminophen (Tylenol) 650 mg Q4H PRN GT Mild Pain/Temp > 100.5 06/07/18 21:00 07/07/18 20:59 06/08/18 17:26 Acetylcysteine (Mucomyst) 100 mg TIDRT HHN 06/04/18 19:00 07/04/18 18:59 06/12/18 06:59 Albuterol/ Ipratropium (Albuterol/ Ipratropium) 3 ml Q4H PRN HHN Shortness of Breath 06/08/18 15:06 06/13/18 15:05 06/09/18 07:02 Albuterol/ Ipratropium (Albuterol/ Ipratropium) 3 ml Q6HRT HHN 06/09/18 13:00 06/14/18 12:59 06/12/18 06:59 Amlodipine Besylate (Norvasc) 10 mg DAILY ORAL 06/03/18 09:00 07/03/18 08:59 06/04/18 08:51 Atorvastatin Calcium (Lipitor) 10 mg BEDTIME ORAL 06/02/18 22:30 07/02/18 22:29 06/11/18 21:05 Bisacodyl (Dulcolax) 10 mg DAILYPRN PRN RECTAL Constipation 06/03/18 06:41 07/03/18 06:40 Dextrose/Sodium Chloride 1,000 ml @ 100 mls/hr Q10H IV 06/02/18 22:00 07/02/18 21:59 06/12/18 01:29 Docusate Sodium (Colace) 100 mg TWICE A DAY NG 06/12/18 09:00 07/12/18 08:59 06/12/18 08:53 Heparin Sodium (Porcine) (Heparin 5000 units/ml) 5,000 units EVERY 12 HOURS SUBQ 06/03/18 09:00 07/03/18 08:59 06/12/18 08:55 Lansoprazole (Prevacid) 30 mg BID ORAL 06/03/18 09:00 07/03/18 08:59 06/12/18 08:54 Lisinopril (Zestril) 10 mg DAILY ORAL 06/03/18 09:00 07/03/18 08:59 06/04/18 08:51 Meropenem 1 gm/ Sodium Chloride 110 ml @ 220 mls/hr Q8HR IVPB 06/09/18 22:00 06/14/18 21:59 06/12/18 05:21 Multivitamins Therapeutic (Therapeutic Multivitamin) 1 ea DAILY ORAL 06/03/18 09:00 07/03/18 08:59 06/12/18 08:54 Patient Own Medication (Patient's Own Med) 1 ea Q12HR ORAL 06/03/18 21:00 07/03/18 20:59 06/12/18 08:57 Trimethoprim/ Sulfamethoxazole (Bactrim-DS) 2 tab TWICE A DAY ORAL 06/11/18 18:00 06/18/18 17:59 06/12/18 08:54 Vitamin D (Vitamin D) 2,000 intlu DAILY ORAL 06/03/18 09:00 07/03/18 08:59 06/12/18 08:54 Parveen Blanco MD Jun 12, 2018 10:31
--- NOTE | 2018-06-12 11:17 | General Progress Note ---
Assessment/Plan Assessment/Plan - s/p PEG for dysphagia - ALS - Resp failure - Anemia Recommendations - continue - site care - vent - follow labs - PRN RBC transfusion Subjective ROS Limited/Unobtainable: No Allergies: Coded Allergies: No Known Allergies (Unverified , 06/02/18) Objective Last 24 Hour Vital Signs Date Time Temp Pulse Resp B/P (MAP) Pulse Ox O2 Delivery O2 Flow Rate FiO2 06/12/18 11:10 71 18 35 06/12/18 11:06 68 16 35 06/12/18 09:00 62 16 35 06/12/18 08:56 104/62 06/12/18 08:56 69 104/62 06/12/18 08:54 69 06/12/18 08:00 Mechanical Ventilator 06/12/18 08:00 98.5 86 18 104/62 (76) 98 06/12/18 08:00 40 06/12/18 07:12 60 16 100 Mechanical Ventilator 35 06/12/18 07:01 58 17 35 06/12/18 06:59 63 17 99 Mechanical Ventilator 35 06/12/18 05:09 63 16 35 06/12/18 04:00 97.8 71 16 96/65 (75) 99 06/12/18 04:00 40 06/12/18 04:00 Mechanical Ventilator 06/12/18 04:00 65 06/12/18 02:42 76 16 35 06/12/18 01:12 81 17 100 Mechanical Ventilator 35 06/12/18 01:01 68 16 100 Mechanical Ventilator 35 06/12/18 01:00 68 16 35 06/12/18 00:00 Mechanical Ventilator 06/12/18 00:00 97.4 82 16 95/62 (73) 95 06/12/18 00:00 68 06/12/18 00:00 40 06/11/18 23:05 72 16 35 06/11/18 20:48 76 16 35 06/11/18 20:00 98.4 67 16 95/58 (70) 100 06/11/18 20:00 Mechanical Ventilator 06/11/18 20:00 40 06/11/18 20:00 89 06/11/18 19:39 74 16 100 Mechanical Ventilator 35 06/11/18 19:24 67 16 100 Mechanical Ventilator 35 06/11/18 19:23 64 16 35 06/11/18 16:31 75 16 35 06/11/18 16:00 Mechanical Ventilator 06/11/18 16:00 40 06/11/18 16:00 71 06/11/18 16:00 98.1 70 16 92/43 (59) 100 06/11/18 15:30 73 16 35 06/11/18 13:29 Mechanical Ventilator 35 06/11/18 13:29 74 16 35 06/11/18 13:29 Mechanical Ventilator 35 06/11/18 12:00 Mechanical Ventilator 06/11/18 12:00 40 06/11/18 12:00 97.9 70 16 124/65 (84) 100 06/11/18 12:00 74 Intake and Output 06/11/18 06/12/18 19:00 07:00 Intake Total 2480 ml 2040 ml Output Total 1825 ml Balance 655 ml 2040 ml IV Total 1820 ml 1320 ml Tube Feeding 660 ml 720 ml Output Urine Total 1825 ml # Voids 4 Laboratory Tests 06/12/18 05:05: White Blood Count 8.3, Red Blood Count 2.87L, Hemoglobin 8.0L, Hematocrit 24.6L , Mean Corpuscular Volume 86, Mean Corpuscular Hemoglobin 27.9, Mean Corpuscular Hemoglobin Concent 32.6, Red Cell Distribution Width 15.0H, Platelet Count 317, Mean Platelet Volume 7.0, Neutrophils (%) (Auto) 51.6, Lymphocytes (%) (Auto) 30.2, Monocytes (%) (Auto) 6.0, Eosinophils (%) (Auto) 11.3H, Basophils (%) (Auto) 0.8, Sodium Level 140, Potassium Level 3.8, Chloride Level 106, Carbon Dioxide Level 27, Anion Gap 7, Blood Urea Nitrogen 8 , Creatinine 0.7, Estimat Glomerular Filtration Rate > 60, Glucose Level 103, Calcium Level 9.2, Vancomycin Level Trough 21.1H Height (Feet): 5 Height (Inches): 4.00 Weight (Pounds): 114 General Appearance: no apparent distress EENT: normal ENT inspection Neck: supple Cardiovascular: normal rate Respiratory/Chest: decreased breath sounds Abdomen: normal bowel sounds, non tender, soft Extremities: non-tender Vaibhav Lainez MD Jun 12, 2018 11:17
[2018-06-12 12:00] VITALS: BP 114/48
--- NOTE | 2018-06-12 14:15 | Neurology Progress Note ---
Interim History Interim History Interim History Mr. Robles feels very well. He feels stronger. The PEG is functioning well. He denies any new neurologic symptoms. The generalized weakness persists. The sensations are still normal. He is still on IV antibiotics. Review of Systems Neuro Review of Systems Benign. Objective Physical Exam Last Vital Signs Date Time Temp Pulse Resp B/P (MAP) Pulse Ox O2 Delivery O2 Flow Rate FiO2 06/12/18 14:02 79 16 100 Mechanical Ventilator 35 06/12/18 12:00 98.2 114/48 (70) 06/08/18 16:29 15.0 Laboratory Tests Test 06/12/18 05:05 White Blood Count 8.3 K/UL (4.8-10.8) Red Blood Count 2.87 M/UL (4.70-6.10) L Hemoglobin 8.0 G/DL (14.2-18.0) L Hematocrit 24.6 % (42.0-52.0) L Mean Corpuscular Volume 86 FL (80-99) Mean Corpuscular Hemoglobin 27.9 PG (27.0-31.0) Mean Corpuscular Hemoglobin Concent 32.6 G/DL (32.0-36.0) Red Cell Distribution Width 15.0 % (11.6-14.8) H Platelet Count 317 K/UL (150-450) Mean Platelet Volume 7.0 FL (6.5-10.1) Neutrophils (%) (Auto) 51.6 % (45.0-75.0) Lymphocytes (%) (Auto) 30.2 % (20.0-45.0) Monocytes (%) (Auto) 6.0 % (1.0-10.0) Eosinophils (%) (Auto) 11.3 % (0.0-3.0) H Basophils (%) (Auto) 0.8 % (0.0-2.0) Sodium Level 140 MMOL/L (136-145) Potassium Level 3.8 MMOL/L (3.5-5.1) Chloride Level 106 MMOL/L (98-107) Carbon Dioxide Level 27 MMOL/L (21-32) Anion Gap 7 mmol/L (5-15) Blood Urea Nitrogen 8 mg/dL (7-18) Creatinine 0.7 MG/DL (0.55-1.30) Estimat Glomerular Filtration Rate > 60 mL/min (>60) Glucose Level 103 MG/DL (74-106) Calcium Level 9.2 MG/DL (8.5-10.1) Vancomycin Level Trough 21.1 ug/mL (5.0-12.0) H Neurologic Exam Objective PHYSICAL EXAMINATION: GENERAL: He is a well-developed, but lean and wasting gentleman, lying in bed, in no acute distress, connected to a ventilator through a tracheostomy. HEAD: Normocephalic and atraumatic. NECK: No neck rigidity was observed. He did have a tracheostomy in place. EENT: Benign. NEUROLOGICAL EXAMINATION: MENTAL STATUS EXAMINATION: He was awake and alert. He was oriented to person, place, and time. He was able to recall 3/3 words immediately after 1 minute and after 3 minutes. He was able to remember presidents, Trump through Jose senior with hints. His mathematical skills were good. His visuospatial function was preserved. SPEECH: He was able to mouth words well. LANGUAGE: He was able to comprehend, repeat, and express himself well. CRANIAL NERVE EXAMINATION: II: The visual maldonado were intact on confrontation testing. III, IV & : The external ocular movements were full and the pupils 3 mm in diameter, equal, round, regular, and reactive to light. V: He had normal facial sensations and the temporales, masseters, and pterygoids function normally. VII: He had normal facial expressions and no facial asymmetry. VIII: He was able to hear well bilaterally and had no nystagmus. IX: The palate moved symmetrically on phonation. X: His gag reflex was present. XI: The sternocleidomastoids and trapezii functioned normally. XII: The tongue was in the midline without any atrophy, but it did reveal fasciculations. MOTOR SYSTEM: The tone was normal in all four extremities except for decreased tone in the ankles more so on the left than on the right. Examination of muscle mass revealed severe generalized muscle wasting involving the distal muscles more than the proximal muscles and the lower extremities more than the upper extremities. He had G 5/5 power in both upper extremities except for G 5-/5 power in the finger extensors. In the lower extremities, he had in the iliopsoas G 4++/5 on the right, G 4/5 on the left. In the quadriceps, he had G 5-/5 on the right and G 4+/5 on the left. In the hamstrings, he had G 4+/5 on the right and G 4-/5 on the left. In the ankle dorsiflexors and toe extensors, he had G 3/5 on the right and G 0/ 5 on the left. In the ankle plantar flexors and toe flexors, he had G 4/5 on the right and G 1/ 5 on the left. SENSORY EXAMINATION: He had intact sensations to pinprick, light touch, and graphesthesia. COORDINATION: He performed well on [id number] testing. He was unable to perform [id number] testing. REFLEXES: 2++ and bilaterally symmetrical at the biceps, triceps, brachioradialis, and knees, 0 at both ankles. The plantar response was extensor on the right and mute on the left. STANCE & GAIT: Could not be tested. Impression/Recommendations Diagnostic Impression 1. Mr. Joseph Robles is a 58-year-old, right-handed, gentleman, who does have a prior history of hypertension and dyslipidemia, who approximately 4 years ago started to have weakness that started in his left foot with a left foot drop. Over the years, he has had increasing weakness in his lower extremities more than the upper extremities and on the left side more than the right associated with muscle wasting, muscle fasciculations, and then respiratory muscle failure as a result of which he has needed a tracheostomy. He has been worked up for the problem in the past and was found to have amyotrophic lateral sclerosis, for which he is on Rilutek. 2. He feels well. He feels stronger. The PEG is functioning well. He denies any new neurologic symptoms. The generalized weakness persists. The sensations are still normal. He is still on IV antibiotics. 3. His family was able to get me an evaluation performed by Dr. Vincenzo Santos at [facility] and in his opinion the patient had clinical criteria for ALS in July 2017. 4. On neurological examination at this time, he does demonstrate tongue fasciculations, decreased tone in the ankles more so on the left than the right , generalized muscle wasting involving the lower extremities more than the upper extremities, a quadriparesis involving the lower extremities more than the upper extremities, and the left side more than the right in the lower extremities, brisk deep tendon reflexes with loss of ankle jerks, an extensor plantar response on the right with a mute plantar response on the left, and frequent fasciculations in all four extremities. He however is stronger, especially in the upper extremities, since he was hospitalized. 5. The patient's history and neurological examination are in fact consistent with amyotrophic lateral sclerosis. 6. His gastrostomy is functioning well. Recommendations 1. Rilutek should be continued. 2. In the near future, edaravone therapy should be considered. 3. The patient's family was told to try and retrieve his nerve conduction study , electromyography, and MRI scan reports so that I can review them. 4. Frequent ROM exercises. 5. PT/OT to mobilize. 6. Consider small amounts of oral feeding for oral gratification. Richard Alcantara M.D., M.S.P.H. Richard Alcantara MD Jun 12, 2018 14:15
--- NOTE | 2018-06-12 15:50 | Cardiology Report ---
APPROVED REPORT EKG Measurement Heart [id number] Normal sinus rhythm Nonspecific T wave abnormality Abnormal ECG
[2018-06-12 16:00] VITALS: BP 107/66
[2018-06-12 20:00] VITALS: BP 100/66
[2018-06-12] MEDS: Acetaminophen 650mg/20.3ml GT PRN (20:23)
--- NOTE | 2018-06-12 21:22 | General Progress Note ---
Assessment/Plan Assessment/Plan # Acute on chronic anemia, anemia panel has been reviewed --> No evidence of bleeding --> cbc reviewed --> Transfuse PRBC if Hb < 7 # Protein calorie malnutrition --> s/p PEG placement --> continue tube feeds # Status post tracheostomy, chronic respiratory failure --> continue vent management per Pulmonology -->wean vent as tolerated and plan transfer to snf --> continue frequent suctioning # Motor neuron disease, ALS --> Continue supportive care --> Neurology following # Sepsis, suspected aspiration pneumonia versus HCAP --> improving --> cont wean vent as tolerated per pulm --> continue vancomycin and Zosyn --> ID following # Hypokalemia --> improved # Resp failure, acute on chronic --> vent --> trached Subjective ROS Limited/Unobtainable: Yes Allergies: Coded Allergies: No Known Allergies (Unverified , 06/02/18) Subjective 1/2 Pt is seen in the room, resting in bed. /trach/vent/ g tube and respiratory failure.cbc reviewed. no events 1/3: Pt is resting in bed, remains on vent , cbc reviewed, no events reported. 1: Pt is awake and resting in bed. Pt is on mechanical vent, in no acute distress. Family is at bedside 06/12: Pt is seen in the room, s/p PEG for dysphagia, on vent, cbc reviewed, no events. Objective Last 24 Hour Vital Signs Date Time Temp Pulse Resp B/P (MAP) Pulse Ox O2 Delivery O2 Flow Rate FiO2 06/12/18 21:15 70 16 100 Mechanical Ventilator 30 06/12/18 21:15 70 16 Mechanical Ventilator 30 06/12/18 20:53 98.2 06/12/18 20:00 97.9 72 16 100/66 (77) 100 06/12/18 20:00 Mechanical Ventilator 06/12/18 20:00 30 06/12/18 16:00 98.1 78 16 107/66 (80) 99 06/12/18 16:00 Mechanical Ventilator 06/12/18 16:00 70 06/12/18 16:00 30 06/12/18 15:29 69 16 30 06/12/18 14:02 79 16 100 Mechanical Ventilator 35 06/12/18 13:35 77 16 100 Mechanical Ventilator 30 06/12/18 13:34 77 16 30 06/12/18 12:00 69 06/12/18 12:00 98.2 75 18 114/48 (70) 100 06/12/18 12:00 40 06/12/18 12:00 Mechanical Ventilator 06/12/18 11:06 68 16 35 06/12/18 09:00 62 16 35 06/12/18 08:56 104/62 06/12/18 08:56 69 104/62 06/12/18 08:54 69 06/12/18 08:00 Mechanical Ventilator 06/12/18 08:00 98.5 86 18 104/62 (76) 98 06/12/18 08:00 40 06/12/18 07:12 60 16 100 Mechanical Ventilator 35 06/12/18 07:01 58 17 35 06/12/18 06:59 63 17 99 Mechanical Ventilator 35 06/12/18 05:09 63 16 35 06/12/18 04:00 97.8 71 16 96/65 (75) 99 06/12/18 04:00 40 06/12/18 04:00 Mechanical Ventilator 06/12/18 04:00 65 06/12/18 02:42 76 16 35 06/12/18 01:12 81 17 100 Mechanical Ventilator 35 06/12/18 01:01 68 16 100 Mechanical Ventilator 35 06/12/18 01:00 68 16 35 06/12/18 00:00 Mechanical Ventilator 06/12/18 00:00 97.4 82 16 95/62 (73) 95 06/12/18 00:00 68 06/12/18 00:00 40 06/11/18 23:05 72 16 35 Intake and Output 06/11/18 06/12/18 19:00 07:00 Intake Total 2480 ml 2040 ml Output Total 1825 ml Balance 655 ml 2040 ml IV Total 1820 ml 1320 ml Tube Feeding 660 ml 720 ml Output Urine Total 1825 ml # Voids 4 Laboratory Tests 06/12/18 05:05: White Blood Count 8.3, Red Blood Count 2.87L, Hemoglobin 8.0L, Hematocrit 24.6L , Mean Corpuscular Volume 86, Mean Corpuscular Hemoglobin 27.9, Mean Corpuscular Hemoglobin Concent 32.6, Red Cell Distribution Width 15.0H, Platelet Count 317, Mean Platelet Volume 7.0, Neutrophils (%) (Auto) 51.6, Lymphocytes (%) (Auto) 30.2, Monocytes (%) (Auto) 6.0, Eosinophils (%) (Auto) 11.3H, Basophils (%) (Auto) 0.8, Sodium Level 140, Potassium Level 3.8, Chloride Level 106, Carbon Dioxide Level 27, Anion Gap 7, Blood Urea Nitrogen 8 , Creatinine 0.7, Estimat Glomerular Filtration Rate > 60, Glucose Level 103, Calcium Level 9.2, Vancomycin Level Trough 21.1H Height (Feet): 5 Height (Inches): 4.00 Weight (Pounds): 114 Objective PE: Sp02 EP Interpretation: reviewed, normal General Appearance: well appearing, no apparent distress Head: normocephalic, atraumatic Eyes: bilateral eye PERRL, bilateral eye EOMI ENT: hearing grossly normal, normal pharynx- Tracheostomy in place Neck: full range of motion, supple, no meningismus, no bony tend Respiratory: lungs clear, normal breath sounds Cardiovascular #1: normal peripheral pulses Gastrointestinal: normal bowel sounds Genitourinary: no CVA tenderness Musculoskeletal: other - Chronically debilitated Neurologic: oriented x3, responsive Psychiatric: mood/affect normal Skin: normal color, no rash, warm/dry Lymphatic: normal inspection, no adenopathy Mike Piper MD Jun 12, 2018 21:22
[2018-06-12] MEDS ORDERED: D5NS 1000ml IV ONE (22:45)
[2018-06-13] VITALS: BP 105/62
[2018-06-13] MEDS: Albuterol/Ipratropium 3ml neb HHN SCH ×4 (01:22→19:44)
[2018-06-13 04:00] VITALS: BP 111/70
[2018-06-13] MEDS: Meropenem 1 GM in NS 110 ML IVPB SCH ×3 (05:01→22:16)
--- NOTE | 2018-06-13 07:00 | General Progress Note ---
Assessment/Plan Assessment/Plan - s/p PEG for dysphagia - ALS - Resp failure - Anemia Recommendations - continue TF - site care - vent - follow labs - PRN RBC transfusion Subjective ROS Limited/Unobtainable: No Allergies: Coded Allergies: No Known Allergies (Unverified , 06/02/18) Objective Last 24 Hour Vital Signs Date Time Temp Pulse Resp B/P (MAP) Pulse Ox O2 Delivery O2 Flow Rate FiO2 06/13/18 05:08 72 16 30 06/13/18 04:00 30 06/13/18 04:00 Mechanical Ventilator 06/13/18 04:00 63 06/13/18 04:00 98.4 73 16 111/70 (84) 99 06/13/18 02:37 68 16 30 06/13/18 01:29 71 16 100 Mechanical Ventilator 35 06/13/18 01:22 74 16 30 06/13/18 01:22 74 16 99 Mechanical Ventilator 30 06/13/18 00:00 98.2 66 16 105/62 (76) 99 06/13/18 00:00 Mechanical Ventilator 06/13/18 00:00 80 06/13/18 00:00 30 06/12/18 23:38 75 17 30 06/12/18 21:35 72 16 100 Mechanical Ventilator 35 06/12/18 21:19 70 16 30 06/12/18 21:15 70 16 100 Mechanical Ventilator 30 06/12/18 21:15 70 16 Mechanical Ventilator 30 06/12/18 20:53 98.2 06/12/18 20:00 97.9 72 16 100/66 (77) 100 06/12/18 20:00 Mechanical Ventilator 06/12/18 20:00 76 06/12/18 20:00 30 06/12/18 19:05 75 16 30 06/12/18 16:00 98.1 78 16 107/66 (80) 99 06/12/18 16:00 Mechanical Ventilator 06/12/18 16:00 70 06/12/18 16:00 30 06/12/18 15:29 69 16 30 06/12/18 14:02 79 16 100 Mechanical Ventilator 35 06/12/18 13:35 77 16 100 Mechanical Ventilator 30 06/12/18 13:34 77 16 30 06/12/18 12:00 69 06/12/18 12:00 98.2 75 18 114/48 (70) 100 06/12/18 12:00 40 06/12/18 12:00 Mechanical Ventilator 06/12/18 11:06 68 16 35 06/12/18 09:00 62 16 35 06/12/18 08:56 104/62 06/12/18 08:56 69 104/62 06/12/18 08:54 69 06/12/18 08:00 Mechanical Ventilator 06/12/18 08:00 98.5 86 18 104/62 (76) 98 06/12/18 08:00 40 06/12/18 07:12 60 16 100 Mechanical Ventilator 35 06/12/18 07:01 58 17 35 Intake and Output 06/12/18 06/13/18 19:00 07:00 Intake Total 1990 ml 2160 ml Output Total 1800 ml 700 ml Balance 190 ml 1460 ml Free Water 100 ml 50 ml IV Total 1170 ml 1450 ml Tube Feeding 720 ml 660 ml Output Urine Total 1800 ml 700 ml # Bowel Movements 1 1 Height (Feet): 5 Height (Inches): 4.00 Weight (Pounds): 114 General Appearance: no apparent distress EENT: normal ENT inspection Neck: supple Cardiovascular: normal rate Respiratory/Chest: decreased breath sounds Abdomen: normal bowel sounds, non tender, soft Extremities: non-tender Vaibhav Lainez MD Jun 13, 2018 07:00
[2018-06-13 08:00] VITALS: BP 102/65
[2018-06-13] MEDS: Lisinopril 10mg tab ORAL SCH (09:00)
[2018-06-13] MEDS: Docusate 100mg/10ml Liq NG SCH (09:06)
[2018-06-13] MEDS: Vitamin D 1000 IU Tab ORAL SCH (09:07)
[2018-06-13] MEDS: Multivitamin w/Minerals tab ORAL SCH (09:09)
[2018-06-13] MEDS: Bactrim-DS 1 tab ORAL SCH (09:09)
[2018-06-13] MEDS: Heparin 5000 units/ml inj SUBQ SCH ×2 (09:13→21:05)
[2018-06-13] MEDS ORDERED: D5NS 1000ml IV ONE ×2 (11:11→22:34)
[2018-06-13] MEDS ORDERED: NS 275ml ONE (11:11)
--- NOTE | 2018-06-13 11:17 | Pulmonology Progress Note ---
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, unspecified (13) Encounter for PEG (percutaneous endoscopic gastrostomy) (14) Nutrition impaired due to imbalance of nutrients (15) HCAP (healthcare-associated pneumonia) Assessment/Plan Optimize pulmonary hygiene/mobilize as tolerated Continue ventilatory support/settings reviewed Titrate down FiO2 to keep SaO2 > 90% RTC and PRN HHN's + MUCOMYST HHN TID PRN suctioning Abx per ID, F/U Cx's GTF's Monitor volumes F/U neuro recs, continue [employer] therapy, PMV trials FC, discuss GOC Dispo planning to [facility]ACH D/W RN and [employer] Subjective Allergies: Coded Allergies: No Known Allergies (Unverified , 06/02/18) Subjective Awake, comfortable on vent No sig secretions, no F/C Jsoeph TF Objective Last 24 Hour Vital Signs Date Time Temp Pulse Resp B/P (MAP) Pulse Ox O2 Delivery O2 Flow Rate FiO2 06/13/18 10:56 69 16 30 06/13/18 09:00 102/65 06/13/18 09:00 71 102/65 06/13/18 08:33 71 16 30 06/13/18 08:00 98.1 76 16 102/65 (77) 100 06/13/18 07:58 65 06/13/18 07:49 30 06/13/18 07:48 Mechanical Ventilator 06/13/18 07:32 74 16 100 Mechanical Ventilator 35 06/13/18 07:24 68 16 100 Mechanical Ventilator 30 06/13/18 07:24 68 16 30 06/13/18 05:08 72 16 30 06/13/18 04:00 30 06/13/18 04:00 Mechanical Ventilator 06/13/18 04:00 63 06/13/18 04:00 98.4 73 16 111/70 (84) 99 06/13/18 02:37 68 16 30 06/13/18 01:29 71 16 100 Mechanical Ventilator 35 06/13/18 01:22 74 16 30 06/13/18 01:22 74 16 99 Mechanical Ventilator 30 06/13/18 00:00 98.2 66 16 105/62 (76) 99 06/13/18 00:00 Mechanical Ventilator 06/13/18 00:00 80 06/13/18 00:00 30 06/12/18 23:38 75 17 30 06/12/18 21:35 72 16 100 Mechanical Ventilator 35 06/12/18 21:19 70 16 30 06/12/18 21:15 70 16 100 Mechanical Ventilator 30 06/12/18 21:15 70 16 Mechanical Ventilator 30 06/12/18 20:53 98.2 06/12/18 20:00 97.9 72 16 100/66 (77) 100 06/12/18 20:00 Mechanical Ventilator 06/12/18 20:00 76 06/12/18 20:00 30 06/12/18 19:05 75 16 30 06/12/18 16:00 98.1 78 16 107/66 (80) 99 06/12/18 16:00 Mechanical Ventilator 06/12/18 16:00 70 06/12/18 16:00 30 06/12/18 15:29 69 16 30 06/12/18 14:02 79 16 100 Mechanical Ventilator 35 06/12/18 13:35 77 16 100 Mechanical Ventilator 30 06/12/18 13:34 77 16 30 06/12/18 12:00 69 06/12/18 12:00 98.2 75 18 114/48 (70) 100 06/12/18 12:00 40 06/12/18 12:00 Mechanical Ventilator Intake and Output 06/12/18 06/13/18 19:00 07:00 Intake Total 1990 ml 2320 ml Output Total 1800 ml 700 ml Balance 190 ml 1620 ml Free Water 100 ml 50 ml IV Total 1170 ml 1550 ml Tube Feeding 720 ml 720 ml Output Urine Total 1800 ml 700 ml # Bowel Movements 1 1 General Appearance: WD/WN, no acute distress HEENT: normocephalic, atraumatic, anicteric, mucous membranes moist, status post trach Respiratory/Chest: chest wall non-tender, lungs clear, normal breath sounds, no respiratory distress, no accessory muscle use Cardiovascular: normal peripheral pulses, normal rate, regular rhythm Abdomen: normal bowel sounds, soft, non tender, no organomegaly, non distended , no mass, other - GT Extremities: no cyanosis, no clubbing, no edema Current Medications Medications (Trade) Dose Ordered Sig/Irma Route PRN Reason Start Time Stop Time Status Last Admin Dose Admin Acetaminophen (Tylenol) 650 mg Q4H PRN GT Mild Pain/Temp > 100.5 06/07/18 21:00 07/07/18 20:59 06/12/18 20:23 Acetylcysteine (Mucomyst) 100 mg TIDRT HHN 06/04/18 19:00 07/04/18 18:59 06/13/18 07:24 Albuterol/ Ipratropium (Albuterol/ Ipratropium) 3 ml Q4H PRN HHN Shortness of Breath 06/08/18 15:06 06/13/18 15:05 06/09/18 07:02 Albuterol/ Ipratropium (Albuterol/ Ipratropium) 3 ml Q6HRT HHN 06/09/18 13:00 06/14/18 12:59 06/13/18 07:24 Amlodipine Besylate (Norvasc) 10 mg DAILY ORAL 06/03/18 09:00 07/03/18 08:59 06/04/18 08:51 Atorvastatin Calcium (Lipitor) 10 mg BEDTIME GT 06/13/18 21:00 07/02/18 22:29 Bisacodyl (Dulcolax) 10 mg DAILYPRN PRN RECTAL Constipation 06/03/18 06:41 07/03/18 06:40 Dextrose/Sodium Chloride 1,000 ml @ 100 mls/hr Q10H IV 06/02/18 22:00 07/02/18 21:59 06/12/18 23:50 Docusate Sodium (Colace) 100 mg TWICE A DAY GT 06/13/18 18:00 07/12/18 08:59 Heparin Sodium (Porcine) (Heparin 5000 units/ml) 5,000 units EVERY 12 HOURS SUBQ 06/03/18 09:00 07/03/18 08:59 06/13/18 09:13 Lansoprazole (Prevacid) 30 mg BID GT 06/13/18 18:00 07/03/18 08:59 Lisinopril (Zestril) 10 mg DAILY ORAL 06/03/18 09:00 07/03/18 08:59 06/04/18 08:51 Meropenem 1 gm/ Sodium Chloride 110 ml @ 220 mls/hr Q8HR IVPB 06/09/18 22:00 06/16/18 21:59 06/13/18 05:01 Multivitamins Therapeutic (Therapeutic Multivitamin) 1 ea DAILY ORAL 06/03/18 09:00 07/03/18 08:59 06/13/18 09:09 Patient Own Medication (Patient's Own Med) 1 ea Q12HR ORAL 06/13/18 21:00 07/03/18 20:59 Trimethoprim/ Sulfamethoxazole (Bactrim-DS) 2 tab TWICE A DAY GT 06/13/18 18:00 06/18/18 17:59 Vitamin D (Vitamin D) 2,000 intlu DAILY ORAL 06/03/18 09:00 07/03/18 08:59 06/13/18 09:07 Parveen Blanco MD Jun 13, 2018 11:17
[2018-06-13 11:48] LABS: ANION GAP 9 mmol/L (5-15); BLOOD UREA NITROGEN 10 mg/dL (7-18); CALCIUM 8.9 MG/DL (8.5-10.1); CARBON DIOXIDE 25 MMOL/L (21-32); CHLORIDE 105 MMOL/L (98-107); CREATININE 0.7 MG/DL (0.55-1.30); POTASSIUM 4.1 MMOL/L (3.5-5.1); SODIUM 139 MMOL/L (136-145)
--- NOTE | 2018-06-13 11:52 | Infectious Diseases Prog Note ---
Assessment/Plan Assessment/Plan ASSESSMENT AND PLAN: 1. serratia pna, acinetobacter pna, sepsis, leukocytosis, ALS, trach, vent, g- tube, fevers yesterday - meropenem x 3 days - bactrim down g-tube x 5 days - urine culture with yeast is likely colonizer - blood cultures - negative - monitor labs and chest x-ray - clinically stable, leukocytosis and fevers resolved - stable from ID standpoint 2. The patient has trach/vent and respiratory failure. 3. Dysphagia, possible malnutrition, needed gastrostomy tube. 4. The patient has history of amyotrophic lateral sclerosis. 5. Possible hyperlipidemia. 6. Discussed with Neurology. Neurology will follow. 7. Hypertension. Treatment per primary team. 8. Anemia. 9. Weakness secondary to presumptive amyotrophic lateral sclerosis. 10. No history of diabetes or hypertension. 11. No known allergies. 12. Social history negative. 13. Family history noncontributory. 14. MAR was noted. 15. Case discussed with RN. 16. Continue treatment per primary consultants. 17. Case discussed with the patient and the patient's family. 18. vre colonization and isolation Subjective Constitutional: Reports: other - + trach and vent ; Denies: fever HEENT: Reports: congestion Respiratory: Reports: shortness of breath Cardiovascular: Denies: chest pain Gastrointestinal/Abdominal: Denies: nausea, vomiting, diarrhea Genitourinary: Reports: other - no loera Neurologic: Denies: headache Psychiatric: Denies: depression Skin: Denies: rash Hematologic: Denies: bleeding Musculoskeletal: Denies: pain Allergies: Coded Allergies: No Known Allergies (Unverified , 06/02/18) Objective Vital Signs Last 24 Hour Vital Signs Date Time Temp Pulse Resp B/P (MAP) Pulse Ox O2 Delivery O2 Flow Rate FiO2 06/13/18 10:56 69 16 30 06/13/18 09:00 102/65 06/13/18 09:00 71 102/65 06/13/18 08:33 71 16 30 06/13/18 08:00 98.1 76 16 102/65 (77) 100 06/13/18 07:58 65 06/13/18 07:49 30 06/13/18 07:48 Mechanical Ventilator 06/13/18 07:32 74 16 100 Mechanical Ventilator 35 06/13/18 07:24 68 16 100 Mechanical Ventilator 30 06/13/18 07:24 68 16 30 06/13/18 05:08 72 16 30 06/13/18 04:00 30 06/13/18 04:00 Mechanical Ventilator 06/13/18 04:00 63 06/13/18 04:00 98.4 73 16 111/70 (84) 99 06/13/18 02:37 68 16 30 06/13/18 01:29 71 16 100 Mechanical Ventilator 35 06/13/18 01:22 74 16 30 06/13/18 01:22 74 16 99 Mechanical Ventilator 30 06/13/18 00:00 98.2 66 16 105/62 (76) 99 06/13/18 00:00 Mechanical Ventilator 06/13/18 00:00 80 06/13/18 00:00 30 06/12/18 23:38 75 17 30 06/12/18 21:35 72 16 100 Mechanical Ventilator 35 06/12/18 21:19 70 16 30 06/12/18 21:15 70 16 100 Mechanical Ventilator 30 06/12/18 21:15 70 16 Mechanical Ventilator 30 06/12/18 20:53 98.2 06/12/18 20:00 97.9 72 16 100/66 (77) 100 06/12/18 20:00 Mechanical Ventilator 06/12/18 20:00 76 06/12/18 20:00 30 06/12/18 19:05 75 16 30 06/12/18 16:00 98.1 78 16 107/66 (80) 99 06/12/18 16:00 Mechanical Ventilator 06/12/18 16:00 70 06/12/18 16:00 30 06/12/18 15:29 69 16 30 06/12/18 14:02 79 16 100 Mechanical Ventilator 35 06/12/18 13:35 77 16 100 Mechanical Ventilator 30 06/12/18 13:34 77 16 30 06/12/18 12:00 69 06/12/18 12:00 98.2 75 18 114/48 (70) 100 06/12/18 12:00 40 06/12/18 12:00 Mechanical Ventilator Height (Feet): 5 Height (Inches): 4.00 Weight (Pounds): 114 General Appearance: no acute distress, other HEENT: normocephalic, atraumatic, anicteric, no JVD, status post trach Respiratory/Chest: crackles/rales, rhonchi - bilaterally Cardiovascular: normal rate, regular rhythm, no gallop/murmur, no JVD Abdomen: normal bowel sounds, soft, non tender, no organomegaly, non distended Genitourinary: other - no loera Extremities: no cyanosis Skin: no rash, no ulcers Neurologic/Psychiatric: alert, responsive Lymphatic: no neck adenopathy Musculoskeletal: no effusion Objective CT abdomen/pelvis/chest: IMPRESSION: CT CHEST: * Tracheostomy tube in place. * Complete atelectasis of the left lower lobe with some mucous/debris in the left lower lobe bronchus. Consider bronchoscopy as clinically indicated. Mass or pneumonia in the collapsed lung not excludable. * Patchy and somewhat nodular airspace opacities in the posterior left upper lobe and posterior right lower lobe as well as some tree-in-bud opacities in the periphery of the left upper lobe likely infectious or inflammatory in etiology. Follow-up after appropriate treatment recommended to ensure resolution. CT ABDOMEN/PELVIS: * Cholelithiasis. No CT evidence to suggest acute cholecystitis. * Bladder wall thickening. Correlation with urinalysis recommended to exclude cystitis. * Enlarged and heterogeneous prostate. * Moderate colonic stool burden raising question for constipation. Chest x-ray - 06/05/18: FINDINGS: Lungs: Bibasilar infiltrates, left greater than right. Pleural space: Unremarkable. No pneumothorax. Heart: Unremarkable. No cardiomegaly. Mediastinum: Unremarkable. Bones/joints: No acute fracture. Tubes, lines and devices: Tracheostomy. IMPRESSION: Bibasilar infiltrates, left greater than right. 06/09/18 - chest x-ray - Comparison: 06/06/2018 A single view chest radiograph was obtained. Findings: Basilar infiltrates again demonstrated. Heart size is stable. Tracheostomy noted. IMPRESSION: No change Microbiology Date/Time Source Procedure Growth Status 06/07/18 21:10 Blood Blood Culture - Final NO GROWTH AFTER 5 DAYS Complete 06/07/18 21:00 Sputum Induced Gram Stain - Final Complete 06/07/18 21:00 Sputum Culture - Final Serratia Marcescens Usual Respiratory Radha Complete 06/07/18 22:18 Urine,Clean Catch Urine Culture - Final YEAST Complete 06/02/18 21:10 Rectum VRE Culture - Final Enterococcus Faecalis - Vre Complete 06/02/18 21:10 Rectum - Final NO CARBAPENEM-RESISTANT ENTEROBACTERI... Complete wbc - 8.3 hgb - 8.0 cr - 0.7 Laboratory Tests Test 06/13/18 11:22 White Blood Count Pending Red Blood Count Pending Hemoglobin Pending Hematocrit Pending Mean Corpuscular Volume Pending Mean Corpuscular Hemoglobin Pending Mean Corpuscular Hemoglobin Concent Pending Red Cell Distribution Width Pending Platelet Count Pending Mean Platelet Volume Pending Neutrophils (%) (Auto) Pending Lymphocytes (%) (Auto) Pending Monocytes (%) (Auto) Pending Eosinophils (%) (Auto) Pending Basophils (%) (Auto) Pending Sodium Level Pending Potassium Level Pending Chloride Level Pending Carbon Dioxide Level Pending Blood Urea Nitrogen Pending Creatinine Pending Estimat Glomerular Filtration Rate Pending Glucose Level Pending Calcium Level Pending Total Bilirubin Pending Aspartate Amino Transf (AST/SGOT) Pending Alanine Aminotransferase (ALT/SGPT) Pending Alkaline Phosphatase Pending Total Protein Pending Albumin Pending Globulin Pending Current Medications Medications (Trade) Dose Ordered Sig/Irma Route PRN Reason Start Time Stop Time Status Last Admin Dose Admin Acetaminophen (Tylenol) 650 mg Q4H PRN GT Mild Pain/Temp > 100.5 06/07/18 21:00 07/07/18 20:59 06/12/18 20:23 Acetylcysteine (Mucomyst) 100 mg TIDRT N 06/04/18 19:00 07/04/18 18:59 06/13/18 07:24 Albuterol/ Ipratropium (Albuterol/ Ipratropium) 3 ml Q4H PRN N Shortness of Breath 06/08/18 15:06 06/13/18 15:05 06/09/18 07:02 Albuterol/ Ipratropium (Albuterol/ Ipratropium) 3 ml Q6HRT N 06/09/18 13:00 06/14/18 12:59 06/13/18 07:24 Amlodipine Besylate (Norvasc) 10 mg DAILY ORAL 06/03/18 09:00 07/03/18 08:59 06/04/18 08:51 Atorvastatin Calcium (Lipitor) 10 mg BEDTIME GT 06/13/18 21:00 07/02/18 22:29 Bisacodyl (Dulcolax) 10 mg DAILYPRN PRN RECTAL Constipation 06/03/18 06:41 07/03/18 06:40 Dextrose/Sodium Chloride 1,000 ml @ 100 mls/hr Q10H IV 06/02/18 22:00 07/02/18 21:59 06/12/18 23:50 Docusate Sodium (Colace) 100 mg TWICE A DAY GT 06/13/18 18:00 07/12/18 08:59 Heparin Sodium (Porcine) (Heparin 5000 units/ml) 5,000 units EVERY 12 HOURS SUBQ 06/03/18 09:00 07/03/18 08:59 06/13/18 09:13 Lansoprazole (Prevacid) 30 mg BID GT 06/13/18 18:00 07/03/18 08:59 Lisinopril (Zestril) 10 mg DAILY ORAL 06/03/18 09:00 07/03/18 08:59 06/04/18 08:51 Meropenem 1 gm/ Sodium Chloride 110 ml @ 220 mls/hr Q8HR IVPB 06/09/18 22:00 06/16/18 21:59 06/13/18 05:01 Multivitamins Therapeutic (Therapeutic Multivitamin) 1 ea DAILY ORAL 06/03/18 09:00 07/03/18 08:59 06/13/18 09:09 Patient Own Medication (Patient's Own Med) 1 ea Q12HR ORAL 06/13/18 21:00 07/03/18 20:59 Trimethoprim/ Sulfamethoxazole (Bactrim-DS) 2 tab TWICE A DAY GT 06/13/18 18:00 06/18/18 17:59 Vitamin D (Vitamin D) 2,000 intlu DAILY ORAL 06/03/18 09:00 07/03/18 08:59 06/13/18 09:07 Pratik Bowens MD Jun 13, 2018 11:52
[2018-06-13 11:53] LABS: ALANINE AMINOTRANSFERASE 55 U/L (12-78); ALBUMIN 2.6 G/DL (3.4-5.0); ALBUMIN/GLOBULIN RATIO 0.6 (1.0-2.7); ALKALINE PHOSPHATASE 112 U/L (46-116); ASPARTATE AMINO TRANSFERASE 33 U/L (15-37); BILIRUBIN,TOTAL 0.2 MG/DL (0.2-1.0)
[2018-06-13 12:00] VITALS: BP 96/62
[2018-06-13 12:13] LABS: BASOPHILS % (AUTO) 1.1 % (0.0-2.0); EOSINOPHILS % (AUTO) 12.6 % (0.0-3.0); HEMATOCRIT 25.4 % (42.0-52.0); HEMOGLOBIN 8.2 G/DL (14.2-18.0); LYMPHOCYTES % (AUTO) 23.7 % (20.0-45.0); MEAN CORPUSCULAR VOLUME 85 FL (80-99); MONOCYTES % (AUTO) 5.8 % (1.0-10.0); NEUTROPHILS % (AUTO) 56.8 % (45.0-75.0); PLATELET COUNT 314 K/UL (150-450); RED BLOOD COUNT 2.97 M/UL (4.70-6.10); RED CELL DISTRIBUTION WIDTH 15.5 % (11.6-14.8); WHITE BLOOD COUNT 7.6 K/UL (4.8-10.8)
--- NOTE | 2018-06-13 14:03 | Neurology Progress Note ---
Interim History Interim History Interim History Mr. Robles feels very well. His strength has stabilized and he is stronger than when he came in. The PEG is functioning well. He is breathing well through his tracheostomy. He is able to communicate well verbally. He denies any new neurologic symptoms. The sensations are still normal. He is still on IV antibiotics. Plans are to go back to a SNF. Review of Systems Neuro Review of Systems Benign. Objective Physical Exam Last Vital Signs Date Time Temp Pulse Resp B/P (MAP) Pulse Ox O2 Delivery O2 Flow Rate FiO2 06/13/18 12:00 69 06/13/18 12:00 97.9 16 96/62 (73) 98 06/13/18 12:00 Mechanical Ventilator 06/13/18 12:00 30 06/08/18 16:29 15.0 Laboratory Tests Test 06/13/18 11:22 White Blood Count 7.6 K/UL (4.8-10.8) Red Blood Count 2.97 M/UL (4.70-6.10) L Hemoglobin 8.2 G/DL (14.2-18.0) L Hematocrit 25.4 % (42.0-52.0) L Mean Corpuscular Volume 85 FL (80-99) Mean Corpuscular Hemoglobin 27.6 PG (27.0-31.0) Mean Corpuscular Hemoglobin Concent 32.3 G/DL (32.0-36.0) Red Cell Distribution Width 15.5 % (11.6-14.8) H Platelet Count 314 K/UL (150-450) Mean Platelet Volume 7.2 FL (6.5-10.1) Neutrophils (%) (Auto) 56.8 % (45.0-75.0) Lymphocytes (%) (Auto) 23.7 % (20.0-45.0) Monocytes (%) (Auto) 5.8 % (1.0-10.0) Eosinophils (%) (Auto) 12.6 % (0.0-3.0) H Basophils (%) (Auto) 1.1 % (0.0-2.0) Sodium Level 139 MMOL/L (136-145) Potassium Level 4.1 MMOL/L (3.5-5.1) Chloride Level 105 MMOL/L (98-107) Carbon Dioxide Level 25 MMOL/L (21-32) Anion Gap 9 mmol/L (5-15) Blood Urea Nitrogen 10 mg/dL (7-18) Creatinine 0.7 MG/DL (0.55-1.30) Estimat Glomerular Filtration Rate > 60 mL/min (>60) Glucose Level 128 MG/DL (74-106) H Calcium Level 8.9 MG/DL (8.5-10.1) Total Bilirubin 0.2 MG/DL (0.2-1.0) Aspartate Amino Transf (AST/SGOT) 33 U/L (15-37) Alanine Aminotransferase (ALT/SGPT) 55 U/L (12-78) Alkaline Phosphatase 112 U/L (46-116) Total Protein 7.0 G/DL (6.4-8.2) Albumin 2.6 G/DL (3.4-5.0) L Globulin 4.4 g/dL Albumin/Globulin Ratio 0.6 (1.0-2.7) L Neurologic Exam Objective PHYSICAL EXAMINATION: GENERAL: He is a well-developed, but lean and wasting gentleman, lying in bed, in no acute distress, connected to a ventilator through a tracheostomy. HEAD: Normocephalic and atraumatic. NECK: No neck rigidity was observed. He did have a tracheostomy in place. EENT: Benign. NEUROLOGICAL EXAMINATION: MENTAL STATUS EXAMINATION: He was awake and alert. He was oriented to person, place, and time. He was able to recall 3/3 words immediately after 1 minute and after 3 minutes. He was able to remember presidents, Trump through Jose senior with hints. His mathematical skills were good. His visuospatial function was preserved. SPEECH: He was able to mouth words well. LANGUAGE: He was able to comprehend, repeat, and express himself well. CRANIAL NERVE EXAMINATION: II: The visual maldonado were intact on confrontation testing. III, IV & : The external ocular movements were full and the pupils 3 mm in diameter, equal, round, regular, and reactive to light. V: He had normal facial sensations and the temporales, masseters, and pterygoids function normally. VII: He had normal facial expressions and no facial asymmetry. VIII: He was able to hear well bilaterally and had no nystagmus. IX: The palate moved symmetrically on phonation. X: His gag reflex was present. XI: The sternocleidomastoids and trapezii functioned normally. XII: The tongue was in the midline without any atrophy, but it did reveal fasciculations. MOTOR SYSTEM: The tone was normal in all four extremities except for decreased tone in the ankles more so on the left than on the right. Examination of muscle mass revealed severe generalized muscle wasting involving the distal muscles more than the proximal muscles and the lower extremities more than the upper extremities. He had G 5/5 power in both upper extremities except for G 5-/5 power in the finger extensors. In the lower extremities, he had in the iliopsoas G 4++/5 on the right, G 4/5 on the left. In the quadriceps, he had G 5-/5 on the right and G 4+/5 on the left. In the hamstrings, he had G 4+/5 on the right and G 4-/5 on the left. In the ankle dorsiflexors and toe extensors, he had G 3/5 on the right and G 0/ 5 on the left. In the ankle plantar flexors and toe flexors, he had G 4/5 on the right and G 1/ 5 on the left. SENSORY EXAMINATION: He had intact sensations to pinprick, light touch, and graphesthesia. COORDINATION: He performed well on kndyyc-hj-wshk testing. He was unable to perform [id number]-rq-[id number] testing. REFLEXES: 2++ and bilaterally symmetrical at the biceps, triceps, brachioradialis, and knees, 0 at both ankles. The plantar response was extensor on the right and mute on the left. STANCE & GAIT: Could not be tested. Impression/Recommendations Diagnostic Impression 1. Mr. Joseph Robles is a 58-year-old, right-handed, gentleman, who does have a prior history of hypertension and dyslipidemia, who approximately 4 years ago started to have weakness that started in his left foot with a left foot drop. Over the years, he has had increasing weakness in his lower extremities more than the upper extremities and on the left side more than the right associated with muscle wasting, muscle fasciculations, and then respiratory muscle failure as a result of which he has needed a tracheostomy. He has been worked up for the problem in the past and was found to have amyotrophic lateral sclerosis, for which he is on Rilutek. 2. He feels very well. His strength has stabilized and he is stronger than when he came in. The PEG is functioning well. He is breathing well through his tracheostomy. He is able to communicate well verbally. He denies any new neurologic symptoms. The sensations are still normal. He is still on IV antibiotics. Plans are to go back to a SNF. 3. His family was able to get me an evaluation performed by Dr. Vincenzo Santos at [facility] and in his opinion the patient had clinical criteria for ALS in July 2017. 4. On neurological examination at this time, he does demonstrate tongue fasciculations, decreased tone in the ankles more so on the left than the right , generalized muscle wasting involving the lower extremities more than the upper extremities, a quadriparesis involving the lower extremities more than the upper extremities, and the left side more than the right in the lower extremities, brisk deep tendon reflexes with loss of ankle jerks, an extensor plantar response on the right with a mute plantar response on the left, and frequent fasciculations in all four extremities. He however is stronger, especially in the upper extremities, since he was hospitalized. 5. The patient's history and neurological examination are in fact consistent with amyotrophic lateral sclerosis. 6. His gastrostomy and tracheostomy are functioning well. Recommendations 1. Rilutek should be continued. 2. In the near future, edaravone therapy should be considered. 3. The patient's family was told to try and retrieve his nerve conduction study , electromyography, and MRI scan reports so that I can review them. 4. Frequent ROM exercises. 5. PT/OT to mobilize. 6. Consider small amounts of oral feeding for oral gratification. Richard Alcantara M.D., M.S.P.H. Richard Alcantara MD Jun 13, 2018 14:03
--- NOTE | 2018-06-13 15:56 | General Progress Note ---
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.20 - Motor neuron disease, unspecified SNOMED: 75399232 (4) Leukocytosis ICD Codes: D72.829 - Elevated white blood cell count, unspecified SNOMED: 415304791, 949493580 Qualifiers: Qualified Codes: D72.829 - Elevated white blood cell count, unspecified (5) Essential hypertension ICD Codes: I10 - Essential (primary) hypertension SNOMED: 33464994 (6) HCAP (healthcare-associated pneumonia) ICD Codes: J18.9 - Pneumonia, unspecified organism SNOMED: 902225616 Status: stable Assessment/Plan (1) Protein calorie malnutrition s/p G-tube placement continue tube feeds (2) Status post tracheostomy, chronic respiratory failure continue vent management per Pulmonology, wean vent as tolerated and plan transfer to snf continue frequent suctioning (3) Motor neuron disease, ALS Continue supportive care Neurology following (4) Sepsis, suspected aspiration pneumonia versus HCAP improving, repeat bcx sent bc of fever cont wean vent as tolerated per pulm continue abd per ID , vanco/андрей ID following (5)Hypokalemia K 3.4 today, replenish today (6)Hypomagnesemia resolved (6)Acute on chronic anemia No evidence of bleeding Repeat CBC in AM Transfuse PRBC if Hb < 7 (7)acute on chronic hypoxic respiratory failure vent Optimize pulmonary hygiene/mobilize as tolerated Continue ventilatory support/settings reviewed Titrate down FiO2 to keep SaO2 > 90% RTC and PRN HHN's + MUCOMYST HHN TID wean vent as tolerated and plan transfer to snf continue frequent suctioning appreciate pulm recs Abx per ID, F/U Cx's trached worsened by asp pna DVT Prophylaxis: SCD, HSQ Code Status: Full Hospital Classification Declaration: Based on this initial evaluation, and depending on the patient's clinical course, I anticipate that this patient will require hospitalization for 2-3 days for malnutrition, trached, peg placed here , treated for aspiration pneumonia, lost bed at previous SNF now working on new bed, and close respiratory/hemodynamic monitoring. Disposition: Once the patient is stable to leave the hospital, I anticipate the patient will likely be discharged to the following environment: SNF, Planned for dc back to snf however patient lost bed, cm/sw working on new bed placement. I spent over 39 minutes on this patient's case, and 25 minutes were dedicated to counseling and/or care coordination. Discussed with patient/family, nursing staff, SW/CM, and consultants regarding clinical status, treatment course, and disposition planning. Time of note may not reflect time of encounter. ---- Date of Discussion: 06/03/18 A [id number] discussion with the patient's son regarding the patient's advanced care planning took place during this hospitalization on the above date. The discussion included the explanation and discussion of advance directives and associated forms/documents, as well as the patient's current code status. We also discussed at length the patient's medical conditions (both acute and chronic), general prognosis, treatment options, and goals of care. The following summarizes the discussion: Advance Care Planning/Goals of Care: - polst completed - Continue current evaluation and management of any acute and chronic medical issues - Will continue to support the patient/family - Will continue to discuss both short- and long-term goals of care DPOA-HC/Surrogate Decision Maker: , Randa Robles Code Status: Full Code AD Forms/Documents Completed: completed A total of 31 minutes was spent on this discussion, including counseling, answering questions, and completing, if any, pertinent advanced care planning forms/documents. Subjective Date patient seen: Jun 13, 2018 Time patient seen: 05:45 Allergies: Coded Allergies: No Known Allergies (Unverified , 06/02/18) Subjective f/u malnutrition, sepsis, resp failure, trach on vent, peg stable cont abx pulm attempting to wean vent concerns for asp pna denies any complaints, no fevers/chills/n/v/pain no acute events overnight abx per id , bactrim and андрей patient responsive, denies any complaints planned for dc back to snf however patient lost bed, cm/sw working on new bed placement. ROS: 14 point ROS reviewed and negative except per the above subjective Objective Last 24 Hour Vital Signs Date Time Temp Pulse Resp B/P (MAP) Pulse Ox O2 Delivery O2 Flow Rate FiO2 06/13/18 14:19 73 16 100 Mechanical Ventilator 35 06/13/18 14:07 71 16 100 Mechanical Ventilator 30 06/13/18 14:07 70 16 30 06/13/18 12:00 69 06/13/18 12:00 97.9 74 16 96/62 (73) 98 06/13/18 12:00 Mechanical Ventilator 06/13/18 12:00 30 06/13/18 10:56 69 16 30 06/13/18 09:00 102/65 06/13/18 09:00 71 102/65 06/13/18 08:33 71 16 30 06/13/18 08:00 98.1 76 16 102/65 (77) 100 06/13/18 07:58 65 06/13/18 07:49 30 06/13/18 07:48 Mechanical Ventilator 06/13/18 07:32 74 16 100 Mechanical Ventilator 35 06/13/18 07:24 68 16 100 Mechanical Ventilator 30 06/13/18 07:24 68 16 30 06/13/18 05:08 72 16 30 06/13/18 04:00 30 06/13/18 04:00 Mechanical Ventilator 06/13/18 04:00 63 06/13/18 04:00 98.4 73 16 111/70 (84) 99 06/13/18 02:37 68 16 30 06/13/18 01:29 71 16 100 Mechanical Ventilator 35 06/13/18 01:22 74 16 30 06/13/18 01:22 74 16 99 Mechanical Ventilator 30 06/13/18 00:00 98.2 66 16 105/62 (76) 99 06/13/18 00:00 Mechanical Ventilator 06/13/18 00:00 80 06/13/18 00:00 30 06/12/18 23:38 75 17 30 06/12/18 21:35 72 16 100 Mechanical Ventilator 35 06/12/18 21:19 70 16 30 06/12/18 21:15 70 16 100 Mechanical Ventilator 30 06/12/18 21:15 70 16 Mechanical Ventilator 30 06/12/18 20:53 98.2 06/12/18 20:00 97.9 72 16 100/66 (77) 100 06/12/18 20:00 Mechanical Ventilator 06/12/18 20:00 76 06/12/18 20:00 30 06/12/18 19:05 75 16 30 06/12/18 16:00 98.1 78 16 107/66 (80) 99 06/12/18 16:00 Mechanical Ventilator 06/12/18 16:00 70 06/12/18 16:00 30 Intake and Output 06/12/18 06/13/18 19:00 07:00 Intake Total 1990 ml 2320 ml Output Total 1800 ml 700 ml Balance 190 ml 1620 ml Free Water 100 ml 50 ml IV Total 1170 ml 1550 ml Tube Feeding 720 ml 720 ml Output Urine Total 1800 ml 700 ml # Bowel Movements 1 1 Laboratory Tests 06/13/18 11:22: White Blood Count 7.6, Red Blood Count 2.97L, Hemoglobin 8.2L, Hematocrit 25.4L , Mean Corpuscular Volume 85, Mean Corpuscular Hemoglobin 27.6, Mean Corpuscular Hemoglobin Concent 32.3, Red Cell Distribution Width 15.5H, Platelet Count 314, Mean Platelet Volume 7.2, Neutrophils (%) (Auto) 56.8, Lymphocytes (%) (Auto) 23.7, Monocytes (%) (Auto) 5.8, Eosinophils (%) (Auto) 12.6H, Basophils (%) (Auto) 1.1, Sodium Level 139, Potassium Level 4.1, Chloride Level 105, Carbon Dioxide Level 25, Anion Gap 9, Blood Urea Nitrogen 10 , Creatinine 0.7, Estimat Glomerular Filtration Rate > 60, Glucose Level 128H, Calcium Level 8.9, Total Bilirubin 0.2, Aspartate Amino Transf (AST/SGOT) 33, Alanine Aminotransferase (ALT/SGPT) 55, Alkaline Phosphatase 112, Total Protein 7.0, Albumin 2.6L, Globulin 4.4, Albumin/Globulin Ratio 0.6L Height (Feet): 5 Height (Inches): 4.00 Weight (Pounds): 114 Objective General Appearance: WD/WN, no apparent distress, alert Lines, tubes and drains: peripheral HEENT: normocephalic, atraumatic Neck: non-tender, normal alignment, supple, normal inspection, trach Cardiovascular/Chest: normal peripheral pulses, normal rate, regular rhythm Abdomen: normal bowel sounds, non tender, soft, no organomegaly, no mass, PEG in place, clean site Extremities: normal range of motion, non-tender, normal inspection, no calf tenderness Skin Exam: normal pigmentation, warm/dry Neurologic: swatcher II-XII grossly normal, alert, oriented x 3, responsive, normal mood/affect Beth Aburto MD Jun 13, 2018 15:56
[2018-06-13 16:00] VITALS: BP 96/57
[2018-06-13] MEDS: Docusate 100mg/10ml Liq GT SCH (17:55)
[2018-06-13] MEDS: Bactrim-DS 1 tab GT SCH (17:55)
[2018-06-13] MEDS: D5NS 1,000 ML IV SCH (17:56)
[2018-06-13 20:00] VITALS: BP 101/68
[2018-06-13] MEDS: RILUZOLE 50 MG ORAL SCH (21:13)
[2018-06-13] MEDS: Acetaminophen 650mg/20.3ml GT PRN (21:23)
--- NOTE | 2018-06-13 21:57 | General Progress Note ---
Assessment/Plan Assessment/Plan # Acute on chronic anemia, anemia panel has been reviewed --> No evidence of bleeding --> cbc reviewed --> Transfuse PRBC if Hb < 7 # Protein calorie malnutrition --> s/p PEG placement --> continue tube feeds # Status post tracheostomy, chronic respiratory failure --> continue vent management per Pulmonology -->wean vent as tolerated and plan transfer to snf --> continue frequent suctioning # Motor neuron disease, ALS --> Continue supportive care --> Neurology following # Sepsis, suspected aspiration pneumonia versus HCAP --> improving --> cont wean vent as tolerated per pulm --> continue vancomycin and Zosyn --> ID following # Hypokalemia --> improved # Resp failure, acute on chronic --> vent --> trached Subjective ROS Limited/Unobtainable: Yes Allergies: Coded Allergies: No Known Allergies (Unverified , 06/02/18) Subjective 1/2 Pt is seen in the room, resting in bed. /trach/vent/ g tube and respiratory failure.cbc reviewed. no events 1/3: Pt is resting in bed, remains on vent , cbc reviewed, no events reported. 1/4: Pt is awake and resting in bed. Pt is on mechanical vent, in no acute distress. Family is at bedside 1: Pt is seen in the room, s/p PEG for dysphagia, on vent, cbc reviewed, no events. 06/13: Pt is seen at bedside, awake and lying in bed, cbc reviewed no evnts reported, pt is cleared for discharge by ID and pulm Objective Last 24 Hour Vital Signs Date Time Temp Pulse Resp B/P (MAP) Pulse Ox O2 Delivery O2 Flow Rate FiO2 06/13/18 21:26 83 16 30 06/13/18 20:00 77 06/13/18 20:00 97.9 72 16 101/68 (79) 99 06/13/18 19:56 81 16 100 Mechanical Ventilator 30 06/13/18 19:43 69 16 100 Mechanical Ventilator 30 06/13/18 19:39 71 16 30 06/13/18 17:14 68 16 30 06/13/18 16:00 97.9 71 16 96/57 (70) 99 06/13/18 16:00 Mechanical Ventilator 06/13/18 16:00 30 06/13/18 16:00 70 1/6/19 14:19 73 16 100 Mechanical Ventilator 35 06/13/18 14:07 71 16 100 Mechanical Ventilator 30 06/13/18 14:07 70 16 30 06/13/18 12:00 69 06/13/18 12:00 97.9 74 16 96/62 (73) 98 06/13/18 12:00 Mechanical Ventilator 06/13/18 12:00 30 06/13/18 10:56 69 16 30 06/13/18 09:00 102/65 06/13/18 09:00 71 102/65 06/13/18 08:33 71 16 30 06/13/18 08:00 98.1 76 16 102/65 (77) 100 06/13/18 07:58 65 06/13/18 07:49 30 06/13/18 07:48 Mechanical Ventilator 06/13/18 07:32 74 16 100 Mechanical Ventilator 35 06/13/18 07:24 68 16 100 Mechanical Ventilator 30 06/13/18 07:24 68 16 30 06/13/18 05:08 72 16 30 06/13/18 04:00 30 06/13/18 04:00 Mechanical Ventilator 06/13/18 04:00 63 06/13/18 04:00 98.4 73 16 111/70 (84) 99 06/13/18 02:37 68 16 30 06/13/18 01:29 71 16 100 Mechanical Ventilator 35 06/13/18 01:22 74 16 30 06/13/18 01:22 74 16 99 Mechanical Ventilator 30 06/13/18 00:00 98.2 66 16 105/62 (76) 99 06/13/18 00:00 Mechanical Ventilator 06/13/18 00:00 80 06/13/18 00:00 30 06/12/18 23:38 75 17 30 Intake and Output 06/12/18 06/13/18 19:00 07:00 Intake Total 1990 ml 2320 ml Output Total 1800 ml 700 ml Balance 190 ml 1620 ml Free Water 100 ml 50 ml IV Total 1170 ml 1550 ml Tube Feeding 720 ml 720 ml Output Urine Total 1800 ml 700 ml # Bowel Movements 1 1 Laboratory Tests 06/13/18 11:22: White Blood Count 7.6, Red Blood Count 2.97L, Hemoglobin 8.2L, Hematocrit 25.4L , Mean Corpuscular Volume 85, Mean Corpuscular Hemoglobin 27.6, Mean Corpuscular Hemoglobin Concent 32.3, Red Cell Distribution Width 15.5H, Platelet Count 314, Mean Platelet Volume 7.2, Neutrophils (%) (Auto) 56.8, Lymphocytes (%) (Auto) 23.7, Monocytes (%) (Auto) 5.8, Eosinophils (%) (Auto) 12.6H, Basophils (%) (Auto) 1.1, Sodium Level 139, Potassium Level 4.1, Chloride Level 105, Carbon Dioxide Level 25, Anion Gap 9, Blood Urea Nitrogen 10 , Creatinine 0.7, Estimat Glomerular Filtration Rate > 60, Glucose Level 128H, Calcium Level 8.9, Total Bilirubin 0.2, Aspartate Amino Transf (AST/SGOT) 33, Alanine Aminotransferase (ALT/SGPT) 55, Alkaline Phosphatase 112, Total Protein 7.0, Albumin 2.6L, Globulin 4.4, Albumin/Globulin Ratio 0.6L Height (Feet): 5 Height (Inches): 4.00 Weight (Pounds): 114 Objective PE: Sp02 EP Interpretation: reviewed, normal General Appearance: well appearing, no apparent distress Head: normocephalic, atraumatic Eyes: bilateral eye PERRL, bilateral eye EOMI ENT: hearing grossly normal, normal pharynx- Tracheostomy in place Neck: full range of motion, supple, no meningismus, no bony tend Respiratory: lungs clear, normal breath sounds Cardiovascular #1: normal peripheral pulses Gastrointestinal: normal bowel sounds Genitourinary: no CVA tenderness Musculoskeletal: other - Chronically debilitated Neurologic: oriented x3, responsive Psychiatric: mood/affect normal Skin: normal color, no rash, warm/dry Lymphatic: normal inspection, no adenopathy Mike Piper MD Jun 13, 2018 21:57
[2018-06-14] VITALS: BP 98/68
[2018-06-14] MEDS: Albuterol/Ipratropium 3ml neb HHN SCH ×3 (01:43→12:53)
[2018-06-14 04:00] VITALS: BP 101/57
[2018-06-14] MEDS: D5NS 1,000 ML IV SCH ×2 (04:36→13:32)
[2018-06-14] MEDS: Meropenem 1 GM in NS 110 ML IVPB SCH ×3 (06:05→21:00)
--- NOTE | 2018-06-14 07:46 | General Progress Note ---
Assessment/Plan Assessment/Plan # Acute on chronic anemia, anemia panel has been reviewed --> No evidence of bleeding --> cbc reviewed --> Transfuse PRBC if Hb < 7 # Protein calorie malnutrition --> s/p PEG placement --> continue tube feeds # Status post tracheostomy, chronic respiratory failure --> continue vent management per Pulmonology --> wean vent as tolerated and plan transfer to snf --> continue frequent suctioning # Motor neuron disease, ALS --> Continue supportive care --> Neurology following # Sepsis, suspected aspiration pneumonia versus HCAP --> improving --> cont wean vent as tolerated per pulm --> on bactrim and meropenem --> ID following # Hypokalemia --> improved, sp K given # Resp failure, acute on chronic --> on vent and trached Greatly appreciate consultation! Subjective ROS Limited/Unobtainable: Yes Allergies: Coded Allergies: No Known Allergies (Unverified , 06/02/18) Subjective 1/2 Pt is seen in the room, resting in bed. /trach/vent/ g tube and respiratory failure.cbc reviewed. no events 1/3: Pt is resting in bed, remains on vent , cbc reviewed, no events reported. 1: Pt is awake and resting in bed. Pt is on mechanical vent, in no acute distress. Family is at bedside 06/12: Pt is seen in the room, s/p PEG for dysphagia, on vent, cbc reviewed, no events. 06/13: Pt is seen at bedside, awake and lying in bed, cbc reviewed no evnts reported, pt is cleared for discharge by ID and pulm 06/14: no major events, on abx, on trach, gtube tolerating well Objective Last 24 Hour Vital Signs Date Time Temp Pulse Resp B/P (MAP) Pulse Ox O2 Delivery O2 Flow Rate FiO2 06/14/18 07:03 78 18 100 Mechanical Ventilator 30 06/14/18 06:59 74 16 30 06/14/18 06:52 64 16 99 Mechanical Ventilator 30 06/14/18 04:51 68 16 30 06/14/18 04:00 97.5 72 16 101/57 (72) 97 06/14/18 04:00 30 06/14/18 04:00 67 06/14/18 04:00 Mechanical Ventilator 06/14/18 03:30 73 16 30 1/7/19 01:53 71 16 100 Mechanical Ventilator 30 06/14/18 01:44 64 16 99 Mechanical Ventilator 30 06/14/18 01:43 64 16 30 06/14/18 00:00 66 06/14/18 00:00 Mechanical Ventilator 06/14/18 00:00 97.7 75 16 98/68 (78) 97 06/13/18 23:30 74 16 30 06/13/18 21:26 83 16 30 06/13/18 20:00 Mechanical Ventilator 06/13/18 20:00 77 06/13/18 20:00 30 06/13/18 20:00 97.9 72 16 101/68 (79) 99 06/13/18 19:56 81 16 100 Mechanical Ventilator 30 06/13/18 19:43 69 16 100 Mechanical Ventilator 30 06/13/18 19:39 71 16 30 06/13/18 17:14 68 16 30 06/13/18 16:00 97.9 71 16 96/57 (70) 99 06/13/18 16:00 Mechanical Ventilator 06/13/18 16:00 30 06/13/18 16:00 70 06/13/18 14:19 73 16 100 Mechanical Ventilator 35 06/13/18 14:07 71 16 100 Mechanical Ventilator 30 06/13/18 14:07 70 16 30 06/13/18 12:00 69 06/13/18 12:00 97.9 74 16 96/62 (73) 98 06/13/18 12:00 Mechanical Ventilator 06/13/18 12:00 30 06/13/18 10:56 69 16 30 06/13/18 09:00 102/65 06/13/18 09:00 71 102/65 06/13/18 08:33 71 16 30 06/13/18 08:00 98.1 76 16 102/65 (77) 100 06/13/18 07:58 65 06/13/18 07:49 30 06/13/18 07:48 Mechanical Ventilator Intake and Output 06/13/18 06/14/18 18:59 06:59 Intake Total 1640 ml 2260 ml Output Total 1800 ml 1400 ml Balance -160 ml 860 ml Free Water 300 ml 120 ml IV Total 620 ml 1420 ml Tube Feeding 720 ml 720 ml Output Urine Total 1800 ml 1400 ml # Voids 4 Laboratory Tests 06/13/18 11:22: White Blood Count 7.6, Red Blood Count 2.97L, Hemoglobin 8.2L, Hematocrit 25.4L , Mean Corpuscular Volume 85, Mean Corpuscular Hemoglobin 27.6, Mean Corpuscular Hemoglobin Concent 32.3, Red Cell Distribution Width 15.5H, Platelet Count 314, Mean Platelet Volume 7.2, Neutrophils (%) (Auto) 56.8, Lymphocytes (%) (Auto) 23.7, Monocytes (%) (Auto) 5.8, Eosinophils (%) (Auto) 12.6H, Basophils (%) (Auto) 1.1, Sodium Level 139, Potassium Level 4.1, Chloride Level 105, Carbon Dioxide Level 25, Anion Gap 9, Blood Urea Nitrogen 10 , Creatinine 0.7, Estimat Glomerular Filtration Rate > 60, Glucose Level 128H, Calcium Level 8.9, Total Bilirubin 0.2, Aspartate Amino Transf (AST/SGOT) 33, Alanine Aminotransferase (ALT/SGPT) 55, Alkaline Phosphatase 112, Total Protein 7.0, Albumin 2.6L, Globulin 4.4, Albumin/Globulin Ratio 0.6L Height (Feet): 5 Height (Inches): 4.00 Weight (Pounds): 114 Objective PE: Sp02 EP: reviewed, normal General Appearance: well appearing, no apparent distress ENT: hearing grossly normal, normal pharynx- Tracheostomy in place Neck: full range of motion, supple, no meningismus, no bony tend Respiratory: lungs clear, normal breath sounds GI: normal bowel sounds : no CVA tenderness MSK: chronically debilitated Neurologic: oriented x3, is responsive Psychiatric: mood/affect normal Skin: normal color, no rash Lymphatic: no adenopathy Mike Piper MD Jun 14, 2018 07:46
[2018-06-14 08:00] VITALS: BP 114/75
[2018-06-14] MEDS: RILUZOLE 50 MG ORAL SCH ×2 (08:34→20:57)
[2018-06-14] MEDS: Vitamin D 1000 IU Tab GT SCH (08:35)
[2018-06-14] MEDS: Multivitamin w/Minerals tab ORAL SCH (08:36)
[2018-06-14] MEDS: Bactrim-DS 1 tab GT SCH ×2 (08:36→20:56)
[2018-06-14] MEDS: Docusate 100mg/10ml Liq GT SCH ×2 (08:36→17:36)
[2018-06-14 08:42] LABS: BASOPHILS % (AUTO) 0.9 % (0.0-2.0); EOSINOPHILS % (AUTO) 12.2 % (0.0-3.0); HEMATOCRIT 25.4 % (42.0-52.0); HEMOGLOBIN 8.3 G/DL (14.2-18.0); LYMPHOCYTES % (AUTO) 25.8 % (20.0-45.0); MEAN CORPUSCULAR VOLUME 86 FL (80-99); MONOCYTES % (AUTO) 6.6 % (1.0-10.0); NEUTROPHILS % (AUTO) 54.6 % (45.0-75.0); PLATELET COUNT 339 K/UL (150-450); RED BLOOD COUNT 2.95 M/UL (4.70-6.10); RED CELL DISTRIBUTION WIDTH 16.1 % (11.6-14.8); WHITE BLOOD COUNT 8.5 K/UL (4.8-10.8)
[2018-06-14] MEDS: Lisinopril 10mg tab GT SCH (08:48)
[2018-06-14] MEDS: Heparin 5000 units/ml inj SUBQ SCH ×2 (08:52→20:57)
[2018-06-14 08:56] LABS: ANION GAP 9 mmol/L (5-15); BLOOD UREA NITROGEN 12 mg/dL (7-18); CALCIUM 8.9 MG/DL (8.5-10.1); CARBON DIOXIDE 26 MMOL/L (21-32); CHLORIDE 105 MMOL/L (98-107); CREATININE 0.8 MG/DL (0.55-1.30); POTASSIUM 3.9 MMOL/L (3.5-5.1); SODIUM 139 MMOL/L (136-145)
[2018-06-14 09:01] LABS: ALANINE AMINOTRANSFERASE 54 U/L (12-78); ALBUMIN 2.6 G/DL (3.4-5.0); ALBUMIN/GLOBULIN RATIO 0.6 (1.0-2.7); ALKALINE PHOSPHATASE 120 U/L (46-116); ASPARTATE AMINO TRANSFERASE 32 U/L (15-37); BILIRUBIN,TOTAL 0.2 MG/DL (0.2-1.0)
[2018-06-14] MEDS ORDERED: D5NS 1000ml IV ONE (09:19)
--- NOTE | 2018-06-14 11:08 | General Progress Note ---
Assessment/Plan Problem List: (1) Protein calorie malnutrition ICD Codes: E46 - Unspecified protein-calorie malnutrition SNOMED: 376922698 (2) Status post tracheostomy ICD Codes: Z93.0 - Tracheostomy status SNOMED: 01153297, 302532100 (3) Motor neuron disease, unspecified ICD Codes: G12.20 - Motor neuron disease, unspecified SNOMED: 69709680 (4) Leukocytosis ICD Codes: D72.829 - Elevated white blood cell count, unspecified SNOMED: 788259982, 860893199 Qualifiers: Qualified Codes: D72.829 - Elevated white blood cell count, unspecified (5) Essential hypertension ICD Codes: I10 - Essential (primary) hypertension SNOMED: 92290476 (6) HCAP (healthcare-associated pneumonia) ICD Codes: J18.9 - Pneumonia, unspecified organism SNOMED: 038406316 Status: stable, progressing Assessment/Plan (1) Protein calorie malnutrition s/p G-tube placement continue tube feeds (2) Status post tracheostomy, chronic respiratory failure continue vent management per Pulmonology, wean vent as tolerated and plan transfer to snf continue frequent suctioning (3) Motor neuron disease, ALS Continue supportive care Neurology following (4) Sepsis, suspected aspiration pneumonia versus HCAP improving, repeat bcx sent bc of fever cont wean vent as tolerated per pulm continue abd per ID , vanco/андрей ID following (5)Hypokalemia resolved replenish prn (6)Hypomagnesemia resolved (6)Acute on chronic anemia No evidence of bleeding Repeat CBC in AM Transfuse PRBC if Hb < 7 (7)acute on chronic hypoxic respiratory failure vent Optimize pulmonary hygiene/mobilize as tolerated Continue ventilatory support/settings reviewed Titrate down FiO2 to keep SaO2 > 90% RTC and PRN HHN's + MUCOMYST HHN TID wean vent as tolerated and plan transfer to snf continue frequent suctioning appreciate pulm recs Abx per ID, F/U Cx's trached worsened by asp pna DVT Prophylaxis: SCD, HSQ Code Status: Full Hospital Classification Declaration: Based on this initial evaluation, and depending on the patient's clinical course, I anticipate that this patient will require hospitalization for 2-3 days for malnutrition, trached, peg placed here , treated for aspiration pneumonia, lost bed at previous SNF now working on new bed, and close respiratory/hemodynamic monitoring. Disposition: Once the patient is stable to leave the hospital, I anticipate the patient will likely be discharged to the following environment: SNF, Planned for dc back to snf however patient lost bed, cm/sw working on new bed placement. I spent over 35 minutes on this patient's case, and 25 minutes were dedicated to counseling and/or care coordination. Discussed with patient/family, nursing staff, SW/CM, and consultants regarding clinical status, treatment course, and disposition planning. Time of note may not reflect time of encounter. ---- Date of Discussion: 06/03/18 A [id number] discussion with the patient's son regarding the patient's advanced care planning took place during this hospitalization on the above date. The discussion included the explanation and discussion of advance directives and associated forms/documents, as well as the patient's current code status. We also discussed at length the patient's medical conditions (both acute and chronic), general prognosis, treatment options, and goals of care. The following summarizes the discussion: Advance Care Planning/Goals of Care: - polst completed - Continue current evaluation and management of any acute and chronic medical issues - Will continue to support the patient/family - Will continue to discuss both short- and long-term goals of care DPOA-HC/Surrogate Decision Maker: , Randa Robles Code Status: Full Code AD Forms/Documents Completed: completed A total of 31 minutes was spent on this discussion, including counseling, answering questions, and completing, if any, pertinent advanced care planning forms/documents. Subjective Date patient seen: Jun 14, 2018 Time patient seen: 11:07 Allergies: Coded Allergies: No Known Allergies (Unverified , 06/02/18) Subjective f/u malnutrition, sepsis, resp failure, trach on vent, peg stable cont abx pulm attempting to wean vent concerns for asp pna denies any complaints, no fevers/chills/n/v/pain no acute events overnight abx per id , bactrim and андрей patient responsive, denies any complaints planned for dc back to snf however patient lost bed, cm/sw working on new bed placement. ROS: 14 point ROS reviewed and negative except per the above subjective Objective Last 24 Hour Vital Signs Date Time Temp Pulse Resp B/P (MAP) Pulse Ox O2 Delivery O2 Flow Rate FiO2 06/14/18 10:45 71 16 30 1/7/19 09:14 71 16 30 06/14/18 08:48 117/75 06/14/18 08:48 79 114/75 06/14/18 08:00 Mechanical Ventilator 06/14/18 08:00 30 06/14/18 08:00 97.8 73 16 114/75 (88) 99 06/14/18 07:37 91 06/14/18 07:03 78 18 100 Mechanical Ventilator 30 06/14/18 06:59 74 16 30 06/14/18 06:52 64 16 99 Mechanical Ventilator 30 06/14/18 04:51 68 16 30 06/14/18 04:00 97.5 72 16 101/57 (72) 97 06/14/18 04:00 30 06/14/18 04:00 67 06/14/18 04:00 Mechanical Ventilator 06/14/18 03:30 73 16 30 06/14/18 01:53 71 16 100 Mechanical Ventilator 30 06/14/18 01:44 64 16 99 Mechanical Ventilator 30 06/14/18 01:43 64 16 30 06/14/18 00:00 66 06/14/18 00:00 Mechanical Ventilator 06/14/18 00:00 97.7 75 16 98/68 (78) 97 06/13/18 23:30 74 16 30 06/13/18 21:26 83 16 30 06/13/18 20:00 Mechanical Ventilator 06/13/18 20:00 77 06/13/18 20:00 30 06/13/18 20:00 97.9 72 16 101/68 (79) 99 06/13/18 19:56 81 16 100 Mechanical Ventilator 30 06/13/18 19:43 69 16 100 Mechanical Ventilator 30 06/13/18 19:39 71 16 30 06/13/18 17:14 68 16 30 06/13/18 16:00 97.9 71 16 96/57 (70) 99 06/13/18 16:00 Mechanical Ventilator 06/13/18 16:00 30 06/13/18 16:00 70 06/13/18 14:19 73 16 100 Mechanical Ventilator 35 06/13/18 14:07 71 16 100 Mechanical Ventilator 30 06/13/18 14:07 70 16 30 06/13/18 12:00 69 06/13/18 12:00 97.9 74 16 96/62 (73) 98 06/13/18 12:00 Mechanical Ventilator 06/13/18 12:00 30 Intake and Output 06/13/18 06/14/18 19:00 07:00 Intake Total 1640 ml 2260 ml Output Total 1800 ml 1400 ml Balance -160 ml 860 ml Free Water 300 ml 120 ml IV Total 620 ml 1420 ml Tube Feeding 720 ml 720 ml Output Urine Total 1800 ml 1400 ml # Voids 4 Laboratory Tests 06/13/18 11:22: White Blood Count 7.6, Red Blood Count 2.97L, Hemoglobin 8.2L, Hematocrit 25.4L , Mean Corpuscular Volume 85, Mean Corpuscular Hemoglobin 27.6, Mean Corpuscular Hemoglobin Concent 32.3, Red Cell Distribution Width 15.5H, Platelet Count 314, Mean Platelet Volume 7.2, Neutrophils (%) (Auto) 56.8, Lymphocytes (%) (Auto) 23.7, Monocytes (%) (Auto) 5.8, Eosinophils (%) (Auto) 12.6H, Basophils (%) (Auto) 1.1, Sodium Level 139, Potassium Level 4.1, Chloride Level 105, Carbon Dioxide Level 25, Anion Gap 9, Blood Urea Nitrogen 10 , Creatinine 0.7, Estimat Glomerular Filtration Rate > 60, Glucose Level 128H, Calcium Level 8.9, Total Bilirubin 0.2, Aspartate Amino Transf (AST/SGOT) 33, Alanine Aminotransferase (ALT/SGPT) 55, Alkaline Phosphatase 112, Total Protein 7.0, Albumin 2.6L, Globulin 4.4, Albumin/Globulin Ratio 0.6L 06/14/18 08:05: White Blood Count 8.5, Red Blood Count 2.95L, Hemoglobin 8.3L, Hematocrit 25.4L , Mean Corpuscular Volume 86, Mean Corpuscular Hemoglobin 28.0, Mean Corpuscular Hemoglobin Concent 32.6, Red Cell Distribution Width 16.1H, Platelet Count 339, Mean Platelet Volume 7.6, Neutrophils (%) (Auto) 54.6, Lymphocytes (%) (Auto) 25.8, Monocytes (%) (Auto) 6.6, Eosinophils (%) (Auto) 12.2H, Basophils (%) (Auto) 0.9, Sodium Level 139, Potassium Level 3.9, Chloride Level 105, Carbon Dioxide Level 26, Anion Gap 9, Blood Urea Nitrogen 12 , Creatinine 0.8, Estimat Glomerular Filtration Rate > 60, Glucose Level 129H, Calcium Level 8.9, Total Bilirubin 0.2, Aspartate Amino Transf (AST/SGOT) 32, Alanine Aminotransferase (ALT/SGPT) 54, Alkaline Phosphatase 120H, Total Protein 7.0, Albumin 2.6L, Globulin 4.4, Albumin/Globulin Ratio 0.6L Height (Feet): 5 Height (Inches): 4.00 Weight (Pounds): 114 Objective General Appearance: WD/WN, no apparent distress, alert Lines, tubes and drains: peripheral HEENT: normocephalic, atraumatic Neck: non-tender, normal alignment, supple, normal inspection, trach Cardiovascular/Chest: normal peripheral pulses, normal rate, regular rhythm Abdomen: normal bowel sounds, non tender, soft, no organomegaly, no mass, PEG in place, clean site Extremities: normal range of motion, non-tender, normal inspection, no calf tenderness Skin Exam: normal pigmentation, warm/dry Neurologic: changer fixer II-XII grossly normal, alert, oriented x 3, responsive, normal mood/affect Beth Aburto MD Jun 14, 2018 11:08
[2018-06-14 12:00] VITALS: BP 96/57
--- NOTE | 2018-06-14 12:21 | GI Progress Note ---
Assessment/Plan Problems: (1) Protein calorie malnutrition ICD Codes: E46 - Unspecified protein-calorie malnutrition SNOMED: 849417918 (2) Dehydration ICD Codes: E86.0 - Dehydration SNOMED: 16714768 (3) Encounter for PEG (percutaneous endoscopic gastrostomy) ICD Codes: Z43.1 - Encounter for attention to gastrostomy SNOMED: 355085828, 165460843 (4) S/P percutaneous endoscopic gastrostomy (PEG) tube placement ICD Codes: Z93.1 - Gastrostomy status SNOMED: 715206266 (5) Status post tracheostomy ICD Codes: Z93.0 - Tracheostomy status SNOMED: 75989258, 894013672 Status: stable Status Narrative Discussed with Dr. Lainez Assessment/Plan Assessment - s/p PEG for dysphagia - ALS - Resp failure - Anemia Recommendations - continue TF - site care - vent - follow labs - PRN RBC transfusion The patient was seen and examined at bedside and all new and available data was reviewed in the patients chart. I agree with the above findings, impression and plan. (Patient seen earlier today. Signature stamp does not reflect patient encounter time.). - Vaibhav Lainez MD Subjective Subjective Limited Objective Last 24 Hour Vital Signs Date Time Temp Pulse Resp B/P (MAP) Pulse Ox O2 Delivery O2 Flow Rate FiO2 06/14/18 10:45 71 16 30 06/14/18 09:14 71 16 30 06/14/18 08:48 117/75 06/14/18 08:48 79 114/75 06/14/18 08:00 Mechanical Ventilator 06/14/18 08:00 30 06/14/18 08:00 97.8 73 16 114/75 (88) 99 06/14/18 07:37 91 06/14/18 07:03 78 18 100 Mechanical Ventilator 30 06/14/18 06:59 74 16 30 06/14/18 06:52 64 16 99 Mechanical Ventilator 30 06/14/18 04:51 68 16 30 06/14/18 04:00 97.5 72 16 101/57 (72) 97 06/14/18 04:00 30 06/14/18 04:00 67 06/14/18 04:00 Mechanical Ventilator 06/14/18 03:30 73 16 30 06/14/18 01:53 71 16 100 Mechanical Ventilator 30 06/14/18 01:44 64 16 99 Mechanical Ventilator 30 06/14/18 01:43 64 16 30 06/14/18 00:00 66 06/14/18 00:00 Mechanical Ventilator 06/14/18 00:00 97.7 75 16 98/68 (78) 97 06/13/18 23:30 74 16 30 06/13/18 21:26 83 16 30 06/13/18 20:00 Mechanical Ventilator 06/13/18 20:00 77 06/13/18 20:00 30 06/13/18 20:00 97.9 72 16 101/68 (79) 99 06/13/18 19:56 81 16 100 Mechanical Ventilator 30 06/13/18 19:43 69 16 100 Mechanical Ventilator 30 06/13/18 19:39 71 16 30 06/13/18 17:14 68 16 30 06/13/18 16:00 97.9 71 16 96/57 (70) 99 06/13/18 16:00 Mechanical Ventilator 06/13/18 16:00 30 06/13/18 16:00 70 06/13/18 14:19 73 16 100 Mechanical Ventilator 35 06/13/18 14:07 71 16 100 Mechanical Ventilator 30 06/13/18 14:07 70 16 30 Intake and Output 06/13/18 06/14/18 19:00 07:00 Intake Total 1640 ml 2260 ml Output Total 1800 ml 1400 ml Balance -160 ml 860 ml Free Water 300 ml 120 ml IV Total 620 ml 1420 ml Tube Feeding 720 ml 720 ml Output Urine Total 1800 ml 1400 ml # Voids 4 Laboratory Tests Test 06/14/18 08:05 White Blood Count 8.5 K/UL (4.8-10.8) Red Blood Count 2.95 M/UL (4.70-6.10) L Hemoglobin 8.3 G/DL (14.2-18.0) L Hematocrit 25.4 % (42.0-52.0) L Mean Corpuscular Volume 86 FL (80-99) Mean Corpuscular Hemoglobin 28.0 PG (27.0-31.0) Mean Corpuscular Hemoglobin Concent 32.6 G/DL (32.0-36.0) Red Cell Distribution Width 16.1 % (11.6-14.8) H Platelet Count 339 K/UL (150-450) Mean Platelet Volume 7.6 FL (6.5-10.1) Neutrophils (%) (Auto) 54.6 % (45.0-75.0) Lymphocytes (%) (Auto) 25.8 % (20.0-45.0) Monocytes (%) (Auto) 6.6 % (1.0-10.0) Eosinophils (%) (Auto) 12.2 % (0.0-3.0) H Basophils (%) (Auto) 0.9 % (0.0-2.0) Sodium Level 139 MMOL/L (136-145) Potassium Level 3.9 MMOL/L (3.5-5.1) Chloride Level 105 MMOL/L (98-107) Carbon Dioxide Level 26 MMOL/L (21-32) Anion Gap 9 mmol/L (5-15) Blood Urea Nitrogen 12 mg/dL (7-18) Creatinine 0.8 MG/DL (0.55-1.30) Estimat Glomerular Filtration Rate > 60 mL/min (>60) Glucose Level 129 MG/DL (74-106) H Calcium Level 8.9 MG/DL (8.5-10.1) Total Bilirubin 0.2 MG/DL (0.2-1.0) Aspartate Amino Transf (AST/SGOT) 32 U/L (15-37) Alanine Aminotransferase (ALT/SGPT) 54 U/L (12-78) Alkaline Phosphatase 120 U/L (46-116) H Total Protein 7.0 G/DL (6.4-8.2) Albumin 2.6 G/DL (3.4-5.0) L Globulin 4.4 g/dL Albumin/Globulin Ratio 0.6 (1.0-2.7) L Height (Feet): 5 Height (Inches): 4.00 Weight (Pounds): 114 General Appearance: WD/WN, no apparent distress, alert Cardiovascular: normal rate Respiratory/Chest: normal breath sounds, no respiratory distress, other - trach to vent Abdominal Exam: normal bowel sounds, non tender, soft, GT site - clean dry intact Extremities: non-tender Yajaira Ocampo NP Jun 14, 2018 12:21
--- NOTE | 2018-06-14 12:33 | Pulmonology Progress Note ---
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, unspecified (13) Encounter for PEG (percutaneous endoscopic gastrostomy) (14) Nutrition impaired due to imbalance of nutrients (15) HCAP (healthcare-associated pneumonia) Assessment/Plan Optimize pulmonary hygiene/mobilize as tolerated Continue ventilatory support/settings reviewed Titrate down FiO2 to keep SaO2 > 90% RTC and PRN HHN's + MUCOMYST HHN TID PRN suctioning Abx per ID, F/U Cx's GTF's Monitor volumes F/U neuro recs, 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, PMV trials FC, discuss GOC Dispo planning to LTACH D/W RN and DI[employer]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 Subjective Allergies: Coded Allergies: No Known Allergies (Unverified , 06/02/18) Subjective Awake, comfortable on vent No sig secretions, no F/C Joseph TF Objective Last 24 Hour Vital Signs Date Time Temp Pulse Resp B/P (MAP) Pulse Ox O2 Delivery O2 Flow Rate FiO2 06/14/18 11:34 72 06/14/18 10:45 71 16 30 06/14/18 09:14 71 16 30 06/14/18 08:48 117/75 06/14/18 08:48 79 114/75 06/14/18 08:00 Mechanical Ventilator 06/14/18 08:00 30 06/14/18 08:00 97.8 73 16 114/75 (88) 99 06/14/18 07:37 91 06/14/18 07:03 78 18 100 Mechanical Ventilator 30 06/14/18 06:59 74 16 30 06/14/18 06:52 64 16 99 Mechanical Ventilator 30 06/14/18 04:51 68 16 30 06/14/18 04:00 97.5 72 16 101/57 (72) 97 06/14/18 04:00 30 06/14/18 04:00 67 06/14/18 04:00 Mechanical Ventilator 06/14/18 03:30 73 16 30 06/14/18 01:53 71 16 100 Mechanical Ventilator 30 06/14/18 01:44 64 16 99 Mechanical Ventilator 30 06/14/18 01:43 64 16 30 06/14/18 00:00 66 06/14/18 00:00 Mechanical Ventilator 06/14/18 00:00 97.7 75 16 98/68 (78) 97 06/13/18 23:30 74 16 30 06/13/18 21:26 83 16 30 06/13/18 20:00 Mechanical Ventilator 06/13/18 20:00 77 06/13/18 20:00 30 06/13/18 20:00 97.9 72 16 101/68 (79) 99 06/13/18 19:56 81 16 100 Mechanical Ventilator 30 06/13/18 19:43 69 16 100 Mechanical Ventilator 30 06/13/18 19:39 71 16 30 06/13/18 17:14 68 16 30 06/13/18 16:00 97.9 71 16 96/57 (70) 99 06/13/18 16:00 Mechanical Ventilator 06/13/18 16:00 30 06/13/18 16:00 70 06/13/18 14:19 73 16 100 Mechanical Ventilator 35 06/13/18 14:07 71 16 100 Mechanical Ventilator 30 06/13/18 14:07 70 16 30 Intake and Output 06/13/18 06/14/18 19:00 07:00 Intake Total 1640 ml 2260 ml Output Total 1800 ml 1400 ml Balance -160 ml 860 ml Free Water 300 ml 120 ml IV Total 620 ml 1420 ml Tube Feeding 720 ml 720 ml Output Urine Total 1800 ml 1400 ml # Voids 4 General Appearance: no acute distress HEENT: normocephalic, atraumatic, anicteric, status post trach Respiratory/Chest: chest wall non-tender, lungs clear, normal breath sounds, no respiratory distress, no accessory muscle use Cardiovascular: normal peripheral pulses, normal rate, regular rhythm Abdomen: normal bowel sounds, soft, non tender, no organomegaly, non distended , no mass, other - GT Extremities: no cyanosis, no clubbing, no edema Laboratory Tests 06/14/18 08:05: White Blood Count 8.5, Red Blood Count 2.95L, Hemoglobin 8.3L, Hematocrit 25.4L , Mean Corpuscular Volume 86, Mean Corpuscular Hemoglobin 28.0, Mean Corpuscular Hemoglobin Concent 32.6, Red Cell Distribution Width 16.1H, Platelet Count 339, Mean Platelet Volume 7.6, Neutrophils (%) (Auto) 54.6, Lymphocytes (%) (Auto) 25.8, Monocytes (%) (Auto) 6.6, Eosinophils (%) (Auto) 12.2H, Basophils (%) (Auto) 0.9, Sodium Level 139, Potassium Level 3.9, Chloride Level 105, Carbon Dioxide Level 26, Anion Gap 9, Blood Urea Nitrogen 12 , Creatinine 0.8, Estimat Glomerular Filtration Rate > 60, Glucose Level 129H, Calcium Level 8.9, Total Bilirubin 0.2, Aspartate Amino Transf (AST/SGOT) 32, Alanine Aminotransferase (ALT/SGPT) 54, Alkaline Phosphatase 120H, Total Protein 7.0, Albumin 2.6L, Globulin 4.4, Albumin/Globulin Ratio 0.6L Current Medications Medications (Trade) Dose Ordered Sig/Irma Route PRN Reason Start Time Stop Time Status Last Admin Dose Admin Acetaminophen (Tylenol) 650 mg Q4H PRN GT Mild Pain/Temp > 100.5 06/07/18 21:00 07/07/18 20:59 06/13/18 21:23 Acetylcysteine (Mucomyst) 100 mg TIDRT N 06/04/18 19:00 07/04/18 18:59 06/14/18 06:51 Albuterol/ Ipratropium (Albuterol/ Ipratropium) 3 ml Q6HRT [facility] 06/09/18 13:00 06/14/18 12:59 06/14/18 06:51 Amlodipine Besylate (Norvasc) 10 mg DAILY GT 06/14/18 09:00 07/03/18 08:59 Atorvastatin Calcium (Lipitor) 10 mg BEDTIME GT 06/13/18 21:00 07/02/18 22:29 06/13/18 21:03 Bisacodyl (Dulcolax) 10 mg DAILYPRN PRN RECTAL Constipation 06/03/18 06:41 07/03/18 06:40 Dextrose/Sodium Chloride 1,000 ml @ 100 mls/hr Q10H IV 06/02/18 22:00 07/02/18 21:59 06/14/18 04:36 Docusate Sodium (Colace) 100 mg TWICE A DAY GT 06/13/18 18:00 07/12/18 08:59 06/14/18 08:36 Heparin Sodium (Porcine) (Heparin 5000 units/ml) 5,000 units EVERY 12 HOURS SUBQ 06/03/18 09:00 07/03/18 08:59 06/14/18 08:52 Lansoprazole (Prevacid) 30 mg BID GT 06/13/18 18:00 07/03/18 08:59 06/14/18 08:34 Lisinopril (Zestril) 10 mg DAILY GT 06/14/18 09:00 07/03/18 08:59 Meropenem 1 gm/ Sodium Chloride 110 ml @ 220 mls/hr Q8HR IVPB 06/09/18 22:00 06/16/18 21:59 06/14/18 06:05 Multivitamins Therapeutic (Therapeutic Multivitamin) 1 ea DAILY ORAL 06/03/18 09:00 07/03/18 08:59 06/14/18 08:36 Patient Own Medication (Patient's Own Med) 1 ea Q12HR ORAL 06/13/18 21:00 07/03/18 20:59 06/14/18 08:34 Trimethoprim/ Sulfamethoxazole (Bactrim-DS) 2 tab TWICE A DAY GT 06/13/18 18:00 06/18/18 17:59 06/14/18 08:36 Vitamin D (Vitamin D) 2,000 intlu DAILY GT 06/14/18 09:00 07/03/18 08:59 06/14/18 08:35 Parveen Blanco MD Jun 14, 2018 12:33
--- NOTE | 2018-06-14 13:24 | Infectious Diseases Prog Note ---
Assessment/Plan Assessment/Plan ASSESSMENT AND PLAN: 1. serratia pna, acinetobacter pna, sepsis, leukocytosis, ALS, trach, vent, g- tube, fevers yesterday - meropenem x 2 days - bactrim down g-tube x 4 days - urine culture with yeast is likely colonizer - blood cultures - negative - monitor labs and chest x-ray - clinically stable, leukocytosis and fevers resolved - stable from ID standpoint 2. The patient has trach/vent and respiratory failure. 3. Dysphagia, possible malnutrition, needed gastrostomy tube. 4. The patient has history of amyotrophic lateral sclerosis. 5. Possible hyperlipidemia. 6. Discussed with Neurology. Neurology will follow. 7. Hypertension. Treatment per primary team. 8. Anemia. 9. Weakness secondary to presumptive amyotrophic lateral sclerosis. 10. No history of diabetes or hypertension. 11. No known allergies. 12. Social history negative. 13. Family history noncontributory. 14. MAR was noted. 15. Case discussed with RN. 16. Continue treatment per primary consultants. 17. Case discussed with the patient and the patient's family. 18. vre colonization and isolation Subjective Constitutional: Reports: other - trach and vent ; Denies: fever HEENT: Reports: congestion Respiratory: Reports: shortness of breath Cardiovascular: Denies: chest pain Gastrointestinal/Abdominal: Denies: nausea, vomiting, diarrhea Genitourinary: Reports: other - + loera Neurologic: Denies: headache Psychiatric: Denies: depression Skin: Denies: rash Hematologic: Denies: bleeding Musculoskeletal: Denies: pain Allergies: Coded Allergies: No Known Allergies (Unverified , 06/02/18) Objective Vital Signs Last 24 Hour Vital Signs Date Time Temp Pulse Resp B/P (MAP) Pulse Ox O2 Delivery O2 Flow Rate FiO2 06/14/18 13:01 69 16 100 Mechanical Ventilator 30 06/14/18 12:53 68 16 100 Mechanical Ventilator 30 06/14/18 12:41 72 16 30 06/14/18 12:00 30 06/14/18 11:34 72 06/14/18 10:45 71 16 30 06/14/18 09:14 71 16 30 06/14/18 08:48 117/75 06/14/18 08:48 79 114/75 06/14/18 08:00 Mechanical Ventilator 06/14/18 08:00 30 06/14/18 08:00 97.8 73 16 114/75 (88) 99 06/14/18 07:37 91 06/14/18 07:03 78 18 100 Mechanical Ventilator 30 06/14/18 06:59 74 16 30 06/14/18 06:52 64 16 99 Mechanical Ventilator 30 06/14/18 04:51 68 16 30 06/14/18 04:00 97.5 72 16 101/57 (72) 97 06/14/18 04:00 30 06/14/18 04:00 67 06/14/18 04:00 Mechanical Ventilator 06/14/18 03:30 73 16 30 06/14/18 01:53 71 16 100 Mechanical Ventilator 30 06/14/18 01:44 64 16 99 Mechanical Ventilator 30 06/14/18 01:43 64 16 30 06/14/18 00:00 66 06/14/18 00:00 Mechanical Ventilator 06/14/18 00:00 97.7 75 16 98/68 (78) 97 06/13/18 23:30 74 16 30 06/13/18 21:26 83 16 30 06/13/18 20:00 Mechanical Ventilator 06/13/18 20:00 77 06/13/18 20:00 30 06/13/18 20:00 97.9 72 16 101/68 (79) 99 06/13/18 19:56 81 16 100 Mechanical Ventilator 30 06/13/18 19:43 69 16 100 Mechanical Ventilator 30 06/13/18 19:39 71 16 30 06/13/18 17:14 68 16 30 06/13/18 16:00 97.9 71 16 96/57 (70) 99 06/13/18 16:00 Mechanical Ventilator 06/13/18 16:00 30 06/13/18 16:00 70 06/13/18 14:19 73 16 100 Mechanical Ventilator 35 06/13/18 14:07 71 16 100 Mechanical Ventilator 30 06/13/18 14:07 70 16 30 Height (Feet): 5 Height (Inches): 4.00 Weight (Pounds): 114 General Appearance: no acute distress HEENT: normocephalic, atraumatic, anicteric, mucous membranes moist, no JVD, status post trach Respiratory/Chest: crackles/rales - few, rhonchi - bilaterally - few, other - fairly clear bilateral Cardiovascular: normal rate, regular rhythm, no gallop/murmur, no JVD Abdomen: normal bowel sounds, soft, non tender, no organomegaly, non distended Genitourinary: other - no loera Extremities: no cyanosis Skin: no rash 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 * Complete atelectasis of the left lower lobe with some mucous/debris in the left lower lobe bronchus. Consider bronchoscopy as clinically indicated. Mass or pneumonia in the collapsed lung not excludable. * Patchy and somewhat nodular airspace opacities in the posterior left upper lobe and posterior right lower lobe as well as some tree-in-bud opacities in the periphery of the left upper lobe likely infectious or inflammatory in etiology. Follow-up after appropriate treatment recommended to ensure resolution. CT ABDOMEN/PELVIS: * Cholelithiasis. No CT evidence to suggest acute cholecystitis. * Bladder wall thickening. Correlation with urinalysis recommended to exclude cystitis. * Enlarged and heterogeneous prostate. * Moderate colonic stool burden raising question for constipation. Chest x-ray - 06/05/18: FINDINGS: Lungs: Bibasilar infiltrates, left greater than right. Pleural space: Unremarkable. No pneumothorax. Heart: Unremarkable. No cardiomegaly. Mediastinum: Unremarkable. Bones/joints: No acute fracture. Tubes, lines and devices: Tracheostomy. IMPRESSION: Bibasilar infiltrates, left greater than right. 06/09/18 - chest x-ray - Comparison: 06/06/2018 A single view chest radiograph was obtained. Findings: Basilar infiltrates again demonstrated. Heart size is stable. Tracheostomy noted. IMPRESSION: No change Microbiology Date/Time Source Procedure Growth Status 06/07/18 21:10 Blood Blood Culture - Final NO GROWTH AFTER 5 DAYS Complete 06/07/18 21:00 Sputum Induced Gram Stain - Final Complete 06/07/18 21:00 Sputum Culture - Final Serratia Marcescens Usual Respiratory Radha Complete 06/07/18 22:18 Urine,Clean Catch Urine Culture - Final YEAST Complete 06/02/18 21:10 Rectum VRE Culture - Final Enterococcus Faecalis - Vre Complete 06/02/18 21:10 Rectum - Final NO CARBAPENEM-RESISTANT ENTEROBACTERI... Complete Laboratory Tests Test 06/14/18 08:05 White Blood Count 8.5 K/UL (4.8-10.8) Red Blood Count 2.95 M/UL (4.70-6.10) L Hemoglobin 8.3 G/DL (14.2-18.0) L Hematocrit 25.4 % (42.0-52.0) L Mean Corpuscular Volume 86 FL (80-99) Mean Corpuscular Hemoglobin 28.0 PG (27.0-31.0) Mean Corpuscular Hemoglobin Concent 32.6 G/DL (32.0-36.0) Red Cell Distribution Width 16.1 % (11.6-14.8) H Platelet Count 339 K/UL (150-450) Mean Platelet Volume 7.6 FL (6.5-10.1) Neutrophils (%) (Auto) 54.6 % (45.0-75.0) Lymphocytes (%) (Auto) 25.8 % (20.0-45.0) Monocytes (%) (Auto) 6.6 % (1.0-10.0) Eosinophils (%) (Auto) 12.2 % (0.0-3.0) H Basophils (%) (Auto) 0.9 % (0.0-2.0) Sodium Level 139 MMOL/L (136-145) Potassium Level 3.9 MMOL/L (3.5-5.1) Chloride Level 105 MMOL/L (98-107) Carbon Dioxide Level 26 MMOL/L (21-32) Anion Gap 9 mmol/L (5-15) Blood Urea Nitrogen 12 mg/dL (7-18) Creatinine 0.8 MG/DL (0.55-1.30) Estimat Glomerular Filtration Rate > 60 mL/min (>60) Glucose Level 129 MG/DL (74-106) H Calcium Level 8.9 MG/DL (8.5-10.1) Total Bilirubin 0.2 MG/DL (0.2-1.0) Aspartate Amino Transf (AST/SGOT) 32 U/L (15-37) Alanine Aminotransferase (ALT/SGPT) 54 U/L (12-78) Alkaline Phosphatase 120 U/L (46-116) H Total Protein 7.0 G/DL (6.4-8.2) Albumin 2.6 G/DL (3.4-5.0) L Globulin 4.4 g/dL Albumin/Globulin Ratio 0.6 (1.0-2.7) L Current Medications Medications (Trade) Dose Ordered Sig/Irma Route PRN Reason Start Time Stop Time Status Last Admin Dose Admin Acetaminophen (Tylenol) 650 mg Q4H PRN GT Mild Pain/Temp > 100.5 06/07/18 21:00 07/07/18 20:59 06/13/18 21:23 Acetylcysteine (Mucomyst) 100 mg TIDRT HHN 06/04/18 19:00 07/04/18 18:59 06/14/18 12:53 Amlodipine Besylate (Norvasc) 10 mg DAILY GT 06/14/18 09:00 07/03/18 08:59 Atorvastatin Calcium (Lipitor) 10 mg BEDTIME GT 06/13/18 21:00 07/02/18 22:29 06/13/18 21:03 Bisacodyl (Dulcolax) 10 mg DAILYPRN PRN RECTAL Constipation 06/03/18 06:41 07/03/18 06:40 Dextrose/Sodium Chloride 1,000 ml @ 100 mls/hr Q10H IV 06/02/18 22:00 07/02/18 21:59 06/14/18 04:36 Docusate Sodium (Colace) 100 mg TWICE A DAY GT 06/13/18 18:00 07/12/18 08:59 06/14/18 08:36 Heparin Sodium (Porcine) (Heparin 5000 units/ml) 5,000 units EVERY 12 HOURS SUBQ 06/03/18 09:00 07/03/18 08:59 06/14/18 08:52 Lansoprazole (Prevacid) 30 mg BID GT 06/13/18 18:00 07/03/18 08:59 06/14/18 08:34 Lisinopril (Zestril) 10 mg DAILY GT 06/14/18 09:00 07/03/18 08:59 Meropenem 1 gm/ Sodium Chloride 110 ml @ 220 mls/hr Q8HR IVPB 06/09/18 22:00 06/16/18 21:59 06/14/18 06:05 Multivitamins Therapeutic (Therapeutic Multivitamin) 1 ea DAILY ORAL 06/03/18 09:00 07/03/18 08:59 06/14/18 08:36 Patient Own Medication (Patient's Own Med) 1 ea Q12HR ORAL 06/13/18 21:00 07/03/18 20:59 06/14/18 08:34 Trimethoprim/ Sulfamethoxazole (Bactrim-DS) 2 tab TWICE A DAY GT 06/13/18 18:00 06/18/18 17:59 06/14/18 08:36 Vitamin D (Vitamin D) 2,000 intlu DAILY GT 06/14/18 09:00 07/03/18 08:59 06/14/18 08:35 Pratik Bowens MD Jun 14, 2018 13:24
[2018-06-14 16:00] VITALS: BP 122/75
--- NOTE | 2018-06-14 16:01 | Neurology Progress Note ---
Interim History Interim History Interim History Mr. Robles feels very well. He has his speaking valve on and we had a good conversation. His strength has stabilized and he is stronger than when he came in. The PEG is functioning well. He is breathing well through his tracheostomy. He is able to communicate well verbally. He denies any new neurologic symptoms. The sensations are still normal. He is still on IV antibiotics. Plans are to go back to a SNF. Review of Systems Neuro Review of Systems Benign. Objective Physical Exam Last Vital Signs Date Time Temp Pulse Resp B/P (MAP) Pulse Ox O2 Delivery O2 Flow Rate FiO2 06/14/18 15:14 79 16 30 06/14/18 13:01 100 Mechanical Ventilator 06/14/18 12:00 98.1 96/57 (70) 06/08/18 16:29 15.0 Laboratory Tests Test 06/14/18 08:05 White Blood Count 8.5 K/UL (4.8-10.8) Red Blood Count 2.95 M/UL (4.70-6.10) L Hemoglobin 8.3 G/DL (14.2-18.0) L Hematocrit 25.4 % (42.0-52.0) L Mean Corpuscular Volume 86 FL (80-99) Mean Corpuscular Hemoglobin 28.0 PG (27.0-31.0) Mean Corpuscular Hemoglobin Concent 32.6 G/DL (32.0-36.0) Red Cell Distribution Width 16.1 % (11.6-14.8) H Platelet Count 339 K/UL (150-450) Mean Platelet Volume 7.6 FL (6.5-10.1) Neutrophils (%) (Auto) 54.6 % (45.0-75.0) Lymphocytes (%) (Auto) 25.8 % (20.0-45.0) Monocytes (%) (Auto) 6.6 % (1.0-10.0) Eosinophils (%) (Auto) 12.2 % (0.0-3.0) H Basophils (%) (Auto) 0.9 % (0.0-2.0) Sodium Level 139 MMOL/L (136-145) Potassium Level 3.9 MMOL/L (3.5-5.1) Chloride Level 105 MMOL/L (98-107) Carbon Dioxide Level 26 MMOL/L (21-32) Anion Gap 9 mmol/L (5-15) Blood Urea Nitrogen 12 mg/dL (7-18) Creatinine 0.8 MG/DL (0.55-1.30) Estimat Glomerular Filtration Rate > 60 mL/min (>60) Glucose Level 129 MG/DL (74-106) H Calcium Level 8.9 MG/DL (8.5-10.1) Total Bilirubin 0.2 MG/DL (0.2-1.0) Aspartate Amino Transf (AST/SGOT) 32 U/L (15-37) Alanine Aminotransferase (ALT/SGPT) 54 U/L (12-78) Alkaline Phosphatase 120 U/L (46-116) H Total Protein 7.0 G/DL (6.4-8.2) Albumin 2.6 G/DL (3.4-5.0) L Globulin 4.4 g/dL Albumin/Globulin Ratio 0.6 (1.0-2.7) L Neurologic Exam Objective PHYSICAL EXAMINATION: GENERAL: He is a well-developed, but lean and wasting gentleman, lying in bed, in no acute distress, connected to a ventilator through a tracheostomy. HEAD: Normocephalic and atraumatic. NECK: No neck rigidity was observed. He did have a tracheostomy in place. EENT: Benign. NEUROLOGICAL EXAMINATION: MENTAL STATUS EXAMINATION: He was awake and alert. He was oriented to person, place, and time. He was able to recall 3/3 words immediately after 1 minute and after 3 minutes. He was able to remember presidents, Trump through Jose senior with hints. His mathematical skills were good. His visuospatial function was preserved. SPEECH: He was able to mouth words well. LANGUAGE: He was able to comprehend, repeat, and express himself well. CRANIAL NERVE EXAMINATION: II: The visual maldonado were intact on confrontation testing. III, IV & : The external ocular movements were full and the pupils 3 mm in diameter, equal, round, regular, and reactive to light. V: He had normal facial sensations and the temporales, masseters, and pterygoids function normally. VII: He had normal facial expressions and no facial asymmetry. VIII: He was able to hear well bilaterally and had no nystagmus. IX: The palate moved symmetrically on phonation. X: His gag reflex was present. XI: The sternocleidomastoids and trapezii functioned normally. XII: The tongue was in the midline without any atrophy, but it did reveal fasciculations. MOTOR SYSTEM: The tone was normal in all four extremities except for decreased tone in the ankles more so on the left than on the right. Examination of muscle mass revealed severe generalized muscle wasting involving the distal muscles more than the proximal muscles and the lower extremities more than the upper extremities. He had G 5/5 power in both upper extremities except for G 5-/5 power in the finger extensors. In the lower extremities, he had in the iliopsoas G 4++/5 on the right, G 4/5 on the left. In the quadriceps, he had G 5-/5 on the right and G 4+/5 on the left. In the hamstrings, he had G 4+/5 on the right and G 4-/5 on the left. In the ankle dorsiflexors and toe extensors, he had G 3/5 on the right and G 0/ 5 on the left. In the ankle plantar flexors and toe flexors, he had G 4/5 on the right and G 1/ 5 on the left. SENSORY EXAMINATION: He had intact sensations to pinprick, light touch, and graphesthesia. COORDINATION: He performed well on [id number] testing. He was unable to perform [id number] testing. REFLEXES: 2++ and bilaterally symmetrical at the biceps, triceps, brachioradialis, and knees, 0 at both ankles. The plantar response was extensor on the right and mute on the left. STANCE & GAIT: Could not be tested. Impression/Recommendations Diagnostic Impression 1. Mr. Joseph Robles is a 58-year-old, right-handed, gentleman, who does have a prior history of hypertension and dyslipidemia, who approximately 4 years ago started to have weakness that started in his left foot with a left foot drop. Over the years, he has had increasing weakness in his lower extremities more than the upper extremities and on the left side more than the right associated with muscle wasting, muscle fasciculations, and then respiratory muscle failure as a result of which he has needed a tracheostomy. He has been worked up for the problem in the past and was found to have amyotrophic lateral sclerosis, for which he is on Rilutek. 2. He feels very well. He has his speaking valve on and we had a good conversation. His strength has stabilized and he is stronger than when he came in. The PEG is functioning well. He is breathing well through his tracheostomy. He is able to communicate well verbally. He denies any new neurologic symptoms. The sensations are still normal. He is still on IV antibiotics. Plans are to go back to a SNF. 3. His family was able to get me an evaluation performed by Dr. Vincenzo Santos at [facility] and in his opinion the patient had clinical criteria for ALS in July 2017. 4. On neurological examination at this time, he does demonstrate tongue fasciculations, decreased tone in the ankles more so on the left than the right , generalized muscle wasting involving the lower extremities more than the upper extremities, a quadriparesis involving the lower extremities more than the upper extremities, and the left side more than the right in the lower extremities, brisk deep tendon reflexes with loss of ankle jerks, an extensor plantar response on the right with a mute plantar response on the left, and frequent fasciculations in all four extremities. He however is stronger, especially in the upper extremities, since he was hospitalized. 5. The patient's history and neurological examination are in fact consistent with amyotrophic lateral sclerosis. 6. His gastrostomy and tracheostomy are functioning well. Recommendations 1. Rilutek should be continued. 2. In the near future, edaravone therapy should be considered. 3. The patient's family was told to try and retrieve his nerve conduction study , electromyography, and MRI scan reports so that I can review them. 4. Frequent ROM exercises. 5. PT/OT to mobilize. 6. Consider small amounts of oral feeding for oral gratification. Richard Alcantara M.D., M.S.P.H. Richard Alcantara MD Jun 14, 2018 16:01
[2018-06-14 20:00] VITALS: BP 98/68
[2018-06-14] MEDS: Acetaminophen 650mg/20.3ml GT PRN (21:04)
[2018-06-15] VITALS: BP 107/63
[2018-06-15] MEDS: D5NS 1,000 ML IV SCH ×3 (00:08→19:09)
[2018-06-15 04:00] VITALS: BP 92/62
[2018-06-15] MEDS: Meropenem 1 GM in NS 110 ML IVPB SCH ×3 (05:00→21:15)
[2018-06-15 07:02] LABS: EOSINOPHILS % (AUTO) 13.3 % (0.0-3.0); HEMATOCRIT 24.5 % (42.0-52.0); HEMOGLOBIN 8.4 G/DL (14.2-18.0); LYMPHOCYTES % (AUTO) 25.3 % (20.0-45.0); MEAN CORPUSCULAR VOLUME 83 FL (80-99); MONOCYTES % (AUTO) 5.1 % (1.0-10.0); NEUTROPHILS % (AUTO) 55.4 % (45.0-75.0); PLATELET COUNT 359 K/UL (150-450); RED BLOOD COUNT 2.95 M/UL (4.70-6.10); RED CELL DISTRIBUTION WIDTH 15.8 % (11.6-14.8); WHITE BLOOD COUNT 8.2 K/UL (4.8-10.8)
[2018-06-15 07:20] LABS: ANION GAP 9 mmol/L (5-15); BLOOD UREA NITROGEN 13 mg/dL (7-18); CALCIUM 8.8 MG/DL (8.5-10.1); CARBON DIOXIDE 24 MMOL/L (21-32); CHLORIDE 106 MMOL/L (98-107); CREATININE 0.8 MG/DL (0.55-1.30); POTASSIUM 4.1 MMOL/L (3.5-5.1); SODIUM 139 MMOL/L (136-145)
[2018-06-15 08:00] VITALS: BP 100/64
[2018-06-15] MEDS: Heparin 5000 units/ml inj SUBQ SCH ×2 (08:58→20:26)
[2018-06-15] MEDS: Bactrim-DS 1 tab GT SCH ×2 (08:58→20:24)
[2018-06-15] MEDS: Multivitamin w/Minerals tab ORAL SCH (08:59)
[2018-06-15] MEDS: Vitamin D 1000 IU Tab GT SCH (08:59)
[2018-06-15] MEDS: Docusate 100mg/10ml Liq GT SCH ×2 (08:59→17:31)
[2018-06-15] MEDS: RILUZOLE 50 MG ORAL SCH ×2 (08:59→20:23)
[2018-06-15] MEDS: Lisinopril 10mg tab GT SCH (09:00)
[2018-06-15 12:00] VITALS: BP 118/72
--- NOTE | 2018-06-15 12:56 | General Progress Note ---
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 - Motor neuron disease, unspecified SNOMED: 10370185 (4) Leukocytosis ICD Codes: D72.829 - Elevated white blood cell count, unspecified SNOMED: 341033866, 021085509 Qualifiers: Qualified Codes: D72.829 - Elevated white blood cell count, unspecified (5) Essential hypertension ICD Codes: I10 - Essential (primary) hypertension SNOMED: 68288970 (6) HCAP (healthcare-associated pneumonia) ICD Codes: J18.9 - Pneumonia, unspecified organism SNOMED: 739548236 Status: stable Assessment/Plan (1) Protein calorie malnutrition s/p G-tube placement continue tube feeds (2) Status post tracheostomy, chronic respiratory failure continue vent management per Pulmonology, wean vent as tolerated and plan transfer to snf continue frequent suctioning (3) Motor neuron disease, ALS Continue supportive care Neurology following (4) Sepsis, suspected aspiration pneumonia versus HCAP improving, repeat bcx ngtd cont wean vent as tolerated per pulm continue abx per ID ID following (5)Hypokalemia resolved replenish prn (6)Hypomagnesemia resolved (6)Acute on chronic anemia No evidence of bleeding Repeat CBC in AM Transfuse PRBC if Hb < 7 (7)acute on chronic hypoxic respiratory failure vent Optimize pulmonary hygiene/mobilize as tolerated Continue ventilatory support/settings reviewed Titrate down FiO2 to keep SaO2 > 90% RTC and PRN HHN's + MUCOMYST HHN TID wean vent as tolerated and plan transfer to snf continue frequent suctioning appreciate pulm recs Abx per ID, F/U Cx's trached worsened by asp pna DVT Prophylaxis: SCD, HSQ Code Status: Full Hospital Classification Declaration: Based on this initial evaluation, and depending on the patient's clinical course, I anticipate that this patient will require hospitalization for 2-3 days for malnutrition, trached, peg placed here , treated for aspiration pneumonia, lost bed at previous SNF now working on new bed, and close respiratory/hemodynamic monitoring. Disposition: Once the patient is stable to leave the hospital, I anticipate the patient will likely be discharged to the following environment: SNF, Planned for dc back to snf however patient lost bed, cm/sw working on new bed placement. I spent over 35 minutes on this patient's case, and 25 minutes were dedicated to counseling and/or care coordination. Discussed with patient/family, nursing staff, SW/CM, and consultants regarding clinical status, treatment course, and disposition planning. Time of note may not reflect time of encounter. ---- Date of Discussion: 06/03/18 A [id number] discussion with the patient's son regarding the patient's advanced care planning took place during this hospitalization on the above date. The discussion included the explanation and discussion of advance directives and associated forms/documents, as well as the patient's current code status. We also discussed at length the patient's medical conditions (both acute and chronic), general prognosis, treatment options, and goals of care. The following summarizes the discussion: Advance Care Planning/Goals of Care: - polst completed - Continue current evaluation and management of any acute and chronic medical issues - Will continue to support the patient/family - Will continue to discuss both short- and long-term goals of care DPOA-HC/Surrogate Decision Maker: , Randa Robles Code Status: Full Code AD Forms/Documents Completed: completed A total of 31 minutes was spent on this discussion, including counseling, answering questions, and completing, if any, pertinent advanced care planning forms/documents. Subjective Date patient seen: Jun 15, 2018 Time patient seen: 12:55 Allergies: Coded Allergies: No Known Allergies (Unverified , 06/02/18) Subjective f/u malnutrition, sepsis, resp failure, trach on vent, peg stable cont abx pulm attempting to wean vent concerns for asp pna denies any complaints, no fevers/chills/n/v/pain no acute events overnight abx per id , bactrim and андрей patient responsive, denies any complaints planned for dc back to snf however patient lost bed, cm/sw working on new bed placement. ROS: 14 point ROS reviewed and negative except per the above subjective Objective Last 24 Hour Vital Signs Date Time Temp Pulse Resp B/P (MAP) Pulse Ox O2 Delivery O2 Flow Rate FiO2 06/15/18 11:09 79 16 30 06/15/18 09:00 100/64 06/15/18 09:00 64 100/64 06/15/18 08:38 Mechanical Ventilator 06/15/18 08:37 Mechanical Ventilator 06/15/18 08:36 64 15 30 06/15/18 08:35 65 16 30 06/15/18 08:00 30 06/15/18 08:00 57 06/15/18 08:00 99.0 69 16 100/64 (76) 99 06/15/18 08:00 Mechanical Ventilator 06/15/18 05:03 66 16 30 06/15/18 04:00 98.6 68 16 92/62 (72) 99 06/15/18 04:00 30 06/15/18 04:00 86 06/15/18 04:00 Mechanical Ventilator 06/15/18 03:30 72 16 30 06/15/18 02:00 Mechanical Ventilator 06/15/18 02:00 Mechanical Ventilator 06/15/18 01:30 74 16 30 06/15/18 00:00 98.8 63 16 107/63 (78) 98 06/15/18 00:00 69 06/15/18 00:00 30 06/15/18 00:00 Mechanical Ventilator 06/14/18 23:00 78 16 30 06/14/18 21:34 97.9 06/14/18 21:30 80 16 30 06/14/18 20:00 Mechanical Ventilator 06/14/18 20:00 Mechanical Ventilator 06/14/18 20:00 Mechanical Ventilator 06/14/18 20:00 30 06/14/18 20:00 99.0 75 16 98/68 (78) 99 06/14/18 20:00 73 06/14/18 19:30 82 16 30 06/14/18 17:15 80 16 30 06/14/18 16:00 97.9 84 19 122/75 (91) 98 06/14/18 16:00 Mechanical Ventilator 06/14/18 16:00 30 06/14/18 15:37 90 06/14/18 15:14 79 16 30 06/14/18 13:01 69 16 100 Mechanical Ventilator 30 Intake and Output 06/14/18 06/15/18 19:00 07:00 Intake Total 1920 ml 2292 ml Output Total 1000 ml 1200 ml Balance 920 ml 1092 ml Free Water 80 ml 50 ml IV Total 1120 ml 1522 ml Tube Feeding 720 ml 720 ml Output Urine Total 1000 ml 1200 ml # Bowel Movements 2 1 Laboratory Tests 06/15/18 04:44: White Blood Count 8.2, Red Blood Count 2.95L, Hemoglobin 8.4L, Hematocrit 24.5L , Mean Corpuscular Volume 83, Mean Corpuscular Hemoglobin 28.5, Mean Corpuscular Hemoglobin Concent 34.3, Red Cell Distribution Width 15.8H, Platelet Count 359, Mean Platelet Volume 7.5, Neutrophils (%) (Auto) 55.4, Lymphocytes (%) (Auto) 25.3, Monocytes (%) (Auto) 5.1, Eosinophils (%) (Auto) 13.3H, Basophils (%) (Auto) 1.0, Sodium Level 139, Potassium Level 4.1, Chloride Level 106, Carbon Dioxide Level 24, Anion Gap 9, Blood Urea Nitrogen 13 , Creatinine 0.8, Estimat Glomerular Filtration Rate > 60, Glucose Level 93, Calcium Level 8.8 Height (Feet): 5 Height (Inches): 4.00 Weight (Pounds): 114 Objective General Appearance: WD/WN, no apparent distress, alert Lines, tubes and drains: peripheral HEENT: normocephalic, atraumatic Neck: non-tender, normal alignment, supple, normal inspection, trach Cardiovascular/Chest: normal peripheral pulses, normal rate, regular rhythm Abdomen: normal bowel sounds, non tender, soft, no organomegaly, no mass, PEG in place, clean site Extremities: normal range of motion, non-tender, normal inspection, no calf tenderness Skin Exam: normal pigmentation, warm/dry 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
[2018-06-15] MEDS: Albuterol/Ipratropium 3ml neb HHN SCH ×2 (13:14→19:20)
--- NOTE | 2018-06-15 13:16 | Diagnostic Imaging Report ---
Indication: Dyspnea Comparison: 06/08/2018 A single view chest radiograph was obtained. Findings: Left basilar parenchymal density demonstrated. Question of infiltrate in the right perihilar infrahilar region. Tracheostomy noted. Heart size is normal. Pulmonary vascularity is normal. IMPRESSION: Patchy infiltrate suspected at the lung bases. Findings appear unchanged
--- NOTE | 2018-06-15 14:40 | GI Progress Note ---
Assessment/Plan Problems: (1) Protein calorie malnutrition ICD Codes: E46 - Unspecified protein-calorie malnutrition SNOMED: 397365430 (2) Dehydration ICD Codes: E86.0 - Dehydration SNOMED: 64743308 (3) Encounter for PEG (percutaneous endoscopic gastrostomy) ICD Codes: Z43.1 - Encounter for attention to gastrostomy SNOMED: 883340779, 804573354 (4) S/P percutaneous endoscopic gastrostomy (PEG) tube placement ICD Codes: Z93.1 - Gastrostomy status SNOMED: 958624223 (5) Status post tracheostomy ICD Codes: Z93.0 - Tracheostomy status SNOMED: 04025090, 812399197 Status: stable Status Narrative Discussed with Dr. Lainez. Assessment/Plan Assessment - s/p PEG for dysphagia - ALS - Resp failure - Anemia Recommendations - continue TF - GT site care - vent - follow labs - PRN RBC transfusion - dc planning The patient was seen and examined at bedside and all new and available data was reviewed in the patients chart. I agree with the above findings, impression and plan. (Patient seen earlier today. Signature stamp does not reflect patient encounter time.). - Vaibhav Lainez MD Subjective Subjective Limited Objective Last 24 Hour Vital Signs Date Time Temp Pulse Resp B/P (MAP) Pulse Ox O2 Delivery O2 Flow Rate FiO2 06/15/18 13:40 79 16 98 Mechanical Ventilator 35 06/15/18 13:17 70 16 97 Mechanical Ventilator 35 06/15/18 13:14 66 16 30 06/15/18 12:00 30 06/15/18 12:00 Mechanical Ventilator 06/15/18 12:00 97.0 74 16 118/72 (87) 99 06/15/18 11:40 72 06/15/18 11:09 79 16 30 06/15/18 09:00 100/64 06/15/18 09:00 64 100/64 06/15/18 08:38 Mechanical Ventilator 06/15/18 08:37 Mechanical Ventilator 06/15/18 08:36 64 15 30 06/15/18 08:35 65 16 30 06/15/18 08:00 30 06/15/18 08:00 57 06/15/18 08:00 99.0 69 16 100/64 (76) 99 06/15/18 08:00 Mechanical Ventilator 06/15/18 05:03 66 16 30 06/15/18 04:00 98.6 68 16 92/62 (72) 99 06/15/18 04:00 30 06/15/18 04:00 86 06/15/18 04:00 Mechanical Ventilator 06/15/18 03:30 72 16 30 06/15/18 02:00 Mechanical Ventilator 06/15/18 02:00 Mechanical Ventilator 06/15/18 01:30 74 16 30 06/15/18 00:00 98.8 63 16 107/63 (78) 98 06/15/18 00:00 69 06/15/18 00:00 30 06/15/18 00:00 Mechanical Ventilator 06/14/18 23:00 78 16 30 06/14/18 21:34 97.9 06/14/18 21:30 80 16 30 06/14/18 20:00 Mechanical Ventilator 06/14/18 20:00 Mechanical Ventilator 06/14/18 20:00 Mechanical Ventilator 06/14/18 20:00 30 06/14/18 20:00 99.0 75 16 98/68 (78) 99 06/14/18 20:00 73 06/14/18 19:30 82 16 30 06/14/18 17:15 80 16 30 06/14/18 16:00 97.9 84 19 122/75 (91) 98 06/14/18 16:00 Mechanical Ventilator 06/14/18 16:00 30 06/14/18 15:37 90 06/14/18 15:14 79 16 30 Intake and Output 06/14/18 06/15/18 19:00 07:00 Intake Total 1920 ml 2292 ml Output Total 1000 ml 1200 ml Balance 920 ml 1092 ml Free Water 80 ml 50 ml IV Total 1120 ml 1522 ml Tube Feeding 720 ml 720 ml Output Urine Total 1000 ml 1200 ml # Bowel Movements 2 1 Laboratory Tests Test 06/15/18 04:44 White Blood Count 8.2 K/UL (4.8-10.8) Red Blood Count 2.95 M/UL (4.70-6.10) L Hemoglobin 8.4 G/DL (14.2-18.0) L Hematocrit 24.5 % (42.0-52.0) L Mean Corpuscular Volume 83 FL (80-99) Mean Corpuscular Hemoglobin 28.5 PG (27.0-31.0) Mean Corpuscular Hemoglobin Concent 34.3 G/DL (32.0-36.0) Red Cell Distribution Width 15.8 % (11.6-14.8) H Platelet Count 359 K/UL (150-450) Mean Platelet Volume 7.5 FL (6.5-10.1) Neutrophils (%) (Auto) 55.4 % (45.0-75.0) Lymphocytes (%) (Auto) 25.3 % (20.0-45.0) Monocytes (%) (Auto) 5.1 % (1.0-10.0) Eosinophils (%) (Auto) 13.3 % (0.0-3.0) H Basophils (%) (Auto) 1.0 % (0.0-2.0) Sodium Level 139 MMOL/L (136-145) Potassium Level 4.1 MMOL/L (3.5-5.1) Chloride Level 106 MMOL/L (98-107) Carbon Dioxide Level 24 MMOL/L (21-32) Anion Gap 9 mmol/L (5-15) Blood Urea Nitrogen 13 mg/dL (7-18) Creatinine 0.8 MG/DL (0.55-1.30) Estimat Glomerular Filtration Rate > 60 mL/min (>60) Glucose Level 93 MG/DL (74-106) Calcium Level 8.8 MG/DL (8.5-10.1) Height (Feet): 5 Height (Inches): 4.00 Weight (Pounds): 114 General Appearance: WD/WN, no apparent distress, alert Cardiovascular: normal rate Respiratory/Chest: normal breath sounds, no respiratory distress Abdominal Exam: normal bowel sounds, non tender, soft, GT site - clean dry intact Extremities: non-tender Yajaira Ocampo NP Jun 15, 2018 14:40
--- NOTE | 2018-06-15 15:22 | Pulmonology Progress Note ---
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, unspecified (13) Encounter for PEG (percutaneous endoscopic gastrostomy) (14) Nutrition impaired due to imbalance of nutrients (15) HCAP (healthcare-associated pneumonia) Assessment/Plan Optimize pulmonary hygiene/mobilize as tolerated Continue ventilatory support/settings reviewed Titrate down FiO2 to keep SaO2 > 90% RTC and PRN HHN's + MUCOMYST HHN TID PRN suctioning Abx per ID, F/U Cx's GTF's Monitor volumes F/U neuro recs, continue [place] [employer] therapy, PMV trials FC, discuss GOC Dispo planning to LTACH D/W RN and [employer] Subjective Allergies: Coded Allergies: No Known Allergies (Unverified , 06/02/18) Subjective Awake, comfortable on vent No sig secretions, no F/C Joseph TF Objective Last 24 Hour Vital Signs Date Time Temp Pulse Resp B/P (MAP) Pulse Ox O2 Delivery O2 Flow Rate FiO2 06/15/18 13:40 79 16 98 Mechanical Ventilator 35 06/15/18 13:17 70 16 97 Mechanical Ventilator 35 06/15/18 13:14 66 16 30 06/15/18 12:00 30 06/15/18 12:00 Mechanical Ventilator 06/15/18 12:00 97.0 74 16 118/72 (87) 99 06/15/18 11:40 72 06/15/18 11:09 79 16 30 06/15/18 09:00 100/64 06/15/18 09:00 64 100/64 06/15/18 08:38 Mechanical Ventilator 06/15/18 08:37 Mechanical Ventilator 06/15/18 08:36 64 15 30 06/15/18 08:35 65 16 30 06/15/18 08:00 30 06/15/18 08:00 57 06/15/18 08:00 99.0 69 16 100/64 (76) 99 06/15/18 08:00 Mechanical Ventilator 06/15/18 05:03 66 16 30 1/8/19 04:00 98.6 68 16 92/62 (72) 99 06/15/18 04:00 30 06/15/18 04:00 86 06/15/18 04:00 Mechanical Ventilator 06/15/18 03:30 72 16 30 06/15/18 02:00 Mechanical Ventilator 06/15/18 02:00 Mechanical Ventilator 06/15/18 01:30 74 16 30 06/15/18 00:00 98.8 63 16 107/63 (78) 98 06/15/18 00:00 69 06/15/18 00:00 30 06/15/18 00:00 Mechanical Ventilator 06/14/18 23:00 78 16 30 06/14/18 21:34 97.9 06/14/18 21:30 80 16 30 06/14/18 20:00 Mechanical Ventilator 06/14/18 20:00 Mechanical Ventilator 06/14/18 20:00 Mechanical Ventilator 06/14/18 20:00 30 06/14/18 20:00 99.0 75 16 98/68 (78) 99 06/14/18 20:00 73 06/14/18 19:30 82 16 30 06/14/18 17:15 80 16 30 06/14/18 16:00 97.9 84 19 122/75 (91) 98 06/14/18 16:00 Mechanical Ventilator 06/14/18 16:00 30 06/14/18 15:37 90 Intake and Output 06/14/18 06/15/18 19:00 07:00 Intake Total 1920 ml 2292 ml Output Total 1000 ml 1200 ml Balance 920 ml 1092 ml Free Water 80 ml 50 ml IV Total 1120 ml 1522 ml Tube Feeding 720 ml 720 ml Output Urine Total 1000 ml 1200 ml # Bowel Movements 2 1 General Appearance: no acute distress, other - wake HEENT: normocephalic, atraumatic, anicteric, mucous membranes moist, status post trach Respiratory/Chest: chest wall non-tender, lungs clear, normal breath sounds, no respiratory distress, no accessory muscle use Cardiovascular: normal peripheral pulses, normal rate, regular rhythm Abdomen: normal bowel sounds, soft, non tender, no organomegaly, non distended , no mass, other - GT Extremities: no cyanosis, no clubbing, no edema Laboratory Tests 06/15/18 04:44: White Blood Count 8.2, Red Blood Count 2.95L, Hemoglobin 8.4L, Hematocrit 24.5L , Mean Corpuscular Volume 83, Mean Corpuscular Hemoglobin 28.5, Mean Corpuscular Hemoglobin Concent 34.3, Red Cell Distribution Width 15.8H, Platelet Count 359, Mean Platelet Volume 7.5, Neutrophils (%) (Auto) 55.4, Lymphocytes (%) (Auto) 25.3, Monocytes (%) (Auto) 5.1, Eosinophils (%) (Auto) 13.3H, Basophils (%) (Auto) 1.0, Sodium Level 139, Potassium Level 4.1, Chloride Level 106, Carbon Dioxide Level 24, Anion Gap 9, Blood Urea Nitrogen 13 , Creatinine 0.8, Estimat Glomerular Filtration Rate > 60, Glucose Level 93, Calcium Level 8.8 Current Medications Medications (Trade) Dose Ordered Sig/Irma Route PRN Reason Start Time Stop Time Status Last Admin Dose Admin Acetaminophen (Tylenol) 650 mg Q4H PRN GT Mild Pain/Temp > 100.5 06/07/18 21:00 07/07/18 20:59 06/14/18 21:04 Acetylcysteine (Mucomyst) 100 mg TIDRT N 06/04/18 19:00 07/04/18 18:59 06/15/18 13:14 Albuterol/ Ipratropium (Albuterol/ Ipratropium) 3 ml Q6HRT N 06/15/18 13:00 06/20/18 12:59 06/15/18 13:14 Amlodipine Besylate (Norvasc) 10 mg DAILY GT 06/14/18 09:00 07/03/18 08:59 Atorvastatin Calcium (Lipitor) 10 mg BEDTIME GT 06/13/18 21:00 07/02/18 22:29 06/14/18 20:56 Bisacodyl (Dulcolax) 10 mg DAILYPRN PRN RECTAL Constipation 06/03/18 06:41 07/03/18 06:40 Dextrose/Sodium Chloride 1,000 ml @ 100 mls/hr Q10H IV 06/02/18 22:00 07/02/18 21:59 06/15/18 09:59 Docusate Sodium (Colace) 100 mg TWICE A DAY GT 06/13/18 18:00 07/12/18 08:59 06/15/18 08:59 Heparin Sodium (Porcine) (Heparin 5000 units/ml) 5,000 units EVERY 12 HOURS SUBQ 06/03/18 09:00 07/03/18 08:59 06/15/18 08:58 Lansoprazole (Prevacid) 30 mg BID GT 06/13/18 18:00 07/03/18 08:59 06/15/18 08:59 Lisinopril (Zestril) 10 mg DAILY GT 06/14/18 09:00 07/03/18 08:59 Meropenem 1 gm/ Sodium Chloride 110 ml @ 220 mls/hr Q8HR IVPB 06/09/18 22:00 06/16/18 23:00 06/15/18 05:00 Multivitamins Therapeutic (Therapeutic Multivitamin) 1 ea DAILY ORAL 06/03/18 09:00 07/03/18 08:59 06/15/18 08:59 Patient Own Medication (Patient's Own Med) 1 ea Q12HR ORAL 06/13/18 21:00 07/03/18 20:59 06/15/18 08:59 Trimethoprim/ Sulfamethoxazole (Bactrim-DS) 2 tab Q12HR GT 06/14/18 21:00 06/20/18 17:59 06/15/18 08:58 Vitamin D (Vitamin D) 2,000 intlu DAILY GT 06/14/18 09:00 07/03/18 08:59 06/15/18 08:59 Parveen Blanco MD Jun 15, 2018 15:22
[2018-06-15 16:00] VITALS: BP 118/64
[2018-06-15] MEDS ORDERED: Albuterol/Ipratropium 3ml neb HHN PRN ×2 (16:15→16:30)
--- NOTE | 2018-06-15 16:34 | General Progress Note ---
Assessment/Plan Assessment/Plan # Acute on chronic anemia, anemia panel has been reviewed --> No evidence of bleeding --> cbc reviewed --> Transfuse PRBC if Hb < 7 # Protein calorie malnutrition --> s/p PEG placement --> continue tube feeds # Status post tracheostomy, chronic respiratory failure --> continue vent management per Pulmonology --> wean vent as tolerated and plan transfer to snf --> continue frequent suctioning # Motor neuron disease, ALS --> Continue supportive care --> Neurology following # Sepsis, suspected aspiration pneumonia versus HCAP --> improving --> cont wean vent as tolerated per pulm --> on bactrim and meropenem --> ID following # Hypokalemia --> improved, sp K given # Resp failure, acute on chronic --> on vent and trached Greatly appreciate consultation! Subjective ROS Limited/Unobtainable: Yes Allergies: Coded Allergies: No Known Allergies (Unverified , 06/02/18) Subjective 1/2 Pt is seen in the room, resting in bed. /trach/vent/ g tube and respiratory failure.cbc reviewed. no events 1/3: Pt is resting in bed, remains on vent , cbc reviewed, no events reported. 14: Pt is awake and resting in bed. Pt is on mechanical vent, in no acute distress. Family is at bedside 1: Pt is seen in the room, s/p PEG for dysphagia, on vent, cbc reviewed, no events. 06/13: Pt is seen at bedside, awake and lying in bed, cbc reviewed no evnts reported, pt is cleared for discharge by ID and pulm 06/14: no major events, on abx, on trach, gtube tolerating well 06/15: Pt is seen by bedside, resting, comfortable, on vent and gtube, no events Objective Last 24 Hour Vital Signs Date Time Temp Pulse Resp B/P (MAP) Pulse Ox O2 Delivery O2 Flow Rate FiO2 06/15/18 15:47 81 16 30 06/15/18 13:40 79 16 98 Mechanical Ventilator 35 06/15/18 13:17 70 16 97 Mechanical Ventilator 35 06/15/18 13:14 66 16 30 06/15/18 12:00 30 06/15/18 12:00 Mechanical Ventilator 06/15/18 12:00 97.0 74 16 118/72 (87) 99 06/15/18 11:40 72 06/15/18 11:09 79 16 30 06/15/18 09:00 100/64 06/15/18 09:00 64 100/64 06/15/18 08:38 Mechanical Ventilator 06/15/18 08:37 Mechanical Ventilator 06/15/18 08:36 64 15 30 06/15/18 08:35 65 16 30 06/15/18 08:00 30 06/15/18 08:00 57 06/15/18 08:00 99.0 69 16 100/64 (76) 99 06/15/18 08:00 Mechanical Ventilator 06/15/18 05:03 66 16 30 06/15/18 04:00 98.6 68 16 92/62 (72) 99 06/15/18 04:00 30 06/15/18 04:00 86 06/15/18 04:00 Mechanical Ventilator 06/15/18 03:30 72 16 30 06/15/18 02:00 Mechanical Ventilator 06/15/18 02:00 Mechanical Ventilator 06/15/18 01:30 74 16 30 06/15/18 00:00 98.8 63 16 107/63 (78) 98 06/15/18 00:00 69 06/15/18 00:00 30 06/15/18 00:00 Mechanical Ventilator 06/14/18 23:00 78 16 30 06/14/18 21:34 97.9 06/14/18 21:30 80 16 30 06/14/18 20:00 Mechanical Ventilator 06/14/18 20:00 Mechanical Ventilator 06/14/18 20:00 Mechanical Ventilator 06/14/18 20:00 30 06/14/18 20:00 99.0 75 16 98/68 (78) 99 06/14/18 20:00 73 06/14/18 19:30 82 16 30 06/14/18 17:15 80 16 30 Intake and Output 06/14/18 06/15/18 19:00 07:00 Intake Total 1920 ml 2292 ml Output Total 1000 ml 1200 ml Balance 920 ml 1092 ml Free Water 80 ml 50 ml IV Total 1120 ml 1522 ml Tube Feeding 720 ml 720 ml Output Urine Total 1000 ml 1200 ml # Bowel Movements 2 1 Laboratory Tests 06/15/18 04:44: White Blood Count 8.2, Red Blood Count 2.95L, Hemoglobin 8.4L, Hematocrit 24.5L , Mean Corpuscular Volume 83, Mean Corpuscular Hemoglobin 28.5, Mean Corpuscular Hemoglobin Concent 34.3, Red Cell Distribution Width 15.8H, Platelet Count 359, Mean Platelet Volume 7.5, Neutrophils (%) (Auto) 55.4, Lymphocytes (%) (Auto) 25.3, Monocytes (%) (Auto) 5.1, Eosinophils (%) (Auto) 13.3H, Basophils (%) (Auto) 1.0, Sodium Level 139, Potassium Level 4.1, Chloride Level 106, Carbon Dioxide Level 24, Anion Gap 9, Blood Urea Nitrogen 13 , Creatinine 0.8, Estimat Glomerular Filtration Rate > 60, Glucose Level 93, Calcium Level 8.8 Height (Feet): 5 Height (Inches): 4.00 Weight (Pounds): 114 Objective PE: Sp02 EP: reviewed, normal General Appearance: well appearing, no apparent distress ENT: hearing grossly normal, normal pharynx- Tracheostomy in place Neck: full range of motion, supple, no meningismus, no bony tend Respiratory: lungs clear, normal breath sounds GI: normal bowel sounds : no CVA tenderness MSK: chronically debilitated Neurologic: oriented x3, is responsive Psychiatric: mood/affect normal Skin: normal color, no rash Lymphatic: no adenopathy Mike Piper MD Jun 15, 2018 16:34
--- NOTE | 2018-06-15 19:29 | Infectious Diseases Prog Note ---
Assessment/Plan Assessment/Plan ASSESSMENT AND PLAN: 1. serratia pna, acinetobacter pna, sepsis, leukocytosis, ALS, trach, vent, g- tube, fevers yesterday - meropenem x 1 day - bactrim down g-tube x 3 days - urine culture with yeast is likely colonizer - blood cultures - negative - monitor labs and chest x-ray - clinically stable, leukocytosis and fevers resolved - chest x-ray stable 2. The patient has trach/vent and respiratory failure. 3. Dysphagia, possible malnutrition, needed gastrostomy tube. 4. The patient has history of amyotrophic lateral sclerosis. 5. Possible hyperlipidemia. 6. Discussed with Neurology. Neurology will follow. 7. Hypertension. Treatment per primary team. 8. Anemia. 9. Weakness secondary to presumptive amyotrophic lateral sclerosis. 10. No history of diabetes or hypertension. 11. No known allergies. 12. Social history negative. 13. Family history noncontributory. 14. MAR was noted. 15. Case discussed with RN. 16. Continue treatment per primary consultants. 17. Case discussed with the patient and the patient's family. 18. vre colonization and isolation Subjective Constitutional: Denies: fever HEENT: Denies: congestion Respiratory: Denies: shortness of breath Cardiovascular: Denies: chest pain Gastrointestinal/Abdominal: Denies: nausea, vomiting, diarrhea Genitourinary: Reports: other - no loera; Denies: dysuria Neurologic: Reports: weakness Psychiatric: Denies: depression Skin: Denies: rash Hematologic: Denies: bleeding Musculoskeletal: Denies: pain Allergies: Coded Allergies: No Known Allergies (Unverified , 06/02/18) Objective Vital Signs Last 24 Hour Vital Signs Date Time Temp Pulse Resp B/P (MAP) Pulse Ox O2 Delivery O2 Flow Rate FiO2 06/15/18 19:24 70 16 100 Mechanical Ventilator 35 06/15/18 19:18 69 16 35 06/15/18 19:15 69 16 98 Mechanical Ventilator 35 06/15/18 17:12 69 16 30 06/15/18 16:00 97.9 75 21 118/64 (82) 100 06/15/18 16:00 76 06/15/18 16:00 Mechanical Ventilator 06/15/18 16:00 30 06/15/18 15:47 81 16 30 06/15/18 13:40 79 16 98 Mechanical Ventilator 35 06/15/18 13:17 70 16 97 Mechanical Ventilator 35 06/15/18 13:14 66 16 30 06/15/18 12:00 30 06/15/18 12:00 Mechanical Ventilator 06/15/18 12:00 97.0 74 16 118/72 (87) 99 06/15/18 11:40 72 06/15/18 11:09 79 16 30 06/15/18 09:00 100/64 06/15/18 09:00 64 100/64 06/15/18 08:38 Mechanical Ventilator 06/15/18 08:37 Mechanical Ventilator 06/15/18 08:36 64 15 30 06/15/18 08:35 65 16 30 06/15/18 08:00 30 06/15/18 08:00 57 06/15/18 08:00 99.0 69 16 100/64 (76) 99 06/15/18 08:00 Mechanical Ventilator 06/15/18 05:03 66 16 30 06/15/18 04:00 98.6 68 16 92/62 (72) 99 06/15/18 04:00 30 06/15/18 04:00 86 06/15/18 04:00 Mechanical Ventilator 06/15/18 03:30 72 16 30 06/15/18 02:00 Mechanical Ventilator 06/15/18 02:00 Mechanical Ventilator 06/15/18 01:30 74 16 30 06/15/18 00:00 98.8 63 16 107/63 (78) 98 06/15/18 00:00 69 06/15/18 00:00 30 06/15/18 00:00 Mechanical Ventilator 06/14/18 23:00 78 16 30 06/14/18 21:34 97.9 06/14/18 21:30 80 16 30 06/14/18 20:00 Mechanical Ventilator 06/14/18 20:00 Mechanical Ventilator 06/14/18 20:00 Mechanical Ventilator 06/14/18 20:00 30 06/14/18 20:00 99.0 75 16 98/68 (78) 99 06/14/18 20:00 73 06/14/18 19:30 82 16 30 Height (Feet): 5 Height (Inches): 4.00 Weight (Pounds): 114 General Appearance: no acute distress HEENT: normocephalic, atraumatic, anicteric, mucous membranes moist, no JVD, status post trach Respiratory/Chest: lungs clear, normal breath sounds, no respiratory distress, no accessory muscle use, crackles/rales - less, rhonchi - bilaterally - less Cardiovascular: normal rate, regular rhythm, no gallop/murmur, no JVD Abdomen: normal bowel sounds, soft, non tender, no organomegaly, non distended Genitourinary: other - no loera Extremities: no cyanosis Skin: no rash 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 * Complete atelectasis of the left lower lobe with some mucous/debris in the left lower lobe bronchus. Consider bronchoscopy as clinically indicated. Mass or pneumonia in the collapsed lung not excludable. * Patchy and somewhat nodular airspace opacities in the posterior left upper lobe and posterior right lower lobe as well as some tree-in-bud opacities in the periphery of the left upper lobe likely infectious or inflammatory in etiology. Follow-up after appropriate treatment recommended to ensure resolution. CT ABDOMEN/PELVIS: * Cholelithiasis. No CT evidence to suggest acute cholecystitis. * Bladder wall thickening. Correlation with urinalysis recommended to exclude cystitis. * Enlarged and heterogeneous prostate. * Moderate colonic stool burden raising question for constipation. Chest x-ray - 06/05/18: FINDINGS: Lungs: Bibasilar infiltrates, left greater than right. Pleural space: Unremarkable. No pneumothorax. Heart: Unremarkable. No cardiomegaly. Mediastinum: Unremarkable. Bones/joints: No acute fracture. Tubes, lines and devices: Tracheostomy. IMPRESSION: Bibasilar infiltrates, left greater than right. 06/09/18 - chest x-ray - Comparison: 06/06/2018 A single view chest radiograph was obtained. Findings: Basilar infiltrates again demonstrated. Heart size is stable. Tracheostomy noted. IMPRESSION: No change Chest x-ray - Findings: Left basilar parenchymal density demonstrated. Question of infiltrate in the right perihilar infrahilar region. Tracheostomy noted. Heart size is normal. Pulmonary vascularity is normal. IMPRESSION: Patchy infiltrate suspected at the lung bases. Findings appear unchanged Microbiology Date/Time Source Procedure Growth Status 06/07/18 21:10 Blood Blood Culture - Final NO GROWTH AFTER 5 DAYS Complete 06/07/18 21:00 Sputum Induced Gram Stain - Final Complete 06/07/18 21:00 Sputum Culture - Final Serratia Marcescens Usual Respiratory Radha Complete 06/07/18 22:18 Urine,Clean Catch Urine Culture - Final YEAST Complete 06/02/18 21:10 Rectum VRE Culture - Final Enterococcus Faecalis - Vre Complete 06/02/18 21:10 Rectum - Final NO CARBAPENEM-RESISTANT ENTEROBACTERI... Complete Laboratory Tests Test 06/15/18 04:44 White Blood Count 8.2 K/UL (4.8-10.8) Red Blood Count 2.95 M/UL (4.70-6.10) L Hemoglobin 8.4 G/DL (14.2-18.0) L Hematocrit 24.5 % (42.0-52.0) L Mean Corpuscular Volume 83 FL (80-99) Mean Corpuscular Hemoglobin 28.5 PG (27.0-31.0) Mean Corpuscular Hemoglobin Concent 34.3 G/DL (32.0-36.0) Red Cell Distribution Width 15.8 % (11.6-14.8) H Platelet Count 359 K/UL (150-450) Mean Platelet Volume 7.5 FL (6.5-10.1) Neutrophils (%) (Auto) 55.4 % (45.0-75.0) Lymphocytes (%) (Auto) 25.3 % (20.0-45.0) Monocytes (%) (Auto) 5.1 % (1.0-10.0) Eosinophils (%) (Auto) 13.3 % (0.0-3.0) H Basophils (%) (Auto) 1.0 % (0.0-2.0) Sodium Level 139 MMOL/L (136-145) Potassium Level 4.1 MMOL/L (3.5-5.1) Chloride Level 106 MMOL/L (98-107) Carbon Dioxide Level 24 MMOL/L (21-32) Anion Gap 9 mmol/L (5-15) Blood Urea Nitrogen 13 mg/dL (7-18) Creatinine 0.8 MG/DL (0.55-1.30) Estimat Glomerular Filtration Rate > 60 mL/min (>60) Glucose Level 93 MG/DL (74-106) Calcium Level 8.8 MG/DL (8.5-10.1) Current Medications Medications (Trade) Dose Ordered Sig/Irma Route PRN Reason Start Time Stop Time Status Last Admin Dose Admin Acetaminophen (Tylenol) 650 mg Q4H PRN GT Mild Pain/Temp > 100.5 06/07/18 21:00 07/07/18 20:59 06/14/18 21:04 Acetylcysteine (Mucomyst) 100 mg TIDRT HHN 06/04/18 19:00 07/04/18 18:59 06/15/18 19:21 Albuterol/ Ipratropium (Albuterol/ Ipratropium) 3 ml Q4H PRN HHN Shortness of Breath 06/15/18 16:30 06/20/18 16:29 Albuterol/ Ipratropium (Albuterol/ Ipratropium) 3 ml Q6HRT HHN 06/15/18 13:00 06/20/18 12:59 06/15/18 19:20 Amlodipine Besylate (Norvasc) 10 mg DAILY GT 06/14/18 09:00 07/03/18 08:59 Atorvastatin Calcium (Lipitor) 10 mg BEDTIME GT 06/13/18 21:00 07/02/18 22:29 06/14/18 20:56 Bisacodyl (Dulcolax) 10 mg DAILYPRN PRN RECTAL Constipation 06/03/18 06:41 07/03/18 06:40 Dextrose/Sodium Chloride 1,000 ml @ 100 mls/hr Q10H IV 06/02/18 22:00 07/02/18 21:59 06/15/18 19:09 Docusate Sodium (Colace) 100 mg TWICE A DAY GT 06/13/18 18:00 07/12/18 08:59 06/15/18 17:31 Heparin Sodium (Porcine) (Heparin 5000 units/ml) 5,000 units EVERY 12 HOURS SUBQ 06/03/18 09:00 07/03/18 08:59 06/15/18 08:58 Lansoprazole (Prevacid) 30 mg BID GT 06/13/18 18:00 07/03/18 08:59 06/15/18 17:31 Lisinopril (Zestril) 10 mg DAILY GT 06/14/18 09:00 07/03/18 08:59 Meropenem 1 gm/ Sodium Chloride 110 ml @ 220 mls/hr Q8HR IVPB 06/09/18 22:00 06/16/18 23:00 06/15/18 15:21 Multivitamins Therapeutic (Therapeutic Multivitamin) 1 ea DAILY ORAL 06/03/18 09:00 07/03/18 08:59 06/15/18 08:59 Patient Own Medication (Patient's Own Med) 1 ea Q12HR ORAL 06/13/18 21:00 07/03/18 20:59 06/15/18 08:59 Trimethoprim/ Sulfamethoxazole (Bactrim-DS) 2 tab Q12HR GT 06/14/18 21:00 06/20/18 17:59 06/15/18 08:58 Vitamin D (Vitamin D) 2,000 intlu DAILY GT 06/14/18 09:00 07/03/18 08:59 06/15/18 08:59 Pratik Bowens MD Jun 15, 2018 19:29
[2018-06-15 20:00] VITALS: BP 117/73
--- NOTE | 2018-06-15 21:00 | Neurology Progress Note ---
Interim History Interim History Interim History Mr. Robles feels relatively well. His strength has stabilized and he is stronger than when he came in. The PEG is functioning well. He is breathing well through his tracheostomy. He is able to communicate well verbally. He denies any new neurologic symptoms. The sensations are still normal. He is still on IV antibiotics. Plans are to go back to a SNF in the near future. Review of Systems Neuro Review of Systems Benign. Objective Physical Exam Last Vital Signs Date Time Temp Pulse Resp B/P (MAP) Pulse Ox O2 Delivery O2 Flow Rate FiO2 06/15/18 19:24 70 16 100 Mechanical Ventilator 35 06/15/18 16:00 97.9 118/64 (82) 06/08/18 16:29 15.0 Laboratory Tests Test 06/15/18 04:44 White Blood Count 8.2 K/UL (4.8-10.8) Red Blood Count 2.95 M/UL (4.70-6.10) L Hemoglobin 8.4 G/DL (14.2-18.0) L Hematocrit 24.5 % (42.0-52.0) L Mean Corpuscular Volume 83 FL (80-99) Mean Corpuscular Hemoglobin 28.5 PG (27.0-31.0) Mean Corpuscular Hemoglobin Concent 34.3 G/DL (32.0-36.0) Red Cell Distribution Width 15.8 % (11.6-14.8) H Platelet Count 359 K/UL (150-450) Mean Platelet Volume 7.5 FL (6.5-10.1) Neutrophils (%) (Auto) 55.4 % (45.0-75.0) Lymphocytes (%) (Auto) 25.3 % (20.0-45.0) Monocytes (%) (Auto) 5.1 % (1.0-10.0) Eosinophils (%) (Auto) 13.3 % (0.0-3.0) H Basophils (%) (Auto) 1.0 % (0.0-2.0) Sodium Level 139 MMOL/L (136-145) Potassium Level 4.1 MMOL/L (3.5-5.1) Chloride Level 106 MMOL/L (98-107) Carbon Dioxide Level 24 MMOL/L (21-32) Anion Gap 9 mmol/L (5-15) Blood Urea Nitrogen 13 mg/dL (7-18) Creatinine 0.8 MG/DL (0.55-1.30) Estimat Glomerular Filtration Rate > 60 mL/min (>60) Glucose Level 93 MG/DL (74-106) Calcium Level 8.8 MG/DL (8.5-10.1) Neurologic Exam Objective PHYSICAL EXAMINATION: GENERAL: He is a well-developed, but lean and wasting gentleman, lying in bed, in no acute distress, connected to a ventilator through a tracheostomy. HEAD: Normocephalic and atraumatic. NECK: No neck rigidity was observed. He did have a tracheostomy in place. EENT: Benign. NEUROLOGICAL EXAMINATION: MENTAL STATUS EXAMINATION: He was awake and alert. He was oriented to person, place, and time. He was able to recall 3/3 words immediately after 1 minute and after 3 minutes. He was able to remember presidents, Trump through Jose senior with hints. His mathematical skills were good. His visuospatial function was preserved. SPEECH: He was able to mouth words well. LANGUAGE: He was able to comprehend, repeat, and express himself well. CRANIAL NERVE EXAMINATION: II: The visual maldonado were intact on confrontation testing. III, IV & : The external ocular movements were full and the pupils 3 mm in diameter, equal, round, regular, and reactive to light. V: He had normal facial sensations and the temporales, masseters, and pterygoids function normally. VII: He had normal facial expressions and no facial asymmetry. VIII: He was able to hear well bilaterally and had no nystagmus. IX: The palate moved symmetrically on phonation. X: His gag reflex was present. XI: The sternocleidomastoids and trapezii functioned normally. XII: The tongue was in the midline without any atrophy, but it did reveal fasciculations. MOTOR SYSTEM: The tone was normal in all four extremities except for decreased tone in the ankles more so on the left than on the right. Examination of muscle mass revealed severe generalized muscle wasting involving the distal muscles more than the proximal muscles and the lower extremities more than the upper extremities. He had G 5/5 power in both upper extremities except for G 5-/5 power in the finger extensors. In the lower extremities, he had in the iliopsoas G 4++/5 on the right, G 4/5 on the left. In the quadriceps, he had G 5-/5 on the right and G 4+/5 on the left. In the hamstrings, he had G 4+/5 on the right and G 4-/5 on the left. In the ankle dorsiflexors and toe extensors, he had G 3/5 on the right and G 0/ 5 on the left. In the ankle plantar flexors and toe flexors, he had G 4/5 on the right and G 1/ 5 on the left. SENSORY EXAMINATION: He had intact sensations to pinprick, light touch, and graphesthesia. COORDINATION: He performed well on [id number]-er-sywf testing. He was unable to perform qffo-ye-yrny testing. REFLEXES: 2++ and bilaterally symmetrical at the biceps, triceps, brachioradialis, and knees, 0 at both ankles. The plantar response was extensor on the right and mute on the left. STANCE & GAIT: Could not be tested. Impression/Recommendations Diagnostic Impression 1. Mr. Joseph Robles is a 58-year-old, right-handed, gentleman, who does have a prior history of hypertension and dyslipidemia, who approximately 4 years ago started to have weakness that started in his left foot with a left foot drop. Over the years, he has had increasing weakness in his lower extremities more than the upper extremities and on the left side more than the right associated with muscle wasting, muscle fasciculations, and then respiratory muscle failure as a result of which he has needed a tracheostomy. He has been worked up for the problem in the past and was found to have amyotrophic lateral sclerosis, for which he is on Rilutek. 2. He feels relatively well. His strength has stabilized and he is stronger than when he came in. The PEG is functioning well. He is breathing well through his tracheostomy. He is able to communicate well verbally. He denies any new neurologic symptoms. The sensations are still normal. He is still on IV antibiotics. Plans are to go back to a SNF. 3. His family was able to get me an evaluation performed by Dr. Vincenzo Santos at [facility] and in his opinion the patient had clinical criteria for ALS in July 2017. 4. On neurological examination at this time, he does demonstrate tongue fasciculations, decreased tone in the ankles more so on the left than the right , generalized muscle wasting involving the lower extremities more than the upper extremities, a quadriparesis involving the lower extremities more than the upper extremities, and the left side more than the right in the lower extremities, brisk deep tendon reflexes with loss of ankle jerks, an extensor plantar response on the right with a mute plantar response on the left, and frequent fasciculations in all four extremities. He however is stronger, especially in the upper extremities, since he was hospitalized. 5. The patient's history and neurological examination are in fact consistent with amyotrophic lateral sclerosis. 6. His gastrostomy and tracheostomy are functioning well. Recommendations 1. Rilutek should be continued. 2. In the near future, edaravone therapy should be considered. 3. The patient's family was told to try and retrieve his nerve conduction study , electromyography, and MRI scan reports so that I can review them. 4. Frequent ROM exercises. 5. PT/OT to mobilize. 6. Consider small amounts of oral feeding for oral gratification. Richard Alcantara M.D., M.S.P.H. Richard Alcantara MD Jun 15, 2018 21:00
[2018-06-15] MEDS: Acetaminophen 650mg/20.3ml GT PRN (21:15)
[2018-06-16] VITALS (7 sets, daily range): BP systolic 96–134; BP diastolic 61–89
[2018-06-16] MEDS: Albuterol/Ipratropium 3ml neb HHN SCH ×4 (01:55→19:11)
[2018-06-16] MEDS: Meropenem 1 GM in NS 110 ML IVPB SCH (05:15)
[2018-06-16] MEDS: D5NS 1,000 ML IV SCH ×3 (05:15→20:59)
[2018-06-16 07:36] LABS: ANION GAP 9 mmol/L (5-15); BLOOD UREA NITROGEN 12 mg/dL (7-18); CALCIUM 8.8 MG/DL (8.5-10.1); CARBON DIOXIDE 24 MMOL/L (21-32); CHLORIDE 106 MMOL/L (98-107); CREATININE 0.9 MG/DL (0.55-1.30); POTASSIUM 3.8 MMOL/L (3.5-5.1); SODIUM 139 MMOL/L (136-145)
[2018-06-16 07:39] LABS: BASOPHILS % (AUTO) 0.7 % (0.0-2.0); EOSINOPHILS % (AUTO) 12.4 % (0.0-3.0); HEMATOCRIT 25.2 % (42.0-52.0); HEMOGLOBIN 8.3 G/DL (14.2-18.0); LYMPHOCYTES % (AUTO) 21.6 % (20.0-45.0); MEAN CORPUSCULAR VOLUME 86 FL (80-99); MONOCYTES % (AUTO) 5.8 % (1.0-10.0); NEUTROPHILS % (AUTO) 59.6 % (45.0-75.0); PLATELET COUNT 365 K/UL (150-450); RED BLOOD COUNT 2.93 M/UL (4.70-6.10); RED CELL DISTRIBUTION WIDTH 16.2 % (11.6-14.8); WHITE BLOOD COUNT 9.5 K/UL (4.8-10.8)
--- NOTE | 2018-06-16 07:46 | General Progress Note ---
Assessment/Plan Assessment/Plan # Acute on chronic anemia, anemia panel has been reviewed --> No evidence of bleeding --> cbc reviewed --> Transfuse PRBC if Hb < 7 # Protein calorie malnutrition --> s/p PEG placement --> continue tube feeds # Status post tracheostomy, chronic respiratory failure --> continue vent management per Pulmonology --> wean vent as tolerated and plan transfer to snf --> continue frequent suctioning # Motor neuron disease, ALS --> Continue supportive care --> Neurology following # Sepsis, suspected aspiration pneumonia versus HCAP --> improving --> cont wean vent as tolerated per pulm --> on bactrim and meropenem --> ID following # Hypokalemia --> improved, sp K given # Resp failure, acute on chronic --> on vent and trached Greatly appreciate consultation! Subjective Constitutional: Denies: no symptoms, chills, diaphoresis, fever, malaise, weakness, other HEENT: Denies: no symptoms, eye pain, blurred vision, tearing, double vision, ear pain, ear discharge, nose pain, nose congestion, throat pain, throat swelling, mouth pain, mouth swelling, other Cardiovascular: Denies: no symptoms, chest pain, edema, irregular heart rate, lightheadedness, palpitations, syncope, other Gastrointestinal/Abdominal: Denies: no symptoms, abdomen distended, abdominal pain, black stools, tarry stools, blood in stool, constipated, diarrhea, difficulty swallowing, nausea, poor appetite, poor fluid intake, rectal bleeding , vomiting, other Neurologic/Psychiatric: Denies: no symptoms, anxiety, depressed, emotional problems, headache, numbness, paresthesia, pre-existing deficit, seizure, tingling, tremors, weakness, other Allergies: Coded Allergies: No Known Allergies (Unverified , 06/02/18) Subjective 1/2 Pt is seen in the room, resting in bed. /trach/vent/ g tube and respiratory failure.cbc reviewed. no events 1/3: Pt is resting in bed, remains on vent , cbc reviewed, no events reported. 06/11: Pt is awake and resting in bed. Pt is on mechanical vent, in no acute distress. Family is at bedside 06/12: Pt is seen in the room, s/p PEG for dysphagia, on vent, cbc reviewed, no events. 06/13: Pt is seen at bedside, awake and lying in bed, cbc reviewed no evnts reported, pt is cleared for discharge by ID and pulm 06/14: no major events, on abx, on trach, gtube tolerating well 06/15: Pt is seen by bedside, resting, comfortable, on vent and gtube, no events 06/16: A/O x's4-able to make needs known, Family at bedside, no signs and symptoms of acute cardiac or respiratory distress noted Objective Last 24 Hour Vital Signs Date Time Temp Pulse Resp B/P (MAP) Pulse Ox O2 Delivery O2 Flow Rate FiO2 06/16/18 07:16 70 16 100 Mechanical Ventilator 35 06/16/18 07:15 70 16 100 Mechanical Ventilator 35 06/16/18 07:05 72 16 96 Mechanical Ventilator 35 06/16/18 07:04 73 16 96 Mechanical Ventilator 35 06/16/18 07:02 70 16 35 06/16/18 05:20 68 16 35 06/16/18 04:00 Mechanical Ventilator 06/16/18 04:00 98.1 69 16 100/68 (79) 97 06/16/18 04:00 68 06/16/18 04:00 30 06/16/18 03:05 72 16 35 06/16/18 01:57 74 16 100 Mechanical Ventilator 35 06/16/18 01:50 64 16 97 Mechanical Ventilator 35 06/16/18 00:42 65 16 35 06/16/18 00:00 98.0 64 18 118/72 (87) 97 06/16/18 00:00 74 06/16/18 00:00 Mechanical Ventilator 06/15/18 22:37 67 17 35 06/15/18 21:45 98.0 06/15/18 21:06 67 16 35 06/15/18 20:00 74 06/15/18 20:00 30 06/15/18 20:00 Mechanical Ventilator 06/15/18 20:00 98.1 83 21 117/73 (88) 99 06/15/18 19:24 70 16 100 Mechanical Ventilator 35 06/15/18 19:18 69 16 35 06/15/18 19:15 69 16 98 Mechanical Ventilator 35 06/15/18 17:12 69 16 30 06/15/18 16:00 97.9 75 21 118/64 (82) 100 06/15/18 16:00 76 06/15/18 16:00 Mechanical Ventilator 06/15/18 16:00 30 06/15/18 15:47 81 16 30 06/15/18 13:40 79 16 98 Mechanical Ventilator 35 06/15/18 13:17 70 16 97 Mechanical Ventilator 35 06/15/18 13:14 66 16 30 06/15/18 12:00 30 06/15/18 12:00 Mechanical Ventilator 06/15/18 12:00 97.0 74 16 118/72 (87) 99 06/15/18 11:40 72 06/15/18 11:09 79 16 30 06/15/18 09:00 100/64 06/15/18 09:00 64 100/64 06/15/18 08:38 Mechanical Ventilator 06/15/18 08:37 Mechanical Ventilator 06/15/18 08:36 64 15 30 06/15/18 08:35 65 16 30 06/15/18 08:00 30 06/15/18 08:00 57 06/15/18 08:00 99.0 69 16 100/64 (76) 99 06/15/18 08:00 Mechanical Ventilator Intake and Output 06/15/18 06/16/18 19:00 07:00 Intake Total 2340 ml 2376 ml Output Total 1100 ml 1200 ml Balance 1240 ml 1176 ml Free Water 200 ml 50 ml IV Total 1420 ml 1606 ml Tube Feeding 720 ml 720 ml Output Urine Total 1100 ml 1200 ml # Voids 5 # Bowel Movements 1 Laboratory Tests 06/16/18 06:48: White Blood Count [Pending], Red Blood Count [Pending], Hemoglobin [Pending], Hematocrit [Pending], Mean Corpuscular Volume [Pending], Mean Corpuscular Hemoglobin [Pending], Mean Corpuscular Hemoglobin Concent [Pending], Red Cell Distribution Width [Pending], Platelet Count [Pending], Mean Platelet Volume [ Pending], Neutrophils (%) (Auto) [Pending], Lymphocytes (%) (Auto) [Pending], Monocytes (%) (Auto) [Pending], Eosinophils (%) (Auto) [Pending], Basophils (%) (Auto) [Pending], Sodium Level 139, Potassium Level 3.8, Chloride Level 106, Carbon Dioxide Level 24, Anion Gap 9, Blood Urea Nitrogen 12, Creatinine 0.9, Estimat Glomerular Filtration Rate > 60, Glucose Level 130H, Calcium Level 8.8 Height (Feet): 5 Height (Inches): 4.00 Weight (Pounds): 117 Objective PE: Sp02: reviewed, normal General: well appearing, no apparent distress ENT: hearing grossly normal, normal pharynx- Tracheostomy in place Neck: full range of motion, supple, no meningismus, no bony ttp Respiratory: lungs clear, nml breath sounds GI: normal bowel sounds : no CVA tenderness MSK: chronically debilitated Neurologic: oriented x3, is responsive Psychiatric: mood/affect normal Skin: normal color, no rash Lymphatic: no adenopathy Mike Piper MD Jun 16, 2018 07:46
--- NOTE | 2018-06-16 07:56 | General Progress Note ---
Assessment/Plan Problem List: (1) Protein calorie malnutrition ICD Codes: E46 - Unspecified protein-calorie malnutrition SNOMED: 396023980 (2) Status post tracheostomy ICD Codes: Z93.0 - Tracheostomy status SNOMED: 25805267, 525854801 (3) Motor neuron disease, unspecified ICD Codes: G12.20 - Motor neuron disease, unspecified SNOMED: 90907317 (4) Leukocytosis ICD Codes: D72.829 - Elevated white blood cell count, unspecified SNOMED: 091545383, 241840627 Qualifiers: Qualified Codes: D72.829 - Elevated white blood cell count, unspecified (5) Essential hypertension ICD Codes: I10 - Essential (primary) hypertension SNOMED: 94030636 (6) HCAP (healthcare-associated pneumonia) ICD Codes: J18.9 - Pneumonia, unspecified organism SNOMED: 933927362 Status: stable Assessment/Plan (1) Protein calorie malnutrition s/p G-tube placement continue tube feeds (2) Status post tracheostomy, chronic respiratory failure continue vent management per Pulmonology, wean vent as tolerated and plan transfer to snf continue frequent suctioning (3) Motor neuron disease, ALS Continue supportive care Neurology following (4) Sepsis, suspected aspiration pneumonia versus HCAP improving, repeat bcx ngtd cont wean vent as tolerated per pulm continue abx per ID ID following (5)Hypokalemia resolved replenish prn (6)Hypomagnesemia resolved (6)Acute on chronic anemia No evidence of bleeding Repeat CBC in AM Transfuse PRBC if Hb < 7 (7)acute on chronic hypoxic respiratory failure vent Optimize pulmonary hygiene/mobilize as tolerated Continue ventilatory support/settings reviewed Titrate down FiO2 to keep SaO2 > 90% RTC and PRN HHN's + MUCOMYST HHN TID wean vent as tolerated and plan transfer to snf continue frequent suctioning appreciate pulm recs Abx per ID, F/U Cx's trached worsened by asp pna DVT Prophylaxis: SCD, HSQ Code Status: Full Hospital Classification Declaration: Based on this initial evaluation, and depending on the patient's clinical course, I anticipate that this patient will require hospitalization for 2-3 days for malnutrition, trached, peg placed here , treated for aspiration pneumonia, lost bed at previous SNF now working on new bed, and close respiratory/hemodynamic monitoring. Disposition: Once the patient is stable to leave the hospital, I anticipate the patient will likely be discharged to the following environment: SNF, Planned for dc back to snf however patient lost bed, cm/sw working on new bed placement. I spent over 35 minutes on this patient's case, and 25 minutes were dedicated to counseling and/or care coordination. Discussed with patient/family, nursing staff, SW/CM, and consultants regarding clinical status, treatment course, and disposition planning. Time of note may not reflect time of encounter. ---- Date of Discussion: 06/03/18 A [id number] discussion with the patient's son regarding the patient's advanced care planning took place during this hospitalization on the above date. The discussion included the explanation and discussion of advance directives and associated forms/documents, as well as the patient's current code status. We also discussed at length the patient's medical conditions (both acute and chronic), general prognosis, treatment options, and goals of care. The following summarizes the discussion: Advance Care Planning/Goals of Care: - polst completed - Continue current evaluation and management of any acute and chronic medical issues - Will continue to support the patient/family - Will continue to discuss both short- and long-term goals of care DPOA-HC/Surrogate Decision Maker: , Randa Robles Code Status: Full Code AD Forms/Documents Completed: completed A total of 31 minutes was spent on this discussion, including counseling, answering questions, and completing, if any, pertinent advanced care planning forms/documents. Subjective Date patient seen: Jun 16, 2018 Time patient seen: 07:55 Allergies: Coded Allergies: No Known Allergies (Unverified , 06/02/18) Subjective f/u malnutrition, sepsis, resp failure, trach on vent, peg stable cont abx pulm attempting to wean vent concerns for asp pna denies any complaints, no fevers/chills/n/v/pain no acute events overnight abx per id , bactrim and андрей patient responsive, denies any complaints planned for dc back to snf however patient lost bed, cm/sw working on new bed placement. ROS: 14 point ROS reviewed and negative except per the above subjective Objective Last 24 Hour Vital Signs Date Time Temp Pulse Resp B/P (MAP) Pulse Ox O2 Delivery O2 Flow Rate FiO2 06/16/18 07:16 70 16 100 Mechanical Ventilator 35 06/16/18 07:15 70 16 100 Mechanical Ventilator 35 06/16/18 07:05 72 16 96 Mechanical Ventilator 35 06/16/18 07:04 73 16 96 Mechanical Ventilator 35 06/16/18 07:02 70 16 35 06/16/18 05:20 68 16 35 06/16/18 04:00 Mechanical Ventilator 06/16/18 04:00 98.1 69 16 100/68 (79) 97 06/16/18 04:00 68 06/16/18 04:00 30 06/16/18 03:05 72 16 35 06/16/18 01:57 74 16 100 Mechanical Ventilator 35 06/16/18 01:50 64 16 97 Mechanical Ventilator 35 06/16/18 00:42 65 16 35 06/16/18 00:00 98.0 64 18 118/72 (87) 97 06/16/18 00:00 74 06/16/18 00:00 Mechanical Ventilator 06/15/18 22:37 67 17 35 06/15/18 21:45 98.0 06/15/18 21:06 67 16 35 06/15/18 20:00 74 06/15/18 20:00 30 06/15/18 20:00 Mechanical Ventilator 06/15/18 20:00 98.1 83 21 117/73 (88) 99 06/15/18 19:24 70 16 100 Mechanical Ventilator 35 06/15/18 19:18 69 16 35 06/15/18 19:15 69 16 98 Mechanical Ventilator 35 06/15/18 17:12 69 16 30 06/15/18 16:00 97.9 75 21 118/64 (82) 100 06/15/18 16:00 76 06/15/18 16:00 Mechanical Ventilator 06/15/18 16:00 30 06/15/18 15:47 81 16 30 06/15/18 13:40 79 16 98 Mechanical Ventilator 35 06/15/18 13:17 70 16 97 Mechanical Ventilator 35 06/15/18 13:14 66 16 30 06/15/18 12:00 30 06/15/18 12:00 Mechanical Ventilator 06/15/18 12:00 97.0 74 16 118/72 (87) 99 06/15/18 11:40 72 06/15/18 11:09 79 16 30 06/15/18 09:00 100/64 06/15/18 09:00 64 100/64 06/15/18 08:38 Mechanical Ventilator 06/15/18 08:37 Mechanical Ventilator 06/15/18 08:36 64 15 30 06/15/18 08:35 65 16 30 06/15/18 08:00 30 06/15/18 08:00 57 06/15/18 08:00 99.0 69 16 100/64 (76) 99 06/15/18 08:00 Mechanical Ventilator Intake and Output 06/15/18 06/16/18 18:59 06:59 Intake Total 2340 ml 2376 ml Output Total 1100 ml 1200 ml Balance 1240 ml 1176 ml Free Water 200 ml 50 ml IV Total 1420 ml 1606 ml Tube Feeding 720 ml 720 ml Output Urine Total 1100 ml 1200 ml # Voids 5 # Bowel Movements 1 Laboratory Tests 06/16/18 06:48: White Blood Count 9.5, Red Blood Count 2.93L, Hemoglobin 8.3L, Hematocrit 25.2L , Mean Corpuscular Volume 86, Mean Corpuscular Hemoglobin 28.4, Mean Corpuscular Hemoglobin Concent 33.1, Red Cell Distribution Width 16.2H, Platelet Count 365, Mean Platelet Volume 7.5, Neutrophils (%) (Auto) 59.6, Lymphocytes (%) (Auto) 21.6, Monocytes (%) (Auto) 5.8, Eosinophils (%) (Auto) 12.4H, Basophils (%) (Auto) 0.7, Sodium Level 139, Potassium Level 3.8, Chloride Level 106, Carbon Dioxide Level 24, Anion Gap 9, Blood Urea Nitrogen 12 , Creatinine 0.9, Estimat Glomerular Filtration Rate > 60, Glucose Level 130H, Calcium Level 8.8 Height (Feet): 5 Height (Inches): 4.00 Weight (Pounds): 117 Objective General Appearance: WD/WN, no apparent distress, alert Lines, tubes and drains: peripheral HEENT: normocephalic, atraumatic Neck: non-tender, normal alignment, supple, normal inspection, trach Cardiovascular/Chest: normal peripheral pulses, normal rate, regular rhythm Abdomen: normal bowel sounds, non tender, soft, no organomegaly, no mass, PEG in place, clean site Extremities: normal range of motion, non-tender, normal inspection, no calf tenderness Skin Exam: normal pigmentation, warm/dry 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
[2018-06-16] MEDS: RILUZOLE 50 MG ORAL SCH ×2 (08:22→20:20)
[2018-06-16] MEDS: Multivitamin w/Minerals tab ORAL SCH (08:23)
[2018-06-16] MEDS: Bactrim-DS 1 tab GT SCH ×2 (08:23→20:21)
[2018-06-16] MEDS: Vitamin D 1000 IU Tab GT SCH (08:23)
[2018-06-16] MEDS: Heparin 5000 units/ml inj SUBQ SCH ×2 (08:25→20:23)
[2018-06-16] MEDS: Lisinopril 10mg tab GT SCH (08:28)
[2018-06-16] MEDS: Docusate 100mg/10ml Liq GT SCH ×2 (09:24→17:33)
--- NOTE | 2018-06-16 10:58 | GI Progress Note ---
Assessment/Plan Problems: (1) Protein calorie malnutrition ICD Codes: E46 - Unspecified protein-calorie malnutrition SNOMED: 370831169 (2) Dehydration ICD Codes: E86.0 - Dehydration SNOMED: 72217773 (3) Encounter for PEG (percutaneous endoscopic gastrostomy) ICD Codes: Z43.1 - Encounter for attention to gastrostomy SNOMED: 901764330, 464077471 (4) S/P percutaneous endoscopic gastrostomy (PEG) tube placement ICD Codes: Z93.1 - Gastrostomy status SNOMED: 393794571 (5) Status post tracheostomy ICD Codes: Z93.0 - Tracheostomy status SNOMED: 85601520, 667186285 Status: stable Status Narrative Discussed with Dr. Lainez Assessment/Plan Assessment - s/p PEG for dysphagia - ALS - Resp failure - Anemia Recommendations - continue TF - GT site care - vent - follow labs - PRN RBC transfusion - dc planning The patient was seen and examined at bedside and all new and available data was reviewed in the patients chart. I agree with the above findings, impression and plan. (Patient seen earlier today. Signature stamp does not reflect patient encounter time.). - Vaibhav Lainez MD Subjective Subjective Limited Objective Last 24 Hour Vital Signs Date Time Temp Pulse Resp B/P (MAP) Pulse Ox O2 Delivery O2 Flow Rate FiO2 06/16/18 08:28 96/61 06/16/18 08:28 72 96/61 06/16/18 08:00 97.7 72 16 96/61 (73) 100 06/16/18 08:00 74 06/16/18 08:00 30 06/16/18 08:00 Mechanical Ventilator 06/16/18 07:16 70 16 100 Mechanical Ventilator 35 06/16/18 07:15 70 16 100 Mechanical Ventilator 35 06/16/18 07:05 72 16 96 Mechanical Ventilator 35 06/16/18 07:04 73 16 96 Mechanical Ventilator 35 06/16/18 07:02 70 16 35 06/16/18 05:20 68 16 35 06/16/18 04:00 Mechanical Ventilator 06/16/18 04:00 98.1 69 16 100/68 (79) 97 06/16/18 04:00 68 06/16/18 04:00 30 06/16/18 03:05 72 16 35 06/16/18 01:57 74 16 100 Mechanical Ventilator 35 06/16/18 01:50 64 16 97 Mechanical Ventilator 35 06/16/18 00:42 65 16 35 06/16/18 00:00 98.0 64 18 118/72 (87) 97 06/16/18 00:00 74 06/16/18 00:00 Mechanical Ventilator 06/15/18 22:37 67 17 35 06/15/18 21:45 98.0 06/15/18 21:06 67 16 35 06/15/18 20:00 74 06/15/18 20:00 30 06/15/18 20:00 Mechanical Ventilator 06/15/18 20:00 98.1 83 21 117/73 (88) 99 06/15/18 19:24 70 16 100 Mechanical Ventilator 35 06/15/18 19:18 69 16 35 06/15/18 19:15 69 16 98 Mechanical Ventilator 35 06/15/18 17:12 69 16 30 06/15/18 16:00 97.9 75 21 118/64 (82) 100 06/15/18 16:00 76 06/15/18 16:00 Mechanical Ventilator 06/15/18 16:00 30 06/15/18 15:47 81 16 30 06/15/18 13:40 79 16 98 Mechanical Ventilator 35 06/15/18 13:17 70 16 97 Mechanical Ventilator 35 06/15/18 13:14 66 16 30 06/15/18 12:00 30 06/15/18 12:00 Mechanical Ventilator 06/15/18 12:00 97.0 74 16 118/72 (87) 99 06/15/18 11:40 72 06/15/18 11:09 79 16 30 Intake and Output 06/15/18 06/16/18 18:59 06:59 Intake Total 2340 ml 2376 ml Output Total 1100 ml 1200 ml Balance 1240 ml 1176 ml Free Water 200 ml 50 ml IV Total 1420 ml 1606 ml Tube Feeding 720 ml 720 ml Output Urine Total 1100 ml 1200 ml # Voids 5 # Bowel Movements 1 Laboratory Tests Test 06/16/18 06:48 White Blood Count 9.5 K/UL (4.8-10.8) Red Blood Count 2.93 M/UL (4.70-6.10) L Hemoglobin 8.3 G/DL (14.2-18.0) L Hematocrit 25.2 % (42.0-52.0) L Mean Corpuscular Volume 86 FL (80-99) Mean Corpuscular Hemoglobin 28.4 PG (27.0-31.0) Mean Corpuscular Hemoglobin Concent 33.1 G/DL (32.0-36.0) Red Cell Distribution Width 16.2 % (11.6-14.8) H Platelet Count 365 K/UL (150-450) Mean Platelet Volume 7.5 FL (6.5-10.1) Neutrophils (%) (Auto) 59.6 % (45.0-75.0) Lymphocytes (%) (Auto) 21.6 % (20.0-45.0) Monocytes (%) (Auto) 5.8 % (1.0-10.0) Eosinophils (%) (Auto) 12.4 % (0.0-3.0) H Basophils (%) (Auto) 0.7 % (0.0-2.0) Sodium Level 139 MMOL/L (136-145) Potassium Level 3.8 MMOL/L (3.5-5.1) Chloride Level 106 MMOL/L (98-107) Carbon Dioxide Level 24 MMOL/L (21-32) Anion Gap 9 mmol/L (5-15) Blood Urea Nitrogen 12 mg/dL (7-18) Creatinine 0.9 MG/DL (0.55-1.30) Estimat Glomerular Filtration Rate > 60 mL/min (>60) Glucose Level 130 MG/DL (74-106) H Calcium Level 8.8 MG/DL (8.5-10.1) Height (Feet): 5 Height (Inches): 4.00 Weight (Pounds): 117 General Appearance: WD/WN, no apparent distress, alert Cardiovascular: normal rate Respiratory/Chest: normal breath sounds, no respiratory distress, other - Mechanical ventilator Abdominal Exam: normal bowel sounds, non tender, soft, GT site - Clean dry and intact Extremities: non-tender Yajaira Ocampo NP Jun 16, 2018 10:58
--- NOTE | 2018-06-16 11:35 | Infectious Diseases Prog Note ---
Assessment/Plan Assessment/Plan ASSESSMENT AND PLAN: 1. serratia pna, acinetobacter pna, sepsis, leukocytosis, ALS, trach, vent, g- tube, fevers yesterday - meropenem - discontinue, s/p full treatment - bactrim down g-tube x 2 days - urine culture with yeast is likely colonizer - blood cultures - negative - monitor labs and chest x-ray - clinically stable, leukocytosis and fevers resolved - chest x-ray stable 2. The patient has trach/vent and respiratory failure. 3. Dysphagia, possible malnutrition, needed gastrostomy tube. 4. The patient has history of amyotrophic lateral sclerosis. 5. Possible hyperlipidemia. 6. Discussed with Neurology. Neurology will follow. 7. Hypertension. Treatment per primary team. 8. Anemia. 9. Weakness secondary to presumptive amyotrophic lateral sclerosis. 10. No history of diabetes or hypertension. 11. No known allergies. 12. Social history negative. 13. Family history noncontributory. 14. MAR was noted. 15. Case discussed with RN. 16. Continue treatment per primary consultants. 17. Case discussed with the patient and the patient's family. 18. vre colonization and isolation Subjective Constitutional: Reports: other - + ; Denies: fever HEENT: Reports: congestion Respiratory: Reports: shortness of breath Cardiovascular: Denies: chest pain Gastrointestinal/Abdominal: Reports: other - no abdominal pain ; Denies: vomiting, diarrhea Genitourinary: Reports: other - + loera Neurologic: Denies: headache Psychiatric: Denies: depression Skin: Denies: rash Hematologic: Denies: bleeding Musculoskeletal: Denies: pain Allergies: Coded Allergies: No Known Allergies (Unverified , 06/02/18) Objective Vital Signs Last 24 Hour Vital Signs Date Time Temp Pulse Resp B/P (MAP) Pulse Ox O2 Delivery O2 Flow Rate FiO2 06/16/18 09:10 70 16 35 06/16/18 08:28 96/61 06/16/18 08:28 72 96/61 06/16/18 08:00 97.7 72 16 96/61 (73) 100 06/16/18 08:00 74 06/16/18 08:00 30 06/16/18 08:00 Mechanical Ventilator 06/16/18 07:16 70 16 100 Mechanical Ventilator 35 06/16/18 07:15 70 16 100 Mechanical Ventilator 35 06/16/18 07:05 72 16 96 Mechanical Ventilator 35 06/16/18 07:04 73 16 96 Mechanical Ventilator 35 06/16/18 07:02 70 16 35 06/16/18 05:20 68 16 35 06/16/18 04:00 Mechanical Ventilator 06/16/18 04:00 98.1 69 16 100/68 (79) 97 06/16/18 04:00 68 06/16/18 04:00 30 06/16/18 03:05 72 16 35 06/16/18 01:57 74 16 100 Mechanical Ventilator 35 06/16/18 01:50 64 16 97 Mechanical Ventilator 35 06/16/18 00:42 65 16 35 06/16/18 00:00 98.0 64 18 118/72 (87) 97 06/16/18 00:00 74 06/16/18 00:00 Mechanical Ventilator 06/15/18 22:37 67 17 35 06/15/18 21:45 98.0 06/15/18 21:06 67 16 35 06/15/18 20:00 74 06/15/18 20:00 30 06/15/18 20:00 Mechanical Ventilator 06/15/18 20:00 98.1 83 21 117/73 (88) 99 06/15/18 19:24 70 16 100 Mechanical Ventilator 35 06/15/18 19:18 69 16 35 06/15/18 19:15 69 16 98 Mechanical Ventilator 35 06/15/18 17:12 69 16 30 06/15/18 16:00 97.9 75 21 118/64 (82) 100 06/15/18 16:00 76 06/15/18 16:00 Mechanical Ventilator 06/15/18 16:00 30 06/15/18 15:47 81 16 30 06/15/18 13:40 79 16 98 Mechanical Ventilator 35 06/15/18 13:17 70 16 97 Mechanical Ventilator 35 06/15/18 13:14 66 16 30 06/15/18 12:00 30 06/15/18 12:00 Mechanical Ventilator 06/15/18 12:00 97.0 74 16 118/72 (87) 99 06/15/18 11:40 72 Height (Feet): 5 Height (Inches): 4.00 Weight (Pounds): 117 General Appearance: no acute distress HEENT: normocephalic, atraumatic, anicteric Respiratory/Chest: crackles/rales - few only , rhonchi - bilaterally - few only , other - mostly clear bilateral Cardiovascular: normal rate, regular rhythm, no gallop/murmur, no JVD Abdomen: normal bowel sounds, soft, non tender, no organomegaly, non distended Genitourinary: other - no loera Extremities: no cyanosis Skin: no rash Neurologic/Psychiatric: medical device II-XII grossly normal, alert Lymphatic: no neck adenopathy Musculoskeletal: no effusion Objective CT abdomen/pelvis/chest: IMPRESSION: CT CHEST: * Tracheostomy tube in place. * Complete atelectasis of the left lower lobe with some mucous/debris in the left lower lobe bronchus. Consider bronchoscopy as clinically indicated. Mass or pneumonia in the collapsed lung not excludable. * Patchy and somewhat nodular airspace opacities in the posterior left upper lobe and posterior right lower lobe as well as some tree-in-bud opacities in the periphery of the left upper lobe likely infectious or inflammatory in etiology. Follow-up after appropriate treatment recommended to ensure resolution. CT ABDOMEN/PELVIS: * Cholelithiasis. No CT evidence to suggest acute cholecystitis. * Bladder wall thickening. Correlation with urinalysis recommended to exclude cystitis. * Enlarged and heterogeneous prostate. * Moderate colonic stool burden raising question for constipation. Chest x-ray - 06/05/18: FINDINGS: Lungs: Bibasilar infiltrates, left greater than right. Pleural space: Unremarkable. No pneumothorax. Heart: Unremarkable. No cardiomegaly. Mediastinum: Unremarkable. Bones/joints: No acute fracture. Tubes, lines and devices: Tracheostomy. IMPRESSION: Bibasilar infiltrates, left greater than right. 06/09/18 - chest x-ray - Comparison: 06/06/2018 A single view chest radiograph was obtained. Findings: Basilar infiltrates again demonstrated. Heart size is stable. Tracheostomy noted. IMPRESSION: No change Chest x-ray - 06/15 - Findings: Left basilar parenchymal density demonstrated. Question of infiltrate in the right perihilar infrahilar region. Tracheostomy noted. Heart size is normal. Pulmonary vascularity is normal. IMPRESSION: Patchy infiltrate suspected at the lung bases. Findings appear unchanged Microbiology Date/Time Source Procedure Growth Status 06/07/18 21:10 Blood Blood Culture - Final NO GROWTH AFTER 5 DAYS Complete 06/07/18 21:00 Sputum Induced Gram Stain - Final Complete 06/07/18 21:00 Sputum Culture - Final Serratia Marcescens Usual Respiratory Radha Complete 06/07/18 22:18 Urine,Clean Catch Urine Culture - Final YEAST Complete 06/02/18 21:10 Rectum VRE Culture - Final Enterococcus Faecalis - Vre Complete 06/02/18 21:10 Rectum - Final NO CARBAPENEM-RESISTANT ENTEROBACTERI... Complete Laboratory Tests Test 06/16/18 06:48 White Blood Count 9.5 K/UL (4.8-10.8) Red Blood Count 2.93 M/UL (4.70-6.10) L Hemoglobin 8.3 G/DL (14.2-18.0) L Hematocrit 25.2 % (42.0-52.0) L Mean Corpuscular Volume 86 FL (80-99) Mean Corpuscular Hemoglobin 28.4 PG (27.0-31.0) Mean Corpuscular Hemoglobin Concent 33.1 G/DL (32.0-36.0) Red Cell Distribution Width 16.2 % (11.6-14.8) H Platelet Count 365 K/UL (150-450) Mean Platelet Volume 7.5 FL (6.5-10.1) Neutrophils (%) (Auto) 59.6 % (45.0-75.0) Lymphocytes (%) (Auto) 21.6 % (20.0-45.0) Monocytes (%) (Auto) 5.8 % (1.0-10.0) Eosinophils (%) (Auto) 12.4 % (0.0-3.0) H Basophils (%) (Auto) 0.7 % (0.0-2.0) Sodium Level 139 MMOL/L (136-145) Potassium Level 3.8 MMOL/L (3.5-5.1) Chloride Level 106 MMOL/L (98-107) Carbon Dioxide Level 24 MMOL/L (21-32) Anion Gap 9 mmol/L (5-15) Blood Urea Nitrogen 12 mg/dL (7-18) Creatinine 0.9 MG/DL (0.55-1.30) Estimat Glomerular Filtration Rate > 60 mL/min (>60) Glucose Level 130 MG/DL (74-106) H Calcium Level 8.8 MG/DL (8.5-10.1) Current Medications Medications (Trade) Dose Ordered Sig/Irma Route PRN Reason Start Time Stop Time Status Last Admin Dose Admin Acetaminophen (Tylenol) 650 mg Q4H PRN GT Mild Pain/Temp > 100.5 06/07/18 21:00 07/07/18 20:59 06/15/18 21:15 Acetylcysteine (Mucomyst) 100 mg TIDRT HHN 06/04/18 19:00 07/04/18 18:59 06/16/18 07:12 Albuterol/ Ipratropium (Albuterol/ Ipratropium) 3 ml Q4H PRN HHN Shortness of Breath 06/15/18 16:30 06/20/18 16:29 Albuterol/ Ipratropium (Albuterol/ Ipratropium) 3 ml Q6HRT HHN 06/15/18 13:00 06/20/18 12:59 06/16/18 07:12 Amlodipine Besylate (Norvasc) 10 mg DAILY GT 06/14/18 09:00 07/03/18 08:59 Atorvastatin Calcium (Lipitor) 10 mg BEDTIME GT 06/13/18 21:00 07/02/18 22:29 06/15/18 20:23 Bisacodyl (Dulcolax) 10 mg DAILYPRN PRN RECTAL Constipation 06/03/18 06:41 07/03/18 06:40 Dextrose/Sodium Chloride 1,000 ml @ 100 mls/hr Q10H IV 06/02/18 22:00 07/02/18 21:59 06/16/18 05:15 Docusate Sodium (Colace) 100 mg TWICE A DAY GT 06/13/18 18:00 07/12/18 08:59 06/16/18 09:24 Heparin Sodium (Porcine) (Heparin 5000 units/ml) 5,000 units EVERY 12 HOURS SUBQ 06/03/18 09:00 07/03/18 08:59 06/16/18 08:25 Lansoprazole (Prevacid) 30 mg BID GT 06/13/18 18:00 07/03/18 08:59 06/16/18 08:23 Lisinopril (Zestril) 10 mg DAILY GT 06/14/18 09:00 07/03/18 08:59 Meropenem 1 gm/ Sodium Chloride 110 ml @ 220 mls/hr Q8HR IVPB 06/09/18 22:00 06/16/18 23:00 06/16/18 05:15 Multivitamins Therapeutic (Therapeutic Multivitamin) 1 ea DAILY ORAL 06/03/18 09:00 07/03/18 08:59 06/16/18 08:23 Patient Own Medication (Patient's Own Med) 1 ea Q12HR ORAL 06/13/18 21:00 07/03/18 20:59 06/16/18 08:22 Trimethoprim/ Sulfamethoxazole (Bactrim-DS) 2 tab Q12HR GT 06/14/18 21:00 06/20/18 17:59 06/16/18 08:23 Vitamin D (Vitamin D) 2,000 intlu DAILY GT 06/14/18 09:00 07/03/18 08:59 06/16/18 08:23 Pratik Bowens MD Jun 16, 2018 11:35
[2018-06-16] MEDS: Acetaminophen 650mg/20.3ml GT PRN (17:33)
--- NOTE | 2018-06-16 19:39 | Pulmonology Progress Note ---
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, unspecified (13) Encounter for PEG (percutaneous endoscopic gastrostomy) (14) Nutrition impaired due to imbalance of nutrients (15) HCAP (healthcare-associated pneumonia) Assessment/Plan Optimize pulmonary hygiene/mobilize as tolerated Continue ventilatory support/settings reviewed Titrate down FiO2 to keep SaO2 > 90% RTC and PRN HHN's + MUCOMYST HHN TID PRN suctioning Observe off Abx per ID GTF's Monitor volumes F/U neuro recs, continue [place] [employer] therapy, PMV trials FC, discuss GOC Dispo planning to [facility] D/W RN and [employer] Subjective Allergies: Coded Allergies: No Known Allergies (Unverified , 06/02/18) Subjective Awake, comfortable on vent No sig secretions, no F/C Joseph TF Patient confirmed that since the trach was placed he has been on full vent Objective Last 24 Hour Vital Signs Date Time Temp Pulse Resp B/P (MAP) Pulse Ox O2 Delivery O2 Flow Rate FiO2 06/16/18 19:25 78 18 100 Mechanical Ventilator 30 06/16/18 19:25 78 18 100 Mechanical Ventilator 30 06/16/18 19:10 79 16 98 Mechanical Ventilator 30 06/16/18 19:10 79 16 98 Mechanical Ventilator 35 06/16/18 19:08 79 16 35 06/16/18 18:36 98.1 80 16 106/62 (77) 96 06/16/18 17:00 77 16 35 06/16/18 16:00 30 06/16/18 16:00 Mechanical Ventilator 06/16/18 16:00 73 06/16/18 16:00 99.1 111 34 111/76 (88) 98 06/16/18 15:00 76 17 35 06/16/18 13:48 75 16 94 Mechanical Ventilator 30 06/16/18 13:48 75 16 94 Mechanical Ventilator 30 06/16/18 13:38 73 16 95 Mechanical Ventilator 35 06/16/18 13:38 73 16 95 Mechanical Ventilator 30 06/16/18 13:29 75 16 35 06/16/18 12:00 Mechanical Ventilator 06/16/18 12:00 97.7 79 16 98/67 (77) 95 06/16/18 12:00 72 06/16/18 12:00 30 06/16/18 11:27 68 16 35 06/16/18 09:10 70 16 35 06/16/18 08:28 96/61 06/16/18 08:28 72 96/61 06/16/18 08:00 97.7 72 16 96/61 (73) 100 06/16/18 08:00 74 06/16/18 08:00 30 06/16/18 08:00 Mechanical Ventilator 06/16/18 07:16 70 16 100 Mechanical Ventilator 35 06/16/18 07:15 70 16 100 Mechanical Ventilator 35 06/16/18 07:05 72 16 96 Mechanical Ventilator 35 06/16/18 07:04 73 16 96 Mechanical Ventilator 35 06/16/18 07:02 70 16 35 06/16/18 05:20 68 16 35 06/16/18 04:00 Mechanical Ventilator 06/16/18 04:00 98.1 69 16 100/68 (79) 97 06/16/18 04:00 68 06/16/18 04:00 30 06/16/18 03:05 72 16 35 06/16/18 01:57 74 16 100 Mechanical Ventilator 35 06/16/18 01:50 64 16 97 Mechanical Ventilator 35 06/16/18 00:42 65 16 35 06/16/18 00:00 98.0 64 18 118/72 (87) 97 06/16/18 00:00 74 06/16/18 00:00 Mechanical Ventilator 06/15/18 22:37 67 17 35 06/15/18 21:45 98.0 06/15/18 21:06 67 16 35 06/15/18 20:00 74 06/15/18 20:00 30 06/15/18 20:00 Mechanical Ventilator 06/15/18 20:00 98.1 83 21 117/73 (88) 99 Intake and Output 06/15/18 06/16/18 19:00 07:00 Intake Total 2340 ml 2376 ml Output Total 1100 ml 1200 ml Balance 1240 ml 1176 ml Free Water 200 ml 50 ml IV Total 1420 ml 1606 ml Tube Feeding 720 ml 720 ml Output Urine Total 1100 ml 1200 ml # Voids 5 # Bowel Movements 1 General Appearance: WD/WN, no acute distress HEENT: normocephalic, atraumatic, anicteric, mucous membranes moist, status post trach Respiratory/Chest: chest wall non-tender, lungs clear, normal breath sounds, no respiratory distress, no accessory muscle use Cardiovascular: normal peripheral pulses, normal rate, regular rhythm Abdomen: normal bowel sounds, soft, non tender, no organomegaly, non distended , no mass, other - GT Extremities: no cyanosis, no clubbing, no edema Laboratory Tests 06/16/18 06:48: White Blood Count 9.5, Red Blood Count 2.93L, Hemoglobin 8.3L, Hematocrit 25.2L , Mean Corpuscular Volume 86, Mean Corpuscular Hemoglobin 28.4, Mean Corpuscular Hemoglobin Concent 33.1, Red Cell Distribution Width 16.2H, Platelet Count 365, Mean Platelet Volume 7.5, Neutrophils (%) (Auto) 59.6, Lymphocytes (%) (Auto) 21.6, Monocytes (%) (Auto) 5.8, Eosinophils (%) (Auto) 12.4H, Basophils (%) (Auto) 0.7, Sodium Level 139, Potassium Level 3.8, Chloride Level 106, Carbon Dioxide Level 24, Anion Gap 9, Blood Urea Nitrogen 12 , Creatinine 0.9, Estimat Glomerular Filtration Rate > 60, Glucose Level 130H, Calcium Level 8.8 Current Medications Medications (Trade) Dose Ordered Sig/Irma Route PRN Reason Start Time Stop Time Status Last Admin Dose Admin Acetaminophen (Tylenol) 650 mg Q4H PRN GT Mild Pain/Temp > 100.5 06/07/18 21:00 07/07/18 20:59 06/16/18 17:33 Acetylcysteine (Mucomyst) 100 mg TIDRT HHN 06/04/18 19:00 07/04/18 18:59 06/16/18 19:11 Albuterol/ Ipratropium (Albuterol/ Ipratropium) 3 ml Q4H PRN HHN Shortness of Breath 06/15/18 16:30 06/20/18 16:29 Albuterol/ Ipratropium (Albuterol/ Ipratropium) 3 ml Q6HRT HHN 06/15/18 13:00 06/20/18 12:59 06/16/18 19:11 Amlodipine Besylate (Norvasc) 10 mg DAILY GT 06/14/18 09:00 07/03/18 08:59 Atorvastatin Calcium (Lipitor) 10 mg BEDTIME GT 06/13/18 21:00 07/02/18 22:29 06/15/18 20:23 Bisacodyl (Dulcolax) 10 mg DAILYPRN PRN RECTAL Constipation 06/03/18 06:41 07/03/18 06:40 Dextrose/Sodium Chloride 1,000 ml @ 100 mls/hr Q10H IV 06/02/18 22:00 07/02/18 21:59 06/16/18 12:38 Docusate Sodium (Colace) 100 mg TWICE A DAY GT 06/13/18 18:00 07/12/18 08:59 06/16/18 17:33 Heparin Sodium (Porcine) (Heparin 5000 units/ml) 5,000 units EVERY 12 HOURS SUBQ 06/03/18 09:00 07/03/18 08:59 06/16/18 08:25 Lansoprazole (Prevacid) 30 mg BID GT 06/13/18 18:00 07/03/18 08:59 06/16/18 17:33 Lisinopril (Zestril) 10 mg DAILY GT 06/14/18 09:00 07/03/18 08:59 Multivitamins Therapeutic (Therapeutic Multivitamin) 1 ea DAILY ORAL 06/03/18 09:00 07/03/18 08:59 06/16/18 08:23 Patient Own Medication (Patient's Own Med) 1 ea Q12HR ORAL 06/13/18 21:00 07/03/18 20:59 06/16/18 08:22 Trimethoprim/ Sulfamethoxazole (Bactrim-DS) 2 tab Q12HR GT 06/14/18 21:00 06/20/18 17:59 06/16/18 08:23 Vitamin D (Vitamin D) 2,000 intlu DAILY GT 06/14/18 09:00 07/03/18 08:59 06/16/18 08:23 Parveen Blanco MD Jun 16, 2018 19:39
--- NOTE | 2018-06-16 20:20 | Neurology Progress Note ---
Interim History Interim History Interim History Mr. Robles feels relatively well. His strength has stabilized and he is stronger than when he came in. The PEG is functioning well. He is breathing well through his tracheostomy. He is able to communicate well verbally. He denies any new neurologic symptoms. The sensations are still normal. He is still on IV antibiotics. Plans are to go back to a SNF in the near future. Review of Systems Neuro Review of Systems Benign. Objective Physical Exam Last Vital Signs Date Time Temp Pulse Resp B/P (MAP) Pulse Ox O2 Delivery O2 Flow Rate FiO2 06/16/18 19:25 78 18 100 Mechanical Ventilator 30 06/16/18 18:36 98.1 106/62 (77) 06/08/18 16:29 15.0 Laboratory Tests Test 06/16/18 06:48 White Blood Count 9.5 K/UL (4.8-10.8) Red Blood Count 2.93 M/UL (4.70-6.10) L Hemoglobin 8.3 G/DL (14.2-18.0) L Hematocrit 25.2 % (42.0-52.0) L Mean Corpuscular Volume 86 FL (80-99) Mean Corpuscular Hemoglobin 28.4 PG (27.0-31.0) Mean Corpuscular Hemoglobin Concent 33.1 G/DL (32.0-36.0) Red Cell Distribution Width 16.2 % (11.6-14.8) H Platelet Count 365 K/UL (150-450) Mean Platelet Volume 7.5 FL (6.5-10.1) Neutrophils (%) (Auto) 59.6 % (45.0-75.0) Lymphocytes (%) (Auto) 21.6 % (20.0-45.0) Monocytes (%) (Auto) 5.8 % (1.0-10.0) Eosinophils (%) (Auto) 12.4 % (0.0-3.0) H Basophils (%) (Auto) 0.7 % (0.0-2.0) Sodium Level 139 MMOL/L (136-145) Potassium Level 3.8 MMOL/L (3.5-5.1) Chloride Level 106 MMOL/L (98-107) Carbon Dioxide Level 24 MMOL/L (21-32) Anion Gap 9 mmol/L (5-15) Blood Urea Nitrogen 12 mg/dL (7-18) Creatinine 0.9 MG/DL (0.55-1.30) Estimat Glomerular Filtration Rate > 60 mL/min (>60) Glucose Level 130 MG/DL (74-106) H Calcium Level 8.8 MG/DL (8.5-10.1) Neurologic Exam Objective PHYSICAL EXAMINATION: GENERAL: He is a well-developed, but lean and wasting gentleman, lying in bed, in no acute distress, connected to a ventilator through a tracheostomy. HEAD: Normocephalic and atraumatic. NECK: No neck rigidity was observed. He did have a tracheostomy in place. EENT: Benign. NEUROLOGICAL EXAMINATION: MENTAL STATUS EXAMINATION: He was awake and alert. He was oriented to person, place, and time. He was able to recall 3/3 words immediately after 1 minute and after 3 minutes. He was able to remember presidents, Trump through Jose senior with hints. His mathematical skills were good. His visuospatial function was preserved. SPEECH: He was able to mouth words well. LANGUAGE: He was able to comprehend, repeat, and express himself well. CRANIAL NERVE EXAMINATION: II: The visual maldonado were intact on confrontation testing. III, IV & : The external ocular movements were full and the pupils 3 mm in diameter, equal, round, regular, and reactive to light. V: He had normal facial sensations and the temporales, masseters, and pterygoids function normally. VII: He had normal facial expressions and no facial asymmetry. VIII: He was able to hear well bilaterally and had no nystagmus. IX: The palate moved symmetrically on phonation. X: His gag reflex was present. XI: The sternocleidomastoids and trapezii functioned normally. XII: The tongue was in the midline without any atrophy, but it did reveal fasciculations. MOTOR SYSTEM: The tone was normal in all four extremities except for decreased tone in the ankles more so on the left than on the right. Examination of muscle mass revealed severe generalized muscle wasting involving the distal muscles more than the proximal muscles and the lower extremities more than the upper extremities. He had G 5/5 power in both upper extremities except for G 5-/5 power in the finger extensors. In the lower extremities, he had in the iliopsoas G 4++/5 on the right, G 4/5 on the left. In the quadriceps, he had G 5-/5 on the right and G 4+/5 on the left. In the hamstrings, he had G 4+/5 on the right and G 4-/5 on the left. In the ankle dorsiflexors and toe extensors, he had G 3/5 on the right and G 0/ 5 on the left. In the ankle plantar flexors and toe flexors, he had G 4/5 on the right and G 1/ 5 on the left. SENSORY EXAMINATION: He had intact sensations to pinprick, light touch, and graphesthesia. COORDINATION: He performed well on [id number] testing. He was unable to perform qbkw-xb-goiz testing. REFLEXES: 2++ and bilaterally symmetrical at the biceps, triceps, brachioradialis, and knees, 0 at both ankles. The plantar response was extensor on the right and mute on the left. STANCE & GAIT: Could not be tested. Impression/Recommendations Diagnostic Impression 1. Mr. Joseph Robles is a 58-year-old, right-handed, gentleman, who does have a prior history of hypertension and dyslipidemia, who approximately 4 years ago started to have weakness that started in his left foot with a left foot drop. Over the years, he has had increasing weakness in his lower extremities more than the upper extremities and on the left side more than the right associated with muscle wasting, muscle fasciculations, and then respiratory muscle failure as a result of which he has needed a tracheostomy. He has been worked up for the problem in the past and was found to have amyotrophic lateral sclerosis, for which he is on Rilutek. 2. He feels relatively well. His strength has stabilized and he is stronger than when he came in. The PEG is functioning well. He is breathing well through his tracheostomy. He is able to communicate well verbally. He denies any new neurologic symptoms. The sensations are still normal. He is still on IV antibiotics. Plans are to go back to a SNF. 3. His family was able to get me an evaluation performed by Dr. Vincenzo Santos at [facility] and in his opinion the patient had clinical criteria for ALS in July 2017. 4. He has had MRIs of the C and LS spine with no significant pathology to explain his neurologic dysfunction. 5. He has also had a LP which was benign of inflammatory and demyelinating disease. 6. EMGs and NCSs have revealed severe motor and sensory axonal and demyelinating pathology with signs of denervation and re-innervation on EMGs. 7. On neurological examination at this time, he does demonstrate tongue fasciculations, decreased tone in the ankles more so on the left than the right , generalized muscle wasting involving the lower extremities more than the upper extremities, a quadriparesis involving the lower extremities more than the upper extremities, and the left side more than the right in the lower extremities, brisk deep tendon reflexes with loss of ankle jerks, an extensor plantar response on the right with a mute plantar response on the left, and frequent fasciculations in all four extremities. He however is stronger, especially in the upper extremities, since he was hospitalized. 8. The patient's history and neurological examination are in fact consistent with amyotrophic lateral sclerosis. 9. His gastrostomy and tracheostomy are functioning well. Recommendations 1. Rilutek should be continued. 2. In the near future, edaravone therapy should be considered. 3. Frequent ROM exercises. 4. PT/OT to mobilize. 5. Consider small amounts of oral feeding for oral gratification. Additional 1 hour spent reviewing patients records, in addition to the complex neurologic re-evaluation. Richard Alcantara M.D., M.S.P.H. Richard Alcantara MD Jun 16, 2018 20:19
[2018-06-17] VITALS: BP 110/70
[2018-06-17] MEDS: Albuterol/Ipratropium 3ml neb HHN SCH ×3 (00:59→12:54)
[2018-06-17 04:00] VITALS: BP 101/64
[2018-06-17] MEDS: D5NS 1,000 ML IV SCH (05:05)
[2018-06-17 07:24] LABS: BASOPHILS % (AUTO) 1.1 % (0.0-2.0); EOSINOPHILS % (AUTO) 15.1 % (0.0-3.0); HEMATOCRIT 24.8 % (42.0-52.0); HEMOGLOBIN 8.1 G/DL (14.2-18.0); LYMPHOCYTES % (AUTO) 25.9 % (20.0-45.0); MEAN CORPUSCULAR VOLUME 86 FL (80-99); MONOCYTES % (AUTO) 6.5 % (1.0-10.0); NEUTROPHILS % (AUTO) 51.5 % (45.0-75.0); PLATELET COUNT 358 K/UL (150-450); RED BLOOD COUNT 2.89 M/UL (4.70-6.10); RED CELL DISTRIBUTION WIDTH 16.9 % (11.6-14.8); WHITE BLOOD COUNT 9.5 K/UL (4.8-10.8)
[2018-06-17 07:38] LABS: ANION GAP 8 mmol/L (5-15); BLOOD UREA NITROGEN 12 mg/dL (7-18); CALCIUM 8.9 MG/DL (8.5-10.1); CARBON DIOXIDE 25 MMOL/L (21-32); CHLORIDE 105 MMOL/L (98-107); CREATININE 0.8 MG/DL (0.55-1.30); SODIUM 138 MMOL/L (136-145)
--- NOTE | 2018-06-17 07:52 | General Progress Note ---
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.20 - Motor neuron disease, unspecified SNOMED: 25148522 (4) Leukocytosis ICD Codes: D72.829 - Elevated white blood cell count, unspecified SNOMED: 565947577, 491670043 Qualifiers: Qualified Codes: D72.829 - Elevated white blood cell count, unspecified (5) Essential hypertension ICD Codes: I10 - Essential (primary) hypertension SNOMED: 80294508 (6) HCAP (healthcare-associated pneumonia) ICD Codes: J18.9 - Pneumonia, unspecified organism SNOMED: 375837277 Status: stable Assessment/Plan (1) Protein calorie malnutrition s/p G-tube placement continue tube feeds (2) Status post tracheostomy, chronic respiratory failure continue vent management per Pulmonology, wean vent as tolerated and plan transfer to snf continue frequent suctioning (3) Motor neuron disease, ALS Continue supportive care Neurology following (4) Sepsis, suspected aspiration pneumonia versus HCAP improving, repeat bcx ngtd cont wean vent as tolerated per pulm continue abx per ID ID following (5)Hypokalemia resolved replenish prn (6)Hypomagnesemia resolved (6)Acute on chronic anemia No evidence of bleeding Repeat CBC in AM Transfuse PRBC if Hb < 7 (7)acute on chronic hypoxic respiratory failure vent Optimize pulmonary hygiene/mobilize as tolerated Continue ventilatory support/settings reviewed Titrate down FiO2 to keep SaO2 > 90% RTC and PRN HHN's + MUCOMYST HHN TID wean vent as tolerated and plan transfer to snf /subacute continue frequent suctioning appreciate pulm recs Abx per ID trached worsened by asp pna DVT Prophylaxis: SCD, HSQ Code Status: Full Hospital Classification Declaration: Based on this initial evaluation, and depending on the patient's clinical course, I anticipate that this patient will require hospitalization for 2-3 days for malnutrition, trached, peg placed here , treated for aspiration pneumonia, lost bed at previous SNF now working on new bed, and close respiratory/hemodynamic monitoring. Disposition: Once the patient is stable to leave the hospital, I anticipate the patient will likely be discharged to the following environment: SNF, Planned for dc back to snf however patient lost bed, cm/sw working on new bed placement. I spent over 30 minutes on this patient's case, and 20 minutes were dedicated to counseling and/or care coordination. Discussed with patient/family, nursing staff, SW/CM, and consultants regarding clinical status, treatment course, and disposition planning. Time of note may not reflect time of encounter. ---- Date of Discussion: 06/03/18 A [id number] discussion with the patient's son regarding the patient's advanced care planning took place during this hospitalization on the above date. The discussion included the explanation and discussion of advance directives and associated forms/documents, as well as the patient's current code status. We also discussed at length the patient's medical conditions (both acute and chronic), general prognosis, treatment options, and goals of care. The following summarizes the discussion: Advance Care Planning/Goals of Care: - polst completed - Continue current evaluation and management of any acute and chronic medical issues - Will continue to support the patient/family - Will continue to discuss both short- and long-term goals of care DPOA-HC/Surrogate Decision Maker: , Randa Robles Code Status: Full Code AD Forms/Documents Completed: completed A total of 31 minutes was spent on this discussion, including counseling, answering questions, and completing, if any, pertinent advanced care planning forms/documents. Subjective Date patient seen: Jun 17, 2018 Time patient seen: 07:50 Allergies: Coded Allergies: No Known Allergies (Unverified , 06/02/18) Subjective f/u malnutrition, sepsis, resp failure, trach on vent, peg stable cont abx pulm attempting to wean vent concerns for asp pna denies any complaints, no fevers/chills/n/v/pain no acute events overnight abx per id , bactrim patient responsive, denies any complaints planned for dc back to snf however patient lost bed, cm/sw working on new bed placement at subacute ROS: 14 point ROS reviewed and negative except per the above subjective Objective Last 24 Hour Vital Signs Date Time Temp Pulse Resp B/P (MAP) Pulse Ox O2 Delivery O2 Flow Rate FiO2 06/17/18 07:08 60 16 100 Mechanical Ventilator 35 06/17/18 07:08 60 15 100 Mechanical Ventilator 35 06/17/18 07:05 60 15 35 06/17/18 04:42 70 16 35 06/17/18 04:00 30 06/17/18 04:00 97.8 72 16 101/64 (76) 100 06/17/18 04:00 Mechanical Ventilator 06/17/18 04:00 65 06/17/18 02:55 102 17 35 06/17/18 01:09 89 18 99 Mechanical Ventilator 30 06/17/18 00:59 88 16 98 Mechanical Ventilator 35 06/17/18 00:59 88 16 35 06/17/18 00:00 73 06/17/18 00:00 97.9 71 18 110/70 (83) 100 06/17/18 00:00 30 06/17/18 00:00 Mechanical Ventilator 06/16/18 23:02 66 16 35 06/16/18 20:56 74 15 35 06/16/18 20:00 30 06/16/18 20:00 Mechanical Ventilator 06/16/18 20:00 98.6 110 18 134/89 (104) 95 06/16/18 20:00 90 06/16/18 19:25 78 18 100 Mechanical Ventilator 30 06/16/18 19:25 78 18 100 Mechanical Ventilator 30 06/16/18 19:10 79 16 98 Mechanical Ventilator 30 06/16/18 19:10 79 16 98 Mechanical Ventilator 35 06/16/18 19:08 79 16 35 06/16/18 18:36 98.1 80 16 106/62 (77) 96 06/16/18 17:00 77 16 35 06/16/18 16:00 30 06/16/18 16:00 Mechanical Ventilator 06/16/18 16:00 73 06/16/18 16:00 99.1 111 34 111/76 (88) 98 06/16/18 15:00 76 17 35 06/16/18 13:48 75 16 94 Mechanical Ventilator 30 06/16/18 13:48 75 16 94 Mechanical Ventilator 30 06/16/18 13:38 73 16 95 Mechanical Ventilator 35 06/16/18 13:38 73 16 95 Mechanical Ventilator 30 06/16/18 13:29 75 16 35 06/16/18 12:00 Mechanical Ventilator 06/16/18 12:00 97.7 79 16 98/67 (77) 95 06/16/18 12:00 72 06/16/18 12:00 30 06/16/18 11:27 68 16 35 06/16/18 09:10 70 16 35 06/16/18 08:28 96/61 06/16/18 08:28 72 96/61 06/16/18 08:00 97.7 72 16 96/61 (73) 100 06/16/18 08:00 74 06/16/18 08:00 30 06/16/18 08:00 Mechanical Ventilator Intake and Output 06/16/18 06/17/18 19:00 07:00 Intake Total 2260 ml 2416 ml Output Total 1500 ml 200 ml Balance 760 ml 2216 ml Free Water 600 ml 600 ml IV Total 1000 ml 1096 ml Tube Feeding 660 ml 720 ml Output Urine Total 1500 ml 200 ml # Voids 7 Laboratory Tests 06/17/18 05:08: White Blood Count 9.5, Red Blood Count 2.89L, Hemoglobin 8.1L, Hematocrit 24.8L , Mean Corpuscular Volume 86, Mean Corpuscular Hemoglobin 28.0, Mean Corpuscular Hemoglobin Concent 32.5, Red Cell Distribution Width 16.9H, Platelet Count 358, Mean Platelet Volume 7.3, Neutrophils (%) (Auto) 51.5, Lymphocytes (%) (Auto) 25.9, Monocytes (%) (Auto) 6.5, Eosinophils (%) (Auto) 15.1H, Basophils (%) (Auto) 1.1, Sodium Level 138, Potassium Level 4.0, Chloride Level 105, Carbon Dioxide Level 25, Anion Gap 8, Blood Urea Nitrogen 12 , Creatinine 0.8, Estimat Glomerular Filtration Rate > 60, Glucose Level 94, Calcium Level 8.9 Height (Feet): 5 Height (Inches): 4.00 Weight (Pounds): 117 Objective General Appearance: WD/WN, no apparent distress, alert Lines, tubes and drains: peripheral HEENT: normocephalic, atraumatic Neck: non-tender, normal alignment, supple, normal inspection, trach Cardiovascular/Chest: normal peripheral pulses, normal rate, regular rhythm Abdomen: normal bowel sounds, non tender, soft, no organomegaly, no mass, PEG in place, clean site Extremities: normal range of motion, non-tender, normal inspection, no calf tenderness Skin Exam: normal pigmentation, warm/dry Neurologic: edger hand II-XII grossly normal, alert, oriented x 3, responsive, normal mood/affect Beth Aburto MD Jun 17, 2018 07:52
[2018-06-17 08:00] VITALS: BP 110/64
[2018-06-17] MEDS: RILUZOLE 50 MG ORAL SCH (09:19)
[2018-06-17] MEDS: Lisinopril 10mg tab GT SCH (09:20)
[2018-06-17] MEDS: Bactrim-DS 1 tab GT SCH (09:21)
[2018-06-17] MEDS: Vitamin D 1000 IU Tab GT SCH (09:21)
[2018-06-17] MEDS: Multivitamin w/Minerals tab ORAL SCH (09:22)
[2018-06-17] MEDS: Docusate 100mg/10ml Liq GT SCH (09:22)
[2018-06-17] MEDS: Heparin 5000 units/ml inj SUBQ SCH (09:24)
--- NOTE | 2018-06-17 10:55 | GI Progress Note ---
Assessment/Plan Problems: (1) Protein calorie malnutrition ICD Codes: E46 - Unspecified protein-calorie malnutrition SNOMED: 416116435 (2) Dehydration ICD Codes: E86.0 - Dehydration SNOMED: 20825366 (3) Encounter for PEG (percutaneous endoscopic gastrostomy) ICD Codes: Z43.1 - Encounter for attention to gastrostomy SNOMED: 467469219, 577146040 (4) S/P percutaneous endoscopic gastrostomy (PEG) tube placement ICD Codes: Z93.1 - Gastrostomy status SNOMED: 292155734 (5) Status post tracheostomy ICD Codes: Z93.0 - Tracheostomy status SNOMED: 93186265, 825370386 Status: stable Status Narrative Discussed with Dr. Lainez Assessment/Plan Assessment - s/p PEG for dysphagia - ALS - Resp failure - Anemia Recommendations - continue TF - GT site care - vent - follow labs - PRN RBC transfusion - dc planning The patient was seen and examined at bedside and all new and available data was reviewed in the patients chart. I agree with the above findings, impression and plan. (Patient seen earlier today. Signature stamp does not reflect patient encounter time.). - Vaibhav Lainez MD Subjective Subjective Limited Objective Last 24 Hour Vital Signs Date Time Temp Pulse Resp B/P (MAP) Pulse Ox O2 Delivery O2 Flow Rate FiO2 06/17/18 09:22 69 110/64 06/17/18 09:20 110/64 06/17/18 08:00 30 06/17/18 08:00 66 06/17/18 08:00 Mechanical Ventilator 06/17/18 08:00 97.7 69 16 110/64 (79) 100 06/17/18 07:22 61 18 100 Mechanical Ventilator 35 06/17/18 07:22 61 18 100 Mechanical Ventilator 35 06/17/18 07:08 60 16 100 Mechanical Ventilator 35 06/17/18 07:08 60 15 100 Mechanical Ventilator 35 06/17/18 07:05 60 15 35 06/17/18 04:42 70 16 35 06/17/18 04:00 30 06/17/18 04:00 97.8 72 16 101/64 (76) 100 06/17/18 04:00 Mechanical Ventilator 06/17/18 04:00 65 06/17/18 02:55 102 17 35 06/17/18 01:09 89 18 99 Mechanical Ventilator 30 06/17/18 00:59 88 16 98 Mechanical Ventilator 35 06/17/18 00:59 88 16 35 06/17/18 00:00 73 06/17/18 00:00 97.9 71 18 110/70 (83) 100 06/17/18 00:00 30 06/17/18 00:00 Mechanical Ventilator 06/16/18 23:02 66 16 35 06/16/18 20:56 74 15 35 06/16/18 20:00 30 06/16/18 20:00 Mechanical Ventilator 06/16/18 20:00 98.6 110 18 134/89 (104) 95 06/16/18 20:00 90 06/16/18 19:25 78 18 100 Mechanical Ventilator 30 06/16/18 19:25 78 18 100 Mechanical Ventilator 30 06/16/18 19:10 79 16 98 Mechanical Ventilator 30 06/16/18 19:10 79 16 98 Mechanical Ventilator 35 06/16/18 19:08 79 16 35 06/16/18 18:36 98.1 80 16 106/62 (77) 96 06/16/18 17:00 77 16 35 06/16/18 16:00 30 06/16/18 16:00 Mechanical Ventilator 06/16/18 16:00 73 06/16/18 16:00 99.1 111 34 111/76 (88) 98 06/16/18 15:00 76 17 35 06/16/18 13:48 75 16 94 Mechanical Ventilator 30 06/16/18 13:48 75 16 94 Mechanical Ventilator 30 06/16/18 13:38 73 16 95 Mechanical Ventilator 35 06/16/18 13:38 73 16 95 Mechanical Ventilator 30 06/16/18 13:29 75 16 35 06/16/18 12:00 Mechanical Ventilator 06/16/18 12:00 97.7 79 16 98/67 (77) 95 06/16/18 12:00 72 06/16/18 12:00 30 06/16/18 11:27 68 16 35 Intake and Output 06/16/18 06/17/18 18:59 06:59 Intake Total 2200 ml 2476 ml Output Total 1700 ml Balance 2200 ml 776 ml Free Water 600 ml 600 ml IV Total 1000 ml 1096 ml Tube Feeding 600 ml 780 ml Output Urine Total 1700 ml # Voids 7 Laboratory Tests Test 06/17/18 05:08 White Blood Count 9.5 K/UL (4.8-10.8) Red Blood Count 2.89 M/UL (4.70-6.10) L Hemoglobin 8.1 G/DL (14.2-18.0) L Hematocrit 24.8 % (42.0-52.0) L Mean Corpuscular Volume 86 FL (80-99) Mean Corpuscular Hemoglobin 28.0 PG (27.0-31.0) Mean Corpuscular Hemoglobin Concent 32.5 G/DL (32.0-36.0) Red Cell Distribution Width 16.9 % (11.6-14.8) H Platelet Count 358 K/UL (150-450) Mean Platelet Volume 7.3 FL (6.5-10.1) Neutrophils (%) (Auto) 51.5 % (45.0-75.0) Lymphocytes (%) (Auto) 25.9 % (20.0-45.0) Monocytes (%) (Auto) 6.5 % (1.0-10.0) Eosinophils (%) (Auto) 15.1 % (0.0-3.0) H Basophils (%) (Auto) 1.1 % (0.0-2.0) Sodium Level 138 MMOL/L (136-145) Potassium Level 4.0 MMOL/L (3.5-5.1) Chloride Level 105 MMOL/L (98-107) Carbon Dioxide Level 25 MMOL/L (21-32) Anion Gap 8 mmol/L (5-15) Blood Urea Nitrogen 12 mg/dL (7-18) Creatinine 0.8 MG/DL (0.55-1.30) Estimat Glomerular Filtration Rate > 60 mL/min (>60) Glucose Level 94 MG/DL (74-106) Calcium Level 8.9 MG/DL (8.5-10.1) Height (Feet): 5 Height (Inches): 4.00 Weight (Pounds): 117 General Appearance: WD/WN, no apparent distress, alert Cardiovascular: normal rate Respiratory/Chest: normal breath sounds, no respiratory distress Abdominal Exam: normal bowel sounds, non tender, soft, GT site - Clean dry and intact Extremities: normal range of motion, non-tender Ocampo,Vanessa-Kwesi CRANE HOIST OR LIFT OPERATOR Jun 17, 2018 10:55
[2018-06-17 12:00] VITALS: BP 107/68
--- NOTE | 2018-06-17 14:05 | Pulmonology Progress Note ---
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, unspecified (13) Encounter for PEG (percutaneous endoscopic gastrostomy) (14) Nutrition impaired due to imbalance of nutrients (15) HCAP (healthcare-associated pneumonia) Assessment/Plan Optimize pulmonary hygiene/mobilize as tolerated Continue ventilatory support/settings reviewed Titrate down FiO2 to keep SaO2 > 90% RTC and PRN HHN's + MUCOMYST HHN TID PRN suctioning Observe off Abx per ID GTF's Monitor volumes F/U neuro recs, continue [place] SQUEEGE[employer] AND FORMER therapy, PMV trials FC, discuss GOC Dispo planning to [facility] D/W RN and SQUEEGEER AND FORMER Subjective Allergies: Coded Allergies: No Known Allergies (Unverified , 06/02/18) Subjective Awake, comfortable on vent No sig secretions, no F/C Joseph TF Dispo planning Objective Last 24 Hour Vital Signs Date Time Temp Pulse Resp B/P (MAP) Pulse Ox O2 Delivery O2 Flow Rate FiO2 06/17/18 13:14 83 16 100 Mechanical Ventilator 35 06/17/18 13:14 83 16 100 Mechanical Ventilator 35 06/17/18 12:54 72 16 100 Mechanical Ventilator 35 06/17/18 12:54 72 15 100 Mechanical Ventilator 35 06/17/18 12:51 72 16 35 06/17/18 12:00 97.7 83 18 107/68 (81) 100 06/17/18 12:00 Mechanical Ventilator 06/17/18 12:00 30 06/17/18 11:33 80 17 35 06/17/18 10:52 76 16 35 06/17/18 09:22 69 110/64 06/17/18 09:20 110/64 06/17/18 09:00 79 16 35 06/17/18 08:00 30 06/17/18 08:00 66 06/17/18 08:00 Mechanical Ventilator 06/17/18 08:00 97.7 69 16 110/64 (79) 100 06/17/18 07:22 61 18 100 Mechanical Ventilator 35 06/17/18 07:22 61 18 100 Mechanical Ventilator 35 06/17/18 07:08 60 16 100 Mechanical Ventilator 35 06/17/18 07:08 60 15 100 Mechanical Ventilator 35 06/17/18 07:05 60 15 35 06/17/18 04:42 70 16 35 06/17/18 04:00 30 06/17/18 04:00 97.8 72 16 101/64 (76) 100 06/17/18 04:00 Mechanical Ventilator 06/17/18 04:00 65 06/17/18 02:55 102 17 35 06/17/18 01:09 89 18 99 Mechanical Ventilator 30 06/17/18 00:59 88 16 98 Mechanical Ventilator 35 06/17/18 00:59 88 16 35 06/17/18 00:00 73 06/17/18 00:00 97.9 71 18 110/70 (83) 100 06/17/18 00:00 30 06/17/18 00:00 Mechanical Ventilator 06/16/18 23:02 66 16 35 06/16/18 20:56 74 15 35 06/16/18 20:00 30 06/16/18 20:00 Mechanical Ventilator 06/16/18 20:00 98.6 110 18 134/89 (104) 95 06/16/18 20:00 90 06/16/18 19:25 78 18 100 Mechanical Ventilator 30 06/16/18 19:25 78 18 100 Mechanical Ventilator 30 06/16/18 19:10 79 16 98 Mechanical Ventilator 30 06/16/18 19:10 79 16 98 Mechanical Ventilator 35 06/16/18 19:08 79 16 35 06/16/18 18:36 98.1 80 16 106/62 (77) 96 06/16/18 17:00 77 16 35 06/16/18 16:00 30 06/16/18 16:00 Mechanical Ventilator 06/16/18 16:00 73 06/16/18 16:00 99.1 111 34 111/76 (88) 98 06/16/18 15:00 76 17 35 Intake and Output 06/16/18 06/17/18 18:59 06:59 Intake Total 2200 ml 2476 ml Output Total 1700 ml Balance 2200 ml 776 ml Free Water 600 ml 600 ml IV Total 1000 ml 1096 ml Tube Feeding 600 ml 780 ml Output Urine Total 1700 ml # Voids 7 General Appearance: WD/WN, no acute distress HEENT: normocephalic, atraumatic, anicteric, status post trach Respiratory/Chest: chest wall non-tender, lungs clear, normal breath sounds, no respiratory distress, no accessory muscle use Cardiovascular: normal peripheral pulses, normal rate, regular rhythm Abdomen: normal bowel sounds, soft, non tender, no organomegaly, non distended , no mass, other - GT Extremities: no cyanosis, no clubbing, no edema Laboratory Tests 06/17/18 05:08: White Blood Count 9.5, Red Blood Count 2.89L, Hemoglobin 8.1L, Hematocrit 24.8L , Mean Corpuscular Volume 86, Mean Corpuscular Hemoglobin 28.0, Mean Corpuscular Hemoglobin Concent 32.5, Red Cell Distribution Width 16.9H, Platelet Count 358, Mean Platelet Volume 7.3, Neutrophils (%) (Auto) 51.5, Lymphocytes (%) (Auto) 25.9, Monocytes (%) (Auto) 6.5, Eosinophils (%) (Auto) 15.1H, Basophils (%) (Auto) 1.1, Sodium Level 138, Potassium Level 4.0, Chloride Level 105, Carbon Dioxide Level 25, Anion Gap 8, Blood Urea Nitrogen 12 , Creatinine 0.8, Estimat Glomerular Filtration Rate > 60, Glucose Level 94, Calcium Level 8.9 Current Medications Medications (Trade) Dose Ordered Sig/Irma Route PRN Reason Start Time Stop Time Status Last Admin Dose Admin Acetaminophen (Tylenol) 650 mg Q4H PRN GT Mild Pain/Temp > 100.5 06/07/18 21:00 07/07/18 20:59 06/16/18 17:33 Acetylcysteine (Mucomyst) 100 mg TIDRT HHN 06/04/18 19:00 07/04/18 18:59 06/17/18 12:54 Albuterol/ Ipratropium (Albuterol/ Ipratropium) 3 ml Q4H PRN HHN Shortness of Breath 06/15/18 16:30 06/20/18 16:29 Albuterol/ Ipratropium (Albuterol/ Ipratropium) 3 ml Q6HRT N 06/15/18 13:00 06/20/18 12:59 06/17/18 12:54 Amlodipine Besylate (Norvasc) 10 mg DAILY GT 06/14/18 09:00 07/03/18 08:59 06/17/18 09:22 Atorvastatin Calcium (Lipitor) 10 mg BEDTIME GT 06/13/18 21:00 07/02/18 22:29 06/16/18 20:21 Bisacodyl (Dulcolax) 10 mg DAILYPRN PRN RECTAL Constipation 06/03/18 06:41 07/03/18 06:40 Dextrose/Sodium Chloride 1,000 ml @ 100 mls/hr Q10H IV 06/02/18 22:00 07/02/18 21:59 06/17/18 05:05 Docusate Sodium (Colace) 100 mg TWICE A DAY GT 06/13/18 18:00 07/12/18 08:59 06/17/18 09:22 Heparin Sodium (Porcine) (Heparin 5000 units/ml) 5,000 units EVERY 12 HOURS SUBQ 06/03/18 09:00 07/03/18 08:59 06/17/18 09:24 Lansoprazole (Prevacid) 30 mg BID GT 06/13/18 18:00 07/03/18 08:59 06/17/18 09:21 Lisinopril (Zestril) 10 mg DAILY GT 06/14/18 09:00 07/03/18 08:59 06/17/18 09:20 Multivitamins Therapeutic (Therapeutic Multivitamin) 1 ea DAILY ORAL 06/03/18 09:00 07/03/18 08:59 06/17/18 09:22 Patient Own Medication (Patient's Own Med) 1 ea Q12HR ORAL 06/13/18 21:00 07/03/18 20:59 06/17/18 09:19 Trimethoprim/ Sulfamethoxazole (Bactrim-DS) 2 tab Q12HR GT 06/14/18 21:00 06/20/18 17:59 06/17/18 09:21 Vitamin D (Vitamin D) 2,000 intlu DAILY GT 06/14/18 09:00 07/03/18 08:59 06/17/18 09:21 Parveen Blanco MD Jun 17, 2018 14:05
[2018-06-17 16:00] VITALS: BP 102/59
[2018-06-17] MEDS ORDERED: NS 275ml ONE ×2 (17:16→18:04)
[2018-06-17] MEDS ORDERED: D5NS 1000ml IV ONE ×2 (17:16→18:04)
--- NOTE | 2018-06-17 17:27 | Discharge Summary ---
Discharge Summary Hospital Course Date of Admission Jun 02, 2018 at 19:38 Date of Discharge 06/17/18 Admitting Diagnosis DEHYDRATION HPI Joseph Robles is a 58 year old male who was admitted on Jun 02, 2018 at 19 :38 with h/o htn and h/o trach s/p resp failure at [facility] presents due to concerns for malnutrition. Patient currently resides at [facility]. I have discussed the case with his son as it was difficult to understand patient as he has trach and attached to vent. Patient currently is being evaluated by neurologist and there is concerned for motor neuron disease such as ALS. Patient was recommended to get PEG placement due to unintentional weight loss and poor PO intake. Peg Placement was done per GI however patient's clinical course was then complicated by aspiration pneumonia and sepsis and acute on chronic hypoxic respiratory failure. Patient required inc joy setting, pulm was consulted and so was ID. patient improved and stable now. Patient lost bed at [facility] thus hospital course was prolonged, patient accepted to subacute and planned for transfer to [facility]. Physical Exam: General Appearance: WD/WN, no apparent distress, alert Lines, tubes and drains: peripheral HEENT: normocephalic, atraumatic Neck: non-tender, normal alignment, supple, normal inspection, trach Cardiovascular/Chest: normal peripheral pulses, normal rate, regular rhythm Respiratory: lungs clear to auscultation. Abdomen: normal bowel sounds, non tender, soft, no organomegaly, no mass, PEG in place, clean site Extremities: normal range of motion, non-tender, normal inspection, no calf tenderness Skin Exam: normal pigmentation, warm/dry Neurologic: gas controller II-XII grossly normal, alert, oriented x 3, responsive, normal mood/affect Hospital Course (1) Protein calorie malnutrition s/p G-tube placement continue tube feeds (2) Status post tracheostomy, chronic respiratory failure continue vent management per Pulmonology, wean vent as tolerated and plan transfer to snf continue frequent suctioning (3) Motor neuron disease, ALS Continue supportive care Neurology following (4) Sepsis, suspected aspiration pneumonia versus HCAP improving, repeat bcx ngtd cont wean vent as tolerated per pulm reoslved (5)Hypokalemia resolved replenish prn (6)Hypomagnesemia resolved (6)Acute on chronic anemia No evidence of bleeding Repeat CBC in AM Transfuse PRBC if Hb < 7 (7)acute on chronic hypoxic respiratory failure vent Optimize pulmonary hygiene/mobilize as tolerated Continue ventilatory support/settings reviewed Titrate down FiO2 to keep SaO2 > 90% RTC and PRN HHN's + MUCOMYST HHN TID wean vent as tolerated and plan transfer to snf /subacute continue frequent suctioning appreciate pulm recs Abx per ID trached worsened by asp pna Code Status: Full Hospital Classification Declaration: Based on this initial evaluation, and depending on the patient's clinical course, I anticipate that this patient will require hospitalization for 2-3 days for malnutrition, trached, peg placed here , treated for aspiration pneumonia, lost bed at previous SNF now working on new bed, and close respiratory/hemodynamic monitoring. Disposition: Once the patient is stable to leave the hospital, I anticipate the patient will likely be discharged to the following environment: SNF, Planned for dc back to snf however patient lost bed, cm/sw working on new bed placement. I spent over 50 minutes on this patient's case, over 39 minutes were dedicated to counseling and/or care coordination and discharge/dispo planning. Discussed with patient/family, nursing staff, SW/CM, and consultants regarding clinical status, treatment course, and disposition planning. Time of note may not reflect time of encounter. ---- Date of Discussion: 06/03/18 A [id number] discussion with the patient's son regarding the patient's advanced care planning took place during this hospitalization on the above date. The discussion included the explanation and discussion of advance directives and associated forms/documents, as well as the patient's current code status. We also discussed at length the patient's medical conditions (both acute and chronic), general prognosis, treatment options, and goals of care. The following summarizes the discussion: Advance Care Planning/Goals of Care: - polst completed - Continue current evaluation and management of any acute and chronic medical issues - Will continue to support the patient/family - Will continue to discuss both short- and long-term goals of care DPOA-HC/Surrogate Decision Maker: , Randa Robles Code Status: Full Code AD Forms/Documents Completed: completed A total of 31 minutes was spent on this discussion, including counseling, answering questions, and completing, if any, pertinent advanced care planning forms/documents. Discharge Condition Upon Discharge: stable Discharge Disposition Patient was discharged to [facility] Aburto MD Jun 17, 2018 17:27
--- NOTE | 2018-06-17 17:33 | Infectious Diseases Prog Note ---
Assessment/Plan Assessment/Plan ASSESSMENT AND PLAN: 1. serratia pna, acinetobacter pna, sepsis, leukocytosis, ALS, trach, vent, g- tube, fevers yesterday - meropenem - discontinue, s/p full treatment - bactrim down g-tube x 1 day - urine culture with yeast is likely colonizer - blood cultures - negative - monitor labs and chest x-ray - clinically stable, leukocytosis and fevers resolved - chest x-ray stable 2. The patient has trach/vent and respiratory failure. 3. Dysphagia, possible malnutrition, needed gastrostomy tube. 4. The patient has history of amyotrophic lateral sclerosis. 5. Possible hyperlipidemia. 6. Discussed with Neurology. Neurology will follow. 7. Hypertension. Treatment per primary team. 8. Anemia. 9. Weakness secondary to presumptive amyotrophic lateral sclerosis. 10. No history of diabetes or hypertension. 11. No known allergies. 12. Social history negative. 13. Family history noncontributory. 14. MAR was noted. 15. Case discussed with RN. 16. Continue treatment per primary consultants. 17. Case discussed with the patient and the patient's family. 18. vre colonization and isolation Subjective Constitutional: Reports: fatigue, other - stable, on vent ; Denies: fever HEENT: Reports: congestion Respiratory: Reports: shortness of breath Gastrointestinal/Abdominal: Denies: nausea, vomiting, diarrhea Genitourinary: Reports: other - no loera Neurologic: Denies: headache Psychiatric: Denies: depression Skin: Denies: rash Hematologic: Denies: bleeding Musculoskeletal: Denies: pain Allergies: Coded Allergies: No Known Allergies (Unverified , 06/02/18) Objective Vital Signs Last 24 Hour Vital Signs Date Time Temp Pulse Resp B/P (MAP) Pulse Ox O2 Delivery O2 Flow Rate FiO2 06/17/18 15:00 78 16 35 06/17/18 13:14 83 16 100 Mechanical Ventilator 35 06/17/18 13:14 83 16 100 Mechanical Ventilator 35 06/17/18 12:54 72 16 100 Mechanical Ventilator 35 06/17/18 12:54 72 15 100 Mechanical Ventilator 35 06/17/18 12:51 72 16 35 06/17/18 12:00 74 06/17/18 12:00 97.7 83 18 107/68 (81) 100 06/17/18 12:00 Mechanical Ventilator 06/17/18 12:00 30 1/10/19 11:33 80 17 35 06/17/18 10:52 76 16 35 06/17/18 09:22 69 110/64 06/17/18 09:20 110/64 06/17/18 09:00 79 16 35 06/17/18 08:00 30 06/17/18 08:00 66 06/17/18 08:00 Mechanical Ventilator 06/17/18 08:00 97.7 69 16 110/64 (79) 100 06/17/18 07:22 61 18 100 Mechanical Ventilator 35 06/17/18 07:22 61 18 100 Mechanical Ventilator 35 06/17/18 07:08 60 16 100 Mechanical Ventilator 35 06/17/18 07:08 60 15 100 Mechanical Ventilator 35 06/17/18 07:05 60 15 35 06/17/18 04:42 70 16 35 06/17/18 04:00 30 06/17/18 04:00 97.8 72 16 101/64 (76) 100 06/17/18 04:00 Mechanical Ventilator 06/17/18 04:00 65 06/17/18 02:55 102 17 35 06/17/18 01:09 89 18 99 Mechanical Ventilator 30 06/17/18 00:59 88 16 98 Mechanical Ventilator 35 06/17/18 00:59 88 16 35 06/17/18 00:00 73 06/17/18 00:00 97.9 71 18 110/70 (83) 100 06/17/18 00:00 30 06/17/18 00:00 Mechanical Ventilator 06/16/18 23:02 66 16 35 06/16/18 20:56 74 15 35 06/16/18 20:00 30 06/16/18 20:00 Mechanical Ventilator 06/16/18 20:00 98.6 110 18 134/89 (104) 95 06/16/18 20:00 90 06/16/18 19:25 78 18 100 Mechanical Ventilator 30 06/16/18 19:25 78 18 100 Mechanical Ventilator 30 06/16/18 19:10 79 16 98 Mechanical Ventilator 30 06/16/18 19:10 79 16 98 Mechanical Ventilator 35 06/16/18 19:08 79 16 35 06/16/18 18:36 98.1 80 16 106/62 (77) 96 Height (Feet): 5 Height (Inches): 4.00 Weight (Pounds): 117 General Appearance: no acute distress HEENT: normocephalic, atraumatic, anicteric, mucous membranes moist, EOMI, no JVD, status post trach Respiratory/Chest: crackles/rales, rhonchi - bilaterally Cardiovascular: normal rate, regular rhythm, no gallop/murmur, no JVD Abdomen: normal bowel sounds, soft, non tender, no organomegaly, non distended Genitourinary: other - no loera Extremities: no cyanosis Skin: no rash Neurologic/Psychiatric: environmental planner II-XII grossly normal, alert, oriented x 3, responsive, normal mood/affect Lymphatic: no neck adenopathy Musculoskeletal: no effusion Objective CT abdomen/pelvis/chest: IMPRESSION: CT CHEST: * Tracheostomy tube in place. * Complete atelectasis of the left lower lobe with some mucous/debris in the left lower lobe bronchus. Consider bronchoscopy as clinically indicated. Mass or pneumonia in the collapsed lung not excludable. * Patchy and somewhat nodular airspace opacities in the posterior left upper lobe and posterior right lower lobe as well as some tree-in-bud opacities in the periphery of the left upper lobe likely infectious or inflammatory in etiology. Follow-up after appropriate treatment recommended to ensure resolution. CT ABDOMEN/PELVIS: * Cholelithiasis. No CT evidence to suggest acute cholecystitis. * Bladder wall thickening. Correlation with urinalysis recommended to exclude cystitis. * Enlarged and heterogeneous prostate. * Moderate colonic stool burden raising question for constipation. Chest x-ray - 06/05/18: FINDINGS: Lungs: Bibasilar infiltrates, left greater than right. Pleural space: Unremarkable. No pneumothorax. Heart: Unremarkable. No cardiomegaly. Mediastinum: Unremarkable. Bones/joints: No acute fracture. Tubes, lines and devices: Tracheostomy. IMPRESSION: Bibasilar infiltrates, left greater than right. 06/09/18 - chest x-ray - Comparison: 06/06/2018 A single view chest radiograph was obtained. Findings: Basilar infiltrates again demonstrated. Heart size is stable. Tracheostomy noted. IMPRESSION: No change Chest x-ray - 06/15 - Findings: Left basilar parenchymal density demonstrated. Question of infiltrate in the right perihilar infrahilar region. Tracheostomy noted. Heart size is normal. Pulmonary vascularity is normal. IMPRESSION: Patchy infiltrate suspected at the lung bases. Findings appear unchanged Microbiology Date/Time Source Procedure Growth Status 06/07/18 21:10 Blood Blood Culture - Final NO GROWTH AFTER 5 DAYS Complete 06/07/18 21:00 Sputum Induced Gram Stain - Final Complete 06/07/18 21:00 Sputum Culture - Final Serratia Marcescens Usual Respiratory Radha Complete 06/07/18 22:18 Urine,Clean Catch Urine Culture - Final YEAST Complete 06/02/18 21:10 Rectum VRE Culture - Final Enterococcus Faecalis - Vre Complete 06/02/18 21:10 Rectum - Final NO CARBAPENEM-RESISTANT ENTEROBACTERI... Complete Laboratory Tests Test 06/17/18 05:08 White Blood Count 9.5 K/UL (4.8-10.8) Red Blood Count 2.89 M/UL (4.70-6.10) L Hemoglobin 8.1 G/DL (14.2-18.0) L Hematocrit 24.8 % (42.0-52.0) L Mean Corpuscular Volume 86 FL (80-99) Mean Corpuscular Hemoglobin 28.0 PG (27.0-31.0) Mean Corpuscular Hemoglobin Concent 32.5 G/DL (32.0-36.0) Red Cell Distribution Width 16.9 % (11.6-14.8) H Platelet Count 358 K/UL (150-450) Mean Platelet Volume 7.3 FL (6.5-10.1) Neutrophils (%) (Auto) 51.5 % (45.0-75.0) Lymphocytes (%) (Auto) 25.9 % (20.0-45.0) Monocytes (%) (Auto) 6.5 % (1.0-10.0) Eosinophils (%) (Auto) 15.1 % (0.0-3.0) H Basophils (%) (Auto) 1.1 % (0.0-2.0) Sodium Level 138 MMOL/L (136-145) Potassium Level 4.0 MMOL/L (3.5-5.1) Chloride Level 105 MMOL/L (98-107) Carbon Dioxide Level 25 MMOL/L (21-32) Anion Gap 8 mmol/L (5-15) Blood Urea Nitrogen 12 mg/dL (7-18) Creatinine 0.8 MG/DL (0.55-1.30) Estimat Glomerular Filtration Rate > 60 mL/min (>60) Glucose Level 94 MG/DL (74-106) Calcium Level 8.9 MG/DL (8.5-10.1) Current Medications Medications (Trade) Dose Ordered Sig/Irma Route PRN Reason Start Time Stop Time Status Last Admin Dose Admin Acetaminophen (Tylenol) 650 mg Q4H PRN GT Mild Pain/Temp > 100.5 06/07/18 21:00 07/07/18 20:59 06/16/18 17:33 Acetylcysteine (Mucomyst) 100 mg TIDRT HHN 06/04/18 19:00 07/04/18 18:59 06/17/18 12:54 Albuterol/ Ipratropium (Albuterol/ Ipratropium) 3 ml Q4H PRN HHN Shortness of Breath 06/15/18 16:30 06/20/18 16:29 Albuterol/ Ipratropium (Albuterol/ Ipratropium) 3 ml Q6HRT HHN 06/15/18 13:00 06/20/18 12:59 06/17/18 12:54 Amlodipine Besylate (Norvasc) 10 mg DAILY GT 06/14/18 09:00 07/03/18 08:59 06/17/18 09:22 Atorvastatin Calcium (Lipitor) 10 mg BEDTIME GT 06/13/18 21:00 07/02/18 22:29 06/16/18 20:21 Bisacodyl (Dulcolax) 10 mg DAILYPRN PRN RECTAL Constipation 06/03/18 06:41 07/03/18 06:40 Dextrose/Sodium Chloride 1,000 ml @ 100 mls/hr Q10H IV 06/02/18 22:00 07/02/18 21:59 06/17/18 05:05 Docusate Sodium (Colace) 100 mg TWICE A DAY GT 06/13/18 18:00 07/12/18 08:59 06/17/18 09:22 Heparin Sodium (Porcine) (Heparin 5000 units/ml) 5,000 units EVERY 12 HOURS SUBQ 06/03/18 09:00 07/03/18 08:59 06/17/18 09:24 Lansoprazole (Prevacid) 30 mg BID GT 06/13/18 18:00 07/03/18 08:59 06/17/18 09:21 Lisinopril (Zestril) 10 mg DAILY GT 06/14/18 09:00 07/03/18 08:59 06/17/18 09:20 Multivitamins Therapeutic (Therapeutic Multivitamin) 1 ea DAILY ORAL 06/03/18 09:00 07/03/18 08:59 06/17/18 09:22 Patient Own Medication (Patient's Own Med) 1 ea Q12HR ORAL 06/13/18 21:00 07/03/18 20:59 06/17/18 09:19 Trimethoprim/ Sulfamethoxazole (Bactrim-DS) 2 tab Q12HR GT 06/14/18 21:00 06/20/18 17:59 06/17/18 09:21 Vitamin D (Vitamin D) 2,000 intlu DAILY GT 06/14/18 09:00 07/03/18 08:59 06/17/18 09:21 Pratik Bowens MD Jun 17, 2018 17:33
--- NOTE | 2018-06-17 20:32 | General Progress Note ---
Assessment/Plan Assessment/Plan # Acute on chronic anemia, anemia panel has been reviewed --> No evidence of bleeding --> cbc reviewed --> Transfuse PRBC if Hb < 7 # Protein calorie malnutrition --> s/p PEG placement --> continue tube feeds # Status post tracheostomy, chronic respiratory failure --> continue vent management per Pulmonology --> wean vent as tolerated and plan transfer to snf --> continue frequent suctioning # Motor neuron disease, ALS --> Continue supportive care --> Neurology following # Sepsis, suspected aspiration pneumonia versus HCAP --> improving --> cont wean vent as tolerated per pulm --> on bactrim and meropenem --> ID following # Hypokalemia --> improved, sp K given # Resp failure, acute on chronic --> on vent and trached Greatly appreciate consultation! Subjective Constitutional: Denies: no symptoms, chills, diaphoresis, fever, malaise, weakness, other HEENT: Denies: no symptoms, eye pain, blurred vision, tearing, double vision, ear pain, ear discharge, nose pain, nose congestion, throat pain, throat swelling, mouth pain, mouth swelling, other Cardiovascular: Denies: no symptoms, chest pain, edema, irregular heart rate, lightheadedness, palpitations, syncope, other Respiratory: Denies: no symptoms, cough, orthopnea, shortness of breath, SOB with excertion, SOB at rest, sputum, stridor, wheezing, other Gastrointestinal/Abdominal: Denies: no symptoms, abdomen distended, abdominal pain, black stools, tarry stools, blood in stool, constipated, diarrhea, difficulty swallowing, nausea, poor appetite, poor fluid intake, rectal bleeding , vomiting, other Genitourinary: Denies: no symptoms, burning, discharge, frequency, flank pain, hematuria, incontinence, pain, urgency, other Neurologic/Psychiatric: Denies: no symptoms, anxiety, depressed, emotional problems, headache, numbness, paresthesia, pre-existing deficit, seizure, tingling, tremors, weakness, other Endocrine: Denies: no symptoms, excessive sweating, flushing, intolerance to cold, intolerance to heat, increased hunger, increased thirst, increased urine, unexplained weight gain, unexplained weight loss, other Hematologic/Lymphatic: Denies: no symptoms, anemia, easy bleeding, easy bruising, other Allergies: Coded Allergies: No Known Allergies (Unverified , 06/02/18) Subjective 1/2 Pt is seen in the room, resting in bed. /trach/vent/ g tube and respiratory failure.cbc reviewed. no events 06/10: Pt is resting in bed, remains on vent , cbc reviewed, no events reported. 06/11: Pt is awake and resting in bed. Pt is on mechanical vent, in no acute distress. Family is at bedside 06/12: Pt is seen in the room, s/p PEG for dysphagia, on vent, cbc reviewed, no events. 06/13: Pt is seen at bedside, awake and lying in bed, cbc reviewed no evnts reported, pt is cleared for discharge by ID and pulm 06/14: no major events, on abx, on trach, gtube tolerating well 06/15: Pt is seen by bedside, resting, comfortable, on vent and gtube, no events 06/16: A/O x's4-able to make needs known, Family at bedside, no signs and symptoms of acute cardiac or respiratory distress noted 06/17: Patient is seen by bedside, resting and comfortable, no events reported Objective Last 24 Hour Vital Signs Date Time Temp Pulse Resp B/P (MAP) Pulse Ox O2 Delivery O2 Flow Rate FiO2 06/17/18 16:00 Mechanical Ventilator 06/17/18 16:00 98.2 106 20 102/59 (73) 100 06/17/18 16:00 83 06/17/18 16:00 30 06/17/18 15:00 78 16 35 06/17/18 13:14 83 16 100 Mechanical Ventilator 35 06/17/18 13:14 83 16 100 Mechanical Ventilator 35 06/17/18 12:54 72 16 100 Mechanical Ventilator 35 06/17/18 12:54 72 15 100 Mechanical Ventilator 35 06/17/18 12:51 72 16 35 06/17/18 12:00 74 06/17/18 12:00 97.7 83 18 107/68 (81) 100 06/17/18 12:00 Mechanical Ventilator 06/17/18 12:00 30 06/17/18 11:33 80 17 35 06/17/18 10:52 76 16 35 06/17/18 09:22 69 110/64 06/17/18 09:20 110/64 06/17/18 09:00 79 16 35 06/17/18 08:00 30 06/17/18 08:00 66 06/17/18 08:00 Mechanical Ventilator 06/17/18 08:00 97.7 69 16 110/64 (79) 100 06/17/18 07:22 61 18 100 Mechanical Ventilator 35 06/17/18 07:22 61 18 100 Mechanical Ventilator 35 06/17/18 07:08 60 16 100 Mechanical Ventilator 35 06/17/18 07:08 60 15 100 Mechanical Ventilator 35 06/17/18 07:05 60 15 35 06/17/18 04:42 70 16 35 06/17/18 04:00 30 06/17/18 04:00 97.8 72 16 101/64 (76) 100 06/17/18 04:00 Mechanical Ventilator 06/17/18 04:00 65 06/17/18 02:55 102 17 35 06/17/18 01:09 89 18 99 Mechanical Ventilator 30 06/17/18 00:59 88 16 98 Mechanical Ventilator 35 06/17/18 00:59 88 16 35 06/17/18 00:00 73 06/17/18 00:00 97.9 71 18 110/70 (83) 100 06/17/18 00:00 30 06/17/18 00:00 Mechanical Ventilator 06/16/18 23:02 66 16 35 06/16/18 20:56 74 15 35 Intake and Output 06/16/18 06/17/18 19:00 07:00 Intake Total 2260 ml 2416 ml Output Total 1500 ml 200 ml Balance 760 ml 2216 ml Free Water 600 ml 600 ml IV Total 1000 ml 1096 ml Tube Feeding 660 ml 720 ml Output Urine Total 1500 ml 200 ml # Voids 7 Laboratory Tests 06/17/18 05:08: White Blood Count 9.5, Red Blood Count 2.89L, Hemoglobin 8.1L, Hematocrit 24.8L , Mean Corpuscular Volume 86, Mean Corpuscular Hemoglobin 28.0, Mean Corpuscular Hemoglobin Concent 32.5, Red Cell Distribution Width 16.9H, Platelet Count 358, Mean Platelet Volume 7.3, Neutrophils (%) (Auto) 51.5, Lymphocytes (%) (Auto) 25.9, Monocytes (%) (Auto) 6.5, Eosinophils (%) (Auto) 15.1H, Basophils (%) (Auto) 1.1, Sodium Level 138, Potassium Level 4.0, Chloride Level 105, Carbon Dioxide Level 25, Anion Gap 8, Blood Urea Nitrogen 12 , Creatinine 0.8, Estimat Glomerular Filtration Rate > 60, Glucose Level 94, Calcium Level 8.9 Height (Feet): 5 Height (Inches): 4.00 Weight (Pounds): 117 Objective PE: Sp02: reviewed, normal General: well appearing, no apparent distress ENT: hearing grossly normal, normal pharynx- Tracheostomy in place Neck: full range of motion, supple, no meningismus, no bony ttp Respiratory: lungs clear, nml breath sounds GI: normal bowel sounds : no CVA tenderness MSK: chronically debilitated Neurologic: oriented x3, is responsive Psychiatric: mood/affect normal Skin: normal color, no rash Lymphatic: no adenopathy Mike Piper MD Jun 17, 2018 20:32
== END 2018-06-17 18:05 | DRG 870 ==
LOC: EDBD 18:31 → EDBEDREQ 18:52 → EDBEDREQSVC 18:52 → EMR 19:10 → 2W 19:38 → EDBEDREQ 20:13 → 2W 21:11
PROC: 5A1955Z Respiratory Ventilation, Greater than 96 Consecutive Hours (ICD-10-PCS; principal; 2018-06-02)
PROC: 0DH63UZ Insertion of Feeding Device into Stomach, Percutaneous Approach (ICD-10-PCS; 2018-06-04 10:07)
DX: A41.9 Sepsis, unspecified organism (principal); J15.6 Pneumonia due to other Gram-negative bacteria; J69.0 Pneumonitis due to inhalation of food and vomit; J96.20 Acute and chronic respiratory failure, unspecified whether with hypoxia or hypercapnia; G12.21 Amyotrophic lateral sclerosis; E46 Unspecified protein-calorie malnutrition; Z99.11 Dependence on respirator [ventilator] status; I10 Essential (primary) hypertension; Z93.0 Tracheostomy status; Z68.20 Body mass index [BMI] 20.0-20.9, adult; R13.10 Dysphagia, unspecified; Z74.01 Bed confinement status; D64.9 Anemia, unspecified; E87.6 Hypokalemia; E86.0 Dehydration; E83.42 Hypomagnesemia
CPT/HCPCS: 36415; 36600; 71045; 71260; 74177; 80048; 80053; 80202; 81001; 81003; 82164; 82270; 82378; 82550; 82553; 82607; 82728; 82746; 82803; 82962; 83540; 83550; 83735; 84439; 84443; 84484; 85007; 85025; 85044; 85610; 85730; 86738; 86850; 86900; 86901; 87040; 87070; 87081; 87086; 87181; 87205; 93005; 93306; 93970; 94002; 94003; 94150; 94640; 94664; 96365; 99285; J7620; J8499